=== PATIENT | female | born 1940 | race Caucasian/White ===

== ENCOUNTER 2016-10-19 11:14 | Inpatient (IN) | payer MEDICARE ==
[2016-10-19] MEDS ORDERED: NS 0.9% 1000 ML* 500 ML IV ONE (11:42)
[2016-10-19] MEDS ORDERED: Levofloxacin 750 MG IVPREMIX(* 750 MG/150 ML BAG IVPB ONE (11:44)
[2016-10-19] MEDS ORDERED: Acetaminophen TAB* 325 MG PO ONE (11:44)
[2016-10-19 12:09] LABS: Hematocrit 40 % (35-47); Hemoglobin 13.1 g/dl (12.0-16.0); Mean Corpuscular HGB Conc 33 g/dl (31-36); Mean Corpuscular Hemoglobin 31 pg (27-31); Mean Corpuscular Volume 95 fL (80-97); Mean Platelet Volume 9 um3 (7.4-10.4); Red Blood Count 4.18 10^6/ul (4.0-5.4); Red Cell Distribution Width 16 % (10.5-15); White Blood Count 8.9 10^3/ul (3.5-10.8)
[2016-10-19 12:12] LABS: Comments Flag Yes
[2016-10-19 12:13] LABS: Add Diff/Slide Review? Slide Review Added
[2016-10-19 12:25] LABS: Albumin 3.1 g/dL (3.2-5.2); BUN/Creatinine Ratio 13.3 (8-20); C Reactive Protein 109.9 mg/L (< 5.00); Calcium 8.7 mg/dL (8.6-10.3); EGFR African American 49.2 (>60); EGFR Non-African American 38.2 (>60); Globulin 3.7 g/dL (2-4); Total Bilirubin 2.7 mg/dL (0.2-1.0); Total Protein 6.8 g/dL (6.4-8.9)
[2016-10-19 12:35] LABS: Troponin I 0.04 ng/mL (<0.04)
[2016-10-19] MEDS ORDERED: Ondansetron INJ* 2 MG/ML VIAL IV ONE (14:11)
--- NOTE | 2016-10-19 14:20 | RAD ---
Indication: Tibial fracture. 2 views of the chest demonstrates no mediastinal shift. Heart is of normal size and configuration. Lungs are clear. When compared to previous exam of September 01, 2016 no significant change is noted. IMPRESSION: No active cardiopulmonary disease is noted.
[2016-10-19] MEDS ORDERED: Ondansetron INJ* 2 MG/ML VIAL IV PRN (16:08)
[2016-10-19] MEDS ORDERED: ACETAMINOPHEN 1000 MG PO PRN (16:12)
[2016-10-19] MEDS ORDERED: Nystatin OINT* 15 GM TOPICAL PRN (16:12)
[2016-10-19] MEDS ORDERED: Nystatin TOP POWDER* 15 GM BTL TOPICAL PRN (16:12)
[2016-10-19] MEDS ORDERED: Dextrose 50% Syringe 50 ML* 25 GM/50 ML SYRINGE IV PUSH PRN (16:13)
[2016-10-19] MEDS ORDERED: NS 0.9% 1000 ML* 1,000 ML IV SCH (16:15)
[2016-10-19 16:43] LABS: Urine Bacteria 3+ (Absent); Urine Bilirubin Negative (Negative); Urine Glucose Negative (Negative); Urine Nitrite Negative (Negative)
[2016-10-19] MEDS: Benzonatate CAP* 100 MG PO PRN (18:10)
[2016-10-19] MEDS: Insulin LISPRO* 1 UNITS UNIT SUBCUT SCH (18:10)
[2016-10-19] MEDS: Senna TAB PO PRN (18:13)
--- NOTE | 2016-10-19 18:13 | ED ---
Laz Duong Billy, scribed for Jose Roberto Jacinto MD on 10/19/16 at 1139 . Respiratory - HPI Summary HPI Summary: Patient is a 76 year-old female coming to [facility] for evaluation of intermittent fever, coughing, headache, nausea, and vomiting for the last 2 days. TMax 101F. She also reports chest tightness. Denies abdominal pain, diarrhea, or constipation. - History of Current Complaint Chief Complaint: EDShortnessOfBreath Stated Complaint: SOB Time Seen by Provider: 10/19/16 11:36 Hx Obtained From: Patient Onset/Duration: Gradual Onset, Lasting Days Timing: Constant Initial Severity: Moderate Current Severity: Moderate Pain Intensity: 8 Character: Cough (Nonproductive) Sputum Amount: None Aggravating Factor(s): Nothing Alleviating Factor(s): Nothing Associated Signs and Symptoms: Fever, Chest Pain - tightness - Allergy/Home Medications Allergies/Adverse Reactions: Allergies Allergy/AdvReac Type Severity Reaction Status Date / Time Adhesive Tape Allergy Mild Hives Verified 09/14/16 13:41 Cephalexin [From Keflex] Allergy Mild Hives Verified 09/14/16 13:41 Codeine Allergy Mild Hives Verified 09/14/16 13:41 Hydrochlorothiazide Allergy Mild Hives Verified 09/14/16 13:41 Hydrocodone Allergy Mild Hives Verified 09/14/16 13:41 Latex Allergy Mild Hives Verified 09/14/16 13:41 Oxycodone Allergy Mild Hives Verified 09/14/16 13:41 Penicillins Allergy Mild Hives Verified 09/14/16 13:41 Statins Allergy Mild Hives Verified 09/14/16 13:41 Carvedilol Allergy Facial Verified 09/14/16 13:41 Redness/Flushing Hydromorphone [From Dilaudid] Allergy Unknown Verified 09/14/16 13:41 Reaction Details Morphine Allergy Rash Verified 09/14/16 13:41 Ondansetron [From Zofran] Allergy Rash Verified 09/14/16 13:41 Tramadol Allergy Unknown Verified 09/14/16 13:41 Reaction Details Urtica Dioica Allergy Rash Verified 09/14/16 13:41 Doxycycline AdvReac Diarrhea Verified 09/14/16 23:18 Nitrofurantoin AdvReac Nausea And Verified 09/14/16 23:18 [From Macrobid] Vomiting Home Medications: Home Medications Acetaminophen [Acetaminophen Extra Stren] 1,000 mg PO BEDTIME PRN 10/19/16 [ History Confirmed 10/19/16] Acetaminophen [Acetaminophen Extra Stren] 1,000 mg PO BID PRN 10/19/16 [History Confirmed 10/19/16] Cholecalciferol TAB* [Vitamin D TAB*] 2,000 units PO DAILY 10/19/16 [History Confirmed 10/19/16] Cyanocobalamin TAB* [Vitamin B12 TAB*] 1,000 mcg PO DAILY 10/19/16 [History Confirmed 10/19/16] Furosemide TAB* [Lasix TAB*] 40 mg PO DAILY 10/19/16 [History Confirmed 10/19/16 ] Insulin Aspart Protamine & Asp [Novolog Mix 70/30 (70-30) 100 Unit/ml] 10 units SUBCUT 1200 10/19/16 [History Confirmed 10/19/16] Insulin Glargine [Lantus] 55 unit SUBCUT QAM 10/19/16 [History Confirmed ] Nystatin OINT* 1 applic TOPICAL Q12HR PRN 10/19/16 [History Confirmed 10/19/16] Nystatin TOP POWDER* 1 applic TOPICAL Q12HR PRN 10/19/16 [History Confirmed ] Omeprazole CAP* [Prilosec CAP* 20 MG] 20 mg PO DAILY 10/19/16 [History Confirmed 10/19/16] Sennosides-Docusate Sodium [Senokot S] 2 tab PO BEDTIME PRN 10/19/16 [History Confirmed 10/19/16] Throat Lozenges [Kline Cough Drops] 1 mauro PO Q2HR PRN 10/19/16 [History Confirmed 10/19/16] guaiFENesin LIQ* [Robitussin*] 15 ml PO Q4H PRN 10/19/16 [History Confirmed ] PMH/Surg Hx/FS Hx/Imm Hx Endocrine/Hematology History: Reports: Hx Diabetes Denies: Hx Systemic Lupus Erythematosus, Hx Thyroid Disease Cardiovascular History: Reports: Hx Angina, Hx Hypercholesterolemia, Hx Hypertension, Other Cardiovascular Problems/Disorders - IRREGULAR HEART BEAT Denies: Hx Congestive Heart Failure, Hx Pacemaker/ICD Respiratory History: Denies: Hx Asthma, Hx Chronic Obstructive Pulmonary Disease (COPD) GI History: Reports: Hx Diverticulosis, Hx Gastroesophageal Reflux Disease, Other GI Disorders - gerd and diverticulosis/itis Denies: Hx Ulcer History: Reports: Hx Kidney Stones, Other Problems/Disorders - stones Denies: Hx Dialysis, Hx Renal Disease Musculoskeletal History: Reports: Other Musculoskeletal History - arthritis and disc problems Denies: Hx Rheumatoid Arthritis, Hx Osteoporosis Sensory History: Reports: Hx Contacts or Glasses Denies: Hx Hearing Aid Opthamlomology History: Reports: Hx Contacts or Glasses Psychiatric History: Denies: Hx Panic Disorder - Cancer History Hx Chemotherapy: No - Surgical History Surgery Procedure, Year, and Place: rotator cuff x3; varicose vein; cholecystectomy; Prolapsed uterus and bladder repair with mesh. Hx Anesthesia Reactions: No - Immunization History Date of Tetanus Vaccine: None Date of Influenza Vaccine: Fall 2014 Infectious Disease History: Yes Infectious Disease History: Reports: Hx Hepatitis - as a child Denies: Hx Clostridium Difficile, Hx Human Immunodeficiency Virus (HIV), Hx of Known/Suspected MRSA, Hx Shingles, Hx Tuberculosis, Hx Known/Suspected VRE, Hx Known/Suspected VRSA, History Other Infectious Disease, Traveled Outside the [place] in Last 30 Days - Family History Known Family History: Positive: Hypertension - Social History Alcohol Use: None Substance Use Type: Reports: None Hx Tobacco Use: No Smoking Status (MU): Never Smoked Tobacco Have You Smoked in the Last Year: No Review of Systems Positive: Fever Respiratory: Other - chest tightness Positive: Cough Positive: Vomiting, Nausea. Negative: Abdominal Pain, Diarrhea All Other Systems Reviewed And Are Negative: Yes Physical Exam - Summary Physical Exam Summary: VITAL SIGNS: Reviewed. GENERAL: Patient is a well developed and nourished female with some distress secondary to the shortness of breath. However, she is able to speak in full sentences. HEAD AND FACE: Normocephalic and atraumatic. EYES: PERRLA, EOMI x 2, No injected conjunctiva. EARS: Hearing grossly intact. Ear canals and tympanic membranes WNL MOUTH: Dry oral mucosa. NECK: Supple, trachea is midline, no adenopathy, no JVD, no carotid bruit. CHEST: Symmetric, No intercostal or abdominal retraction, LUNGS: Diffuse bilateral wheezing and decreased breath sounds.No crackles. CVS: RRR,, S1 and S2 present, no murmurs or gallops appreciated. ABDOMEN: Soft, non-tender. No signs of distention. Positive BS. No rebound, no guarding, and no masses palpated. EXTREMITIES: FROM in all major joints, no edema, no cyanosis or clubbing. NEURO: Alert and oriented x 3. No acute neurological deficits. Speech is normal and follows commands. SKIN: Dry and warm Triage Information Reviewed: Yes Vital Signs On Initial Exam: Initial Vitals Temp Pulse Resp BP 101.5 F 99 22 115/53 10/19/16 11:17 10/19/16 11:17 10/19/16 11:17 10/19/16 11:17 Vital Signs Reviewed: Yes - Jones Coma Scale Coma Scale Total: 15 Diagnostics - Vital Signs Vital Signs Temp Pulse Resp BP Pulse Ox 10/19/16 11:27 101.5 F 101 22 116/50 96 10/19/16 11:17 101.5 F 99 22 115/53 - Laboratory Result Diagrams: 10/19/16 11:45 10/19/16 11:45 Lab Statement: Any lab studies that have been ordered have been reviewed, and results considered in the medical decision making process. - Radiology CXR Xray Interpretation: No Acute Changes Radiology Interpretation Completed By: Radiologist - EKG 1241 EKG Interpretation: NSR 85 bpm, no STEMI Disposition - Course Assessment/Plan: Patient is a 76 year-old female coming to [facility] for evaluation of intermittent fever, coughing, headache, nausea, and vomiting for the last 2 days. TMax 101F. She also reports chest tightness. Denies abdominal pain, diarrhea, or constipation. Bloodwork WNL except for left shift neutrophil of 85.3, creatinine of 1.35, glucose of 150. Lactic acid is 3.0. Total creatine kinase 654, trop 0.04, CRP 109.90. UA is contaminated. CXR shows no acute pathology. On pysical exam, she had right lower lobe crackles so I believe she has clinical pneumoniua. The patient has fever, yellowish sputum, and increased CRP. At this time, I started her on Levaquin. She was also given ASA since her troponin was elevated. I discussed my physical exam findings with Dr. Fabian who accepted the patient for admission. - Differential Dx - Cardiopulmonary Differential Diagnoses - Cardiopulmonary: Bronchitis, Exacerbation Of COPD - Diagnoses Provider Diagnoses: clinical pneumonia, Increased troponin r/o ACS - Physician Notifications Discussed Care Of Patient With: Dr. Fabian (hospitalist) at 1435: accepts admission. Discharge - Discharge Plan Condition: Stable Disposition: ADMITTED TO [facility] The documentation as recorded by the Laz hsieh Billy accurately reflects the service I personally performed and the decisions made by me, Jose Roberto Jacinto MD.
[2016-10-19] MEDS: Insulin GLARGINE(*) 1 UNITS UNIT SUBCUT SCH (20:50)
[2016-10-19] MEDS ORDERED: guaiFENesin ER TAB 600 MG PO SCH (21:00)
[2016-10-19] MEDS: Heparin VIAL(*) 5000 UNITS/ML VIAL (FIVE THOUSAND) SUBCUT SCH (21:55)
[2016-10-19] MEDS: Acetaminophen TAB* 325 MG PO PRN (22:05)
[2016-10-19] MEDS: guaiFENesin LIQ* 100 MG/5 ML UDC PO PRN (22:08)
--- NOTE | 2016-10-19 23:48 | HP ---
HISTORY AND PHYSICAL: DATE OF ADMISSION: 10/19/16 The patient is a resident of [facility]. CHIEF COMPLAINT: Cough. HISTORY OF PRESENT ILLNESS: Ms. Atkinson is a pleasant 76-year-old female with a past medical history of hypertension, hyperlipidemia, anemia, nonalcoholic cirrhosis with varices, GERD, diabetes, who presents to the hospital with a cough and fever. The patient states that she has been at [facility] for about a month. She has been there for rehab due to a knee injury and recently found that she actually had a tibial plateau fracture on the right side. For the past few days, she has had worsening cough and developed fevers. She states Sunday night the symptoms began with a dry cough and then yesterday she felt like she had a sore throat and the cough persisted. She was unable to get much sleep last night and was found to have a fever of 102 this morning. She denies any runny nose or sinus congestion, reports some chest tightness with the cough, but no shortness of breath. She has had some nausea and no emesis. She also reports the headache and some dizziness. Apparently, the patient's has had some nasal congestion too. He is a resident at [facility] as well, but his symptoms resolved 4 to 5 days ago. PAST MEDICAL HISTORY: Diabetes, GERD, cirrhosis, varices, hypertension, hyperlipidemia, anemia. PAST SURGICAL HISTORY: Prolapsed uterus repair, humerus fracture, laparoscopic cholecystectomy, rotator cuff surgery. HOME MEDICATIONS: 1. Vitamin B12 1000 mcg by mouth daily. 2. Vitamin D 2000 units by mouth daily. 3. Tylenol 1000 mg by mouth 2 times daily as needed for pain. 4. Tylenol 1000 mg by mouth at bedtime as needed for pain. 5. Throat lozenges 1 lozenge every 2 hours as needed for sore throat. 6. Spironolactone 50 mg by mouth daily. 7. Senna/docusate 2 tablets by mouth at bedtime as needed for constipation. 8. Omeprazole 20 mg by mouth daily. 9. Nystatin topical powder 1 application topical every 12 hours as needed for rash. 10. NovoLog 70/30 10 units subcutaneous at noon. 11. Lantus 55 units subcu every morning, 45 units subcu at bedtime. 12. Robitussin 15 mL by mouth every 4 hours as needed for cough. 13. Lasix 40 mg by mouth daily. ALLERGIES: ADHESIVE TAPE, KEFLEX, CODEINE, HYDROCHLOROTHIAZIDE, HYDROCODONE, LATEX, OXYCODONE, PENICILLIN, STATINS, CARVEDILOL, HYDROMORPHONE, MORPHINE, ONDANSETRON, TRAMADOL, URTICA DIOICA, DOXYCYCLINE, NITROFURANTOIN. FAMILY HISTORY: The patient is adopted. SOCIAL HISTORY: The patient never smoked cigarettes. Denies any illicit drug use or alcohol use. REVIEW OF SYSTEMS: A 12-point review of systems is negative except for that is noted in the HPI. PHYSICAL EXAMINATION GENERAL: The patient is a pleasant elderly female, lying in bed, in no apparent distress with frequent barking cough. VITAL SIGNS: On admission, temperature 101.5, heart rate of 99, respiratory rate 22, O2 saturation 96% on 4 L, blood pressure 115/53. HEENT: Head normocephalic, atraumatic. Eyes: Pupils are equal, round, and reactive to light and accommodation. Anicteric sclerae. ENT: The patient reports some maxillary sinus tenderness on palpation. No discharge noted. Posterior oropharynx is clear. Nonerythematous. Does have a slight possible thrush on her tongue. LUNGS: The patient with some slight expiratory rhonchi throughout the left side , rales in the right lower lung field. Frequent cough, nonlabored breathing. CARDIOVASCULAR: Regular rate and rhythm. S1 and S2 present. No murmurs, gallops, or rubs. ABDOMEN: Obese, soft, nontender, and nondistended. Bowel sounds positive. EXTREMITIES: No cyanosis, clubbing, or edema. NEUROLOGIC: The patient is alert and oriented x3. No focal neurological deficits. SKIN: Warm and dry well perfused. LABS AND DIAGNOSTICS: White blood cell count of 8.9, hematocrit of 40, and platelets of 95. Sodium of 134, potassium 4.0, chloride of 104, carbon dioxide of 20, BUN of 18, creatinine 1.35, glucose of 150, lactic acid of 3.0, total bilirubin 2.7, AST of 74, AST of 31, alkaline phosphatase 124, CK of 654, CK-MB of 2.6, troponin 0.04. CRP of 109. B natriuretic peptide of 234. EKG, personally reviewed, shows normal sinus rhythm with occasional bigeminy. No significant changes from previous EKG. Chest x-ray, personally reviewed, read as no acute disease. However, it seems like there may be some right-sided fluffiness in the lower lung acuna. ASSESSMENT AND PLAN: Acute hypoxic respiratory failure secondary to community- acquired pneumonia in a 76-year-old female with past medical history of hypertension, hyperlipidemia, cirrhosis, diabetes, gastroesophageal reflux disease. 1. Acute hypoxic respiratory failure secondary to community-acquired pneumonia. The patient is currently on 4 L of oxygen and requires none at home. Despite a normal chest x-ray, I agree with Dr. Jacinto' assessment with abnormal lung sounds in the right lower lobe along with her fever and elevated lactic acid, we will treat this as a bacterial infection. She received a dose of Levaquin in the emergency department. I will check a procalcitonin as there is a chance this could be viral as well. We will try to wean the patient's oxygen as able. We will write for p.r.n. nebulizer as well, some supportive therapy for cough. We will place the patient on some maintenance IV fluids and hold her Lasix for now. 2. Elevated CK, unclear etiology. Perhaps, it has been from the patient's lack of activity and mobility lately due to her fracture. We will repeat in the morning. 3. Tibial plateau fracture just diagnosed in the past few weeks on MRI. The patient is nonweightbearing in the lower extremity. 4. Diabetes. Continue the patient's home Lantus. We will write for Humalog sliding scale. 5. Gastroesophageal reflux disease. Continue PPI. 6. Hypertension. Holding the patient's home Lasix for now. We will continue spironolactone. 7. DVT prophylaxis. Heparin subcu. 8. Code status. The patient is a DNR. TIME SPENT: Total time spent on this admission 45 minutes with over half the time spent [id number] with the patient counseling and coordinating care. [id number]/[facility] #: [id number] CONRAD
[2016-10-20] MEDS: guaiFENesin LIQ* 100 MG/5 ML UDC PO PRN ×4 (03:13→21:44)
[2016-10-20] MEDS: Heparin VIAL(*) 5000 UNITS/ML VIAL (FIVE THOUSAND) SUBCUT SCH ×3 (05:50→21:44)
[2016-10-20 07:29] LABS: Albumin 2.5 g/dL (3.2-5.2); BUN/Creatinine Ratio 18.4 (8-20); Calcium 8.1 mg/dL (8.6-10.3); EGFR African American 59.8 (>60); EGFR Non-African American 46.5 (>60); Globulin 3.1 g/dL (2-4); Potassium 4.2 mmol/L (3.5-5.0); Total Bilirubin 2.3 mg/dL (0.2-1.0); Total Protein 5.6 g/dL (6.4-8.9)
[2016-10-20] MEDS: Insulin LISPRO* 1 UNITS UNIT SUBCUT SCH ×3 (08:12→17:48)
[2016-10-20] MEDS: Insulin GLARGINE(*) 1 UNITS UNIT SUBCUT SCH ×2 (08:46→20:51)
[2016-10-20] MEDS: Cholecalciferol TAB* 1000 UNITS PO SCH (08:47)
[2016-10-20] MEDS: Omeprazole CAP* 20 MG PO SCH (08:47)
[2016-10-20] MEDS: Spironolactone TAB* 25 MG PO SCH (08:47)
[2016-10-20] MEDS: Cyanocobalamin TAB* 500 MCG PO SCH (08:47)
[2016-10-20] MEDS ORDERED: Hydrocortisone 1% CREAM* 30 GM TUBE TOPICAL ONE (09:55)
--- NOTE | 2016-10-20 10:01 | PN ---
Subjective Date of Service: 10/20/16 Interval History: Patient seen this morning. Fever resolved. Feels better today, cough is breaking up and improving. Good PO intake. Still not much energy, denies SOB but requiring O2. Family History: Unchanged from Admission Social History: Unchanged from Admission Past Medical History: Unchanged from Admission Objective Active Medications: Acetaminophen (Tylenol Tab*) 975 mg PO BID PRN Albuterol (Ventolin 2.5 Mg/3 Ml Neb.Carly*) 2.5 mg INH Q4H PRN Benzonatate (Tessalon Cap*) 100 mg PO BID PRN Cholecalciferol (Vitamin D Tab*) 2,000 units PO DAILY SAMANTHA Cyanocobalamin (Vitamin B12 Tab*) 1,000 mcg PO DAILY SAMANTHA Dextrose (D50w Syringe 50 Ml*) 12.5 gm IV PUSH .FOR FS < 60 - SS PRN Guaifenesin (Robitussin*) 5 ml PO Q4H PRN Heparin Sodium (Porcine) (Heparin Vial(*)) 5,000 units SUBCUT Q8HR SAMANTHA Hydrocortisone (Hytone Cream 1%*) 1 applic TOPICAL ONCE ONE Levofloxacin/Dextrose (Levaquin 250 Mg Ivpremx(*)) 250 mg in 50 mls @ 50 mls/ hr IVPB Q24H SAMANTHA Insulin Glargine (Lantus(*)) 55 units SUBCUT QAM SAMANTHA Insulin Glargine (Lantus(*)) 45 units SUBCUT BEDTIME SAMANTHA Insulin Human Lispro (Humalog*) 0 - 15 units SUBCUT AC SAMANTHA Nystatin (Nystatin Oint*) 1 applic TOPICAL Q12HR PRN Nystatin (Nystatin Top Powder*) 1 applic TOPICAL Q12HR PRN Omeprazole (Prilosec Cap*) 20 mg PO DAILY SAMANTHA Ondansetron HCl (Zofran Inj*) 4 mg IV Q4H PRN Senna (Senokot Tab*) 2 tab PO BEDTIME PRN Spironolactone (Aldactone Tab*) 50 mg PO DAILY [facility] Vital Signs 10/19/16 10/19/16 10/19/16 16:52 17:00 18:17 Temperature 101.1 F 101.1 F 98.6 F Pulse Rate 87 87 Respiratory 32 32 Rate Blood Pressure 122/42 122/42 (mmHg) O2 Sat by Pulse 96 96 Oximetry 10/20/16 10/20/16 10/20/16 03:12 03:14 07:35 Temperature 98.2 F Pulse Rate 44 89 45 Respiratory 18 Rate Blood Pressure 102/37 110/43 (mmHg) O2 Sat by Pulse 96 99 Oximetry Oxygen Devices in Use Now: Nasal Cannula - 4L Appearance: Elderly, F, laying in bed in NAD Eyes: No Scleral Icterus Ears/Nose/Mouth/Throat: Mucous Membranes Moist Neck: NL Appearance and Movements; NL JVP Respiratory: Symmetrical Chest Expansion and Respiratory Effort, - - Coarse BS throughout L lung exp>inp, coarse rales in RLL field Cardiovascular: NL Sounds; No Murmurs; No JVD, RRR Abdominal: NL Sounds; No Tenderness; No Distention Lymphatic: No Cervical Adenopathy Extremities: No Edema Skin: No Rash or Ulcers Neurological: Alert and Oriented x 3 Result Diagrams: 10/19/16 11:45 10/20/16 06:58 Microbiology and Other Data: Microbiology 10/19/16 18:15 Nasal Screen MRSA (PCR)([facility]ISON) - Final Nasal Mrsa Negative Assess/Plan/Problems-Billing Assessment: Acute hypoxic respiratory failure 2/2 CAP in a 76 yo F with hx of HTN, HLD, cirrhosis, DM, GERD - Patient Problems (1) Acute respiratory failure with hypoxia Current Visit: Yes Comment: 2/2 CAP. Procalcitonin elevated, still requiring O2, wean as able. Continue IV Levaquin (renal dosed), continue supportive care with guaifenesin and prn nebs. Stop IVF. (2) Rhabdomyolysis Current Visit: Yes Comment: Resolving, will stop IVF, encourage PO intake (3) Tibial plateau fracture, right Current Visit: Yes Comment: RLGermán NWB (4) Diabetes Current Visit: No Code(s): E11.9 - TYPE 2 DIABETES MELLITUS WITHOUT COMPLICATIONS Comment: Continue Lantus and Lispro SS. (5) GERD (gastroesophageal reflux disease) Current Visit: No Comment: PPI (6) Hypertension Current Visit: No Comment: Continue Spironolactone, holding Lasix (7) DVT prophylaxis Current Visit: No Comment: SQ heparin. Status and Disposition: Inpatient for CAP, hypoxic respiratory failure
[2016-10-20] MEDS ORDERED: Levofloxacin 500 MG IVPREMIX(* 500 MG/100 ML BAG IVPB SCH (13:00)
[2016-10-20] MEDS: Levofloxacin 250 MG IVPREMX(*) 250 MG/50 ML BAG IVPB SCH (13:17)
[2016-10-20] MEDS: Hydrocortisone 1% CREAM* 30 GM TUBE TOPICAL SCH (20:50)
[2016-10-20] MEDS: Acetaminophen TAB* 325 MG PO PRN (21:48)
[2016-10-21] MEDS: Heparin VIAL(*) 5000 UNITS/ML VIAL (FIVE THOUSAND) SUBCUT SCH ×3 (05:54→21:51)
[2016-10-21] MEDS: Insulin LISPRO* 1 UNITS UNIT SUBCUT SCH ×3 (09:08→17:32)
[2016-10-21] MEDS: predniSONE TAB* 20 MG PO SCH (09:17)
[2016-10-21] MEDS: Cyanocobalamin TAB* 500 MCG PO SCH (09:17)
[2016-10-21] MEDS: Spironolactone TAB* 25 MG PO SCH (09:18)
[2016-10-21] MEDS: Omeprazole CAP* 20 MG PO SCH (09:18)
[2016-10-21] MEDS: Cholecalciferol TAB* 1000 UNITS PO SCH (09:18)
[2016-10-21] MEDS: Insulin GLARGINE(*) 1 UNITS UNIT SUBCUT SCH ×2 (09:18→20:39)
[2016-10-21] MEDS: Hydrocortisone 1% CREAM* 30 GM TUBE TOPICAL SCH ×2 (09:19→20:28)
--- NOTE | 2016-10-21 10:30 | PN ---
Subjective Date of Service: 10/21/16 Interval History: Patient seen this morning. Says she thinks she is moving in the right direction. Cough continues but is breaking up. Still with chest pain when coughing. Appetite is "OK". No fever or chills. Family History: Unchanged from Admission Social History: Unchanged from Admission Past Medical History: Unchanged from Admission Objective Active Medications: Acetaminophen (Tylenol Tab*) 975 mg PO BID PRN Albuterol (Ventolin 2.5 Mg/3 Ml Neb.Carly*) 2.5 mg INH Q4H PRN Benzonatate (Tessalon Cap*) 100 mg PO BID PRN Cholecalciferol (Vitamin D Tab*) 2,000 units PO DAILY SAMANTHA Cyanocobalamin (Vitamin B12 Tab*) 1,000 mcg PO DAILY SAMANTHA Dextrose (D50w Syringe 50 Ml*) 12.5 gm IV PUSH .FOR FS < 60 - SS PRN Guaifenesin (Robitussin*) 5 ml PO Q4H PRN Heparin Sodium (Porcine) (Heparin Vial(*)) 5,000 units SUBCUT Q8HR SAMANTHA Hydrocortisone (Hytone Cream 1%*) 1 applic TOPICAL BID SAMANTHA Levofloxacin/Dextrose (Levaquin 250 Mg Ivpremx(*)) 250 mg in 50 mls @ 50 mls/ hr IVPB Q24H SAMANTHA Insulin Glargine (Lantus(*)) 55 units SUBCUT QAM SAMANTHA Insulin Glargine (Lantus(*)) 45 units SUBCUT BEDTIME SAMANTHA Insulin Human Lispro (Humalog*) 0 - 15 units SUBCUT AC SAMANTHA Nystatin (Nystatin Oint*) 1 applic TOPICAL Q12HR PRN Nystatin (Nystatin Top Powder*) 1 applic TOPICAL Q12HR PRN Omeprazole (Prilosec Cap*) 20 mg PO DAILY SAMANTHA Ondansetron HCl (Zofran Inj*) 4 mg IV Q4H PRN Prednisone (Deltasone Tab*) 40 mg PO DAILY SAMANTHA Senna (Senokot Tab*) 2 tab PO BEDTIME PRN Spironolactone (Aldactone Tab*) 50 mg PO DAILY [facility] Vital Signs 10/20/16 10/20/16 10/20/16 15:42 19:57 20:00 Temperature 98.9 F 99.6 F Pulse Rate 89 87 Respiratory 18 19 Rate Blood Pressure 111/56 120/49 (mmHg) O2 Sat by Pulse 99 99 Oximetry 10/20/16 10/21/16 10/21/16 23:43 03:54 06:41 Temperature 99.8 F 98.4 F 98.4 F Pulse Rate 78 68 71 Respiratory 17 17 16 Rate Blood Pressure 109/50 101/47 98/48 (mmHg) O2 Sat by Pulse 99 100 98 Oximetry 10/21/16 10/21/16 07:44 08:00 Temperature 98.4 F Pulse Rate 71 Respiratory 16 Rate Blood Pressure 112/52 (mmHg) O2 Sat by Pulse 100 Oximetry Oxygen Devices in Use Now: Nasal Cannula - 2.5L Appearance: Elderly, F, laying in bed in NAD Eyes: No Scleral Icterus Ears/Nose/Mouth/Throat: Mucous Membranes Moist Neck: NL Appearance and Movements; NL JVP Respiratory: Symmetrical Chest Expansion and Respiratory Effort, - - Diffuse ronchi and coarse BS throughout Cardiovascular: NL Sounds; No Murmurs; No JVD, RRR Abdominal: NL Sounds; No Tenderness; No Distention Lymphatic: No Cervical Adenopathy Extremities: No Edema Skin: No Rash or Ulcers Neurological: Alert and Oriented x 3 Result Diagrams: 10/19/16 11:45 10/20/16 06:58 Microbiology and Other Data: Assess/Plan/Problems-Billing Assessment: Acute hypoxic respiratory failure 2/2 CAP in a 76 yo F with hx of HTN, HLD, cirrhosis, DM, GERD - Patient Problems (1) Acute respiratory failure with hypoxia Current Visit: Yes Comment: 2/2 CAP. Procalcitonin elevated, still requiring O2 but weaning. Continue IV Levaquin (renal dosed), will start oral Prednisone, continue supportive care with guaifenesin and prn nebs. Stop IVF. (2) Rhabdomyolysis Current Visit: Yes Comment: Resolving, will stop IVF, encourage PO intake (3) Tibial plateau fracture, right Current Visit: Yes Comment: WENDY CONTE (4) Diabetes Current Visit: No Code(s): E11.9 - TYPE 2 DIABETES MELLITUS WITHOUT COMPLICATIONS Comment: Continue Lantus and Lispro SS. (5) GERD (gastroesophageal reflux disease) Current Visit: No Comment: PPI (6) Hypertension Current Visit: No Comment: Continue Spironolactone, holding Lasix (7) Elevated troponin Current Visit: Yes Comment: Mild elevation on admission, likely demand from hypoxia, no need to follow (8) DVT prophylaxis Current Visit: No Comment: SQ heparin. Status and Disposition: Inpatient for CAP, hypoxic respiratory failure
[2016-10-21] MEDS: guaiFENesin LIQ* 100 MG/5 ML UDC PO PRN ×2 (10:38→16:49)
[2016-10-21] MEDS: Albuterol 2.5 MG/3 ML NEB.SOL* (0.083%) INH PRN ×2 (10:38→18:19)
[2016-10-21] MEDS: Levofloxacin 250 MG IVPREMX(*) 250 MG/50 ML BAG IVPB SCH (12:17)
[2016-10-21] MEDS: Benzonatate CAP* 100 MG PO PRN (16:45)
[2016-10-21] MEDS: Senna TAB PO PRN (21:52)
[2016-10-21] MEDS ORDERED: Dextrose 50% Syringe 50 ML* 25 GM/50 ML SYRINGE IV PUSH PRN (22:03)
[2016-10-21] MEDS ORDERED: Insulin LISPRO* 1 UNITS UNIT SUBCUT ONE (22:03)
[2016-10-22] MEDS: Heparin VIAL(*) 5000 UNITS/ML VIAL (FIVE THOUSAND) SUBCUT SCH ×3 (05:22→21:27)
[2016-10-22] MEDS: guaiFENesin LIQ* 100 MG/5 ML UDC PO PRN ×4 (05:22→17:35)
--- NOTE | 2016-10-22 07:43 | PN ---
Subjective Date of Service: 10/22/16 Interval History: Patient seen this morning. Had a "coughing fit" overnight with significant SOB, seemed to improve with time and neb. Continues to bring up brownish phlegm. Still feels that she has "rales". No fever. Appetite is moderate. Family History: Unchanged from Admission Social History: Unchanged from Admission Past Medical History: Unchanged from Admission Objective Active Medications: Acetaminophen (Tylenol Tab*) 975 mg PO BID PRN Albuterol (Ventolin 2.5 Mg/3 Ml Neb.Carly*) 2.5 mg INH Q4H PRN Benzonatate (Tessalon Cap*) 100 mg PO BID PRN Cholecalciferol (Vitamin D Tab*) 2,000 units PO DAILY SAMANTHA Cyanocobalamin (Vitamin B12 Tab*) 1,000 mcg PO DAILY SAMANTHA Dextrose (D50w Syringe 50 Ml*) 12.5 gm IV PUSH .FOR FS < 60 - SS PRN Guaifenesin (Robitussin*) 5 ml PO Q4H PRN Heparin Sodium (Porcine) (Heparin Vial(*)) 5,000 units SUBCUT Q8HR SAMANTHA Hydrocortisone (Hytone Cream 1%*) 1 applic TOPICAL BID SAMANTHA Levofloxacin/Dextrose (Levaquin 250 Mg Ivpremx(*)) 250 mg in 50 mls @ 50 mls/ hr IVPB Q24H SAMANTHA Insulin Glargine (Lantus(*)) 55 units SUBCUT QAM SAMANTHA Insulin Glargine (Lantus(*)) 45 units SUBCUT BEDTIME SAMANTHA Insulin Human Lispro (Humalog*) 0 - 15 units SUBCUT AC SAMANTHA Nystatin (Nystatin Oint*) 1 applic TOPICAL Q12HR PRN Nystatin (Nystatin Top Powder*) 1 applic TOPICAL Q12HR PRN Omeprazole (Prilosec Cap*) 20 mg PO DAILY SAMANTHA Ondansetron HCl (Zofran Inj*) 4 mg IV Q4H PRN Prednisone (Deltasone Tab*) 40 mg PO DAILY SAMANTHA Senna (Senokot Tab*) 2 tab PO BEDTIME PRN Spironolactone (Aldactone Tab*) 50 mg PO DAILY SAMANTHA Throat Lozenges (Chloraseptic Alee*) 1 alee PO Q6H PRN Vital Signs 10/21/16 10/21/16 10/21/16 07:44 08:00 15:25 Temperature 98.4 F 98.0 F Pulse Rate 71 75 Respiratory 16 18 Rate Blood Pressure 112/52 112/50 (mmHg) O2 Sat by Pulse 100 96 Oximetry 10/21/16 10/21/16 10/21/16 18:27 19:10 23:48 Temperature 97.6 F Pulse Rate 76 82 Respiratory 18 20 18 Rate Blood Pressure 103/48 (mmHg) O2 Sat by Pulse 97 95 Oximetry 10/22/16 07:29 Temperature 97.6 F Pulse Rate 66 Respiratory Rate Blood Pressure 108/47 (mmHg) O2 Sat by Pulse 96 Oximetry Oxygen Devices in Use Now: None Appearance: Elderly, F, laying in bed in NAD Eyes: No Scleral Icterus Ears/Nose/Mouth/Throat: Mucous Membranes Moist Neck: NL Appearance and Movements; NL JVP Respiratory: Symmetrical Chest Expansion and Respiratory Effort - frequent coughing, - - Rales in LLL field, coarse rales in R middle and lower lung acuna , not much wheezing, seems somewhat improved from yesterday Cardiovascular: NL Sounds; No Murmurs; No JVD, RRR Abdominal: NL Sounds; No Tenderness; No Distention Lymphatic: No Cervical Adenopathy Extremities: No Edema Skin: No Rash or Ulcers Neurological: Alert and Oriented x 3 Result Diagrams: 10/19/16 11:45 10/20/16 06:58 Microbiology and Other Data: Assess/Plan/Problems-Billing Assessment: Acute hypoxic respiratory failure 2/2 CAP in a 76 yo F with hx of HTN, HLD, cirrhosis, DM, GERD - Patient Problems (1) Acute respiratory failure with hypoxia Current Visit: Yes Comment: 2/2 CAP. Weaned off of O2. Still with significant cough and occasional SOB. Continue Levaquin (renally dosed), prednisone, continue supportive care with guaifenesin and prn nebs. (2) Tibial plateau fracture, right Current Visit: Yes Comment: WENDY CONTE (3) Diabetes Current Visit: No Code(s): E11.9 - TYPE 2 DIABETES MELLITUS WITHOUT COMPLICATIONS Comment: BGs elevated with steroids, increase HISS, continue Lantus (4) GERD (gastroesophageal reflux disease) Current Visit: No Comment: PPI (5) Hypertension Current Visit: No Comment: Continue Spironolactone, holding Lasix (6) Elevated troponin Current Visit: Yes Comment: Mild elevation on admission, likely demand from hypoxia, no need to follow (7) DVT prophylaxis Current Visit: No Comment: SQ heparin. Status and Disposition: Inpatient for CAP, hypoxic respiratory failure, potential discharge tomorrow.
[2016-10-22] MEDS: Cholecalciferol TAB* 1000 UNITS PO SCH (08:35)
[2016-10-22] MEDS: Cyanocobalamin TAB* 500 MCG PO SCH (08:35)
[2016-10-22] MEDS: Benzocaine/Menthol LOZ* 1 LOZENGE PO PRN ×2 (08:35→14:14)
[2016-10-22] MEDS: Omeprazole CAP* 20 MG PO SCH (08:35)
[2016-10-22] MEDS: Insulin GLARGINE(*) 1 UNITS UNIT SUBCUT SCH ×2 (08:36→21:27)
[2016-10-22] MEDS: Spironolactone TAB* 25 MG PO SCH (08:36)
[2016-10-22] MEDS: predniSONE TAB* 20 MG PO SCH (08:36)
[2016-10-22] MEDS: Hydrocortisone 1% CREAM* 30 GM TUBE TOPICAL SCH ×2 (08:37→21:26)
[2016-10-22] MEDS: Insulin LISPRO* 1 UNITS UNIT SUBCUT SCH ×3 (09:20→17:35)
[2016-10-22] MEDS: Albuterol 2.5 MG/3 ML NEB.SOL* (0.083%) INH PRN ×2 (10:50→16:30)
[2016-10-22] MEDS: Levofloxacin 250 MG IVPREMX(*) 250 MG/50 ML BAG IVPB SCH (12:49)
--- NOTE | 2016-10-22 19:32 | PN ---
Progress Note - Progress Note Note: Pt should be non-weight bearing on the left as she has a left tibial plateau fracture.
[2016-10-23] MEDS: guaiFENesin LIQ* 100 MG/5 ML UDC PO PRN ×2 (02:30→20:26)
[2016-10-23] MEDS: Heparin VIAL(*) 5000 UNITS/ML VIAL (FIVE THOUSAND) SUBCUT SCH ×3 (05:19→22:04)
[2016-10-23] MEDS: Insulin LISPRO* 1 UNITS UNIT SUBCUT SCH ×4 (07:33→22:41)
[2016-10-23] MEDS: Spironolactone TAB* 25 MG PO SCH (08:23)
[2016-10-23] MEDS: predniSONE TAB* 20 MG PO SCH (08:23)
[2016-10-23] MEDS: Cyanocobalamin TAB* 500 MCG PO SCH (08:24)
[2016-10-23] MEDS: Cholecalciferol TAB* 1000 UNITS PO SCH (08:24)
[2016-10-23] MEDS: Insulin GLARGINE(*) 1 UNITS UNIT SUBCUT SCH ×2 (08:24→20:18)
[2016-10-23] MEDS: Omeprazole CAP* 20 MG PO SCH (08:24)
[2016-10-23] MEDS: Hydrocortisone 1% CREAM* 30 GM TUBE TOPICAL SCH ×2 (08:25→20:17)
--- NOTE | 2016-10-23 09:00 | PN ---
Subjective Date of Service: 10/23/16 Interval History: Patient seen this morning. Still with significant coughing, episodes of SOB. Neb is helpful. No fever or chills. Family History: Unchanged from Admission Social History: Unchanged from Admission Past Medical History: Unchanged from Admission Objective Active Medications: Acetaminophen (Tylenol Tab*) 975 mg PO BID PRN Albuterol (Ventolin 2.5 Mg/3 Ml Neb.Carly*) 2.5 mg INH Q4H PRN Benzonatate (Tessalon Cap*) 100 mg PO BID PRN Cholecalciferol (Vitamin D Tab*) 2,000 units PO DAILY SAMANTHA Cyanocobalamin (Vitamin B12 Tab*) 1,000 mcg PO DAILY SAMANTHA Dextrose (D50w Syringe 50 Ml*) 12.5 gm IV PUSH .FOR FS < 60 - SS PRN Guaifenesin (Robitussin*) 5 ml PO Q4H PRN Heparin Sodium (Porcine) (Heparin Vial(*)) 5,000 units SUBCUT Q8HR SAMANTHA Hydrocortisone (Hytone Cream 1%*) 1 applic TOPICAL BID SAMANTHA Levofloxacin/Dextrose (Levaquin 250 Mg Ivpremx(*)) 250 mg in 50 mls @ 50 mls/ hr IVPB Q24H SAMANTHA Insulin Glargine (Lantus(*)) 55 units SUBCUT QAM SAMANTHA Insulin Glargine (Lantus(*)) 45 units SUBCUT BEDTIME SAMANTHA Insulin Human Lispro (Humalog*) 0 - 15 units SUBCUT AC SAMANTHA Nystatin (Nystatin Oint*) 1 applic TOPICAL Q12HR PRN Nystatin (Nystatin Top Powder*) 1 applic TOPICAL Q12HR PRN Omeprazole (Prilosec Cap*) 20 mg PO DAILY SAMANTHA Ondansetron HCl (Zofran Inj*) 4 mg IV Q4H PRN Prednisone (Deltasone Tab*) 40 mg PO DAILY SAMANTHA Senna (Senokot Tab*) 2 tab PO BEDTIME PRN Spironolactone (Aldactone Tab*) 50 mg PO DAILY SAMANTHA Throat Lozenges (Chloraseptic Alee*) 1 alee PO Q6H PRN Vital Signs 10/22/16 10/22/16 10/22/16 15:46 16:32 20:00 Temperature 98.5 F Pulse Rate 69 80 Respiratory 20 Rate Blood Pressure 118/50 (mmHg) O2 Sat by Pulse 96 97 Oximetry 10/22/16 10/23/16 23:53 07:29 Temperature 97.7 F 97.6 F Pulse Rate 62 60 Respiratory 17 18 Rate Blood Pressure 131/64 105/50 (mmHg) O2 Sat by Pulse 96 95 Oximetry Oxygen Devices in Use Now: None Appearance: Elderly, F, laying in bed with frequent coughing Eyes: No Scleral Icterus Ears/Nose/Mouth/Throat: Mucous Membranes Moist Neck: NL Appearance and Movements; NL JVP Respiratory: Symmetrical Chest Expansion and Respiratory Effort, - - Some coarse rales in lower lung acuna B/L, no wheezing Cardiovascular: NL Sounds; No Murmurs; No JVD, RRR Abdominal: NL Sounds; No Tenderness; No Distention Lymphatic: No Cervical Adenopathy Extremities: No Edema Skin: No Rash or Ulcers Neurological: Alert and Oriented x 3 Result Diagrams: 10/19/16 11:45 10/20/16 06:58 Microbiology and Other Data: Assess/Plan/Problems-Billing Assessment: Acute hypoxic respiratory failure 2/2 CAP in a 76 yo F with hx of HTN, HLD, cirrhosis, DM, GERD - Patient Problems (1) Acute respiratory failure with hypoxia Current Visit: Yes Comment: 2/2 CAP. Weaned off of O2. Still with significant cough and occasional SOB. Continue Levaquin (renally dosed), prednisone, continue supportive care with guaifenesin and prn nebs. (2) Diabetes Current Visit: No Code(s): E11.9 - TYPE 2 DIABETES MELLITUS WITHOUT COMPLICATIONS Comment: BGs elevated with steroids, increase HISS again today, continue Lantus. HbA1c 8% (3) GERD (gastroesophageal reflux disease) Current Visit: No Comment: PPI (4) Hypertension Current Visit: No Comment: Continue Spironolactone, holding Lasix (5) Elevated troponin Current Visit: Yes Comment: Mild elevation on admission, likely demand from hypoxia, no need to follow (6) Tibial plateau fracture, left Current Visit: Yes Comment: VIKA CONTE (7) DVT prophylaxis Current Visit: No Comment: SQ heparin. Status and Disposition: Inpatient for CAP, hypoxic respiratory failure, tentative discharge plan on .
[2016-10-23] MEDS ORDERED: Levofloxacin TAB* 250 MG PO SCH (13:00)
[2016-10-23] MEDS: Albuterol 2.5 MG/3 ML NEB.SOL* (0.083%) INH PRN (20:07)
[2016-10-23] MEDS: Benzocaine/Menthol LOZ* 1 LOZENGE PO PRN ×2 (20:16→20:19)
[2016-10-24] MEDS: Heparin VIAL(*) 5000 UNITS/ML VIAL (FIVE THOUSAND) SUBCUT SCH (05:34)
[2016-10-24] MEDS: Insulin LISPRO* 1 UNITS UNIT SUBCUT SCH (07:22)
[2016-10-24] MEDS: Spironolactone TAB* 25 MG PO SCH (07:45)
[2016-10-24] MEDS: Cholecalciferol TAB* 1000 UNITS PO SCH (07:45)
[2016-10-24] MEDS: predniSONE TAB* 20 MG PO SCH (07:46)
[2016-10-24] MEDS: Cyanocobalamin TAB* 500 MCG PO SCH (07:46)
[2016-10-24] MEDS: Omeprazole CAP* 20 MG PO SCH (07:46)
[2016-10-24] MEDS: Hydrocortisone 1% CREAM* 30 GM TUBE TOPICAL SCH (07:47)
[2016-10-24 07:50] VITALS: BP 108/45
[2016-10-24] MEDS: Insulin GLARGINE(*) 1 UNITS UNIT SUBCUT SCH (08:10)
--- NOTE | 2016-10-24 09:27 | DS ---
DISCHARGE SUMMARY: DATE OF ADMISSION: 10/19/16 DATE OF DISCHARGE: 10/24/16 PRIMARY CARE PROVIDER: Dr. Claudine Mnuoz. PRIMARY DIAGNOSIS: Pneumonia. SECONDARY DIAGNOSES: Include: 1. Insulin-dependent type 2 diabetes. 2. History of gastroesophageal reflux disease. 3. History of nonalcoholic steatohepatitis with cirrhosis. 4. History of hypertension. 5. History of hyperlipidemia and anemia. 6. History of left tibial plateau fracture. MEDICATIONS ON DISCHARGE: 1. Vitamin B12 1000 mcg daily. 2. Vitamin D 2000 units daily. 3. Acetaminophen 1000 mg twice daily as needed. 4. Acetaminophen 1000 mg at bedtime as needed. 5. Kline cough drops, one lozenge every 2 hours as needed. 6. Senna/docusate 2 tablets at bedtime as needed for constipation. 7. Omeprazole 20 mg daily. 8. Nystatin powder. 9. Nystatin ointment twice daily as needed. 10. NovoLog 70/30, 10 units at noon. 11. Insulin glargine 55 units in the morning and 45 units at bedtime. 12. Guaifenesin 15 mL every 4 hours as needed for cough. 13. Prednisone 40 mg daily for 3 days, then decrease to 20 mg for 5 days, then stop. 14. Spironolactone 25 mg, please note decreased from 50 mg daily. 15. Levaquin 250 mg daily renally dosed, to complete 10 day course of antibiotics. The patient has 6 additional days upon discharge. 16. Lasix 20 mg daily. Please note, decreased from 40 mg daily. 17. Tessalon Perles 100 mg 3 times a day for 7 days. 18. Benzocaine menthol lozenges one every hour as needed for cough. 19. Albuterol nebulizer every 4 hours as needed for shortness of breath. FOLLOWUP INSTRUCTIONS: At follow up please; 1. Evaluate breathing. Extend antibiotics as deemed necessary. She completes 10 days of antibiotics. 2. Please note, spironolactone is decreased from 50 to 25, and Lasix is decreased from 40 to 20. During the hospital stay, the patient largely remained on the spironolactone 50 and not on Lasix. The changes noted above were done in order to enable the patient to resume Lasix upon discharge without developing hypotension. 3. No other specific labs or vitals that need followup, except for routine care including management of diabetes. PERTINENT LABORATORY DATA: During hospital stay, white blood cell count on presentation 8.9, lactic acid 3.0, creatinine 1.35 decreased to 1.14, procalcitonin 1.2. Hemoglobin A1c is 8.0. PERTINENT IMAGING: Chest x-ray showed there is no active cardiopulmonary disease in contrast to significant rales heard on exam. HISTORY OF PRESENT ILLNESS AND HOSPITAL COURSE: This is a 76-year-old woman with a past medical history as outlined in the history of present illness on the day of admission, presented to the hospital with cough and fever found clinically to have pneumonia. She presented from [facility]. She was started on Levaquin and her fevers, present on admission up to 101.5, abated, with last fever on 10/19/16. She remained afebrile since the 10/19/16 until the day of discharge. Her cough continued, changed from dry to more productive. She had been on room air for over 48 hours prior to discharge. Her shortness of breath had improved, although does have some shortness of breath with ambulation. She was felt ready and stable for discharge back to [facility]. Upon discharge to [facility], the patient will continue antibiotics and steroid course. Antibiotics will be continued for 6 additional days. Steroids are going to be continued for an additional 8 days, with a rapid taper from 40 to 20 mg, then off. Changes indicated above were made to her Aldactone in order to resume her Lasix upon discontinuation to assist with any potential volume overload that develop during the course of the hospital stay, contributing to her continued cough. On the day of discharge, the patient had rhonchi on the right base of three quarters. She had good air movement. She is in no distress, able to ambulate, and she is on room air. She has trace to 1+ lower extremity edema, greatest in bilateral ankles. Please follow as indicated at the top of this document. Reasons to return to the hospital including, but not limited to, recurrent or worsening symptoms cough, shortness of breath, chest pain, lightheadedness, resumption of fevers, nausea, vomiting, loss of consciousness, near loss of consciousness, bleeding from any source, diarrhea, inability to obtain or tolerate medications were discussed with the patient. She acknowledged understanding. This is complicated hospital stay, please refer to the complete medical record for further details surrounding the patient's hospital course. TIME SPENT: Greater than 60 minutes were spent on the discharge of this patient , with greater than half the time spent [id number] with the patient. CC: Dr. Claudine Munoz* [id number]/[facility] #: [id number] MTDD
== END 2016-10-24 10:05 | DRG 193 ==
LOC: ED 11:14 → MED 14:38
PROVIDERS: ADMIT Hospitalist; ATTEND Internal Medicine
DX: J18.9 Pneumonia, unspecified organism (principal); J96.01 Acute respiratory failure with hypoxia; M62.82 Rhabdomyolysis; E11.9 Type 2 diabetes mellitus without complications; Z79.4 Long term (current) use of insulin; K21.9 Gastro-esophageal reflux disease without esophagitis; K75.81 Nonalcoholic steatohepatitis (NASH); K74.60 Unspecified cirrhosis of liver; I10 Essential (primary) hypertension; E78.5 Hyperlipidemia, unspecified; S82.144D Nondisplaced bicondylar fracture of right tibia, subsequent encounter for closed fracture with routine healing; X58.XXXD Exposure to other specified factors, subsequent encounter; Z79.1 Long term (current) use of non-steroidal anti-inflammatories (NSAID); Z79.899 Other long term (current) drug therapy; Z88.0 Allergy status to penicillin; Z88.8 Allergy status to other drugs, medicaments and biological substances; Z88.5 Allergy status to narcotic agent; Z91.040 Latex allergy status; R74.8 Abnormal levels of other serum enzymes
CPT/HCPCS: 36415; 71020; 80053; 81003; 81015; 82550; 82553; 82947; 83036; 83605; 83880; 84145; 84484; 85025; 86140; 87040; 87070; 87086; 87205; 87641; 93005; 94640; 94760; A9270-GY; J1644; J1956; J2405; J7512

== ENCOUNTER 2016-10-25 04:22 | Inpatient (IN) | payer MEDICARE ==
[2016-10-25] MEDS ORDERED: Ondansetron INJ* 2 MG/ML VIAL IV PRN (04:47)
[2016-10-25] MEDS ORDERED: Acetaminophen TAB* 325 MG PO PRN (04:47)
[2016-10-25] MEDS ORDERED: traMADol TAB* 50 MG PO PRN (04:47)
[2016-10-25] MEDS ORDERED: Melatonin (NF) 3 MG TAB PO PRN (04:47)
--- NOTE | 2016-10-25 04:50 | HP ---
H&P (Free Text) History and Physical: PCP: Germán Munoz MD Date/Time of Evaluation: 10/25/2016 0430 CC: BRBPR HPI: Mrs Atkinson is a 76YO female admitted to [facility] 10/19-/10/24/2016 for pneumonia. She was discharged to [facility] on renally dosed PO levofloxacin. She states after arriving to [facility] she began having severe cramping abdominal pain after supper followed by passing bright red blood and clots prompting her re-presentation. Aside from cramping, she denies any pain. She continues to have mild subjective F/C, but this is unchanged from her pneumonia. Upon my evaluation in the ED, she had had no further episodes of bleeding and the pad she was brought in with only had a few drops of bright red blood. Vitals are stable. Labs are unremarkable. BUN 25, previous 21. PMedHx, PSurgHx, SocHx, & FamHx: reviewed and unchanged from H&P dated 2016, please refer to for details Ambulatory Orders Insulin Glargine [Lantus Solostar] 45 units SUBCUT BEDTIME 06/03/14 Acetaminophen [Acetaminophen Extra Stren] 1,000 mg PO BEDTIME PRN 10/19/16 Acetaminophen [Acetaminophen Extra Stren] 1,000 mg PO BID PRN 10/19/16 Cholecalciferol TAB* [Vitamin D TAB*] 2,000 units PO DAILY 10/19/16 Cyanocobalamin TAB* [Vitamin B12 TAB*] 1,000 mcg PO DAILY 10/19/16 Insulin Aspart Protamine & Asp [Novolog Mix 70/30 (70-30) 100 Unit/ml] 10 units SUBCUT 1200 10/19/16 Insulin Glargine [Lantus] 55 unit SUBCUT QAM 10/19/16 Nystatin OINT* 1 applic TOPICAL Q12HR PRN 10/19/16 Nystatin TOP POWDER* 1 applic TOPICAL Q12HR PRN 10/19/16 Omeprazole CAP* [Prilosec CAP* 20 MG] 20 mg PO DAILY 10/19/16 Sennosides-Docusate Sodium [Senokot S 8.6-50 mg] 2 tab PO BEDTIME PRN 10/19/16 Throat Lozenges [Kline Cough Drops 6.1 mg] 1 celina PO Q2HR PRN 10/19/16 guaiFENesin LIQ* [Robitussin*] 15 ml PO Q4H PRN 10/19/16 Albuterol 2.5MG/3ML (0.083%)* [Ventolin 2.5 MG/3 ML NEB.ANA LILIA*] 2.5 mg INH Q4H PRN #0 ml 10/24/16 Benzocaine/Menthol CELINA* [Chloraseptic CELINA*] 1 celina PO Q1H PRN #0 ea 10/24/16 Benzonatate CAP* [Tessalon 100 MG CAP*] 100 mg PO TID #21 cap 10/24/16 Furosemide [Lasix] 20 mg PO DAILY #30 tab 10/24/16 Levofloxacin TAB* [Levaquin TAB*] 250 mg PO DAILY #6 tab 10/24/16 Spironolactone [Aldactone 25 MG-] 25 mg PO DAILY #30 tab 10/24/16 predniSONE TAB* [Deltasone TAB*] 40 mg PO DAILY #11 tab 10/24/16 Allergies Adhesive Tape Allergy (Mild, Verified 09/14/16 13:41) Hives Cephalexin [From Keflex] Allergy (Mild, Verified 09/14/16 13:41) Hives Codeine Allergy (Mild, Verified 09/14/16 13:41) Hives Hydrochlorothiazide Allergy (Mild, Verified 09/14/16 13:41) Hives Hydrocodone Allergy (Mild, Verified 09/14/16 13:41) Hives Latex Allergy (Mild, Verified 09/14/16 13:41) Hives Oxycodone Allergy (Mild, Verified 09/14/16 13:41) Hives Penicillins Allergy (Mild, Verified 09/14/16 13:41) Hives Statins Allergy (Mild, Verified 09/14/16 13:41) Hives Carvedilol Allergy (Verified 09/14/16 13:41) Facial Redness/Flushing Hydromorphone [From Dilaudid] Allergy (Verified 09/14/16 13:41) Unknown Reaction Details Morphine Allergy (Verified 09/14/16 13:41) Rash Ondansetron [From Zofran] Allergy (Verified 09/14/16 13:41) Rash Tramadol Allergy (Verified 09/14/16 13:41) Unknown Reaction Details Urtica Dioica Allergy (Verified 09/14/16 13:41) Rash Doxycycline Adverse Reaction (Verified 09/14/16 23:18) Diarrhea Nitrofurantoin [From Macrobid] Adverse Reaction (Verified 09/14/16 23:18) Nausea And Vomiting ROS: as above, otherwise reviewed and all were negative Constitutional: NAD, normally developed, well-nourished vitals: Vital Signs Temp 36.6 C 10/25/16 04:32 Pulse 84 10/25/16 04:32 Resp 18 10/25/16 04:32 BP 92/73 10/25/16 04:32 Pulse Ox 95 10/25/16 04:32 Intake & Output 10/24/16 10/24/16 10/25/16 11:59 23:59 11:59 Weight 65.771 kg HEENM: atraumatic; sclera/conjunctiva: non-icteric/clear; hearing: clinically intact; oropharynx: clear, mucosa moist Neck: soft tissue: non-tender; thyroid: normal Pulmonary: clear to auscultation bilaterally, good aeration, no accessory muscle use CV: RR/RR, normal S1S2, no carotid bruit, no jugular venous distention, 2+ B DP/ PT, no edema Abdominal: soft, non-distended, diffusely mildly tender, no rebound/guarding/ rigidity, mildly hyperactive bowel sounds, no hepatosplenomegaly or masses, no costovertebral angle tenderness Musculoskeletal: general: grossly intact, no overt deformity Integumental: normal appearance and texture of exposed skin Psychiatric orientation: AA&O to PPS affect: calm mood: cooperative eye contact: fair content: reliable responses: timely insight: good Testing: Lab Results 10/25/16 10/25/16 10/25/16 Range/Units 04:54 04:54 04:54 WBC 7.5 (3.5-10.8) 10^3/ul RBC 4.20 (4.0-5.4) 10^6/ul Hgb 13.0 (12.0-16.0) g/dl Hct 40 (35-47) % MCV 94 (80-97) fL MCH 31 (27-31) pg MCHC 33 (31-36) g/dl RDW 16 H (10.5-15) % Plt Count 138 L (150-450) 10^3/ul MPV 9 (7.4-10.4) um3 Neut % (Auto) 62.8 (38-83) % Lymph % (Auto) 23.1 L (25-47) % [place] % (Auto) 12.8 H (1-9) % Eos % (Auto) 0.8 (0-6) % Baso % (Auto) 0.5 (0-2) % Absolute Neuts (auto) 4.7 (1.5-7.7) 10^3/ul Absolute Lymphs (auto) 1.7 (1.0-4.8) 10^3/ul Absolute Monos (auto) 1.0 H (0-0.8) 10^3/ul Absolute Eos (auto) 0.1 (0-0.6) 10^3/ul Absolute Basos (auto) 0 (0-0.2) 10^3/ul Absolute Nucleated RBC 0.01 10^3/ul Nucleated RBC % 0.1 INR (Anticoag Therapy) 1.17 H (0.89-1.11) Sodium 137 (133-145) mmol/L Potassium 4.1 (3.5-5.0) mmol/L Chloride 107 (101-111) mmol/L Carbon Dioxide 25 (22-32) mmol/L Anion Gap 5 (2-11) mmol/L BUN 25 H (6-24) mg/dL Creatinine 0.87 (0.51-0.95) mg/dL Est GFR ( Amer) 81.6 (>60) Est GFR (Non-Af Amer) 63.5 (>60) BUN/Creatinine Ratio 28.7 H (8-20) Glucose 69 L (70-100) mg/dL Lactic Acid (0.5-2.0) mmol/L Calcium 9.5 (8.6-10.3) mg/dL Magnesium 1.8 L (1.9-2.7) mg/dL Total Bilirubin 1.30 H (0.2-1.0) mg/dL AST 37 (13-39) U/L ALT 35 (7-52) U/L Alkaline Phosphatase 124 H (34-104) U/L C-Reactive Protein 25.14 H (< 5.00) mg/L Total Protein 6.5 (6.4-8.9) g/dL Albumin 2.9 L (3.2-5.2) g/dL Globulin 3.6 (2-4) g/dL Albumin/Globulin Ratio 0.8 L (1-3) Lipase 42 (11.0-82.0) U/L Blood Type Antibody Screen 10/25/16 10/25/16 Range/Units 04:54 04:54 WBC (3.5-10.8) 10^3/ul RBC (4.0-5.4) 10^6/ul Hgb (12.0-16.0) g/dl Hct (35-47) % MCV (80-97) fL MCH (27-31) pg MCHC (31-36) g/dl RDW (10.5-15) % Plt Count (150-450) 10^3/ul MPV (7.4-10.4) um3 Neut % (Auto) (38-83) % Lymph % (Auto) (25-47) % [place] % (Auto) (1-9) % Eos % (Auto) (0-6) % Baso % (Auto) (0-2) % Absolute Neuts (auto) (1.5-7.7) 10^3/ul Absolute Lymphs (auto) (1.0-4.8) 10^3/ul Absolute Monos (auto) (0-0.8) 10^3/ul Absolute Eos (auto) (0-0.6) 10^3/ul Absolute Basos (auto) (0-0.2) 10^3/ul Absolute Nucleated RBC 10^3/ul Nucleated RBC % INR (Anticoag Therapy) (0.89-1.11) Sodium (133-145) mmol/L Potassium (3.5-5.0) mmol/L Chloride (101-111) mmol/L Carbon Dioxide (22-32) mmol/L Anion Gap (2-11) mmol/L BUN (6-24) mg/dL Creatinine (0.51-0.95) mg/dL Est GFR ( Amer) (>60) Est GFR (Non-Af Amer) (>60) BUN/Creatinine Ratio (8-20) Glucose (70-100) mg/dL Lactic Acid 1.7 (0.5-2.0) mmol/L Calcium (8.6-10.3) mg/dL Magnesium (1.9-2.7) mg/dL Total Bilirubin (0.2-1.0) mg/dL AST (13-39) U/L ALT (7-52) U/L Alkaline Phosphatase (34-104) U/L C-Reactive Protein (< 5.00) mg/L Total Protein (6.4-8.9) g/dL Albumin (3.2-5.2) g/dL Globulin (2-4) g/dL Albumin/Globulin Ratio (1-3) Lipase (11.0-82.0) U/L Blood Type O Negative Antibody Screen Negative Impression: 76F discharged 10/24 after TX for pneumonia returns <24hours with bright red blood per rectum DIAGNOSIS & PLAN Primary lower GI bleed : IVFs : telemetry : type & screen : trend H&H : clear liquid diet : consider GI consult in AM, if indicated : supplemental oxygen : supportive care Secondary DM2 : basal/correctional insulin : A1c 8.0 10/2016 cirrhosis w/ varices : no acute issues HTN : review meds once reconciled HLD : review meds once reconciled Admission Rational: observation for lower GI bleeding DVTp: SCDs, no anticoagulation in acute GI bleeding Code Status: DNR HCP: Kyler saucedo
[2016-10-25 05:00] LABS: Hematocrit 40 % (35-47); Mean Corpuscular HGB Conc 33 g/dl (31-36); Mean Corpuscular Hemoglobin 31 pg (27-31); Mean Corpuscular Volume 94 fL (80-97); Mean Platelet Volume 9 um3 (7.4-10.4); Red Cell Distribution Width 16 % (10.5-15); White Blood Count 7.5 10^3/ul (3.5-10.8)
[2016-10-25] MEDS ORDERED: NS 0.9% 1000 ML* 1,000 ML IV SCH (05:00)
[2016-10-25] MEDS ORDERED: Insulin LISPRO* 1 UNITS UNIT SUBCUT SCH (05:00)
[2016-10-25 05:14] LABS: Albumin 2.9 g/dL (3.2-5.2); BUN/Creatinine Ratio 28.7 (8-20); C Reactive Protein 25.14 mg/L (< 5.00); Calcium 9.5 mg/dL (8.6-10.3); EGFR African American 81.6 (>60); EGFR Non-African American 63.5 (>60); Globulin 3.6 g/dL (2-4); Magnesium 1.8 mg/dL (1.9-2.7); Potassium 4.1 mmol/L (3.5-5.0); Total Bilirubin 1.3 mg/dL (0.2-1.0); Total Protein 6.5 g/dL (6.4-8.9)
--- NOTE | 2016-10-25 05:53 | ED ---
Ronald Duong Benjamin, scribed for Cristóbal East MD on 10/25/16 at 0438 . GI/ HPI - HPI Summary HPI Summary: 76yo female c/o blood in stool today along with diffuse abdominal pain. Pt was dc'ed this morning after being seen for respiratory failure. Hx of varices. DNR status. - History of Current Complaint Chief Complaint: EDGIBleed Time Seen by Provider: 10/25/16 04:30 Stated Complaint: GI BLEED Hx Obtained From: Patient Onset/Duration: Started Hours Ago, Still Present Timing: Constant Severity: Mild Current Severity: Mild Vaginal Bleeding Description: Bright Red Location of Pain: Diffuse Associated Signs and Symptoms: Positive: Bright Red Blood w/Stool - Additional Pertinent History Primary Care Physician: MUKUL - Allergy/Home Medications Allergies/Adverse Reactions: Allergies Allergy/AdvReac Type Severity Reaction Status Date / Time Adhesive Tape Allergy Mild Hives Verified 09/14/16 13:41 Cephalexin [From Keflex] Allergy Mild Hives Verified 09/14/16 13:41 Codeine Allergy Mild Hives Verified 09/14/16 13:41 Hydrochlorothiazide Allergy Mild Hives Verified 09/14/16 13:41 Hydrocodone Allergy Mild Hives Verified 09/14/16 13:41 Latex Allergy Mild Hives Verified 09/14/16 13:41 Oxycodone Allergy Mild Hives Verified 09/14/16 13:41 Penicillins Allergy Mild Hives Verified 09/14/16 13:41 Statins Allergy Mild Hives Verified 09/14/16 13:41 Carvedilol Allergy Facial Verified 09/14/16 13:41 Redness/Flushing Hydromorphone [From Dilaudid] Allergy Unknown Verified 09/14/16 13:41 Reaction Details Morphine Allergy Rash Verified 09/14/16 13:41 Ondansetron [From Zofran] Allergy Rash Verified 09/14/16 13:41 Tramadol Allergy Unknown Verified 09/14/16 13:41 Reaction Details Urtica Dioica Allergy Rash Verified 09/14/16 13:41 Doxycycline AdvReac Diarrhea Verified 09/14/16 23:18 Nitrofurantoin AdvReac Nausea And Verified 09/14/16 23:18 [From Macrobid] Vomiting PMH/Surg Hx/FS Hx/Imm Hx Endocrine/Hematology History: Reports: Hx Diabetes Denies: Hx Systemic Lupus Erythematosus, Hx Thyroid Disease Cardiovascular History: Reports: Hx Angina, Hx Hypercholesterolemia, Hx Hypertension, Other Cardiovascular Problems/Disorders - IRREGULAR HEART BEAT Denies: Hx Congestive Heart Failure, Hx Pacemaker/ICD Respiratory History: Denies: Hx Asthma, Hx Chronic Obstructive Pulmonary Disease (COPD) GI History: Reports: Hx Diverticulosis, Hx Gastroesophageal Reflux Disease, Other GI Disorders - gerd and diverticulosis/itis Denies: Hx Ulcer History: Reports: Hx Kidney Stones, Other Problems/Disorders - stones Denies: Hx Dialysis, Hx Renal Disease Musculoskeletal History: Reports: Other Musculoskeletal History - arthritis and disc problems Denies: Hx Rheumatoid Arthritis, Hx Osteoporosis Sensory History: Reports: Hx Contacts or Glasses Denies: Hx Hearing Aid Opthamlomology History: Reports: Hx Contacts or Glasses Psychiatric History: Denies: Hx Panic Disorder - Cancer History Hx Chemotherapy: No - Surgical History Surgery Procedure, Year, and Place: rotator cuff x3; varicose vein; cholecystectomy; Prolapsed uterus and bladder repair with mesh. Hx Anesthesia Reactions: No - Immunization History Date of Tetanus Vaccine: None Date of Influenza Vaccine: Fall 2014 Infectious Disease History: Reports: Hx Hepatitis - as a child Denies: Hx Clostridium Difficile, Hx Human Immunodeficiency Virus (HIV), Hx of Known/Suspected MRSA, Hx Shingles, Hx Tuberculosis, Hx Known/Suspected VRE, Hx Known/Suspected VRSA, History Other Infectious Disease, Traveled Outside the [place] in Last 30 Days - Family History Known Family History: Positive: Hypertension - Social History Occupation: Retired Lives: With Family Alcohol Use: None Substance Use Type: Reports: None Hx Tobacco Use: No Smoking Status (MU): Never Smoked Tobacco Have You Smoked in the Last Year: No Review of Systems Constitutional: Negative Eyes: Negative ENT: Negative Cardiovascular: Negative Respiratory: Negative Positive: Abdominal Pain, Other - blood in stool Genitourinary: Negative Musculoskeletal: Negative Skin: Negative Neurological: Negative Psychological: Normal All Other Systems Reviewed And Are Negative: Yes Physical Exam Triage Information Reviewed: Yes Vital Signs On Initial Exam: Initial Vitals Temp Pulse Resp BP Pulse Ox 97.9 F 84 18 92/73 95 10/25/16 04:32 10/25/16 04:32 10/25/16 04:32 10/25/16 04:32 10/25/16 04:32 Vital Signs Reviewed: Yes Appearance: Positive: Well-Appearing, No Pain Distress Skin: Positive: Warm Head/Face: Positive: Normal Head/Face Inspection Eyes: Positive: HECTOR ENT: Positive: Hearing grossly normal Neck: Positive: Supple Respiratory/Lung Sounds: Positive: Breath Sounds Present Cardiovascular: Positive: RRR Abdomen Description: Positive: Nontender, Soft Bowel Sounds: Positive: Present Musculoskeletal: Positive: Strength/ROM Intact Neurological: Positive: Sensory/Motor Intact Psychiatric: Positive: Affect/Mood Appropriate Diagnostics - Vital Signs Vital Signs Temp Pulse Resp BP Pulse Ox 10/25/16 04:32 97.9 F 84 18 92/73 95 - Laboratory Lab Results: Lab Results 10/25/16 10/25/16 10/25/16 Range/Units 04:54 04:54 04:54 WBC 7.5 (3.5-10.8) 10^3/ul RBC 4.20 (4.0-5.4) 10^6/ul Hgb 13.0 (12.0-16.0) g/dl Hct 40 (35-47) % MCV 94 (80-97) fL MCH 31 (27-31) pg MCHC 33 (31-36) g/dl RDW 16 H (10.5-15) % Plt Count 138 L (150-450) 10^3/ul MPV 9 (7.4-10.4) um3 Neut % (Auto) 62.8 (38-83) % Lymph % (Auto) 23.1 L (25-47) % [place] % (Auto) 12.8 H (1-9) % Eos % (Auto) 0.8 (0-6) % Baso % (Auto) 0.5 (0-2) % Absolute Neuts (auto) 4.7 (1.5-7.7) 10^3/ul Absolute Lymphs (auto) 1.7 (1.0-4.8) 10^3/ul Absolute Monos (auto) 1.0 H (0-0.8) 10^3/ul Absolute Eos (auto) 0.1 (0-0.6) 10^3/ul Absolute Basos (auto) 0 (0-0.2) 10^3/ul Absolute Nucleated RBC 0.01 10^3/ul Nucleated RBC % 0.1 INR (Anticoag Therapy) 1.17 H (0.89-1.11) Sodium 137 (133-145) mmol/L Potassium 4.1 (3.5-5.0) mmol/L Chloride 107 (101-111) mmol/L Carbon Dioxide 25 (22-32) mmol/L Anion Gap 5 (2-11) mmol/L BUN 25 H (6-24) mg/dL Creatinine 0.87 (0.51-0.95) mg/dL Est GFR ( Amer) 81.6 (>60) Est GFR (Non-Af Amer) 63.5 (>60) BUN/Creatinine Ratio 28.7 H (8-20) Glucose 69 L (70-100) mg/dL Lactic Acid (0.5-2.0) mmol/L Calcium 9.5 (8.6-10.3) mg/dL Magnesium 1.8 L (1.9-2.7) mg/dL Total Bilirubin 1.30 H (0.2-1.0) mg/dL AST 37 (13-39) U/L ALT 35 (7-52) U/L Alkaline Phosphatase 124 H (34-104) U/L C-Reactive Protein 25.14 H (< 5.00) mg/L Total Protein 6.5 (6.4-8.9) g/dL Albumin 2.9 L (3.2-5.2) g/dL Globulin 3.6 (2-4) g/dL Albumin/Globulin Ratio 0.8 L (1-3) Lipase 42 (11.0-82.0) U/L Blood Type Antibody Screen 10/25/16 10/25/16 Range/Units 04:54 04:54 WBC (3.5-10.8) 10^3/ul RBC (4.0-5.4) 10^6/ul Hgb (12.0-16.0) g/dl Hct (35-47) % MCV (80-97) fL MCH (27-31) pg MCHC (31-36) g/dl RDW (10.5-15) % Plt Count (150-450) 10^3/ul MPV (7.4-10.4) um3 Neut % (Auto) (38-83) % Lymph % (Auto) (25-47) % [place] % (Auto) (1-9) % Eos % (Auto) (0-6) % Baso % (Auto) (0-2) % Absolute Neuts (auto) (1.5-7.7) 10^3/ul Absolute Lymphs (auto) (1.0-4.8) 10^3/ul Absolute Monos (auto) (0-0.8) 10^3/ul Absolute Eos (auto) (0-0.6) 10^3/ul Absolute Basos (auto) (0-0.2) 10^3/ul Absolute Nucleated RBC 10^3/ul Nucleated RBC % INR (Anticoag Therapy) (0.89-1.11) Sodium (133-145) mmol/L Potassium (3.5-5.0) mmol/L Chloride (101-111) mmol/L Carbon Dioxide (22-32) mmol/L Anion Gap (2-11) mmol/L BUN (6-24) mg/dL Creatinine (0.51-0.95) mg/dL Est GFR ( Amer) (>60) Est GFR (Non-Af Amer) (>60) BUN/Creatinine Ratio (8-20) Glucose (70-100) mg/dL Lactic Acid 1.7 (0.5-2.0) mmol/L Calcium (8.6-10.3) mg/dL Magnesium (1.9-2.7) mg/dL Total Bilirubin (0.2-1.0) mg/dL AST (13-39) U/L ALT (7-52) U/L Alkaline Phosphatase (34-104) U/L C-Reactive Protein (< 5.00) mg/L Total Protein (6.4-8.9) g/dL Albumin (3.2-5.2) g/dL Globulin (2-4) g/dL Albumin/Globulin Ratio (1-3) Lipase (11.0-82.0) U/L Blood Type O Negative Antibody Screen Negative Result Diagrams: 10/25/16 18:03 10/25/16 04:54 Lab Statement: Any lab studies that have been ordered have been reviewed, and results considered in the medical decision making process. GIGU Course/Dx - Diagnoses Provider Diagnoses: Lower GI hemorrhage - Physician Notifications Discussed Care Of Patient With: Gerardo Correa (hospitalist) @[id number]. Instructed by Provider To: Admit As Inpatient Discharge - Discharge Plan Condition: Fair Disposition: ADMITTED TO [facility] The documentation as recorded by the oRnald hsieh Benjamin accurately reflects the service I personally performed and the decisions made by me, Cristóbal East MD.
[2016-10-25] MEDS ORDERED: Levofloxacin TAB* 250 MG PO SCH (06:30)
--- NOTE | 2016-10-25 07:35 | PN ---
Progress Note - Progress Note SOAP: Subjective: s/p L tibial plateau fracture from September. Pt was to see me in office this week but admitted for pneumonia, discharged yesterday and readmitted for bright red blood per rectum. Son at bedside. Doing well. Pain in knee controlled although occasional "jolts". Denies numbness/tingling. Pain in knee improving. No SOB or chest pain today. Comfortable in bed. Objective: Temp Pulse Resp BP Pulse Ox 97.9 F 71 21 135/57 95 10/25/16 04:32 10/25/16 06:00 10/25/16 06:00 10/25/16 06:00 10/25/16 06:00 NAD. AAOx3. Pleasant mood and affect. Left leg examined: Skin intact. Mild effusion. Mildly tender to palpation. active ROM 5-45 degrees. Calf soft, nontender. Sensate to light touch grossly distally with 2+ PT pulse. Able to flex/ext toes and ankle comfortably. Assessment: 76 yo F with min displaced left tibial plateau fracture that had delayed treatment. Plan: NWB or very slight TDWB for transfers if no pain. Please consider PT to work on ROM of left knee. Analgesia Ordered xrays today for evaluation. Will follow in office in 2 weeks.
[2016-10-25] MEDS: Docusate CAP* 100 MG PO SCH ×2 (07:57→22:38)
[2016-10-25] MEDS: Omeprazole CAP* 20 MG PO SCH (07:57)
--- NOTE | 2016-10-25 08:00 | PN ---
Subjective Date of Service: 10/25/16 Interval History: Seen with son at bedside Had episode of BRBPR at 2AM and 4AM both mixed with stool, neither associated with pain This AM feels well. Feels like her right eye has something stuck in it Objective Active Medications: Acetaminophen (Tylenol Tab*) 650 mg PO Q6H PRN PRN Reason: FEVER/PAIN Benzonatate (Tessalon Cap*) 100 mg PO TID [facility] Docusate Sodium (Colace Cap*) 200 mg PO BID [facility] Insulin Glargine (Lantus(*)) 13 units SUBCUT 2100 [facility] Stop: 10/26/16 20:00 Insulin Human Lispro (Humalog*) 0 units SUBCUT ACHS [facility] PRN Reason: Protocol Levofloxacin (Levaquin Tab*) 250 mg PO Q24H [facility] Stop: 10/30/16 06:31 Omeprazole (Prilosec Cap*) 20 mg PO DAILY@0600 [facility] Ondansetron HCl (Zofran Inj*) 4 mg IV Q6H PRN PRN Reason: NAUSEA Prednisone (Deltasone Tab*) 40 mg PO DAILY [facility] Stop: 10/27/16 09:01 Tramadol HCl (Ultram*) 50 mg PO Q6H PRN PRN Reason: PAIN Vital Signs 10/25/16 10/25/16 10/25/16 05:30 06:00 06:44 Temperature 98.3 F Pulse Rate 71 66 Respiratory 26 21 20 Rate Blood Pressure 124/54 135/57 119/53 (mmHg) O2 Sat by Pulse 95 95 Oximetry Oxygen Devices in Use Now: None Appearance: NAD Eyes: No Scleral Icterus, PERRLA Ears/Nose/Mouth/Throat: - - dry MM, OP clear Neck: NL Appearance and Movements; NL JVP, Trachea Midline Respiratory: Symmetrical Chest Expansion and Respiratory Effort, - - rhonchi b/ l 1/2 up Cardiovascular: RRR Abdominal: No Hepatosplenomegaly, - - soft, mild TTP suprapubic, ND,+bs, no rebound/guarding Lymphatic: No Cervical Adenopathy Skin: No Rash or Ulcers Neurological: Alert and Oriented x 3 Result Diagrams: 10/25/16 04:54 10/25/16 04:54 Additional Lab and Data: Lab Results 05/24/17 05/24/17 05/24/17 Range/Units 04:54 04:54 04:54 WBC 7.5 (3.5-10.8) 10^3/ul RBC 4.20 (4.0-5.4) 10^6/ul Hgb 13.0 (12.0-16.0) g/dl Hct 40 (35-47) % MCV 94 (80-97) fL MCH 31 (27-31) pg MCHC 33 (31-36) g/dl RDW 16 H (10.5-15) % Plt Count 138 L (150-450) 10^3/ul MPV 9 (7.4-10.4) um3 Neut % (Auto) 62.8 (38-83) % Lymph % (Auto) 23.1 L (25-47) % [place] % (Auto) 12.8 H (1-9) % Eos % (Auto) 0.8 (0-6) % Baso % (Auto) 0.5 (0-2) % Absolute Neuts (auto) 4.7 (1.5-7.7) 10^3/ul Absolute Lymphs (auto) 1.7 (1.0-4.8) 10^3/ul Absolute Monos (auto) 1.0 H (0-0.8) 10^3/ul Absolute Eos (auto) 0.1 (0-0.6) 10^3/ul Absolute Basos (auto) 0 (0-0.2) 10^3/ul Absolute Nucleated RBC 0.01 10^3/ul Nucleated RBC % 0.1 INR (Anticoag Therapy) 1.17 H (0.89-1.11) Sodium 137 (133-145) mmol/L Potassium 4.1 (3.5-5.0) mmol/L Chloride 107 (101-111) mmol/L Carbon Dioxide 25 (22-32) mmol/L Anion Gap 5 (2-11) mmol/L BUN 25 H (6-24) mg/dL Creatinine 0.87 (0.51-0.95) mg/dL Est GFR ( Amer) 81.6 (>60) Est GFR (Non-Af Amer) 63.5 (>60) BUN/Creatinine Ratio 28.7 H (8-20) Glucose 69 L (70-100) mg/dL Lactic Acid (0.5-2.0) mmol/L Calcium 9.5 (8.6-10.3) mg/dL Magnesium 1.8 L (1.9-2.7) mg/dL Total Bilirubin 1.30 H (0.2-1.0) mg/dL AST 37 (13-39) U/L ALT 35 (7-52) U/L Alkaline Phosphatase 124 H (34-104) U/L C-Reactive Protein 25.14 H (< 5.00) mg/L Total Protein 6.5 (6.4-8.9) g/dL Albumin 2.9 L (3.2-5.2) g/dL Globulin 3.6 (2-4) g/dL Albumin/Globulin Ratio 0.8 L (1-3) Lipase 42 (11.0-82.0) U/L Blood Type Antibody Screen 10/25/16 10/25/16 Range/Units 04:54 04:54 WBC (3.5-10.8) 10^3/ul RBC (4.0-5.4) 10^6/ul Hgb (12.0-16.0) g/dl Hct (35-47) % MCV (80-97) fL MCH (27-31) pg MCHC (31-36) g/dl RDW (10.5-15) % Plt Count (150-450) 10^3/ul MPV (7.4-10.4) um3 Neut % (Auto) (38-83) % Lymph % (Auto) (25-47) % [place] % (Auto) (1-9) % Eos % (Auto) (0-6) % Baso % (Auto) (0-2) % Absolute Neuts (auto) (1.5-7.7) 10^3/ul Absolute Lymphs (auto) (1.0-4.8) 10^3/ul Absolute Monos (auto) (0-0.8) 10^3/ul Absolute Eos (auto) (0-0.6) 10^3/ul Absolute Basos (auto) (0-0.2) 10^3/ul Absolute Nucleated RBC 10^3/ul Nucleated RBC % INR (Anticoag Therapy) (0.89-1.11) Sodium (133-145) mmol/L Potassium (3.5-5.0) mmol/L Chloride (101-111) mmol/L Carbon Dioxide (22-32) mmol/L Anion Gap (2-11) mmol/L BUN (6-24) mg/dL Creatinine (0.51-0.95) mg/dL Est GFR ( Amer) (>60) Est GFR (Non-Af Amer) (>60) BUN/Creatinine Ratio (8-20) Glucose (70-100) mg/dL Lactic Acid 1.7 (0.5-2.0) mmol/L Calcium (8.6-10.3) mg/dL Magnesium (1.9-2.7) mg/dL Total Bilirubin (0.2-1.0) mg/dL AST (13-39) U/L ALT (7-52) U/L Alkaline Phosphatase (34-104) U/L C-Reactive Protein (< 5.00) mg/L Total Protein (6.4-8.9) g/dL Albumin (3.2-5.2) g/dL Globulin (2-4) g/dL Albumin/Globulin Ratio (1-3) Lipase (11.0-82.0) U/L Blood Type O Negative Antibody Screen Negative Assess/Plan/Problems-Billing Assessment: 76 yo F discharged 10/24 after admission for PNA who developed BRBPR at [facility] and returned to hospital - Patient Problems (1) Lower GI hemorrhage Comment: Diverticular although possible ischemic in setting of mild abdominal pain Will monitor with q6hr H/Hs If stable and no additional bleeding can plan on d/c back to [facility] (2) Pneumonia Comment: increase levaquin to 750mg now that renal fxn normalized c/w prednisone (3) Diabetes Comment: Lantus decreased to 20BID while on clear liquid diet, was receiving 100 units daily although FSG were low in the AM and this dose was probably too high (4) Hypertension Comment: holding Spironolactone, holding Lasix (5) Tibial plateau fracture, left Comment: LLE NWB appreciate ortho follow up. Xrays pending (6) DVT prophylaxis Comment: SCDs in setting of bleed
[2016-10-25] MEDS ORDERED: Levofloxacin TAB* 500 MG PO ONE (08:01)
--- NOTE | 2016-10-25 08:33 | RAD ---
HISTORY: Tibial plateau fracture, left knee pain, remote trauma COMPARISONS: MRI dated October 03, 2016 VIEWS: 2, Frontal and lateral views of the left knee FINDINGS: BONE DENSITY: Normal. BONES: There is mild linear lucency along the lateral tibial plateau that appears to correspond to the MRI finding of the lack of trabecular fracture of the tibial plateau. The medial tibial plateau fracture is not clearly visible. JOINTS: There is mild tricompartmental osteoarthritis ALIGNMENT: There is no dislocation. SOFT TISSUES: Unremarkable. OTHER FINDINGS: None. IMPRESSION: FINDINGS CONSISTENT WITH A NONDISPLACED TIBIAL PLATEAU FRACTURE NOTED ON MRI
[2016-10-25] MEDS ORDERED: predniSONE TAB* 20 MG PO SCH (09:00)
[2016-10-25] MEDS: Benzonatate CAP* 100 MG PO SCH ×3 (09:11→22:38)
[2016-10-25] MEDS: Insulin GLARGINE(*) 1 UNITS UNIT SUBCUT SCH ×2 (09:11→22:38)
[2016-10-25 12:32] LABS: Hematocrit 36 % (35-47)
[2016-10-25] MEDS: Insulin LISPRO* 1 UNITS UNIT SUBCUT SCH ×4 (12:54→22:36)
[2016-10-25] MEDS: Albuterol 2.5 MG/3 ML NEB.SOL* (0.083%) INH PRN (16:48)
[2016-10-25 18:08] LABS: Hematocrit 35 % (35-47); Hemoglobin 11.7 g/dl (12.0-16.0)
[2016-10-25 18:09] LABS: Comments Flag Yes
[2016-10-25] MEDS ORDERED: Insulin GLARGINE(*) 1 UNITS UNIT SUBCUT SCH (21:00)
--- NOTE | 2016-10-26 00:32 | CONS ---
CONSULTATION NOTE: DATE OF CONSULT: 10/25/16 REASON FOR CONSULTATION: Rectal bleeding, abdominal pain. NARRATIVE: Ms. Atkinson is a very pleasant 76-year-old woman who has cirrhosis secondary to nonalcoholic fatty liver disease, history of diabetes, hyperlipidemia, and hypertension. She was recently hospitalized for pneumonia. Prior to that, she experienced fracture after a knee injury and was on rehabilitation. She was treated for her pneumonia with antibiotics and was discharged to [facility]. She was experiencing some constipation despite being given senna and stool softeners. She recalls the night prior to admission that she felt impacted and did do some manual perirectal manipulation to stimulate a bowel movement. She did have a bowel movement. However, subsequent to that, she developed bright red blood per rectum associated with clots. She had one episode around 2 a.m. and then another episode at 4 a.m. and for that reason came to the emergency room where she was hemodynamically stable. Since admission earlier today, she has had a few more episodes of bright red blood with clots. She has had no dramatic change in her hemoglobin. She has no prior history of GI bleeding and denies any black stools, but has a history of cirrhosis as described above complicated by varices. She did undergo banding of those varices in 2014. The patient also underwent her last colonoscopy in 2012 which showed severe diverticulosis. PAST MEDICAL HISTORY: Again includes cirrhosis from nonalcoholic fatty liver disease complicated by varices, diabetes, hypertension, hyperlipidemia, and anemia. PAST SURGICAL HISTORY: Includes: 1. Uterine prolapse. 2. Cholecystectomy. MEDICATIONS: At home, medicines were: 1. Insulin. 2. Vitamin B12. 3. Omeprazole. 4. Senna. 5. Albuterol. 6. Lasix. 7. Levaquin. 8. Spironolactone. 9. Prednisone. REVIEW OF SYSTEMS: She denies any jaundice or black stools. However, she has had lower abdominal crampy pain for about 2 to 3 weeks. She has had no relief from the pain with the bowel movement. Her last imaging was a liver ultrasound about 7 months ago, which showed cirrhosis, but no liver lesion. Her weight has been stable. PHYSICAL EXAM: She is very pleasant alert woman in no acute distress. Blood pressure is 125/52, heart rate is 70 and regular, temperature is 98.7. She is anicteric. There are some telangiectasias over her chest. Cardiac exam reveals a regular rhythm without murmur. Abdomen is soft. There is some mild tenderness in the lower quadrants without rebound or guarding. There is no liver or spleen tip and I do not appreciate any shifting dullness. Extremities reveal no edema and dorsalis pedis pulses are palpable bilaterally. On rectal exam, there is rather large erythematous and bloody protruding internal hemorrhoids with tenderness. On further palpation of the rectum, there is no palpable lesion and there does seem to be brown stool proximal to the hemorrhoids. DIAGNOSTIC STUDIES/LAB DATA: Include an admission hemoglobin of 13 which today is 11.7. Platelet count 138,000. INR of 1.17. BUN of 25, creatinine of 0.87. Alk phos of 124, AST of 37, total bilirubin of 1.3. IMPRESSION: A 76-year-old woman with a background history of cirrhosis from nonalcoholic fatty liver disease, diabetes who was recently hospitalized for pneumonia who developed rectal bleeding last night. The bleeding occurred after self-manipulation to induce a bowel movement and on exam, she has very impressive prolapsing hemorrhoids which certainly could be accounting for her bleeding. Although she has a history of varices, the nature of this bleeding does suggest more lower GI sources. Other possibilities exist including diverticular processes given her history of diverticulosis and given her crampy abdominal pain, perhaps even ischemia, although the pain preceded the onset of the bleeding by a few weeks. At this point, I would treat her hemorrhoids with Anusol suppositories, which I have written for and I do recommend a CT scan with contrast, both to survey for hepatoma given her history of cirrhosis as it is time for imaging based upon a previous ultrasound which was about 6 months ago, as well as to better elucidate the potential cause for her lower abdominal pain. CC: Dr. Munoz* [id number]/[facility] #: [id number] [place]
[2016-10-26] MEDS: Hydrocortisone SUPP* 25 MG SUPP (2.5%) PR SCH ×2 (01:04→21:50)
[2016-10-26 01:14] LABS: Hematocrit 34 % (35-47); Hemoglobin 11.3 g/dl (12.0-16.0)
[2016-10-26] MEDS: Omeprazole CAP* 20 MG PO SCH (04:59)
[2016-10-26] MEDS: Insulin LISPRO* 1 UNITS UNIT SUBCUT SCH ×4 (05:06→21:51)
[2016-10-26] MEDS ORDERED: Dextrose 50% Syringe 50 ML* 25 GM/50 ML SYRINGE IV PUSH ONE (05:25)
[2016-10-26] MEDS ORDERED: Dextrose 50% Syringe 50 ML* 25 GM/50 ML SYRINGE IV PUSH PRN (05:40)
[2016-10-26] MEDS ORDERED: Iodixanol* (CONTRAST) 320 MG/ML 100 ML SDV IV ONE (05:49)
[2016-10-26 05:59] LABS: Hematocrit 38 % (35-47); Hemoglobin 12.5 g/dl (12.0-16.0)
[2016-10-26] MEDS: Benzonatate CAP* 100 MG PO SCH ×3 (07:40→21:49)
[2016-10-26] MEDS: Levofloxacin TAB* 750 MG PO SCH (07:40)
[2016-10-26] MEDS: Docusate CAP* 100 MG PO SCH ×2 (07:40→21:50)
[2016-10-26] MEDS: Insulin GLARGINE(*) 1 UNITS UNIT SUBCUT SCH ×2 (09:11→21:50)
--- NOTE | 2016-10-26 09:22 | RAD ---
INDICATION: Lower abdominal pain COMPARISON: CT April 15, 2015; CT June 03, 2014 TECHNIQUE: Axial source images were obtained from the hemidiaphragms to the symphysis pubis following administration of oral and intravenous contrast. 82 mL Visipaque 320 was utilized. Coronal and sagittal reconstructed images were acquired. Lung bases: There is mild basilar atelectasis or scarring. Liver: There is cirrhotic liver morphology, unchanged. There are no focal masses. There is no ductal dilatation. Gallbladder: Cholecystectomy. Spleen: There is mild splenomegaly. Pancreas: There is no focal pancreatic mass or ductal dilatation. Adrenal glands: There is no evidence of adrenal mass. Kidneys: The kidneys are normal in size and position. There are prompt nephrograms and there is prompt excretion bilaterally. There are no renal parenchymal masses. There is no evidence of nephrolithiasis. Adenopathy: There is an enlarged periportal lymph node measuring approximately 2 cm, unchanged. Fluid collections: There is mild mesenteric stranding. Vessels:There are atherosclerotic changes involving the aorta and iliac vessels. There is no focal aneurysm. The IVC appears normal. There are varices most prominent in the splenic hilar region. GI tract: There are no acute CT bowel findings. There is no obstruction. The stomach and small bowel appear normal. The lower GI tract is normal. The cecum, ileocecal valve, and terminal ileum appear normal. The appendix is visualized and appear normal. Pelvic organs: The uterus and adnexa appear normal Bladder: There are no bladder masses. Abdominal and pelvic soft tissues: The extraperitoneal abdominal and pelvic soft tissues appear normal.. Osseous structures: There are no acute osseous findings. Other: None IMPRESSION: 1. No acute CT findings. 2. Cirrhotic liver morphology. 3. Mild splenomegaly. 4. Scattered diverticula. Mild mesenteric edema. 5. Mild periportal lymphadenopathy, unchanged
--- NOTE | 2016-10-26 11:44 | PN ---
Subjective Date of Service: 10/26/16 Interval History: Seen with daughter at bedside No additional bleeding reported since yesterday +abdominal pain worse with cough no N/V FSG 50 this AM Objective Active Medications: Acetaminophen (Tylenol Tab*) 650 mg PO Q6H PRN PRN Reason: FEVER/PAIN Albuterol (Ventolin 2.5 Mg/3 Ml Neb.Carly*) 2.5 mg INH Q4H PRN PRN Reason: SOB/WHEEZING Last Admin: 10/25/16 16:48 Dose: 2.5 mg Benzonatate (Tessalon Cap*) [address] [facility] Last Admin: 10/26/16 07:40 Dose: 100 mg Dextrose (D50w Syringe 50 Ml*) 25 gm IV PUSH .PRN PRN PRN Reason: SYMPTOMATIC HYPOGLYCEMIA Docusate Sodium (Colace Cap*) [address] [facility] Last Admin: 10/26/16 07:40 Dose: Not Given Hydrocortisone (Anusol Hc Supp*) [address] [facility] Last Admin: 10/26/16 01:04 Dose: 25 mg Insulin Glargine (Lantus(*)) [address] [facility] Last Admin: 10/26/16 09:11 Dose: 10 units Insulin Human Lispro (Humalog*) [address] [facility] PRN Reason: Protocol Last Admin: 10/26/16 10:33 Dose: 2 unit Levofloxacin (Levaquin Tab*) [address] [facility] Last Admin: 10/26/16 07:40 Dose: 750 mg Omeprazole (Prilosec Cap*) 20 mg PO DAILY@0600 [facility] Last Admin: 10/26/16 04:59 Dose: 20 mg Ondansetron HCl (Zofran Inj*) 4 mg IV Q6H PRN PRN Reason: NAUSEA Tramadol HCl (Ultram*) 50 mg PO Q6H PRN PRN Reason: PAIN Vital Signs 10/25/16 10/25/16 10/26/16 15:15 16:49 00:14 Temperature 98.7 F 97.7 F Pulse Rate 70 73 69 Respiratory 20 18 16 Rate Blood Pressure 125/52 117/56 (mmHg) O2 Sat by Pulse 95 96 96 Oximetry 10/26/16 10/26/16 10/26/16 04:27 06:19 07:26 Temperature 97.4 F 98.3 F Pulse Rate 64 68 Respiratory 16 16 20 Rate Blood Pressure 107/46 115/50 (mmHg) O2 Sat by Pulse 93 95 Oximetry 10/26/16 11:30 Temperature 98.4 F Pulse Rate 78 Respiratory 28 Rate Blood Pressure 103/48 (mmHg) O2 Sat by Pulse 96 Oximetry Oxygen Devices in Use Now: None Appearance: NAD Eyes: No Scleral Icterus, PERRLA Ears/Nose/Mouth/Throat: Clear Oropharnyx, Mucous Membranes Moist Neck: NL Appearance and Movements; NL JVP, Trachea Midline Respiratory: Symmetrical Chest Expansion and Respiratory Effort, - - b/l rhonchi 1/2 up Cardiovascular: RRR Abdominal: - - soft, mild TTP throughout, ND, +bs Lymphatic: No Cervical Adenopathy Extremities: No Edema Skin: No Rash or Ulcers Neurological: Alert and Oriented x 3 Result Diagrams: 10/26/16 05:35 10/25/16 04:54 Additional Lab and Data: Lab Results 10/25/16 10/25/16 10/25/16 Range/Units 04:54 04:54 04:54 WBC 7.5 (3.5-10.8) 10^3/ul RBC 4.20 (4.0-5.4) 10^6/ul Hgb 13.0 (12.0-16.0) g/dl Hct 40 (35-47) % MCV 94 (80-97) fL MCH 31 (27-31) pg MCHC 33 (31-36) g/dl RDW 16 H (10.5-15) % Plt Count 138 L (150-450) 10^3/ul MPV 9 (7.4-10.4) um3 Neut % (Auto) 62.8 (38-83) % Lymph % (Auto) 23.1 L (25-47) % [place] % (Auto) 12.8 H (1-9) % Eos % (Auto) 0.8 (0-6) % Baso % (Auto) 0.5 (0-2) % Absolute Neuts (auto) 4.7 (1.5-7.7) 10^3/ul Absolute Lymphs (auto) 1.7 (1.0-4.8) 10^3/ul Absolute Monos (auto) 1.0 H (0-0.8) 10^3/ul Absolute Eos (auto) 0.1 (0-0.6) 10^3/ul Absolute Basos (auto) 0 (0-0.2) 10^3/ul Absolute Nucleated RBC 0.01 10^3/ul Nucleated RBC % 0.1 INR (Anticoag Therapy) 1.17 H (0.89-1.11) Sodium 137 (133-145) mmol/L Potassium 4.1 (3.5-5.0) mmol/L Chloride 107 (101-111) mmol/L Carbon Dioxide 25 (22-32) mmol/L Anion Gap 5 (2-11) mmol/L BUN 25 H (6-24) mg/dL Creatinine 0.87 (0.51-0.95) mg/dL Est GFR ( Amer) 81.6 (>60) Est GFR (Non-Af Amer) 63.5 (>60) BUN/Creatinine Ratio 28.7 H (8-20) Glucose 69 L (70-100) mg/dL Lactic Acid (0.5-2.0) mmol/L Calcium 9.5 (8.6-10.3) mg/dL Magnesium 1.8 L (1.9-2.7) mg/dL Total Bilirubin 1.30 H (0.2-1.0) mg/dL AST 37 (13-39) U/L ALT 35 (7-52) U/L Alkaline Phosphatase 124 H (34-104) U/L C-Reactive Protein 25.14 H (< 5.00) mg/L Total Protein 6.5 (6.4-8.9) g/dL Albumin 2.9 L (3.2-5.2) g/dL Globulin 3.6 (2-4) g/dL Albumin/Globulin Ratio 0.8 L (1-3) Lipase 42 (11.0-82.0) U/L Blood Type Antibody Screen 10/25/16 10/25/16 Range/Units 04:54 04:54 WBC (3.5-10.8) 10^3/ul RBC (4.0-5.4) 10^6/ul Hgb (12.0-16.0) g/dl Hct (35-47) % MCV (80-97) fL MCH (27-31) pg MCHC (31-36) g/dl RDW (10.5-15) % Plt Count (150-450) 10^3/ul MPV (7.4-10.4) um3 Neut % (Auto) (38-83) % Lymph % (Auto) (25-47) % [place] % (Auto) (1-9) % Eos % (Auto) (0-6) % Baso % (Auto) (0-2) % Absolute Neuts (auto) (1.5-7.7) 10^3/ul Absolute Lymphs (auto) (1.0-4.8) 10^3/ul Absolute Monos (auto) (0-0.8) 10^3/ul Absolute Eos (auto) (0-0.6) 10^3/ul Absolute Basos (auto) (0-0.2) 10^3/ul Absolute Nucleated RBC 10^3/ul Nucleated RBC % INR (Anticoag Therapy) (0.89-1.11) Sodium (133-145) mmol/L Potassium (3.5-5.0) mmol/L Chloride (101-111) mmol/L Carbon Dioxide (22-32) mmol/L Anion Gap (2-11) mmol/L BUN (6-24) mg/dL Creatinine (0.51-0.95) mg/dL Est GFR ( Amer) (>60) Est GFR (Non-Af Amer) (>60) BUN/Creatinine Ratio (8-20) Glucose (70-100) mg/dL Lactic Acid 1.7 (0.5-2.0) mmol/L Calcium (8.6-10.3) mg/dL Magnesium (1.9-2.7) mg/dL Total Bilirubin (0.2-1.0) mg/dL AST (13-39) U/L ALT (7-52) U/L Alkaline Phosphatase (34-104) U/L C-Reactive Protein (< 5.00) mg/L Total Protein (6.4-8.9) g/dL Albumin (3.2-5.2) g/dL Globulin (2-4) g/dL Albumin/Globulin Ratio (1-3) Lipase (11.0-82.0) U/L Blood Type O Negative Antibody Screen Negative Microbiology and Other Data: Microbiology 10/25/16 13:40 Stool Occult Blood ([facility]) - Final Stool 10/25/16 09:35 Nasal Screen MRSA (PCR)([facility]) - Final Nasal Mrsa Negative Assess/Plan/Problems-Billing Assessment: 76 yo F discharged 10/24 after admission for PNA who developed BRBPR at [facility] and returned to hospital - Patient Problems (1) Lower GI hemorrhage Comment: Appreciate GI assistance Possiblely in setting of hemmoroids now receiving anusol Diverticular possible as well as ischemic in setting of mild abdominal pain H/h stable (2) Pneumonia Comment: increase levaquin to 750mg now that renal fxn normalized d/c prednisone (3) Diabetes Comment: Lantus decreased to 10BID in setting of FSG 50 this AM (4) Hypertension Comment: holding Spironolactone, holding Lasix (5) Tibial plateau fracture, left Comment: VIKA NWB appreciate ortho follow up. (6) DVT prophylaxis Comment: SCDs in setting of bleed Status and Disposition: If remains without additional bleeding and tolerates food potential discharge later this afternoon otherwise will continue to monitor for bleeding resolution
[2016-10-26] MEDS: Albuterol 2.5 MG/3 ML NEB.SOL* (0.083%) INH PRN ×2 (11:47→18:13)
[2016-10-26 14:21] LABS: Hematocrit 37 % (35-47); Hemoglobin 12.1 g/dl (12.0-16.0)
[2016-10-27] MEDS: Insulin LISPRO* 1 UNITS UNIT SUBCUT SCH ×2 (04:32→12:30)
[2016-10-27] MEDS: Omeprazole CAP* 20 MG PO SCH (05:33)
[2016-10-27 08:25] LABS: Hematocrit 35 % (35-47); Hemoglobin 11.6 g/dl (12.0-16.0); Mean Corpuscular HGB Conc 33 g/dl (31-36); Mean Corpuscular Hemoglobin 31 pg (27-31); Mean Corpuscular Volume 95 fL (80-97); Mean Platelet Volume 9 um3 (7.4-10.4); Red Blood Count 3.69 10^6/ul (4.0-5.4); Red Cell Distribution Width 16 % (10.5-15); White Blood Count 6.1 10^3/ul (3.5-10.8)
[2016-10-27 08:35] LABS: Blood Urea Nitrogen 19 mg/dL (6-24); CO2 Carbon Dioxide 24 mmol/L (22-32); Calcium 8.2 mg/dL (8.6-10.3); Chloride 108 mmol/L (101-111); EGFR African American 73.8 (>60); EGFR Non-African American 57.3 (>60); Glucose 83 mg/dL (70-100); Sodium 136 mmol/L (133-145)
[2016-10-27] MEDS: Insulin GLARGINE(*) 1 UNITS UNIT SUBCUT SCH (08:51)
[2016-10-27] MEDS: Docusate CAP* 100 MG PO SCH (08:51)
[2016-10-27] MEDS: Benzonatate CAP* 100 MG PO SCH (08:51)
[2016-10-27] MEDS: Levofloxacin TAB* 750 MG PO SCH (08:54)
[2016-10-27 09:02] LABS: Add Diff/Slide Review? Slide Review Added; Comments Flag Yes
[2016-10-27 11:54] VITALS: BP 108/48
[2016-10-27] MEDS ORDERED: Albuterol 2.5 MG/3 ML NEB.SOL* (0.083%) INH ONE (14:59)
[2016-10-27] MEDS ORDERED: oxyCODONE/Acetamin 5/325 MG* TAB PO ONE (14:59)
--- NOTE | 2016-10-27 15:43 | DS ---
DATE OF ADMISSION: 10/25/2016. DATE OF DISCHARGE: 10/27/2016. PRIMARY CARE PHYSICIAN: Dr. Munoz. PRIMARY DIAGNOSIS: Lower GI bleed. SECONDARY DIAGNOSES: 1. Pneumonia. 2. Diabetes. 3. Hypertension. 4. History of cirrhosis. 5. Hyperlipidemia. MEDICATIONS ON DISCHARGE: 1. Vitamin B12 1000 mcg daily. 2. Vitamin D 2000 units daily. 3. Tessalon caps 100 mg three times a day for one week. 4. Benzocaine menthol drops one tab every hour as needed. 5. Albuterol nebulizer every 4 hours as needed for shortness of breath or wheezing. 6. Acetaminophen 1000 mg twice daily as needed and at bedtime as needed. 7. NovoLog 70/30 ten units at noon. 8. Lasix 20 mg daily. 9. Sennosides Docusate two tabs at bedtime as needed. 10. Omeprazole 20 mg daily. 11. Nystatin topical powder and ointment twice daily as needed. 12. Robitussin 15 ml every 4 hours as needed for cough. 13. Throat lozenges one lozenge every 2 hours as needed for cough. 14. Levaquin 750 mg daily for 6 additional days. 15. Insulin Glargine 10 units twice daily. Please note dramatic decrease in insulin Glargine dosing. 16. Hydrocortisone suppository (Anusol) 25 mg per rectum at bedtime. PERTINENT LABORATORY DATA: Hemoglobin on presentation 13, on discharge 11.6. PERTINENT IMAGING DATA: CT abdomen and pelvis: Impression: No acute CT findings. Cirrhotic liver morphology. Mild splenomegaly. HISTORY OF PRESENT ILLNESS AND HOSPITAL COURSE: This is a 76-year-old female with a recent hospital stay from 10/19 to 10/24/2016 with pneumonia, discharge to [facility], returned the following day with lower GI bleed. Returned with bright red blood per rectum, thought from a lower GI bleed. She was seen in conjunction with Gastroenterology who noted large hemorrhoids. The patient's hemoglobin remained stable. She continued to report bright red blood per rectum , however nursing did not corroborate this bleeding. Despite her reported bright red blood per rectum, her hemoglobin remained stable throughout the course of the hospital stay. She received no blood transfusions. She was started on Hydrocortisone rectal suppositories with decrease in self-reported bleeding and that witnessed by nursing staff. She was continued on Levaquin which was increased from 250 to 750 mg daily in the setting of her resolved kidney dysfunction from her previous hospital stay. Additionally, her Prednisone was discontinued and she ultimately had hypoglycemic episodes, the lowest recorded was 50 on BMP on October 26. Her Lantus was decreased from a total daily dose of 100 to a total daily dose of 20 given at 10 mg twice daily. On the day of discharge, the patient was tolerating consistent carbohydrate diet. She does report some pain on precordial on coughing which is tender to touch. Otherwise, had no complaints. AT FOLLOW-UP, PLEASE: 1. Follow blood pressures, multiple blood pressure medications have been altered during her last hospital stay and this hospital stay. 2. Please evaluate for continued need of antibiotics. She will complete a total of 14 days after completion of Levaquin, six additional days on this discharge. 3. Please evaluate for resolution of hemorrhoidal bleeding. Will make a referral to Surgery for evaluation as well. 4. No other specific labs or vitals that need follow-up. REASONS TO RETURN TO THE HOSPITAL: Including, but not limited to recurrent or worsening symptoms including chest pain, shortness of breath, nausea, vomiting, lightheadedness, loss of consciousness, continued lower GI bleeding, inability to tolerate her food or medications were discussed with the patient at length. She acknowledged understanding. Greater than 45 minutes were spent on this discharge of this patient, greater than half was spent [id number] with the patient. CC: Dr. Munoz* [id number]/CPS #: [id number] MTDD
[2016-10-28] MEDS ORDERED: predniSONE TAB* 20 MG PO SCH (09:00)
== END 2016-10-27 15:45 | DRG 393 ==
LOC: ED 04:22 → MEDTELE 05:08 → OBSVTOIN 10-26 09:00
PROVIDERS: ADMIT Hospitalist; ATTEND Internal Medicine
DX: K64.8 Other hemorrhoids (principal); J18.9 Pneumonia, unspecified organism; I85.10 Secondary esophageal varices without bleeding; E11.649 Type 2 diabetes mellitus with hypoglycemia without coma; K74.60 Unspecified cirrhosis of liver; S82.145A Nondisplaced bicondylar fracture of left tibia, initial encounter for closed fracture; Z66 Do not resuscitate; I10 Essential (primary) hypertension; K21.9 Gastro-esophageal reflux disease without esophagitis; M19.90 Unspecified osteoarthritis, unspecified site; E66.9 Obesity, unspecified; E78.5 Hyperlipidemia, unspecified; K76.0 Fatty (change of) liver, not elsewhere classified; X58.XXXA Exposure to other specified factors, initial encounter; Z88.1 Allergy status to other antibiotic agents; Z88.6 Allergy status to analgesic agent; Z91.048 Other nonmedicinal substance allergy status; Z88.8 Allergy status to other drugs, medicaments and biological substances; Z88.5 Allergy status to narcotic agent; Z91.040 Latex allergy status; Z87.442 Personal history of urinary calculi; Z68.27 Body mass index [BMI] 27.0-27.9, adult; Z82.49 Family history of ischemic heart disease and other diseases of the circulatory system; Y92.9 Unspecified place or not applicable; Z79.4 Long term (current) use of insulin
CPT/HCPCS: 36415; 74177; 80048; 80053; 82272; 83605; 83690; 83735; 85014; 85018; 85025; 85610; 86140; 86850; 86900; 86901; 87641; 94640; 94760; A9270-GY; G0378; J7512; Q9967

== ENCOUNTER 2017-09-21 12:55 | Observation (INO) | payer MEDICARE ==
[2017-09-21 14:03] LABS: Hematocrit 34 % (35-47); Hemoglobin 11.3 g/dl (12.0-16.0); Mean Corpuscular HGB Conc 33 g/dl (31-36); Mean Corpuscular Hemoglobin 28 pg (27-31); Mean Corpuscular Volume 85 fL (80-97); Red Cell Distribution Width 17 % (10.5-15); White Blood Count 3.7 10^3/ul (3.5-10.8)
--- NOTE | 2017-09-21 14:21 | RAD ---
INDICATION: Fever COMPARISON: October 19, 2016 TECHNIQUE: AP seated and lateral views were obtained. FINDINGS: Bones/Soft Tissues: There are no acute bony findings. Cardiomediastinal: The cardiomediastinal silhouette is normal. Lungs: There are no infiltrates. Pleura: There are no pleural effusions. Other: None IMPRESSION: NO ACTIVE DISEASE.
[2017-09-21 14:48] LABS: ABS Basophils 0 10^3/ul (0-0.2); ABS Eosinophils 0.1 10^3/ul (0-0.6); ABS Lymphocytes 0.8 10^3/ul (1.0-4.8); ABS Monocytes 0.3 10^3/ul (0-0.8); ABS Neutrophils 2.5 10^3/ul (1.5-7.7); ABS Nucleated RBC 0 10^3/ul; Eosinophil % 2.2 % (0-6); Lymphocyte % 21.1 % (25-47); Mean Platelet Volume 9.5 um3 (7.4-10.4); Nucleated Red Blood Cells % 0; Platelet Count 98 10^3/ul (150-450)
--- NOTE | 2017-09-21 15:01 | RAD ---
INDICATION: Right upper quadrant pain COMPARISON: October 26, 2016 TECHNIQUE: Axial source images were acquired from the level hemidiaphragms to the symphysis pubis following administration of oral contrast only. Lung bases: The lung bases are clear. Liver: Liver appears heterogeneous with a lobular contour. There is left hepatic and caudate lobe predominance. This suggests hepatic parenchymal disease. There is no focal mass on the noncontrast images. Gallbladder: Cholecystectomy. Spleen: Moderate splenomegaly without focal mass. Pancreas: Noncontrast imaging shows no pancreatic mass or ductal dilitation. Adrenal glands: No masses are identified. Kidneys/Bladder: There is no evidence of nephrolithiasis or CT evidence of hydronephrosis. Noncontrast imaging shows no evidence of a renal mass. The bladder is unremarkable.. Adenopathy: There is a 2 cm periportal lymph node, unchanged There is no other evidence of intraperitoneal or retroperitoneal adenopathy. Fluid collections: There is a small amount of mesenteric edema. Vessels: The aorta and iliac vessels are normal in caliber. There are no significant atherosclerotic changes. The IVC appears normal Pelvic organs: The uterus and adnexa appear normal GI tract: The upper GI tract is unremarkable. There are scattered diverticula of the sigmoid and descending colon. There is no CT evidence of acute diverticulitis. Soft tissues: No soft tissue abnormalities of the extraperitoneal abdomen or pelvis are identified. Osseous structures: There are no acute osseous findings. IMPRESSION: 1. Cirrhotic liver morphology, unchanged. 2. Moderate splenomegaly, unchanged 3. Mild mesenteric stranding/edema without significant change 4. Mild periportal lymphadenopathy, unchanged
[2017-09-21 15:52] LABS: Urine Appearance Cloudy; Urine Blood 1+ (Negative); Urine Color Yellow; Urine Ketones Negative (Negative); Urine Protein Negative (Negative); Urine Specific Gravity 1.012 (1.010-1.030); Urine Urobilinogen Negative (Negative)
[2017-09-21] MEDS ORDERED: Ciprofloxacin 400MG IVPREMIX(* 400 MG/200 ML BAG IVPB ONE (16:52)
[2017-09-21] MEDS ORDERED: diPHENhydraMINE IV* 50 MG/ML 1 ml VIAL (BENADRYL) IV ONE (18:23)
[2017-09-21] MEDS ORDERED: Dextrose 50% Syringe 50 ML* 25 GM/50 ML SYRINGE IV PUSH PRN (20:05)
[2017-09-21] MEDS ORDERED: Levofloxacin TAB* 750 MG PO SCH (21:00)
[2017-09-21] MEDS ORDERED: Insulin GLARGINE(*) 1 UNITS UNIT SUBCUT SCH (21:00)
--- NOTE | 2017-09-21 22:20 | ED ---
Demetrio Duong Jennifer, scribed for Joo Spears MD on 09/21/17 at 1328 . Complex/Multi-Sys Presentation - HPI Summary HPI Summary: The patient is a 77 year old female who was sent to the ED by her PMD for fever , back pain, and abdominal pain that began one week ago. The patient explains that her temperature will increase towards the evening. She is unable to take Tylenol for her fever because she has a history of cirrhosis. She reports that her back pain originated on the left side but is now on the right side. The back pain is worsened with movement and palpation. She denies cough, congestion , bowel issues, and urinating issues. - History Of Current Complaint Chief Complaint: EDAbdPain Time Seen by Provider: 09/21/17 13:10 Hx Obtained From: Patient Onset/Duration: Sudden Onset, Lasting Weeks - 1 week, Still Present Timing: Constant Severity Currently: Moderate Severity Initially: Moderate Location: Pain At: - Right-sided back Associated Signs And Symptoms: Positive: Other - fever, back pain, abdominal pain. NEGATIVE: cough, congestion, bowel issues, urination issues - Allergies/Home Medications Allergies/Adverse Reactions: Allergies Allergy/AdvReac Type Severity Reaction Status Date / Time Adhesive Tape Allergy Mild Hives Verified 09/21/17 12:59 cephalexin [From Keflex] Allergy Mild Hives Verified 09/21/17 13:44 codeine Allergy Mild Hives Verified 09/21/17 13:48 hydrochlorothiazide Allergy Mild Hives Verified 09/21/17 13:48 carvedilol Allergy Facial Verified 09/21/17 13:47 Redness/Flushing doxycycline Allergy Diarrhea Verified 09/21/17 13:46 hydrocodone Allergy Hives Verified 09/21/17 13:58 hydromorphone [From Dilaudid] Allergy Unknown Verified 09/21/17 13:47 Reaction Details Latex, Natural Rubber Allergy Hives Verified 09/21/17 13:58 morphine Allergy Rash Verified 09/21/17 13:46 nitrofurantoin Allergy Nausea And Verified 09/21/17 13:44 Vomiting ondansetron Allergy Rash Verified 09/21/17 13:46 oxycodone Allergy Hives Verified 09/21/17 13:58 Penicillins Allergy Hives Verified 09/21/17 13:59 Yzbycah-Drf-Urq Reductase Allergy Hives Verified 09/21/17 13:59 Inhibitor tramadol Allergy Unknown Verified 09/21/17 13:46 Reaction Details Home Medications: Home Medications Furosemide TAB* [Lasix TAB*] 60 mg PO DAILY 09/21/17 [History Confirmed 09/21/17 ] PMH/Surg Hx/FS Hx/Imm Hx Endocrine/Hematology History: Reports: Hx Diabetes Denies: Hx Systemic Lupus Erythematosus, Hx Thyroid Disease Cardiovascular History: Reports: Hx Angina, Hx Hypercholesterolemia, Hx Hypertension, Other Cardiovascular Problems/Disorders - IRREGULAR HEART BEAT Denies: Hx Congestive Heart Failure, Hx Pacemaker/ICD Respiratory History: Denies: Hx Asthma, Hx Chronic Obstructive Pulmonary Disease (COPD) GI History: Reports: Hx Cirrhosis, Hx Diverticulosis, Hx Gastroesophageal Reflux Disease, Other GI Disorders - gerd and diverticulosis/itis Denies: Hx Ulcer History: Reports: Hx Kidney Stones, Other Problems/Disorders - stones Denies: Hx Dialysis, Hx Renal Disease Musculoskeletal History: Reports: Other Musculoskeletal History - arthritis and disc problems Denies: Hx Rheumatoid Arthritis, Hx Osteoporosis Sensory History: Reports: Hx Contacts or Glasses Denies: Hx Hearing Aid Opthamlomology History: Reports: Hx Contacts or Glasses Psychiatric History: Denies: Hx Panic Disorder - Cancer History Hx Chemotherapy: No - Surgical History Surgery Procedure, Year, and Place: rotator cuff x3; varicose vein; cholecystectomy; Prolapsed uterus and bladder repair with mesh. Hx Anesthesia Reactions: No - Immunization History Date of Tetanus Vaccine: None Date of Influenza Vaccine: Fall 2014 Infectious Disease History: No Infectious Disease History: Reports: Hx Hepatitis - as a child Denies: Hx Clostridium Difficile, Hx Human Immunodeficiency Virus (HIV), Hx of Known/Suspected MRSA, Hx Shingles, Hx Tuberculosis, Hx Known/Suspected VRE, Hx Known/Suspected VRSA, History Other Infectious Disease, Traveled Outside the [place] in Last 30 Days - Family History Known Family History: Positive: Hypertension - Social History Alcohol Use: None Substance Use Type: Reports: None Hx Tobacco Use: No Smoking Status (MU): Never Smoked Tobacco Have You Smoked in the Last Year: No Review of Systems Positive: Fever Negative: Cough, Other - congestion Positive: Abdominal Pain. Negative: Other - bowel issues Genitourinary: Negative - urination issues Positive: Other - back pain All Other Systems Reviewed And Are Negative: Yes Physical Exam - Summary Physical Exam Summary: Appearance: The patient is well-nourished in no acute distress and in no acute pain. Skin: The skin is warm and dry and skin color reflects adequate perfusion. The knee is not warm to touch. HEENT: The head is normocephalic and atraumatic. The pupils are equal and reactive. The conjunctivae are clear and without drainage. Nares are patent and without drainage. Mouth reveals moist mucous membranes and the throat is without erythema and exudate. The external ears are intact. The ear canals are patent and without drainage. The tympanic membranes are intact. Neck: the neck is supple with full range of motion and non-tender. There are no carotid bruits. There is no neck vein distension. Respiratory: Chest is non-tender. Lungs are clear to auscultation and breath sounds are symmetrical and equal. Cardiovascular: Heart is regular rate and rhythm. There is no murmur or rub auscultated. There is no peripheral edema and pulses are symmetrical and equal. Abdomen: The abdomen is soft and slightly tender in the RUQ. There are normal bowel sounds heard in all four quadrants and there is no organomegaly palpated. Musculoskeletal: There is tenderness in the paralumbar area. Extremities are non -tender with full range of motion. The knee does not clot and is not warm to touch. There is no peripheral edema or calf tenderness elicited. Neurological: Patient is alert and oriented to person, place and time. The patient has symmetrical motor strength in all four extremities. Cranial nerves are grossly intact. Deep tendon reflexes are symmetrical and equal in all four extremities. Psychiatric: The patient has an appropriate affect and does not exhibit any anxiety or depression. Triage Information Reviewed: Yes Vital Signs On Initial Exam: Initial Vitals Temp Pulse Resp BP Pulse Ox 97.7 F 84 20 153/118 100 09/21/17 12:59 09/21/17 12:59 09/21/17 12:59 09/21/17 12:59 09/21/17 12:59 Vital Signs Reviewed: Yes Diagnostics - Vital Signs Vital Signs Temp Pulse Resp BP Pulse Ox 09/21/17 12:59 97.7 F 84 20 153/118 100 - Laboratory Lab Results: Lab Results 09/21/17 09/21/17 09/21/17 Range/Units 13:40 13:40 14:30 WBC 3.7 (3.5-10.8) 10^3/ul RBC 4.00 (4.0-5.4) 10^6/ul Hgb 11.3 L (12.0-16.0) g/dl Hct 34 L (35-47) % MCV 85 (80-97) fL MCH 28 (27-31) pg MCHC 33 (31-36) g/dl RDW 17 H (10.5-15) % Plt Count 98 L (150-450) 10^3/ul MPV 9.5 (7.4-10.4) um3 Neut % (Auto) 66.9 (38-83) % Lymph % (Auto) 21.1 L (25-47) % [place] % (Auto) 8.9 H (0-7) % Eos % (Auto) 2.2 (0-6) % Baso % (Auto) 0.9 (0-2) % Absolute Neuts (auto) 2.5 (1.5-7.7) 10^3/ul Absolute Lymphs (auto) 0.8 L (1.0-4.8) 10^3/ul Absolute Monos (auto) 0.3 (0-0.8) 10^3/ul Absolute Eos (auto) 0.1 (0-0.6) 10^3/ul Absolute Basos (auto) 0 (0-0.2) 10^3/ul Absolute Nucleated RBC 0 10^3/ul Nucleated RBC % 0 Sodium 134 L (139-145) mmol/L Potassium TNP 3.6 Chloride 99 L (101-111) mmol/L Carbon Dioxide 28 (22-32) mmol/L Anion Gap 7 (2-11) mmol/L BUN 16 (6-24) mg/dL Creatinine 1.05 H (0.51-0.95) mg/dL Est GFR ( Amer) 65.5 (>60) Est GFR (Non-Af Amer) 51.0 (>60) BUN/Creatinine Ratio 15.2 (8-20) Glucose 400 H (70-100) mg/dL Calcium 9.0 (8.6-10.3) mg/dL Total Bilirubin 1.50 H (0.2-1.0) mg/dL AST TNP 39 ALT 20 (7-52) U/L Alkaline Phosphatase 188 H (34-104) U/L C-Reactive Protein 11.80 H (< 5.00) mg/L Total Protein 7.4 (6.4-8.9) g/dL Albumin 3.5 (3.2-5.2) g/dL Globulin 3.9 (2-4) g/dL Albumin/Globulin Ratio 0.9 L (1-3) Lipase 48 (11.0-82.0) U/L Urine Color Urine Appearance Urine pH (5-9) Ur Specific [place] (1.010-1.030) Urine Protein (Negative) Urine Ketones (Negative) Urine Blood (Negative) Urine Nitrate (Negative) Urine Bilirubin (Negative) Urine Urobilinogen (Negative) Ur Leukocyte Esterase (Negative) Urine WBC (Auto) (Absent) Urine RBC (Auto) (Absent) Ur Squamous Epith Cells (Absent) Urine Bacteria (Absent) Urine Glucose (Negative) 09/21/17 Range/Units 15:38 WBC (3.5-10.8) 10^3/ul RBC (4.0-5.4) 10^6/ul Hgb (12.0-16.0) g/dl Hct (35-47) % MCV (80-97) fL MCH (27-31) pg MCHC (31-36) g/dl RDW (10.5-15) % Plt Count (150-450) 10^3/ul MPV (7.4-10.4) um3 Neut % (Auto) (38-83) % Lymph % (Auto) (25-47) % [place] % (Auto) (0-7) % Eos % (Auto) (0-6) % Baso % (Auto) (0-2) % Absolute Neuts (auto) (1.5-7.7) 10^3/ul Absolute Lymphs (auto) (1.0-4.8) 10^3/ul Absolute Monos (auto) (0-0.8) 10^3/ul Absolute Eos (auto) (0-0.6) 10^3/ul Absolute Basos (auto) (0-0.2) 10^3/ul Absolute Nucleated RBC 10^3/ul Nucleated RBC % Sodium (139-145) mmol/L Potassium Chloride (101-111) mmol/L Carbon Dioxide (22-32) mmol/L Anion Gap (2-11) mmol/L BUN (6-24) mg/dL Creatinine (0.51-0.95) mg/dL Est GFR ( Amer) (>60) Est GFR (Non-Af Amer) (>60) BUN/Creatinine Ratio (8-20) Glucose (70-100) mg/dL Calcium (8.6-10.3) mg/dL Total Bilirubin (0.2-1.0) mg/dL AST ALT (7-52) U/L Alkaline Phosphatase (34-104) U/L C-Reactive Protein (< 5.00) mg/L Total Protein (6.4-8.9) g/dL Albumin (3.2-5.2) g/dL Globulin (2-4) g/dL Albumin/Globulin Ratio (1-3) Lipase (11.0-82.0) U/L Urine Color Yellow Urine Appearance Cloudy Urine pH 5.0 (5-9) Ur Specific [place] 1.012 (1.010-1.030) Urine Protein Negative (Negative) Urine Ketones Negative (Negative) Urine Blood 1+ A (Negative) Urine Nitrate Negative (Negative) Urine Bilirubin Negative (Negative) Urine Urobilinogen Negative (Negative) Ur Leukocyte Esterase 3+ A (Negative) Urine WBC (Auto) 3+(>20/hpf) A (Absent) Urine RBC (Auto) 1+(3-5/hpf) A (Absent) Ur Squamous Epith Cells Present A (Absent) Urine Bacteria 1+ A (Absent) Urine Glucose 3+(>=500 mg/dl) A (Negative) Result Diagrams: 09/21/17 13:40 09/21/17 14:30 Lab Statement: Any lab studies that have been ordered have been reviewed, and results considered in the medical decision making process. - Radiology CXR Xray Interpretation: No Acute Changes - NO ACTIVE DISEASE. Dr. Spears has reviewed this report. Radiology Interpretation Completed By: Radiologist - CT CT Abd/Pel CT Interpretation: No Acute Changes - 1. Cirrhotic liver morphology, unchanged. 2. Moderate splenomegaly, unchanged 3. Mild mesenteric stranding/ edema without significant change 4. Mild periportal lymphadenopathy, unchanged. Dr. Spears has reviewed this report. CT Interpretation Completed By: Radiologist - EKG 18:02 Cardiac Rate: NL EKG Rhythm: Sinus Rhythm - 76 BPM EKG Interpretation: RBBB EKG Comparison: No Significant Change - from 10/19/16 20:25 EKG Interpretation: supraventricular rhythm and normal rate at 75 BPM Complex Multi-Symp Course/Dx Course Of Treatment: Ms. Wyman was quite stable here in the ED. She was found to have right flank pain and a U/A suggestive of infection. She is allergic to a lot of antibiotics but reported that she could take Cipro. She developed an urticarial reaction to IV Cipro which was stopped and she was given benadryl. Sulfa drugs were not listed on her allergy page but she thought that she was allergic to bactrim. I consulted the hospitalist service for admision and observation. - Diagnoses Provider Diagnoses: Back pain, UTI (urinary tract infection), Allergic reaction Discharge - Sign-Out/Discharge Documenting (check all that apply): Discharge - Discharge Plan Condition: Good Disposition: ADMITTED TO [facility] - Billing Disposition and Condition Condition: GOOD [place] [facility] [place] The documentation as recorded by the Demetrio hsieh Jennifer accurately reflects the service I personally performed and the decisions made by me, Joo Spears MD.
[2017-09-21] MEDS: Insulin LISPRO* 1 UNITS UNIT SUBCUT SCH (23:00)
--- NOTE | 2017-09-21 23:19 | HP ---
HISTORY AND PHYSICAL: DATE OF ADMISSION: 09/21/17 ADMITTING PROVIDER: Richard Farmer MD PRIMARY CARE PROVIDER: Claudine Munoz MD CHIEF COMPLAINT: [id number] right flank pain, fevers. 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 She is a poor historian accompanied by son. She has had complaints of right-sided flank and abdominal pain over the last week which is worse with movement and transitioning up and down out of bed. She has had similar pains chronically ever since being diagnosed with nonalcoholic cirrhosis several years ago, but this is worse and it has been as bad as . She has also had fevers in the evenings about 100 degrees Fahrenheit. She saw Reji Green of her primary care physician's office and was referred to the emergency room. She has numerous antibiotic allergies of note. Her workup in the ED was significant for urinalysis with 3+ leukocyte esterase, 3+ white blood cells, 1+ bacteria, 1+ rbc 's. She had no leukocytosis. She was afebrile here. She had a CT of abdomen and pelvis with oral, but not IV contrast that showed unchanged cirrhotic liver morphology, moderate splenomegaly unchanged, mild mesenteric stranding edema without significant change and mild periportal lymphadenopathy. There were no kidney stones or hydronephrosis. There was no evidence of diverticulitis, but evidence of scattered diverticula in sigmoid and descending colon. Given concern for a urinary tract infection, she was given ciprofloxacin IV in the emergency room 400 mg, but started to develop some redness/rash near the IV infusion site along with on her head and upper chest and the infusion was stopped. She was given Benadryl for suspected allergic reaction. She was referred to the hospitalist service for abdominal pain, UTI in the setting of numerous antibiotic allergies. She denies any chest pain, chest pressure, shortness of breath or headaches. No diarrhea or constipation. She is attended at the bedside by her son, Kyler. PAST MEDICAL HISTORY: Insulin-dependent diabetes mellitus, nonalcoholic cirrhosis that is complicated by portal hypertension, esophageal varices status post banding, anemia, hypertension, hyperlipidemia, nephrolithiasis, GERD. PAST SURGICAL HISTORY: Prolapsed uterine repair, humerus fracture, lap randolph. Rotator cuff twice on the right, once on the left. MEDICATIONS: Include: 1. Lantus 34 units q.h.s. 2. 75/25 lispro protamine/lispro mixed 12 units with lunch and dinner. 3. Prilosec 40 mg p.o. daily. 4. Lasix 60 mg p.o. daily. ALLERGIES: Listed to ADHESIVE TAPE, KEFLEX, CODEINE, HYDROCHLOROTHIAZIDE, CARVEDILOL, DOXYCYCLINE, HYDROCODONE, HYDROMORPHONE, LATEX, MORPHINE, NITROFURANTOIN, ZOFRAN, OXYCODONE, PENICILLINS, STATINS, TRAMADOL. Of note, she has tolerated Levaquin p.o. in the past. FAMILY HISTORY: She does not know as she was adopted. SOCIAL HISTORY: The patient is a never smoker, never a significant drinker. Had a career in nursing, now retired, lives alone. Medical surrogate is her daughter, Rosey Lau. She desires to be a full code. Her is now living at [facility]. REVIEW OF SYSTEMS: A complete 14-point review of systems negative except as per HPI. PHYSICAL EXAMINATION GENERAL APPEARANCE: No acute distress, sitting in the hospital bed. VITAL SIGNS: Temperature 97.7; pulse 77; satting 98% to 100% on room air; blood pressure initially 152/118, currently 118/54; respiratory rate 20. HEENT: Normocephalic, atraumatic. Pupils equal, round, reactive to light. Extraocular motions intact. No scleral icterus. No oropharynx lesions. Skin of face with slight erythema that is blanching, additionally on upper chest as well. NECK: Supple. No cervical lymphadenopathy. PULMONARY: Clear to auscultation bilaterally with no wheezing, rales or rhonchi. CARDIOVASCULAR: Regular rate and rhythm with no murmurs, rubs or gallops. ABDOMEN: Tender in the right upper and lower quadrants and some referred pain with deep palpation on the left side as well. Right CVA tenderness is positive. No rebound or guarding. EXTREMITIES: Warm, well perfused. No peripheral edema. Right leg with larger diameter calf than left secondary to fracture. SKIN: No lesions or rashes. NEUROLOGIC: Cranial nerves II through XII intact. Entry Level Software Developer strength intact. Hip flexion at least 4+/5 bilaterally. Sensation intact. DIAGNOSTIC STUDIES AND LAB DATA: White count is 3.7, hemoglobin of 11.3, hematocrit 34, MCV 85, platelets 98,000, neutrophils 67%. Sodium 134, potassium 3.6, chloride 99, carbon dioxide 28, BUN 16, creatinine 1.05, glucose 400, total bili 1.50, alk phos 188, AST 39, ALT 20, CRP of 11.8, albumin 3.5. Urinalysis: 1+ blood, 2+ leukocyte esterase, 3+ wbc, 1+ rbc, 1+ bacteria, 2+ glucose. Imaging: CT abdomen and pelvis with p.o., but no IV contrast showed: 1. cirrhotic liver morphology, unchanged. 2. Moderate splenomegaly, unchanged. 3. Mild mesenteric stranding/edema without significant change. 4. Mild periportal lymphadenopathy, unchanged. Chest x-ray PA and lateral 2 views, no active disease. EKG demonstrated right bundle-branch block, T-wave inversions in V1, V2, V3 all unchanged, poor R wave progression, normal axis, QTc 483. ASSESSMENT AND PLAN: Tami Atkinson is a 77-year-old female with past medical history of insulin-dependent diabetes mellitus, nonalcoholic cirrhosis, chronic right abdominal and flank pains worsened over the last week with some low-grade fevers, and evidence of urinary tract infection. She did not tolerate IV ciprofloxacin, and has also had many antibiotic allergies in the past. She thinks that Bactrim as well causes her problems. Given her successful treatment with oral Levaquin back on 10/24/16, I am going to trial her again with oral Levaquin at this time 750 mg daily. Otherwise, she is nontoxic appearing with relatively normal labs (other than profound hyperglycemia to 400 ) and imaging workup. LFTs are down from prior. I will add a lipase and a lactic acid for further workup of her abdominal pain which does seems to have a chronic component as well. Consideration for perihepatitis/Qwkj-Kdzp-Fvqxor inflammation of the liver capsule related to urinary tract infection or ?pelvic inflammatory disease. She does have a history of urinary incontinence, history of pelvic organ prolapse with failed mesh. We would recommend following up with Dr. Barreto, her urologist, as an outpatient as well. She does have a history of urinary tract infections back in 2014, which were E. coli greater than 100,000 units pansensitive.Blood sugar is poorly controlled. We will continue her Lantus 34 units, put her on a high dose sliding scale, give her a carbohydrate consistent diet. Check another A1c in the morning, it has been more than 3 months since her last. For her history of diastolic congestive heart failure, continue her Lasix 60 mg daily. For her gastroesophageal reflux disease, continue her Prilosec 40 mg p.o. daily. She is a full code. Medical surrogate is her daughter, Rosey Lau. She is being admitted to observation status and monitor her reaction to antibiotics and likely can be discharged in the morning with continued oral therapy. [id number]/CPS #: [id number] MTDD
[2017-09-22 07:07] LABS: ABS Basophils 0 10^3/ul (0-0.2); ABS Eosinophils 0.1 10^3/ul (0-0.6); ABS Lymphocytes 0.9 10^3/ul (1.0-4.8); ABS Monocytes 0.4 10^3/ul (0-0.8); ABS Neutrophils 2.4 10^3/ul (1.5-7.7); ABS Nucleated RBC 0 10^3/ul; Eosinophil % 3.2 % (0-6); Hematocrit 29 % (35-47); Hemoglobin 9.8 g/dl (12.0-16.0); Lymphocyte % 24.2 % (25-47); Mean Corpuscular HGB Conc 34 g/dl (31-36); Mean Corpuscular Hemoglobin 29 pg (27-31); Mean Corpuscular Volume 85 fL (80-97); Mean Platelet Volume 8.6 um3 (7.4-10.4); Nucleated Red Blood Cells % 0; Platelet Count 83 10^3/ul (150-450); Red Blood Count 3.44 10^6/ul (4.0-5.4); Red Cell Distribution Width 18 % (10.5-15); White Blood Count 3.9 10^3/ul (3.5-10.8)
[2017-09-22 07:18] LABS: EGFR Non-African American 51.5 (>60)
[2017-09-22] MEDS ORDERED: Omeprazole CAP* 20 MG PO SCH (07:30)
[2017-09-22] MEDS: Insulin LISPRO* 1 UNITS UNIT SUBCUT SCH (07:33)
[2017-09-22 07:54] VITALS: BP 113/53
[2017-09-22] MEDS ORDERED: Furosemide TAB* 20 MG PO SCH (09:00)
--- NOTE | 2017-09-22 10:03 | PN ---
Subjective Date of Service: 09/22/17 Interval History: Patient seen and examined at bedside. Denies fever, chills, shortness of breath , chest discomfort, N/V/D, or urinary symptoms. Pt states that she continues to have right flank pain, but it is improved. She states that she tolerated the Levaquin well with no adverse reactions. Family History: Unchanged from Admission Social History: Unchanged from Admission Past Medical History: Unchanged from Admission Objective Active Medications: Dextrose (D50w Syringe 50 Ml*) 12.5 gm IV PUSH .FOR FS < 60 - SS PRN Reason: FS < 60 Furosemide (Lasix Tab*) 60 mg PO DAILY SAMANTHA Insulin Glargine (Lantus(*)) 34 units SUBCUT BEDTIME SAMANTHA Insulin Human Lispro (Humalog*) 0 units SUBCUT ACHS SAMANTHA Levofloxacin (Levaquin Tab*) 750 mg PO Q24H SAMANTHA Omeprazole (Prilosec Cap*) 40 mg PO DAILY@0730 [facility] Vital Signs - 8 hr 09/22/17 09/22/17 03:16 07:40 Temperature 98.3 F 97.9 F Pulse Rate 75 68 Respiratory 16 16 Rate Blood Pressure 117/39 113/53 (mmHg) O2 Sat by Pulse 100 100 Oximetry Oxygen Devices in Use Now: None Appearance: NAD, sitting up in bed Ears/Nose/Mouth/Throat: Mucous Membranes Moist Respiratory: Symmetrical Chest Expansion and Respiratory Effort, Clear to Auscultation Cardiovascular: NL Sounds; No Murmurs; No JVD, RRR Abdominal: NL Sounds; No Tenderness; No Distention, - - No CVA tenderness Extremities: No Edema Skin: No Rash or Ulcers Neurological: Alert and Oriented x 3, NL Muscle Strength and Tone Lines/Tubes/Other Access: Clean, Dry and Intact Peripheral IV - , patent and benign Nutrition: Taking PO's Result Diagrams: 09/22/17 06:47 09/22/17 06:47 Additional Lab and Data: . Assess/Plan/Problems-Billing Assessment: Ms. Atkinson is a 77 yo female with PMH significant DM, nonalcoholic cirrhosis, HTN, HLD, GERD and D CHF, chronic right ABD and flank pain, who presented with fevers and concern for UTI. - Patient Problems (1) UTI (urinary tract infection) Comment: - Afebrile and no leukocytosis - Positive UA, urine culture pending - Continue Levaquin (2) Diastolic CHF Code(s): I50.30 - UNSPECIFIED DIASTOLIC (CONGESTIVE) HEART FAILURE SNOMED Code (s): 092792614 Comment: - Echo 08/2017 shows EF 55-60% - Continue Lasix (3) Diabetes Code(s): E11.9 - TYPE 2 DIABETES MELLITUS WITHOUT COMPLICATIONS SNOMED Code(s) : 38802592 Comment: - Glucose 90-220 - HgA1C pending - Continue Lantus and Lispro SS (4) Esophageal varices in cirrhosis Code(s): K74.60 - UNSPECIFIED CIRRHOSIS OF LIVER; I85.10 - SECONDARY ESOPHAGEAL VARICES WITHOUT BLEEDING SNOMED Code(s): 582363614 Comment: - S/P Banding in 2014 - Unable to tolerate Coreg in past with possible allergic reaction for portal HTN (5) Anemia Code(s): D64.9 - ANEMIA, UNSPECIFIED SNOMED Code(s): 159268421 Comment: - Iron deficiency anemia - Slightly lower than baseline, continue to monitor (6) CKD (chronic kidney disease) Code(s): N18.9 - CHRONIC KIDNEY DISEASE, UNSPECIFIED SNOMED Code(s): 029971067 Comment: - Stage 3 at baseline - Creatinine near baseline (7) GERD (gastroesophageal reflux disease) Code(s): K21.9 - GASTRO-ESOPHAGEAL REFLUX DISEASE WITHOUT ESOPHAGITIS SNOMED Code(s): 297295427 Comment: - Continue Prilosec (8) Hypertension Code(s): I10 - ESSENTIAL (PRIMARY) HYPERTENSION SNOMED Code(s): 43895862 Comment: - SBP 110-120's - Continue Lasix (9) DVT prophylaxis Code(s): VYD2133 - SNOMED Code(s): 444451245 Comment: SCDs in setting of bleed (10) Full code status Code(s): Z78.9 - OTHER SPECIFIED HEALTH STATUS SNOMED Code(s): 399912162 Status and Disposition: OBV. Stable for discharge to home today.
--- NOTE | 2017-09-22 22:08 | DS ---
CC: Dr. Cal Barreto; Dr. Claudine Munoz* DISCHARGE SUMMARY: DATE OF ADMISSION: 09/21/17 DATE OF DISCHARGE: 09/22/17 ATTENDING PHYSICIAN: Dr. Dana Tuttle* (dictated by Cyndee Villaseñor NP). PRIMARY CARE PROVIDER: Dr. Claudine Munoz. PRIMARY DIAGNOSIS: Urinary tract infection. SECONDARY DIAGNOSES: 1. Diastolic congestive heart failure. 2. Diabetes mellitus. 3. Esophageal varices with cirrhosis. 4. Iron deficiency anemia. 5. Chronic kidney disease, stage 3. 6. Gastroesophageal reflux disease. 7. Hypertension. STUDIES WHILE IN THE HOSPITAL: 1. Chest x-ray on 09/21/17. Radiologist's impression: No active disease. 2. Abdomen and pelvis CT scan on 09/21/17. Radiologist's impression: Cirrhotic liver morphology, unchanged. Moderate splenomegaly, unchanged. Mild mesenteric stranding/edema without significant change. Mild periportal lymphadenopathy, unchanged. DISCHARGE MEDICATIONS: New home medications: Levaquin 750 mg oral daily for 4 more days. Continued home medications: 1. Omeprazole 40 mg oral daily. 2. Humalog 75-25, 12 units subcutaneous twice daily with meals. 3. Lantus insulin 34 units subcutaneous daily at bedtime. 4. Furosemide 60 mg oral daily. HISTORY OF PRESENT ILLNESS/HOSPITAL COURSE: Ms. Atkinson is a 77-year-old female with past medical history significant for diabetes mellitus, non-alcoholic cirrhosis, portal hypertension, esophageal varices, anemia, hypertension, hyperlipidemia, nephrolithiasis, GERD, and diastolic congestive heart failure who presented to the emergency room with complaints of right flank pain and fevers. The patient chronically has right-sided pain since she was diagnosed with non- alcoholic cirrhosis several years ago but the pain was increased from her baseline. She was having fevers up to 100 degrees Fahrenheit at home. She was seen by her primary care provider, Reji Green NP who referred her to the emergency room. While in the emergency room, the patient had a urinalysis significant for 3+ leukocyte esterase, 3+ wbc's, 1+ bacteria, 1+ rbc's. She had no leukocytosis and was afebrile. She had a CT scan of her abdomen and pelvis showing unchanged cirrhotic liver, moderate splenomegaly, mild mesenteric stranding/ edema without significant change and periportal lymphadenopathy. There were no kidney stones or hydronephrosis noted. There was no evidence of diverticulitis , but she did have some scattered diverticula in her sigmoid and descending colon. Given the concern for possible urinary tract infection, the patient received IV Cipro in the emergency room and started to develop redness near her IV infusion site on her head and upper chest and the infusion was stopped. She was given Benadryl for a suspected allergic reaction and the hospitalists were asked to evaluate the patient for admission. Due to the patient's multiple medication allergies, she was monitored overnight with oral Levaquin as she has tolerated that in the past. The patient tolerated her oral Levaquin well overnight. She had no leukocytosis, remained afebrile, was feeling better, the right flank pain was improving. She feels ready for discharge home today. Ms. Atkinson is stable for discharge home today. Vital signs are as follows, temperature 97.9, heart rate 68, respiratory rate 16, O2 sat 100% on room air, blood pressure 113/53. DISCHARGE PLAN: Ms. Atkinson will be discharged to home. Activity as tolerated. She will be on a consistent carbohydrate diet. In regards to her urinary tract infection, urine culture is not back yet, she will be continued on Levaquin 750 mg oral daily for 4 more days to complete a 5-day course. She will be resumed on her other usual home medications. She has been asked to call Dr. Munoz's office on Sunday morning to set up a followup appointment for the next 4 to 7 days. She has also been asked to call Dr. Barreto's office to set up a followup appointment with him. She has been asked to return to the emergency room for any chest pain or shortness of breath. This is a summarized report of a complex medical history and hospital stay. For further details, please see the entire medical record. TIME SPENT: Time for this discharge was approximately 50 minutes, greater than half of that was spent with the patient discussing discharge plans and instructions. CONDITION ON DISCHARGE: Stable. CYNDEE VILLASEÑOR NP [id number]/[facility] #: [id number] CONRAD
== END 2017-09-22 11:15 | disposition home or self-care (01) ==
LOC: ED 12:55 → MED 19:55
PROVIDERS: ADMIT Internal Medicine; ATTEND Internal Medicine
DX: N39.0 Urinary tract infection, site not specified (principal); I13.0 Hypertensive heart and chronic kidney disease with heart failure and stage 1 through stage 4 chronic kidney disease, or unspecified chronic kidney disease; E11.22 Type 2 diabetes mellitus with diabetic chronic kidney disease; N18.3 Chronic kidney disease, stage 3 (moderate); I50.30 Unspecified diastolic (congestive) heart failure; K74.60 Unspecified cirrhosis of liver; I85.10 Secondary esophageal varices without bleeding; D50.9 Iron deficiency anemia, unspecified; K21.9 Gastro-esophageal reflux disease without esophagitis; Z79.899 Other long term (current) drug therapy; Z88.0 Allergy status to penicillin; Z88.2 Allergy status to sulfonamides; Z88.8 Allergy status to other drugs, medicaments and biological substances; R16.1 Splenomegaly, not elsewhere classified; I45.10 Unspecified right bundle-branch block
CPT/HCPCS: 36415; 71046; 74176; 80048; 80053; 81003; 81015; 83036; 83605; 83690; 85025; 86140; 87077; 87086; 93005; 96365; 96375; 99284; A9270-GY; G0378; J0744; J1200

== ENCOUNTER 2018-01-28 02:40 | Observation (INO) | payer MEDICARE ==
--- NOTE | 2018-01-28 02:50 | ED ---
Adult Trauma - HPI Summary HPI Summary: This patient is a 77 year old F presenting to [facility] with a chief complaint of mechanical fall since 0200. Pt endorses 2x falls. 1st fall she had help to rise from her son and there were no problems or sx, but the second time she was in the bathroom and alone, and experienced severe dizziness and severe tremors, and fell onto her left side. Pt notes she was unable to rise. Pt endorses a left fractured tibia from a previous injury. Pt denies LOC. - History of Current Complaint Stated Complaint: FALL Time Seen by Provider: 01/28/18 02:45 Hx Obtained From: Patient ?: No Mechanism of Injury: Fall Ambulatory at the Scene: No Onset/Duration: Started Minutes Ago, Traumatic, Still Present Onset of Pain: Immediate, Minutes, Post Accident, Prior to Arrival Onset Severity: Moderate Current Severity: Moderate Pain Intensity: 8 Pain Scale Used: 0-10 Numeric Location: Extremities Aggravating Factor(s): Movement, Weight Bearing, Ambulation Alleviating Factor(s): Nothing Associated Signs & Symptoms: Negative: Loss of Consciousness Related History: Similar Episode - notes it was her 2nd fall of the night. - Additional Pertinent History Primary Care Physician: [id number] - Allergy/Home Medications Allergies/Adverse Reactions: Allergies Allergy/AdvReac Type Severity Reaction Status Date / Time Adhesive Tape Allergy Mild Hives Verified 09/21/17 12:59 cephalexin [From Keflex] Allergy Mild Hives Verified 09/21/17 13:44 codeine Allergy Mild Hives Verified 09/21/17 13:48 hydrochlorothiazide Allergy Mild Hives Verified 09/21/17 13:48 carvedilol Allergy Facial Verified 09/21/17 13:47 Redness/Flushing doxycycline Allergy Diarrhea Verified 09/21/17 13:46 hydrocodone Allergy Hives Verified 09/21/17 13:58 hydromorphone [From Dilaudid] Allergy Unknown Verified 09/21/17 13:47 Reaction Details Latex, Natural Rubber Allergy Hives Verified 09/21/17 13:58 morphine Allergy Rash Verified 09/21/17 13:46 nitrofurantoin Allergy Nausea And Verified 09/21/17 13:44 Vomiting ondansetron Allergy Rash Verified 09/21/17 13:46 oxycodone Allergy Hives Verified 09/21/17 13:58 Penicillins Allergy Hives Verified 09/21/17 13:59 Zudixlg-[id number]-Pgy Reductase Allergy Hives Verified 09/21/17 13:59 Inhibitor tramadol Allergy Unknown Verified 09/21/17 13:46 Reaction Details Home Medications: Home Medications Nystatin CREAM* [Nystatin Cream*] 1 applic TOPICAL BID 01/28/18 [History Confirmed 01/28/18] Spironolactone (NF) [Spironolactone 50 MG (NF)] 50 mg PO DAILY 01/28/18 [ History Confirmed 01/28/18] PMH/Surg Hx/FS Hx/Imm Hx Endocrine/Hematology History: Reports: Hx Diabetes Denies: Hx Systemic Lupus Erythematosus, Hx Thyroid Disease Cardiovascular History: Reports: Hx Angina, Hx Hypercholesterolemia, Hx Hypertension, Other Cardiovascular Problems/Disorders - IRREGULAR HEART BEAT Denies: Hx Congestive Heart Failure, Hx Pacemaker/ICD Respiratory History: Denies: Hx Asthma, Hx Chronic Obstructive Pulmonary Disease (COPD) GI History: Reports: Hx Cirrhosis, Hx Diverticulosis, Hx Gastroesophageal Reflux Disease, Other GI Disorders - gerd and diverticulosis/itis Denies: Hx Ulcer History: Reports: Hx Kidney Stones, Other Problems/Disorders - stones Denies: Hx Dialysis, Hx Renal Disease Musculoskeletal History: Reports: Hx of Fracture(s) - left tibia, Other Musculoskeletal History - arthritis and disc problems Denies: Hx Rheumatoid Arthritis, Hx Osteoporosis Sensory History: Reports: Hx Contacts or Glasses Denies: Hx Legally Blind, Hx Deafness, Hx Hearing Aid Opthamlomology History: Reports: Hx Contacts or Glasses Denies: Hx Legally Blind EENT History: Denies: Hx Deafness Psychiatric History: Denies: Hx Panic Disorder, Hx Schizophrenia - Cancer History Hx Chemotherapy: No - Surgical History Surgery Procedure, Year, and Place: rotator cuff x3; varicose vein; cholecystectomy; Prolapsed uterus and bladder repair with mesh. Hx Anesthesia Reactions: No - Immunization History Date of Tetanus Vaccine: None Date of Influenza Vaccine: Fall 2014 Infectious Disease History: Reports: Hx Hepatitis - as a child Denies: Hx Clostridium Difficile, Hx Human Immunodeficiency Virus (HIV), Hx of Known/Suspected MRSA, Hx Shingles, Hx Tuberculosis, Hx Known/Suspected VRE, Hx Known/Suspected VRSA, History Other Infectious Disease - Family History Known Family History: Positive: Hypertension - Social History Occupation: Retired Lives: [facility] Alcohol Use: None Hx Substance Use: No Substance Use Type: Reports: None Hx Tobacco Use: No Smoking Status (MU): Never Smoked Tobacco Have You Smoked in the Last Year: No Review of Systems Positive: no symptoms reported Positive: Arthralgia - left knee, hip, Decreased ROM Negative: Syncope All Other Systems Reviewed And Are Negative: Yes Physical Exam - Summary Physical Exam Summary: Appearance: Well-appearing, Well-nourished, lying in bed comfortably Skin: Warm, dry, no obvious rash Eyes: sclera anicteric, no conjunctival pallor ENT: mucous membranes moist, pharynx appears normal Neck: Supple, nontender Respiratory: Clear to auscultation, no signs of respiratory distress Cardiovascular: Normal S1, S2. No murmurs. Normal distal pulses in tibial and radial bilaterally. Abdomen: Soft, nontender, normal active bowel sounds present Musculoskeletal: Normal, Strength/ROM Intact. Internal or external rotation of left hip does not illicit pain, nor does flexion of the hip Neurological: A&Ox3, awake and alert, mentation is normal, speech is fluent and appropriate Psychiatric: affect is normal, does not appear anxious or depressed Triage Information Reviewed: Yes Vital Signs Reviewed: Yes Diagnostics - Laboratory Result Diagrams: 01/28/18 02:58 01/28/18 02:50 Lab Statement: Any lab studies that have been ordered have been reviewed, and results considered in the medical decision making process. - Radiology Hip/Pelvis XR Xray Interpretation: No Acute Changes Radiology Interpretation Completed By: ED Physician - Negative for Fx. Left knee Xray Interpretation: No Acute Changes Radiology Interpretation Completed By: ED Physician - Negative for fx. Adult Trauma Course/Dx - Physician Notifications Discussed Care Of Patient With: Roshni York Time Discussed With Above Provider: 06:02 Instructed by Provider To: Other - Will see pt in ED and admit. Discharge - Sign-Out/Discharge Documenting (check all that apply): Patient Departure - admit - Discharge Plan Referrals: Claudine Munoz MD [Primary Care Provider] - - Attestation Statements Document Initiated by Scribe: Yes Documenting Scribe: Bjorn Mcknight Provider For Whom Srinath is Documenting (Include Credential): Dr. Joo Lan MD Scribe Attestation: Bjorn Duong scribed for Dr. Joo Lan MD on 01/28/18 at 0603.
[2018-01-28 03:08] LABS: ABS Basophils 0 10^3/ul (0-0.2); ABS Eosinophils 0.1 10^3/ul (0-0.6); ABS Lymphocytes 0.9 10^3/ul (1.0-4.8); ABS Monocytes 0.5 10^3/ul (0-0.8); ABS Neutrophils 4.2 10^3/ul (1.5-7.7); ABS Nucleated RBC 0 10^3/ul; Eosinophil % 1.8 % (0-6); Hematocrit 34 % (35-47); Hemoglobin 11.2 g/dl (12.0-16.0); Lymphocyte % 15.8 % (25-47); Mean Corpuscular HGB Conc 33 g/dl (31-36); Mean Corpuscular Hemoglobin 28 pg (27-31); Mean Corpuscular Volume 85 fL (80-97); Mean Platelet Volume 9.6 um3 (7.4-10.4); Nucleated Red Blood Cells % 0; Platelet Count 112 10^3/ul (150-450); Red Blood Count 4.03 10^6/ul (4.00-5.40); Red Cell Distribution Width 19 % (10.5-15); White Blood Count 5.8 10^3/ul (3.5-10.8)
[2018-01-28 03:27] LABS: EGFR Non-African American 43.3 (>60)
[2018-01-28 05:52] LABS: Urine Appearance Cloudy; Urine Blood 3+ (Negative); Urine Color Yellow; Urine Ketones Negative (Negative); Urine Protein Negative (Negative); Urine Red Blood Cell 3+(>10/hpf) (Absent); Urine Specific Gravity 1.014 (1.010-1.030); Urine Urobilinogen Negative (Negative); Urine White Blood Cell 3+(>20/hpf) (Absent)
[2018-01-28] MEDS ORDERED: Levofloxacin TAB* 500 MG PO ONE (05:58)
[2018-01-28] MEDS ORDERED: Levofloxacin TAB* 500 MG ONE (06:00)
[2018-01-28] MEDS ORDERED: Al Hydrox/Mg Hydrox/Simet LIQ* 30 ML UDC PO PRN (06:29)
[2018-01-28] MEDS ORDERED: Acetaminophen TAB* 325 MG PO PRN (06:29)
[2018-01-28] MEDS ORDERED: Dextrose 50% Syringe 50 ML* 25 GM/50 ML SYRINGE IV PUSH PRN ×2 (06:32→11:05)
--- NOTE | 2018-01-28 07:36 | PN ---
Subjective Date of Service: 01/28/18 Interval History: Ms. Atkinson denies complaint other than reporting that she feels tired this afternoon. She denies chest pain, SOB, nausea, or abdominal pain. She described the symptoms immediately before she fell at home in her bathroom as being a feeling of wooziness and weakness rather than dizziness (with spinning) . She has not had an episode like this before. Although she did fall a few weeks ago, she states this was because her knees gave out on her. Objective Active Medications: Acetaminophen (Tylenol Tab*) 650 mg PO Q4H PRN Al Hydrox/Mg Hydrox/Simethicone (Maalox Plus*) 30 ml PO Q6H PRN Dextrose (D50w Syringe 50 Ml*) 12.5 gm IV PUSH .FOR FS < 60 - SS PRN Furosemide (Lasix Tab*) 60 mg PO DAILY SAMANTHA Heparin Sodium (Porcine) (Heparin Vial(*)) 5,000 units SUBCUT Q8HR SMAANTHA Insulin Glargine (Lantus(*)) 45 units SUBCUT BEDTIME SAMANTHA Insulin Human Lispro (Humalog*) 0 units SUBCUT AC SAMANTHA; Protocol Nystatin (Nystatin Cream*) 1 applic TOPICAL BID SAMANTHA Omeprazole (Prilosec Cap*) 40 mg PO DAILY SAMANTHA Vital Signs: Temp Pulse Resp BP Pulse Ox 0 F 0 0 0/0 0 01/28/18 06:59 01/28/18 06:59 01/28/18 06:59 01/28/18 06:59 01/28/18 06:59 Oxygen Devices in Use Now: None Appearance: Female lying in bed in NAD Eyes: No Scleral Icterus Ears/Nose/Mouth/Throat: Mucous Membranes Moist Neck: Trachea Midline Respiratory: Symmetrical Chest Expansion and Respiratory Effort, Clear to Auscultation Cardiovascular: NL Sounds; No Murmurs; No JVD, No Edema Abdominal: NL Sounds; No Tenderness; No Distention Skin: No Rash or Ulcers Neurological: Alert and Oriented x 3, NL Muscle Strength and Tone Nutrition: Taking PO's Result Diagrams: 01/28/18 02:58 01/28/18 02:50 Assess/Plan/Problems-Billing Assessment: Ms. Atkinson is a 77 yo F with a PMH of chronic diastolic CHF, IDDM, esophageal varices with cirrhosis, iron deficiency anemia, and hypertension who was admitted on 01/28/18 with dizziness and fall. - Patient Problems (1) Dizziness Comment: - Patient describes wooziness and weakness rather than dizziness - No arrhytmmia noted on telemetry, patient not orthostatic - Question if related to recently started spironolactone, hold until follow up with PCP (2) UTI (urinary tract infection) Comment: - Asymptomatic. - UA with leuk esterase but no bacteria. - Await urine cultures, follow up outpatient (3) Anemia Comment: - Iron deficiency anemia, up from baseline consistent with mild dehydration (4) CKD (chronic kidney disease) Comment: - Stage 3 at baseline (5) Diabetes Comment: - BGs 300s today, likely due to skipping home lispro with meals. - Continue Lantus and home Lispro with meals (6) Diastolic CHF Comment: - Echo 08/2017 shows EF 55-60% - Resume lasix, hold spironolactone (7) Esophageal varices in cirrhosis Comment: - S/P Banding in 2014 - Unable to tolerate Coreg in past with possible allergic reaction for portal HTN (8) GERD (gastroesophageal reflux disease) Comment: - Continue omeprazole (9) Hypertension Comment: - SBP 130s - Resume lasix, hold recently started spironolactone until follow up with PCP. (10) Thrombocytopenia Comment: - Chronic, at baseline. (11) DVT prophylaxis Comment: - Heparin SQ. (12) Full code status Comment: Status and Disposition: OBV. Discharge to home.
--- NOTE | 2018-01-28 08:00 | RAD ---
INDICATION: Left hip pain after a fall COMPARISON: Similar radiograph dated September 14, [address] of the abdomen and pelvis September 21, 2017 TECHNIQUE: 3 views of the left hip were obtained. FINDINGS: The visualized bones of the left hip are well-corticated and properly aligned. Degenerative changes include sclerotic change of the bilateral acetabular roofs.There is no radiographic evidence of acute fracture or dislocation. Incidentally noted is atherosclerotic calcification of the proximal bilateral superficial femoral arteries. IMPRESSION: 1. No radiographically apparent fracture or dislocation of the left hip. 2. Incidentally noted is calcified atherosclerosis of the visualized superficial femoral arteries corresponding to the coarse atherosclerotic calcifications seen on the September 21, 2017 CT of the abdomen and pelvis. If the patient's symptoms persist follow-up imaging is recommended. R0
--- NOTE | 2018-01-28 08:01 | RAD ---
INDICATION: Left knee injury COMPARISON: February 20, 2017 TECHNIQUE: AP and crosstable lateral views are submitted were obtained. FINDINGS: There is osteopenia. There is advanced osteoarthritis about the medial joint space compartment with joint space narrowing with sclerosis, subchondral cyst rotation, and marginal osteophyte formation. There is moderate patellofemoral spurring. The lateral joint space is preserved. There are no acute bony findings. There is no significant joint effusion IMPRESSION: ADVANCED OSTEOARTHRITIS. NO ACUTE CHANGE. R1
[2018-01-28] MEDS ORDERED: Nystatin CREAM* 30 GM TOPICAL SCH (09:00)
[2018-01-28] MEDS ORDERED: Omeprazole CAP* 20 MG PO SCH (09:00)
[2018-01-28] MEDS: Insulin LISPRO* 1 UNITS UNIT SUBCUT SCH ×5 (09:46→18:08)
--- NOTE | 2018-01-28 10:32 | HP ---
HISTORY AND PHYSICAL: DATE OF ADMISSION: 01/28/18 TIME OF EVALUATION: 0600 PRIMARY CARE PHYSICIAN: Dr. Claudine johnson. CHIEF COMPLAINT: Dizziness and fall. HISTORY OF PRESENT ILLNESS: This is a 77-year-old female with past medical history of diabetes, alcoholic cirrhosis who presented to the emergency room after having a fall. Patient states she was in her usual state of health. She got up, used her walker to ambulate to the bathroom. She was getting up from the bathroom and became very dizzy. She states she had full body tremors. She thought she could get back to her bed with her walker, but she fell and she landed on her left leg and she has had issues with her knee chronically and fractured her tibia a year and a half ago and developed significant pain. She used her Medic button to alert 911, her son was called and she was brought here for further evaluation. No loss of consciousness, no head injury, no chest pain or shortness of breath, no recent URI illness, no abdominal pain. She is chronically nauseated. She denies any urinary symptoms. She does state she has an overflow incontinence after having a mesh placed. Her last fall was about 3 months ago. She was started on spironolactone about 3 weeks ago for her chronic right ankle swelling that she is on Lasix for as well. Otherwise, review of systems is negative. She has had a good p.o. and no changes in her weight. They tried to ambulate her down in the emergency room and she was very unsteady on her feet and there was concern for safety and the decision was to defer it to the hospitalist service for further evaluation. In the emergency room, patient was given Levaquin 500 mg. PAST MEDICAL HISTORY: 1. Diastolic congestive heart failure. 2. Diabetes, on insulin. 3. History of esophageal varices with cirrhosis. 4. Iron-deficiency anemia. 5. CKD, stage 3. 6. GERD. 7. History of a prolapsed uterus and bladder, status post mesh placement. 8. History of portal hypertension. 9. History of nephrolithiasis. 10. History of humerus fracture. 11. Lap randolph. 12. Rotator cuff repair twice on the right and once on the left. MEDICATIONS: 1. Spironolactone 50 mg daily. 2. Omeprazole 40 mg daily. 3. Nystatin topical b.i.d. 4. Humalog 15 units b.i.d. with meals. 5. Lantus 45 units at bedtime. 6. Lasix 60 mg daily. ALLERGIES: ADHESIVE TAPE, KEFLEX, CODEINE, HYDROCHLOROTHIAZIDE, CARVEDILOL, DOXYCYCLINE, HYDROCODONE, HYDROMORPHONE, LATEX, MORPHINE, NITROFURANTOIN, ONDANSETRON, OXYCODONE, PENICILLIN, STATINS and TRAMADOL. SOCIAL HISTORY: Patient lives at home alone. Her children are very close and very involved in her care. She ambulates with a walker. Her is in [facility] for dementia. No history of smoking, alcohol or illicit drug use. She is a retired nurse. Her healthcare proxy is her daughter , Rosey Lau. Code status is full code. REVIEW OF SYSTEMS: A 14-point review of systems as mentioned in the HPI, otherwise negative. FAMILY HISTORY: The patient is adopted. PHYSICAL EXAMINATION GENERAL: In no acute distress, resting comfortably with her son and daughter-in - law at the bedside. VITAL SIGNS: Temp 98.1, pulse rate 89, respiratory rate 26, oxygen saturation 96% on room air, blood pressure 103/45. HEENT: Head: Normocephalic. Pupils are equal and reactive. Anicteric. Oropharynx: Mucous membranes are moist. NECK: Supple. No lymphadenopathy. RESPIRATORY: Diminished breath sounds. No wheezes, rhonchi or rales. CARDIAC: Regular rate and rhythm. Systolic murmur, most prominent at the left sternal base. ABDOMEN: Soft, nontender, nondistended. EXTREMITIES: No clubbing, trace edema, +1 DPs. NEUROLOGICAL: Alert and oriented x3. No gross focal neurologic deficits. She has pain with range of motion of her left lower extremity. LABORATORY DATA: White count 5.8, hemoglobin 11.2, hematocrit 34, platelets 112. Sodium 134, potassium 3.6, chloride 99, bicarb 22, BUN 24, creatinine 1.21 , glucose 282. Urine shows +3 blood, squamous cells, transitional cells, absent bacteria. RADIOGRAPHIC DATA: Per wet read hip and knee x-rays unremarkable. ASSESSMENT: This is a 77-year-old female with a past medical history of diabetes, cirrhosis of liver who presented to the emergency room after having a fall and a dizzy episode. Fall with vertigo. Assessment: The patient's history and physical are unremarkable other than she remains to be unsteady on her feet. No obvious deformity or laboratory derangement to contribute to her fall. I do wonder if the additional spironolactone caused her to develop orthostatic hypotension leading to her vertigo, tremors and fall. Blood pressures are soft currently at this time. Plan: We will get an EKG, check orthostatics. Will hold the spironolactone and likely needs to be discontinued altogether. We will resume her Lasix starting tomorrow morning if she remains in the hospital and if there is any concerning on her telemetry, consider getting an echocardiogram as well, although her echo back in August was relatively unremarkable. No indication for continuing antibiotics as she has no urinary symptoms or white count. CHRONIC MEDICAL PROBLEMS: 1. Cirrhosis of the liver. Continue her omeprazole and Lasix. 2. Diabetes. Continue her Lantus and lispro. 3. FEN. Diabetic diet. 4. DVT prophylaxis. Patient scores high risk. We will place her on heparin subcu t.i.d. 5. Code status. Full code. TIME SPENT: Greater than 60 minutes were spent doing the history and physical, greater than half time was spent in direct patient contact. [id number]/[facility] #: [id number] CONRAD
[2018-01-28] MEDS ORDERED: Heparin VIAL(*) 5000 UNITS/ML VIAL (FIVE THOUSAND) SUBCUT SCH (14:00)
[2018-01-28 16:21] VITALS: BP 114/53
[2018-01-28] MEDS ORDERED: Insulin GLARGINE(*) 1 UNITS UNIT SUBCUT SCH (21:00)
--- NOTE | 2018-01-28 23:18 | DS ---
HOSPITAL MEDICINE DISCHARGE SUMMARY: DATE OF ADMISSION: 01/28/18 DATE OF DISCHARGE: 01/28/18 ATTENDING PHYSICIAN: Dr. Marni Whitman * (dictated by Jeanine Murray NP) . PRIMARY DIAGNOSIS: Lightheadedness with fall, suspected to possible dehydration in the setting of new spironolactone usage. SECONDARY DIAGNOSES: 1. Type 2 diabetes, insulin-dependent. 2. Chronic diastolic congestive heart failure. 3. History of esophageal varices with cirrhosis. 4. Iron deficiency anemia. 5. Chronic kidney disease, stage 3. 6. Gastroesophageal reflux disease. 7. History of prolapsed uterus and bladder, status post mesh placement. 8. History of portal hypertension. 9. History of nephrolithiasis. 10. History of humerus fracture. 11. Laparoscopic cholecystectomy. 12. Rotator cuff repair twice on the right and once on the left. MEDICATIONS: 1. Omeprazole 40 mg p.o. daily. 2. Nystatin topical b.i.d. 3. Humalog 15 units b.i.d. with meals. 4. Latus 45 units at bedtime. 5. Lasix 60 mg p.o. daily. 6. Hold spironolactone. HOSPITAL COURSE: Ms. Atkinson is a 77-year-old female with a past medical history as outlined above, who presented to the emergency room on 01/28/18 with concerned for fall. Please see the dictated H and P from Roshni York MD for complete details. The patient states that she was in her bathroom and walking to the sink when she suddenly felt very weak all over and lightheaded. I specifically asked her if she felt dizzy and she said no that she did not feel that the room was spinning, but that she just felt woozy. She crumbled to the floor. She activated a medical alert button and was brought to the emergency room. She denies other acute symptoms. She has specifically denied any symptoms of dysuria, frequency, or lower abdominal pain. She states that she had last fallen a few months ago, but states that this fall was a purely mechanical fall related to weakness in her knees. The only new thing for her is that she has been started on spironolactone about 3 weeks prior to this admission for chronic right ankle swelling. In the emergency room, Ms. Atkinson had labs, which showed a urinalysis with 3+ leuk esterase, 3+ WBC, but no bacteria. She also had squamous epithelial cells present, which suggested the sample was not a clean catch specimen. The remainder of her labs were unremarkable given her history. Ms. Atkinson was admitted to the hospital. She was monitored on the telemetry unit and had no arrhythmias. She has had orthostatic vital signs and she was not orthostatic. Her blood pressure is well controlled, running in the 130s systolically. She is afebrile. She is tolerating oral intake well. She has been evaluated by the physical therapist and deemed to be independent and at her baseline with ambulation. Its our suspicion that perhaps additional spironolactone caused some transient orthostasis and mild dehydration that led to the patient's symptoms and fall. Thus far, this workup has been negative. She has no evidence of infection. Her urinalysis is mildly positive, but likely contaminated. I recommend that the urine culture be followed outpatient by her primary care physician. My further recommendation is that she discontinue spironolactone until she can be followed up by her primary care physician for reevaluation. Ms. Atkinson is medically stable for discharge to home. DISPOSITION: To home. DIET: Low-carb, low-salt. ACTIVITY: As tolerated. FOLLOWUP PLANS: Please follow up with Dr. Munoz next week regarding this hospitalization. TIME SPENT: Approximately 60 minutes were spent on the discharge of this patient, more than half time spent with the patient at the bedside reviewing the events leading up to this hospitalization and during this hospitalization and performing the physical examination and reviewing the plan of care. JEANINE MURRAY NP [id number]/[facility] #: [id number] [place]
[2018-01-29] MEDS ORDERED: Furosemide TAB* 20 MG PO SCH (09:00)
== END 2018-01-28 18:00 | disposition home or self-care (01) ==
LOC: ED 02:40 → MED 06:29
PROVIDERS: ADMIT Pediatrics; ATTEND Student in an Organized Health Care Education/Training Program
DX: R42 Dizziness and giddiness (principal); M25.552 Pain in left hip; E11.9 Type 2 diabetes mellitus without complications; Z79.4 Long term (current) use of insulin; I11.0 Hypertensive heart disease with heart failure; I50.30 Unspecified diastolic (congestive) heart failure; D50.9 Iron deficiency anemia, unspecified; I13.0 Hypertensive heart and chronic kidney disease with heart failure and stage 1 through stage 4 chronic kidney disease, or unspecified chronic kidney disease; N18.3 Chronic kidney disease, stage 3 (moderate); I45.10 Unspecified right bundle-branch block; K76.6 Portal hypertension; I85.10 Secondary esophageal varices without bleeding; K74.60 Unspecified cirrhosis of liver; Z79.899 Other long term (current) drug therapy; Z88.1 Allergy status to other antibiotic agents; Z88.0 Allergy status to penicillin; Z88.8 Allergy status to other drugs, medicaments and biological substances
CPT/HCPCS: 36415; 80053; 81003; 81015; 85025; 87077; 87086; 87186; 93005; 96372; 99285; A9270-GY; G0378; G8978-GP-CI; G8979-GP-CI; G8980-GP-CI; J1644

== ENCOUNTER 2018-01-29 09:46 | Inpatient (IN) | payer MEDICARE ==
[2018-01-29 10:37] LABS: INR 1.17 (0.77-1.02)
[2018-01-29 10:48] LABS: EGFR Non-African American 43.3 (>60)
[2018-01-29] MEDS ORDERED: NS 0.9% 1000 ML* 1,000 ML IV ONE ×2 (10:52)
--- NOTE | 2018-01-29 11:01 | RAD ---
INDICATION: Weakness COMPARISON: None TECHNIQUE: Noncontrast axial source images were acquired from the skull base to the vertex. FINDINGS: Ventricles/sulci: There is mild age-related cortical atrophy with compensatory dilatation of the CSF spaces. Brain parenchyma: There is no acute focal parenchymal finding, evidence of intracranial mass, or intracranial mass effect. There are mild chronic marked thoracic ischemic changes Intracranial hemorrhage:None. Extra-axial spaces: There are no abnormal extra axial fluid collections or evidence of extra-axial mass. Calvarium: There is no calvarial fracture or other calvarial abnormality. Scalp: There is no evidence of scalp or extracalvarial soft tissue abnormality. Paranasal sinuses/mastoid: The paranasal sinuses and mastoid air cells are clear. Other: None. IMPRESSION: Mild CORTICAL ATROPHY WITH mild CHRONIC MICROVASCULAR ISCHEMIC CHANGES. NO ACUTE FINDINGS.
[2018-01-29 11:25] LABS: Hematocrit 32 % (35-47); Hemoglobin 10.5 g/dl (12.0-16.0); Mean Corpuscular HGB Conc 33 g/dl (31-36); Mean Corpuscular Hemoglobin 28 pg (27-31); Mean Corpuscular Volume 85 fL (80-97); Mean Platelet Volume 9.8 um3 (7.4-10.4); Platelet Count 99 10^3/ul (150-450); Red Blood Count 3.82 10^6/ul (4.00-5.40); Red Cell Distribution Width 19 % (10.5-15); White Blood Count 4.3 10^3/ul (3.5-10.8)
--- NOTE | 2018-01-29 11:32 | ED ---
Lower Extremity - HPI Summary HPI Summary: Patient is a 77 y/o F w/ c/o LE weakness onsetting this morning. In the room, patient reports LLE weakness for past 1-1.5 year due to problems with healing of a left broken tibia. Per patient's son, patient was here two days ago for an incident where she went to the bathroom, lost her footing, and fell to the floor. Patient was brought here, admitted, and sent home yesterday. Today in the morning, patient's son found patient incapable of getting up and incontinent of stool. During this discussion, patient states that she feels weak "all over" and not just LLE. On triage, pain is rated 8/10 and nothing is noted to aggravate/alleviate Sx. Patient has HTN, HLD, diabetes as well as liver cirrhosis. PSHx of gallbladder surgery. Home medications and allergies reviewed. - History of Current Complaint Chief Complaint: EDWeakness Stated Complaint: UNABLE TO AMBULATE Time Seen by Provider: 01/29/18 09:57 Hx Obtained From: Patient, Family/[employer] - son contributes to HPI Onset of Pain: Prior to Arrival Onset/Duration: Hours - Sx onset this morning Severity Currently: Severe - 8/10 Pain Intensity: 8 Pain Scale Used: 0-10 Numeric - 8/10 Timing: Constant Location: Is Discrete @ - LLE, but in the room she reports weakness everywhere Associated Signs And Symptoms: Positive: Other - incontinent of stool Aggravating Factor(s): Nothing Alleviating Factor(s): Nothing - Allergies/Home Medications Allergies/Adverse Reactions: Allergies Allergy/AdvReac Type Severity Reaction Status Date / Time Adhesive Tape Allergy Mild Hives Verified 01/29/18 09:52 cephalexin [From Keflex] Allergy Mild Hives Verified 01/29/18 09:52 codeine Allergy Mild Hives Verified 01/29/18 09:52 hydrochlorothiazide Allergy Mild Hives Verified 01/29/18 09:52 carvedilol Allergy Facial Verified 01/29/18 09:52 Redness/Flushing doxycycline Allergy Diarrhea Verified 01/29/18 09:52 hydrocodone Allergy Hives Verified 01/29/18 09:52 hydromorphone [From Dilaudid] Allergy Unknown Verified 01/29/18 09:52 Reaction Details Latex, Natural Rubber Allergy Hives Verified 01/29/18 09:52 morphine Allergy Rash Verified 01/29/18 09:52 nitrofurantoin Allergy Nausea And Verified 01/29/18 09:52 Vomiting ondansetron Allergy Rash Verified 01/29/18 09:52 oxycodone Allergy Hives Verified 01/29/18 09:52 Penicillins Allergy Hives Verified 01/29/18 09:52 Csdjffc-Plx-Vrh Reductase Allergy Hives Verified 01/29/18 09:52 Inhibitor tramadol Allergy Unknown Verified 01/29/18 09:52 Reaction Details PMH/Surg Hx/FS Hx/Imm Hx Endocrine/Hematology History: Reports: Hx Diabetes Denies: Hx Systemic Lupus Erythematosus, Hx Thyroid Disease Cardiovascular History: Reports: Hx Angina, Hx Hypercholesterolemia, Hx Hypertension, Other Cardiovascular Problems/Disorders - IRREGULAR HEART BEAT Denies: Hx Congestive Heart Failure, Hx Pacemaker/ICD Respiratory History: Denies: Hx Asthma, Hx Chronic Obstructive Pulmonary Disease (COPD) GI History: Reports: Hx Cirrhosis, Hx Diverticulosis, Hx Gastroesophageal Reflux Disease, Other GI Disorders - gerd and diverticulosis/itis Denies: Hx Ulcer History: Reports: Hx Kidney Stones, Other Problems/Disorders - stones Denies: Hx Dialysis, Hx Renal Disease Musculoskeletal History: Reports: Other Musculoskeletal History - arthritis and disc problems Denies: Hx Rheumatoid Arthritis, Hx Osteoporosis Sensory History: Denies: Hx Contacts or Glasses, Hx Legally Blind, Hx Deafness, Hx Hearing Aid Opthamlomology History: Denies: Hx Contacts or Glasses, Hx Legally Blind Psychiatric History: Denies: Hx Panic Disorder, Hx Schizophrenia - Cancer History Hx Chemotherapy: No - Surgical History Surgery Procedure, Year, and Place: rotator cuff x3; varicose vein; cholecystectomy; Prolapsed uterus and bladder repair with mesh. Hx Anesthesia Reactions: No - Immunization History Date of Tetanus Vaccine: None Date of Influenza Vaccine: Fall 2014 Infectious Disease History: No Infectious Disease History: Reports: Hx Hepatitis - as a child Denies: Hx Clostridium Difficile, Hx Human Immunodeficiency Virus (HIV), Hx of Known/Suspected MRSA, Hx Shingles, Hx Tuberculosis, Hx Known/Suspected VRE, Hx Known/Suspected VRSA, History Other Infectious Disease, Traveled Outside the [place] in Last 30 Days - Family History Known Family History: Positive: Hypertension - Social History Alcohol Use: None Hx Substance Use: No Substance Use Type: Reports: None Hx Tobacco Use: No Smoking Status (MU): Never Smoked Tobacco Have You Smoked in the Last Year: No Review of Systems Positive: Other - incontinence of stool Positive: Other - LLE weakness, generalized weakness All Other Systems Reviewed And Are Negative: Yes Physical Exam - Summary Physical Exam Summary: Appearance: Well appearing, no pain distress Skin: warm, dry, reflects adequate perfusion Head/face: normal Eyes: EOMI, HECTOR ENT: normal, mucous membranes moist Neck: supple, non-tender Respiratory: CTA, breath sounds present Cardiovascular: grade 3 systolic murmur of heart but regular rate, pulses symmetrical Abdomen: non-tender, soft Bowel Sounds: present Musculoskeletal: normal, strength/ROM intact; no effusion of left knee, pain with movement of LLE; generalized weakness in legs Neuro: normal, sensory motor intact, A&Ox3, no focal deficits, no numbness Triage Information Reviewed: Yes Vital Signs On Initial Exam: Initial Vitals Temp Pulse Resp BP Pulse Ox 98.3 F 92 18 140/58 98 01/29/18 09:48 01/29/18 09:48 01/29/18 09:48 01/29/18 09:48 01/29/18 09:48 Vital Signs Reviewed: Yes Diagnostics - Vital Signs Vital Signs Temp Pulse Resp BP Pulse Ox 01/29/18 11:00 84 28 96 01/29/18 10:40 132/72 01/29/18 10:10 89 27 142/68 97 01/29/18 09:51 140/58 01/29/18 09:48 98.3 F 92 18 140/58 98 - Laboratory Lab Results: Lab Results 01/29/18 01/29/18 01/29/18 Range/Units 10:23 10:23 10:23 INR (Anticoag Therapy) 1.17 H (0.77-1.02) Sodium 132 L (135-145) mmol/L Potassium 4.7 (3.5-5.0) mmol/L Chloride 101 (101-111) mmol/L Carbon Dioxide 23 (22-32) mmol/L Anion Gap 8 (2-11) mmol/L BUN 25 H (6-24) mg/dL Creatinine 1.21 H (0.51-0.95) mg/dL Est GFR ( Amer) 52.3 (>60) Est GFR (Non-Af Amer) 43.3 (>60) BUN/Creatinine Ratio 20.7 H (8-20) Glucose 478 H (70-100) mg/dL Lactic Acid 3.8 H* (0.5-2.0) mmol/L Calcium 9.1 (8.6-10.3) mg/dL Magnesium 1.9 (1.9-2.7) mg/dL Total Bilirubin 2.40 H (0.2-1.0) mg/dL AST 46 H (13-39) U/L ALT 22 (7-52) U/L Alkaline Phosphatase 144 H (34-104) U/L Total Creatine Kinase 335 H (10-223) U/L Troponin I 0.04 H* (<0.04) ng/mL B-Natriuretic Peptide ( - 100) pg/mL Total Protein 6.9 (6.4-8.9) g/dL Albumin 3.1 L (3.2-5.2) g/dL Globulin 3.8 (2-4) g/dL Albumin/Globulin Ratio 0.8 L (1-3) TSH Pending 01/29/18 Range/Units 10:23 INR (Anticoag Therapy) (0.77-1.02) Sodium (135-145) mmol/L Potassium (3.5-5.0) mmol/L Chloride (101-111) mmol/L Carbon Dioxide (22-32) mmol/L Anion Gap (2-11) mmol/L BUN (6-24) mg/dL Creatinine (0.51-0.95) mg/dL Est GFR ( Amer) (>60) Est GFR (Non-Af Amer) (>60) BUN/Creatinine Ratio (8-20) Glucose (70-100) mg/dL Lactic Acid (0.5-2.0) mmol/L Calcium (8.6-10.3) mg/dL Magnesium (1.9-2.7) mg/dL Total Bilirubin (0.2-1.0) mg/dL AST (13-39) U/L ALT (7-52) U/L Alkaline Phosphatase (34-104) U/L Total Creatine Kinase (10-223) U/L Troponin I (<0.04) ng/mL B-Natriuretic Peptide 51 ( - 100) pg/mL Total Protein (6.4-8.9) g/dL Albumin (3.2-5.2) g/dL Globulin (2-4) g/dL Albumin/Globulin Ratio (1-3) TSH Result Diagrams: 01/29/18 10:23 01/29/18 10:23 Lab Statement: Any lab studies that have been ordered have been reviewed, and results considered in the medical decision making process. - Radiology CXR Xray Interpretation: No Acute Changes Radiology Interpretation Completed By: Radiologist - no active disease, this report was reviewed by ED physician. - CT CT Head CT Interpretation: No Acute Changes CT Interpretation Completed By: Radiologist - Mild cortical atrophy with mild chronic microvascular ischemic changes. no acute findings. this report was reviewed by ED physician. - EKG 1015 Cardiac Rate: NL - rate of 87 bpm EKG Rhythm: Sinus Rhythm ST Segment: Non-Specific EKG Interpretation: normal axis, RBBB Re-Evaluation - Re-Evaluation First Eval Re-Evaluation Time: 10:50 Comment: Discussed plan to admit patient for further workup. Patient is agreeable with this plan. Lower Extremity Course/Dx - Course Course Of Treatment: Patient with generalized weakness over the last several days. She is now not able to get out of bed and is covered in her own excrement. Her blood sugars are elevated without any new source of infection. 2 L IV fluids given for blood sugar. Her weakness is generalized and nonfocal. She will be readmitted to the hospitalist service. They will evaluate at bedside. - Diagnoses Provider Diagnoses: Generalized weakness, Hyperglycemia due to type 2 diabetes mellitus - Physician Notifications Discussed Care Of Patient With: Noelle Acosta Time Discussed With Above Provider: 10:55 Instructed by Provider To: Other - Discussed case with Dr. Acosta at 10:55. She accepts patient for admission to [facility] [place]. - Critical Care Time Critical Care Time: 30-74 min - Critical care time is exclusive of separately billable procedures Discharge - Sign-Out/Discharge Documenting (check all that apply): Patient Departure - admit - Discharge Plan Condition: Good Disposition: ADMITTED TO [facility] - Billing Disposition and Condition Condition: GOOD Disposition: Admitted to [facility] - Attestation Statements Document Initiated by Scribe: Yes Documenting Scribe: Mark Barr Provider For Whom Scribe is Documenting (Include Credential): MD Arron Rootibmark Attestation: Mark Duong scribed for Cristhian Scott MD on 01/29/18 at 1350. Scribe Documentation Reviewed: Yes Provider Attestation: The documentation as recorded by the scribeMark accurately reflects the service I personally performed and the decisions made by me, Cristhian Scott MD
[2018-01-29 11:48] LABS: ABS Basophils 0 10^3/ul (0-0.2); ABS Eosinophils 0.1 10^3/ul (0-0.6); ABS Lymphocytes 0.8 10^3/ul (1.0-4.8); ABS Monocytes 0.5 10^3/ul (0-0.8); ABS Neutrophils 2.9 10^3/ul (1.5-7.7); ABS Nucleated RBC 0 10^3/ul; Eosinophil % 1.4 % (0-6); Lymphocyte % 18.9 % (25-47); Nucleated Red Blood Cells % 0
--- NOTE | 2018-01-29 12:15 | RAD ---
INDICATION: Weakness COMPARISON: January 09, 2018 TECHNIQUE: AP seated and lateral views were obtained. FINDINGS: Bones/Soft Tissues: There are no acute bony findings. Cardiomediastinal: The cardiomediastinal silhouette is normal. Lungs: There are no infiltrates. Pleura: There are no pleural effusions. Other: None IMPRESSION: NO ACTIVE DISEASE.
[2018-01-29] MEDS ORDERED: Dextrose 50% Syringe 50 ML* 25 GM/50 ML SYRINGE IV PUSH PRN (12:45)
[2018-01-29 12:53] LABS: Urine Appearance Cloudy; Urine Blood 3+ (Negative); Urine Color Yellow; Urine Ketones Negative (Negative); Urine Protein Negative (Negative); Urine Red Blood Cell 3+(>10/hpf) (Absent); Urine Specific Gravity 1.017 (1.010-1.030); Urine Urobilinogen Negative (Negative); Urine White Blood Cell 3+(>20/hpf) (Absent)
--- NOTE | 2018-01-29 14:37 | HP ---
CC: Dr. Claudine Munoz * HISTORY AND PHYSICAL: DATE OF ADMISSION: 01/29/18 PRIMARY CARE PROVIDER: Dr. Claudine Munoz. ATTENDING PHYSICIAN: Dr. Noelle Gee * (dictated by Meka Grace NP). CHIEF COMPLAINT: Weakness, unable to get out of chair. HISTORY OF PRESENT ILLNESS: Ms. Atkinson is a 77-year-old female with past medical history significant for chronic diastolic congestive heart failure; diabetes mellitus; esophageal varices secondary to cirrhosis; iron-deficiency anemia; chronic kidney disease, stage 3; GERD; portal hypertension; and history of prolapsed uterus and bladder, status post mesh repair, who was initially hospitalized yesterday, 01/28/18, for a fall and dizziness where she developed dizziness while in her bathroom falling and striking her head on the sink. She was monitored in the hospital over the course of the day. She had no events noted on telemetry. She was not noted to be orthostatic. She was seen by Physical Therapy, who felt that she was able to ambulate independently with supervision. It was recommended that she could be discharged home by Physical Therapy. The patient was complaining of a painful left knee and was expecting to receive an injection from Orthopedics this week. The patient was discharged home. She states that she was doing well from dinnertime until about midnight when she was unable to get out of her chair to go to the bathroom. She waited until this morning and awoke her son to help her get out of the chair, at which time she came back to the emergency room. She had been incontinent of urine and stool in her chair. She is complaining of pain in her left leg from her previous leg fracture, but has multiple allergies and unable to take pain medication. She denies any fevers or chills, states that she is always cold. She denies chest pain, shortness of breath. She reports some nausea. Denies diarrhea. She reports lots of "gas, indigestion and burping." She states that she has intermittently continued to have some lightheadedness and dizziness. She reports urinary incontinence at baseline. She reports occasional tremors. She reports being anemic and following with GI. She reports being due for an EGD again soon. On her previous admission, she also had a urinalysis and urine culture with preliminary results showing Staphylococcus epidermidis with 100, 000 colonies. She presented to the emergency room for further evaluation. While in the emergency room today, she had labs showing no leukocytosis. She was afebrile. Noted to have thrombocytopenia, which appears to be near her baseline. She had an elevated lactic acid, elevated troponin. Her BUN and creatinine appeared to be slightly elevated above her baseline. She had a urinalysis significant for 3+ blood, 3+ leukocyte esterase, 3+ wbc's, 3+ rbc's, squamous epithelial cells present, bacteria 1+, glucose 3+. Due to the patient' s weakness, the hospitalists were asked to evaluate for admission. PAST MEDICAL HISTORY: 1. Chronic diastolic heart failure. 2. Diabetes mellitus. 3. Cirrhosis with esophageal varices. 4. Iron-deficiency anemia. 5. Chronic kidney disease, stage 3. 6. GERD. 7. Portal hypertension. 8. History of prolapsed uterus and bladder. 9. Nephrolithiasis. 10. Humerus fracture. PAST SURGICAL HISTORY: 1. Status post mesh repair of her uterus and bladder prolapses. 2. Status post laparoscopic cholecystectomy. 3. Status post bilateral rotator cuff repairs. HOME MEDICATIONS: Include: 1. Omeprazole 40 mg oral daily. 2. Nystatin topical twice daily to rash. 3. Humalog mix 75/25, 15 units subcu twice daily with meals. 4. Lantus insulin 45 units subcutaneous with meals at bedtime. 5. Lasix 60 mg oral daily. ALLERGIES: ADHESIVE TAPE, KEFLEX, CODEINE, HYDROCHLOROTHIAZIDE, CARVEDILOL, DOXYCYCLINE, HYDROCODONE, DILAUDID, LATEX, MORPHINE, NITROFURANTOIN, ZOFRAN, OXYCODONE, PENICILLIN, STATINS, and TRAMADOL. FAMILY HISTORY: The patient is unaware of her family history as she is adopted. SOCIAL HISTORY: She denies tobacco, alcohol, or recreational drug use. 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 Her lives at [facility] with dementia. Her daughter, Rosey Chawla and her son, Kyler Atkinson , will be her surrogate decision makers in the event she is unable to make decisions for herself. REVIEW OF SYSTEMS: I performed an 11-point review of systems. All the pertinent positives and negatives are mentioned in the history of present illness. The remaining review of systems is negative. PHYSICAL EXAMINATION GENERAL APPEARANCE: The patient is alert, pleasant, and appears to be in no acute distress. VITAL SIGNS: Temperature 98.3, heart rate 84, respiratory rate 18, O2 sat 96% on room air, blood pressure 132/72. HEENT: Normocephalic, atraumatic. Pupils are equal and reactive to light. Extraocular movements are intact. RESPIRATORY: There is no accessory muscle use. Lungs are clear to auscultation bilaterally. CARDIOVASCULAR: Regular rate and rhythm. S1 and S2 present. There are no murmurs, rubs, or gallops heard. ABDOMEN: Soft, nontender, and nondistended. Bowel sounds present x4. EXTREMITIES: There is 2+ bilateral lower extremity edema. DP and PT pulses are 2+ and symmetric. MUSCULOSKELETAL: There is no clubbing or cyanosis noted. The patient exhibits good strength in all extremities. NEUROLOGICAL: The patient is alert and oriented x4. Cranial nerves II through XII are grossly intact. PSYCHOLOGICAL: The patient is calm and cooperative. SKIN: There are no rashes or abnormalities seen. DIAGNOSTIC STUDIES/LAB DATA: Sodium 132, potassium 4.7, chloride 101, CO2 23, BUN 25, creatinine 1.25, glucose 478. White blood cell count 4.3, hemoglobin 10.5, hematocrit 32, platelet count 99. TSH 2.29, lactic acid 3.8, troponin 0.04. Urinalysis from today: Blood 3+, leukocyte esterase 3+, wbc's 3+, rbc' 3+ , squamous epithelial cells present, bacteria 1+, glucose 3+. EKG shows a sinus rhythm, rate of 85, and a right bundle branch block. There are T- wave inversions in aVF, V2 and V3. This is similar to previous EKG from 01/28/18 and 09/21/17. Chest x-ray from today. Radiologist's impression: No active cardiopulmonary disease. Brain CT from today. Radiologist's impression: Mild cortical atrophy with mild chronic microvascular ischemic changes. No acute findings. IMPRESSION: Ms. Atkinson is a 77-year-old female with a past medical history significant for chronic diastolic heart failure, diabetes mellitus, esophageal varices secondary to cirrhosis, iron-deficiency anemia, chronic kidney disease stage 3, gastroesophageal reflux disease, portal hypertension, who presents to the hospital with complaints of weakness and inability to ambulate. She will be admitted as an observation for weakness and possible urinary tract infection. ASSESSMENT/PLAN: 1. Weakness. I suspect this could still be secondary to dehydration from the spironolactone she was on, but could also be secondary to a possible urinary tract infection. We will ask Physical Therapy to evaluate the patient. She may need short-term rehab at discharge. We will also check orthostatic VS again. 2. Possible urinary tract infection. The patient's urinalysis today is significant for 3+ blood, 3+ leukocyte esterase, 3+ wbc's, 3+ rbc's, squamous epithelial cells present, and 1+ bacteria. She had a urine culture from her admission yesterday showing Staphylococcus epidermidis with colonies of greater than 100,000. I suspect that yesterday's culture is likely a contaminant. I am going to hold on antibiotics and see what today's urine grows in culture. The patient had blood cultures drawn. She is afebrile. No leukocytosis. 3. Elevated lactic. The patient's lactic acid is 3.8. I suspect this could be secondary to her cirrhosis and her liver's inability to clear lactic acid. She is afebrile and has no leukocytosis. She received 2 L of fluids in the emergency room. I will continue with gentle IV hydration in the setting of her history of diastolic heart failure. We will trend her lactic acid and follow until it is normalized. 4. Elevated troponin. The patient's initial troponin was 0.04. She denies any chest pain. We will monitor her on telemetry, trend her troponins. Her last echocardiogram was in August of this year. We will hold off on repeating another one for now. 5. Diastolic congestive heart failure. I do not believe the patient is in an acute exacerbation at this time. She has no crackles. She does have bilateral lower extremity edema that she states she has had for quite some time. We will continue her on her Lasix and get daily weights, strict I's and O's. 6. Diabetes mellitus. The patient will have glucose checks a.c. and h.s. She will be continued on her home Lantus dosing. We will place her on lispro sliding scale. 7. Iron-deficiency anemia. The patient' H and H appears to be near her baseline. 8. Chronic kidney disease. The patient's creatinine is slightly above her recent baseline. I suspect this is secondary to the initiation of spironolactone. She is going to get a little gentle IV hydration overnight. We will resume her Lasix in the morning. 9. Gastroesophageal reflux disease. The patient will be continued on her home omeprazole. 10. Thrombocytopenia. This is a chronic issue and her platelets appear to be at her baseline. 11. Fluids, electrolytes, and nutrition: The patient will be on a heart- healthy, low-sodium diabetic diet. 12. Code status: Full code. 13. DVT prophylaxis: She is at highest risk and will have subcu heparin. I am going to hold on TEDs or SCDs in the setting of history of heart failure. 14. Disposition: OBV. TIME SPENT: Time for this admission was approximately 60 minutes, greater than half of that was spent with the patient discussing medications, past medical history, the events leading up to her arrival today, and performing a physical examination. The case has been reviewed with the attending, Dr. Gee, who agrees with the plan of care. Reviewed by DONOVAN FISHER 02/03/18 1928 [id number]/[facility] #: [id number] [place]
[2018-01-29] MEDS: Heparin VIAL(*) 5000 UNITS/ML VIAL (FIVE THOUSAND) SUBCUT SCH ×2 (15:02→22:20)
[2018-01-29] MEDS: NS 0.9% 1000 ML* 1,000 ML IV SCH (15:02)
[2018-01-29] MEDS ORDERED: Acetaminophen TAB* 325 MG PO PRN (17:58)
[2018-01-29] MEDS: Insulin LISPRO* 1 UNITS UNIT SUBCUT SCH (18:12)
[2018-01-29] MEDS ORDERED: Insulin GLARGINE(*) 1 UNITS UNIT SUBCUT SCH (21:00)
[2018-01-30] MEDS: Heparin VIAL(*) 5000 UNITS/ML VIAL (FIVE THOUSAND) SUBCUT SCH ×3 (05:05→21:20)
[2018-01-30] MEDS: NS 0.9% 1000 ML* 1,000 ML IV SCH ×2 (05:05→21:15)
[2018-01-30] MEDS: Insulin LISPRO* 1 UNITS UNIT SUBCUT SCH ×5 (08:07→21:19)
[2018-01-30] MEDS: Omeprazole CAP* 20 MG PO SCH (08:59)
[2018-01-30] MEDS: Furosemide TAB* 20 MG PO SCH (08:59)
[2018-01-30] MEDS ORDERED: Acetaminophen TAB* 325 MG PO PRN (11:00)
[2018-01-30 11:08] LABS: Urine Appearance Cloudy; Urine Blood 1+ (Negative); Urine Color Yellow; Urine Ketones Negative (Negative); Urine Protein Negative (Negative); Urine Red Blood Cell Trace(0-2/hpf) (Absent); Urine Specific Gravity 1.008 (1.010-1.030); Urine Urobilinogen Negative (Negative); Urine White Blood Cell 3+(>20/hpf) (Absent)
[2018-01-30 11:40] LABS: ABS Basophils 0.1 10^3/ul (0-0.2); ABS Eosinophils 0.1 10^3/ul (0-0.6); ABS Monocytes 0.4 10^3/ul (0-0.8); ABS Neutrophils 2.1 10^3/ul (1.5-7.7); ABS Nucleated RBC 0 10^3/ul; Eosinophil % 3.6 % (0-6); Hematocrit 32 % (35-47); Hemoglobin 10.5 g/dl (12.0-16.0); Lymphocyte % 26.2 % (25-47); Mean Corpuscular HGB Conc 33 g/dl (31-36); Mean Corpuscular Hemoglobin 28 pg (27-31); Mean Corpuscular Volume 85 fL (80-97); Mean Platelet Volume 9.2 um3 (7.4-10.4); Nucleated Red Blood Cells % 0.1; Platelet Count 87 10^3/ul (150-450); Red Blood Count 3.75 10^6/ul (4.00-5.40); Red Cell Distribution Width 19 % (10.5-15); White Blood Count 3.7 10^3/ul (3.5-10.8)
[2018-01-30 11:41] LABS: EGFR Non-African American 60.1 (>60)
--- NOTE | 2018-01-30 12:47 | RAD ---
INDICATION: Right upper foramina greater than left in size with mild tenderness. COMPARISON: There are no relevant prior studies available for comparison. TECHNIQUE: Multiple real-time, color flow and Doppler tracings of the right upper extremity were obtained. FINDINGS: The axillary, brachial, basilic and cephalic veins all demonstrate normal compressibility, augmentation with compression and phasic response with respiration. The radial and ulnar veins demonstrate normal compressibility. The subclavian and internal jugular veins also demonstrate normal color flow imaging and phasic response with respiration. IMPRESSION: NO EVIDENCE FOR DEEP VENOUS THROMBOSIS.
[2018-01-30] MEDS: Lidocaine PATCH 5%* 1 PATCH TRANSDERM SCH (12:50)
[2018-01-30] MEDS: Gabapentin CAP(*) 100 MG PO SCH ×2 (15:13→21:16)
--- NOTE | 2018-01-30 16:47 | RAD ---
INDICATION: Right lower extremity swelling. COMPARISON: Comparison is made with a prior venous duplex study from April 05, 2015. TECHNIQUE: Multiple real-time, color flow and Doppler tracings of the right lower extremity were obtained. FINDINGS: The common femoral, femoral, profunda femoral and popliteal veins all demonstrate normal compressibility, augmentation with compression and phasic response with respiration. The posterior tibial and peroneal veins demonstrate normal compressibility and augmentation with compression. IMPRESSION: NO EVIDENCE FOR DEEP VENOUS THROMBOSIS.
--- NOTE | 2018-01-30 17:02 | PN ---
Subjective Date of Service: 01/30/18 Interval History: Pt seen and examined. Meds and labs reviewed. CC: Left knee pain 01/11 ROS: Denied SMITH/dizziness, F/C, N/V, CP, SOB, increased cough, sputum production , abd pain, diarrhea, constipation, dysuria, throat pain, and new skin lesions. The rest of the 14 point ROS are unremarkable. PHYSICAL EXAM: GEN APPEARANCE: Awake, not in acute distress HEENT: NC/AT, PERRLA, moist oral mucosa, (-) throat erythema NECK: Soft, supple, (-) cervical LAD, (-)JVD HEART: S1S2 WNL, RRR, No MRG CHEST: CTA, BL, GAE, No W/R/R ABD: Soft, ND/NT, NABS 4x Q EXT: No C/C/RLE >LLE in size, slightly tender SKIN: Warm to touch PSYCH: No active psychosis, hallucinations, depression, SI/HI Objective Active Medications: Acetaminophen (Tylenol Tab*) 650 mg PO Q4H PRN PRN Reason: FEVER/PAIN Acetaminophen (Tylenol Adult Liq*) 500 mg PO BID [facility] Dextrose (D50w Syringe 50 Ml*) 12.5 gm IV PUSH .FOR FS < 60 - SS PRN PRN Reason: FS < 60 Furosemide (Lasix Tab*) 60 mg PO DAILY [facility] Last Admin: 01/30/18 08:59 Dose: 60 mg Gabapentin (Neurontin Cap(*)) 100 mg PO TID [facility] Last Admin: 01/30/18 15:13 Dose: 100 mg Heparin Sodium (Porcine) (Heparin Vial(*)) 5,000 units SUBCUT Q12H [facility] Sodium Chloride (Ns 0.9% 1000 Ml*) 1,000 mls @ 75 mls/hr IV PER RATE [facility] Last Admin: 01/30/18 05:05 Dose: 75 mls/hr Levofloxacin/Dextrose (Levaquin 500 Mg Ivpremix(*)) 500 mg in 100 mls @ 100 mls /hr IVPB Q24H [facility] Insulin Glargine (Lantus(*)) 45 units SUBCUT BEDTIME [facility] Last Admin: 01/29/18 22:20 Dose: 45 units Insulin Human Lispro (Humalog*) 0 - 5 units SUBCUT AC [facility]; Protocol Last Admin: 01/30/18 12:51 Dose: 2 units Lidocaine (Lidoderm 5% Patch*) 1 patch TRANSDERM DAILY [facility] Last Admin: 01/30/18 12:50 Dose: 1 patch Omeprazole (Prilosec Cap*) 40 mg PO DAILY@0730 [facility] Last Admin: 01/30/18 08:59 Dose: 40 mg Pharmacy Profile Note (Lidocaine Patch Remove*) 1 note N/A 2100 [facility] Vital Signs - 8 hr 01/30/18 01/30/18 15:13 15:35 Temperature 98.2 F Pulse Rate 80 Respiratory 20 16 Rate Blood Pressure 125/54 (mmHg) O2 Sat by Pulse 100 Oximetry Oxygen Devices in Use Now: None Result Diagrams: 01/30/18 11:13 01/30/18 11:13 Additional Lab and Data: Lab Results 01/29/18 01/29/18 01/29/18 Range/Units 10:23 10:23 10:23 INR (Anticoag Therapy) 1.17 H (0.77-1.02) Sodium 132 L (135-145) mmol/L Potassium 4.7 (3.5-5.0) mmol/L Chloride 101 (101-111) mmol/L Carbon Dioxide 23 (22-32) mmol/L Anion Gap 8 (2-11) mmol/L BUN 25 H (6-24) mg/dL Creatinine 1.21 H (0.51-0.95) mg/dL Est GFR ( Amer) 52.3 (>60) Est GFR (Non-Af Amer) 43.3 (>60) BUN/Creatinine Ratio 20.7 H (8-20) Glucose 478 H (70-100) mg/dL Lactic Acid 3.8 H* (0.5-2.0) mmol/L Calcium 9.1 (8.6-10.3) mg/dL Magnesium 1.9 (1.9-2.7) mg/dL Total Bilirubin 2.40 H (0.2-1.0) mg/dL AST 46 H (13-39) U/L ALT 22 (7-52) U/L Alkaline Phosphatase 144 H (34-104) U/L Total Creatine Kinase 335 H (10-223) U/L Troponin I 0.04 H* (<0.04) ng/mL B-Natriuretic Peptide ( - 100) pg/mL Total Protein 6.9 (6.4-8.9) g/dL Albumin 3.1 L (3.2-5.2) g/dL Globulin 3.8 (2-4) g/dL Albumin/Globulin Ratio 0.8 L (1-3) TSH Pending 01/29/18 Range/Units 10:23 INR (Anticoag Therapy) (0.77-1.02) Sodium (135-145) mmol/L Potassium (3.5-5.0) mmol/L Chloride (101-111) mmol/L Carbon Dioxide (22-32) mmol/L Anion Gap (2-11) mmol/L BUN (6-24) mg/dL Creatinine (0.51-0.95) mg/dL Est GFR ( Amer) (>60) Est GFR (Non-Af Amer) (>60) BUN/Creatinine Ratio (8-20) Glucose (70-100) mg/dL Lactic Acid (0.5-2.0) mmol/L Calcium (8.6-10.3) mg/dL Magnesium (1.9-2.7) mg/dL Total Bilirubin (0.2-1.0) mg/dL AST (13-39) U/L ALT (7-52) U/L Alkaline Phosphatase (34-104) U/L Total Creatine Kinase (10-223) U/L Troponin I (<0.04) ng/mL B-Natriuretic Peptide 51 ( - 100) pg/mL Total Protein (6.4-8.9) g/dL Albumin (3.2-5.2) g/dL Globulin (2-4) g/dL Albumin/Globulin Ratio (1-3) TSH Microbiology and Other Data: Microbiology 01/29/18 12:30 Urine Culture - Preliminary Urine Staphylococcus Epidermidis Escherichia Coli 01/29/18 12:38 Aerobic Blood Culture - Final Blood Venous Not Reportable Anaerobic Blood Culture - Final Not Reportable Blood Culture - Preliminary No Growth Day 1 Assess/Plan/Problems-Billing Assessment: - Patient Problems (1) Weakness Current Visit: Yes Status: Acute Code(s): R53.1 - WEAKNESS SNOMED Code(s) : 98269494 Comment: -Likely due to UTI and mild DHN on presentation -Unfortunately, pt does not want a straight cath to obtain a clean catch and will treat empirically based on cultureswill await sensitivities -Also exacerbated by left knee pain (2) UTI (urinary tract infection) Current Visit: No Status: Acute Comment: -S. epi likely a contaminant given U/A not clean catch and pt does not want to be catheterized -Will place on Levaquin and will await sensitivities (3) Left knee pain Current Visit: Yes Status: Acute Code(s): M25.562 - PAIN IN LEFT KNEE SNOMED Code(s): 78058978 Comment: -Will place pt on Tylenol with appropriate max orders given her cirrhosis -Will place pt on Lidocaine patch -Will place pt on low dose Gabapentin (4) Right leg swelling Current Visit: Yes Status: Acute Code(s): M79.89 - OTHER SPECIFIED SOFT TISSUE DISORDERS SNOMED Code(s): 329954336 Comment: -Doppler U/S shows no DVT; likely due to muscle hypertrophy given pt prevers to use this extremity rather than left given her left knee pain. (5) Cirrhosis Current Visit: Yes Status: Acute Comment: -Unclear cause; will defer with PCP on outpt F/U -Will calculate MELD score in AM but appears to be relatively stable clinically (6) Troponin level elevated Current Visit: Yes Status: Acute Code(s): R74.8 - ABNORMAL LEVELS OF OTHER SERUM ENZYMES SNOMED Code(s): 866976280 Comment: -Has normalized and likely related to mildly elevated CPK, possibly reflective of mild traumatic rhabdomyolysis from her fall during her last admission (7) Diabetes Current Visit: No Status: Chronic Priority: High Code(s): E11.9 - TYPE 2 DIABETES MELLITUS WITHOUT COMPLICATIONS SNOMED Code(s): 63203026 Comment: -Continue Insulin regimen -Continue watchful waiting (8) DVT prophylaxis Current Visit: No Status: Acute Code(s): NMA4354 - SNOMED Code(s): 282008614 Comment: -Will decrease frequency of SQ heparin to q12H Status and Disposition: -Discussed disposition possibilities to his son at bedsidePT recommends STR -Possible D/C in 1-2 days
[2018-01-30] MEDS ORDERED: Dextrose 50% Syringe 50 ML* 25 GM/50 ML SYRINGE IV PUSH PRN (17:03)
[2018-01-30] MEDS ORDERED: Insulin LISPRO* 1 UNITS UNIT SUBCUT STA (17:28)
[2018-01-30] MEDS: Levofloxacin 500 MG IVPREMIX(* 500 MG/100 ML BAG IVPB SCH (17:49)
[2018-01-30] MEDS ORDERED: Insulin GLARGINE(*) 1 UNITS UNIT SUBCUT SCH (21:00)
[2018-01-30] MEDS ORDERED: Insulin LISPRO* 1 UNITS UNIT SUBCUT SCH (21:00)
[2018-01-30] MEDS: Acetaminophen ADULT LIQ* 650 MG/20.3 ML UDC PO SCH (21:16)
[2018-01-30] MEDS: Lidocaine Patch REMOVE* 1 NOTE MISC SCH (21:22)
[2018-01-31 05:43] LABS: ABS Basophils 0 10^3/ul (0-0.2); ABS Eosinophils 0.1 10^3/ul (0-0.6); ABS Lymphocytes 1.2 10^3/ul (1.0-4.8); ABS Monocytes 0.4 10^3/ul (0-0.8); ABS Neutrophils 1.8 10^3/ul (1.5-7.7); ABS Nucleated RBC 0 10^3/ul; Eosinophil % 3.5 % (0-6); Hematocrit 27 % (35-47); Hemoglobin 9.1 g/dl (12.0-16.0); Lymphocyte % 33.2 % (25-47); Mean Corpuscular HGB Conc 33 g/dl (31-36); Mean Corpuscular Hemoglobin 28 pg (27-31); Mean Corpuscular Volume 85 fL (80-97); Mean Platelet Volume 9.3 um3 (7.4-10.4); Nucleated Red Blood Cells % 0; Platelet Count 71 10^3/ul (150-450); Red Cell Distribution Width 19 % (10.5-15); White Blood Count 3.5 10^3/ul (3.5-10.8)
[2018-01-31 05:49] LABS: INR 1.25 (0.77-1.02)
[2018-01-31 05:57] LABS: EGFR Non-African American 55.8 (>60)
[2018-01-31] MEDS: Insulin LISPRO* 1 UNITS UNIT SUBCUT SCH ×5 (08:53→20:59)
[2018-01-31] MEDS: Lidocaine PATCH 5%* 1 PATCH TRANSDERM SCH (08:55)
[2018-01-31] MEDS: Furosemide TAB* 20 MG PO SCH (08:56)
[2018-01-31] MEDS: Gabapentin CAP(*) 100 MG PO SCH ×3 (08:57→21:02)
[2018-01-31] MEDS: Omeprazole CAP* 20 MG PO SCH (08:57)
[2018-01-31] MEDS: Acetaminophen ADULT LIQ* 650 MG/20.3 ML UDC PO SCH ×2 (08:58→21:01)
[2018-01-31] MEDS: Heparin VIAL(*) 5000 UNITS/ML VIAL (FIVE THOUSAND) SUBCUT SCH (08:58)
[2018-01-31] MEDS: NS 0.9% 1000 ML* 1,000 ML IV SCH (10:18)
[2018-01-31] MEDS ORDERED: Magnesium Sulfate IV* 2 GM in NS 0.9% 100 ML* 100 ML IVPB ONE (11:05)
[2018-01-31] MEDS ORDERED: Magnesium Sulfate 2 GM IV (Premix) IVPB ONE (11:30)
[2018-01-31] MEDS ORDERED: Dextrose 50% Syringe 50 ML* 25 GM/50 ML SYRINGE IV PUSH PRN (14:23)
--- NOTE | 2018-01-31 14:37 | PN ---
Subjective Date of Service: 01/31/18 Interval History: Pt seen and examined. Meds and labs reviewed. Whole case reviewed with case management given pts risks for readmission and other issues described below. Pt will be changed to full admit. CC: Left knee pain 6-01/11 ROS: Denied SMITH/dizziness, F/C, N/V, CP, SOB, increased cough, sputum production , abd pain, diarrhea, constipation, dysuria, throat pain, and new skin lesions. The rest of the 14 point ROS are unremarkable. PHYSICAL EXAM: GEN APPEARANCE: Awake, not in acute distress HEENT: NC/AT, PERRLA, moist oral mucosa, (-) throat erythema NECK: Soft, supple, (-) cervical LAD, (-)JVD HEART: S1S2 WNL, RRR, No MRG CHEST: CTA, BL, GAE, No W/R/R ABD: Soft, ND/NT, NABS 4x Q EXT: No C/C/RLE >LLE in size, slightly tender SKIN: Warm to touch PSYCH: No active psychosis, hallucinations, depression, SI/HI Objective Active Medications: Acetaminophen (Tylenol Tab*) 650 mg PO Q4H PRN PRN Reason: FEVER/PAIN Acetaminophen (Tylenol Adult Liq*) 500 mg PO BID [facility] Last Admin: 01/31/18 08:58 Dose: 500 mg Dextrose (D50w Syringe 50 Ml*) 12.5 gm IV PUSH .FOR FS < 60 - SS PRN PRN Reason: FS < 60 Furosemide (Lasix Tab*) 60 mg PO DAILY [facility] Last Admin: 01/31/18 08:56 Dose: 60 mg Gabapentin (Neurontin Cap(*)) 200 mg PO TID [facility] Levofloxacin/Dextrose (Levaquin 500 Mg Ivpremix(*)) 500 mg in 100 mls @ 100 mls /hr IVPB Q24H [facility] Last Admin: 01/30/18 17:49 Dose: 100 mls/hr Insulin Glargine (Lantus(*)) 55 units SUBCUT BEDTIME [facility] Insulin Human Lispro (Humalog*) 0 units SUBCUT ACHS [facility]; Protocol Last Admin: 01/31/18 14:07 Dose: 6 units Insulin Human Lispro (Humalog*) 4 units SUBCUT AC [facility] Lidocaine (Lidoderm 5% Patch*) 1 patch TRANSDERM DAILY [facility] Last Admin: 01/31/18 08:55 Dose: 1 patch Omeprazole (Prilosec Cap*) 40 mg PO DAILY@0730 [facility] Last Admin: 01/31/18 08:57 Dose: 40 mg Pharmacy Profile Note (Lidocaine Patch Remove*) 1 note N/A 2100 [facility] Last Admin: 01/30/18 21:22 Dose: 1 note Vital Signs - 8 hr 01/31/18 01/31/18 01/31/18 07:38 08:00 08:57 Temperature 98.2 F Pulse Rate 71 Respiratory 16 18 18 Rate Blood Pressure 107/51 (mmHg) O2 Sat by Pulse 99 Oximetry 01/31/18 01/31/18 11:00 14:11 Temperature Pulse Rate Respiratory 18 18 Rate Blood Pressure (mmHg) O2 Sat by Pulse Oximetry Oxygen Devices in Use Now: None Result Diagrams: 01/31/18 05:09 01/31/18 05:09 Additional Lab and Data: Lab Results 01/29/18 01/29/18 01/29/18 Range/Units 10:23 10:23 10:23 INR (Anticoag Therapy) 1.17 H (0.77-1.02) Sodium 132 L (135-145) mmol/L Potassium 4.7 (3.5-5.0) mmol/L Chloride 101 (101-111) mmol/L Carbon Dioxide 23 (22-32) mmol/L Anion Gap 8 (2-11) mmol/L BUN 25 H (6-24) mg/dL Creatinine 1.21 H (0.51-0.95) mg/dL Est GFR ( Amer) 52.3 (>60) Est GFR (Non-Af Amer) 43.3 (>60) BUN/Creatinine Ratio 20.7 H (8-20) Glucose 478 H (70-100) mg/dL Lactic Acid 3.8 H* (0.5-2.0) mmol/L Calcium 9.1 (8.6-10.3) mg/dL Magnesium 1.9 (1.9-2.7) mg/dL Total Bilirubin 2.40 H (0.2-1.0) mg/dL AST 46 H (13-39) U/L ALT 22 (7-52) U/L Alkaline Phosphatase 144 H (34-104) U/L Total Creatine Kinase 335 H (10-223) U/L Troponin I 0.04 H* (<0.04) ng/mL B-Natriuretic Peptide ( - 100) pg/mL Total Protein 6.9 (6.4-8.9) g/dL Albumin 3.1 L (3.2-5.2) g/dL Globulin 3.8 (2-4) g/dL Albumin/Globulin Ratio 0.8 L (1-3) TSH Pending 01/29/18 Range/Units 10:23 INR (Anticoag Therapy) (0.77-1.02) Sodium (135-145) mmol/L Potassium (3.5-5.0) mmol/L Chloride (101-111) mmol/L Carbon Dioxide (22-32) mmol/L Anion Gap (2-11) mmol/L BUN (6-24) mg/dL Creatinine (0.51-0.95) mg/dL Est GFR ( Amer) (>60) Est GFR (Non-Af Amer) (>60) BUN/Creatinine Ratio (8-20) Glucose (70-100) mg/dL Lactic Acid (0.5-2.0) mmol/L Calcium (8.6-10.3) mg/dL Magnesium (1.9-2.7) mg/dL Total Bilirubin (0.2-1.0) mg/dL AST (13-39) U/L ALT (7-52) U/L Alkaline Phosphatase (34-104) U/L Total Creatine Kinase (10-223) U/L Troponin I (<0.04) ng/mL B-Natriuretic Peptide 51 ( - 100) pg/mL Total Protein (6.4-8.9) g/dL Albumin (3.2-5.2) g/dL Globulin (2-4) g/dL Albumin/Globulin Ratio (1-3) TSH Microbiology and Other Data: Microbiology 01/29/18 12:30 Urine Culture - Preliminary Urine Staphylococcus Epidermidis Escherichia Coli 01/29/18 12:38 Aerobic Blood Culture - Final Blood Venous Not Reportable Anaerobic Blood Culture - Final Not Reportable Blood Culture - Preliminary No Growth Day 1 Assess/Plan/Problems-Billing Assessment: - Patient Problems (1) Weakness Current Visit: Yes Status: Acute Code(s): R53.1 - WEAKNESS SNOMED Code(s) : 36124109 Comment: -Likely due to UTI and mild DHN on presentation that likely led to her fall -Unfortunately, pt does not want a straight cath to obtain a clean catch and will treat empirically based on cultureswill await sensitivities -Also exacerbated by left knee pain (2) UTI (urinary tract infection) Current Visit: No Status: Acute Comment: -S. epi likely a contaminant given U/A not clean catch and pt does not want to be catheterized -Continue Levaquin, day #2/7 -E. coli sensitive to quinolones (3) Left knee pain Current Visit: Yes Status: Acute Code(s): M25.562 - PAIN IN LEFT KNEE SNOMED Code(s): 01509700 Comment: -Will place pt on Tylenol with appropriate max orders given her cirrhosis -Will place pt on Lidocaine patch -Will adjust Gabapentin as ordered -Will check MRI of the left knee given history of previous tibial fracture on contralateral LE (4) Thrombocytopenia Current Visit: Yes Status: Acute Code(s): D69.6 - THROMBOCYTOPENIA, UNSPECIFIED SNOMED Code(s): 389040039 Comment: -Likely due to known cirrhosis, however, has decreased likely due to hemodilution as is evidenced by decrease of the rest of the differentials in the setting of cirrhosis -Will D/C Heparin at this time -Will check Heparin-P4 Antibodies, but unlikely due to HIT (5) Cirrhosis Current Visit: Yes Status: Acute Comment: -Unclear cause; will defer with PCP on outpt F/U -MELD = 10, well-compensated -Will continue watchful waiting (6) Troponin level elevated Current Visit: Yes Status: Acute Code(s): R74.8 - ABNORMAL LEVELS OF OTHER SERUM ENZYMES SNOMED Code(s): 342453697 Comment: -Has normalized and likely related to mildly elevated CPK, possibly reflective of mild traumatic rhabdomyolysis from her fall during her last admission (7) Diabetes Current Visit: No Status: Chronic Priority: High Code(s): E11.9 - TYPE 2 DIABETES MELLITUS WITHOUT COMPLICATIONS SNOMED Code(s): 45430888 Comment: -Continue Insulin regimen -Continue watchful waiting (8) DVT prophylaxis Current Visit: No Status: Acute Code(s): [id number] - SNOMED Code(s): 719272704 Comment: -Will decrease frequency of SQ heparin to q12H Status and Disposition: -D/W Care coordinators given above, will change to full admit -For STR placement
--- NOTE | 2018-01-31 16:48 | RAD ---
Indication: LEFT knee pain with worsening after a fall. Comparison: January 28, 2018 radiographs. May 23, 2011 DEXA scan documenting osteopenia. Technique: Synchroneurona 1.5 Charlette [id number] with GEM suite. Noncontrast MRI LEFT knee. Routine precontrast examination exam reviewed while the patient was on the MRI table and no indication for IV contrast identified and therefore none was given. Report: Moderately large joint effusion with evidence for synovitis and probable small chondral loose bodies. Small popliteal cyst with suggestion of loose bodies. Osteochondral lesion at the weightbearing portion of the medial femoral condyle measuring up to 1.2 cm AP by 0.7 cm transverse by 0.7 cm cephalocaudal with associated loose body at the medial joint compartment measuring up to 1.2 cm AP by 0.9 cm transverse by 0.3 cm cephalocaudal which appears to represent a fragment of subchondral bone and hyaline articular cartilage. Tricompartmental osteophytosis. Advanced full-thickness degeneration of the medial joint compartment hyaline articular cartilage with associated flattening the articular surfaces and subchondral marrow edema. There is also advanced degeneration of the hyaline articular cartilage at the patellofemoral joint with full-thickness cartilage loss at the undersurface of the patella at the mid to superior aspect. Degenerated medial meniscus with partial peripheral extrusion subjacent to the grossly intact medial collateral ligament. Diminutive posterior horn of the medial meniscus consistent with previous tear with probable displaced fragment to the posterior joint recess extending caudal. Grossly intact lateral meniscus. Complete probable chronic anterior cruciate ligament tear. Fusiform enlargement and intermediate T2 signal at the posterior cruciate ligament consistent with advanced degeneration or high-grade partial tear. Intact medial collateral ligament and lateral collateral ligament complex. Intact extensor mechanism. Diffuse skeletal muscle atrophy. Negative for popliteal artery aneurysm. Diffuse mild subcutaneous edema. No loculated soft tissue plane hematoma evident. IMPRESSION: #. Osteoarthritis with advanced degeneration of the hyaline articular cartilage at the medial joint compartment and patellofemoral joint. #. Medial joint compartment osteochondral lesion and large probable osteochondral loose body. #. Degenerated and torn medial meniscus with probable displaced fragment to the posterior joint recess. #. Moderately large joint effusion with evidence for synovitis and probable small chondral loose bodies. Small popliteal cyst also with suggestion of loose bodies.
[2018-01-31] MEDS: Levofloxacin 500 MG IVPREMIX(* 500 MG/100 ML BAG IVPB SCH (17:54)
[2018-01-31] MEDS ORDERED: Insulin GLARGINE(*) 1 UNITS UNIT SUBCUT SCH (21:00)
[2018-01-31] MEDS: Lidocaine Patch REMOVE* 1 NOTE MISC SCH (21:08)
[2018-01-31] MEDS: Docusate CAP* 100 MG PO SCH (21:59)
[2018-02-01] MEDS: Acetaminophen ADULT LIQ* 650 MG/20.3 ML UDC PO SCH ×2 (08:06→20:33)
[2018-02-01] MEDS: Furosemide TAB* 20 MG PO SCH (08:07)
[2018-02-01] MEDS: Omeprazole CAP* 20 MG PO SCH (08:07)
[2018-02-01] MEDS: Lidocaine PATCH 5%* 1 PATCH TRANSDERM SCH (08:07)
[2018-02-01] MEDS: Gabapentin CAP(*) 100 MG PO SCH (08:07)
[2018-02-01] MEDS: Docusate CAP* 100 MG PO SCH ×2 (08:07→20:33)
[2018-02-01] MEDS: Insulin LISPRO* 1 UNITS UNIT SUBCUT SCH ×7 (08:08→20:34)
[2018-02-01 09:33] LABS: ABS Basophils 0 10^3/ul (0-0.2); ABS Eosinophils 0.1 10^3/ul (0-0.6); ABS Lymphocytes 0.8 10^3/ul (1.0-4.8); ABS Monocytes 0.3 10^3/ul (0-0.8); ABS Neutrophils 1.9 10^3/ul (1.5-7.7); ABS Nucleated RBC 0 10^3/ul; Eosinophil % 2.9 % (0-6); Hematocrit 30 % (35-47); Hemoglobin 9.5 g/dl (12.0-16.0); Lymphocyte % 24.3 % (25-47); Mean Corpuscular HGB Conc 32 g/dl (31-36); Mean Corpuscular Hemoglobin 28 pg (27-31); Mean Corpuscular Volume 86 fL (80-97); Mean Platelet Volume 9.6 um3 (7.4-10.4); Nucleated Red Blood Cells % 0; Platelet Count 80 10^3/ul (150-450); Red Blood Count 3.42 10^6/ul (4.00-5.40); Red Cell Distribution Width 19 % (10.5-15); White Blood Count 3.1 10^3/ul (3.5-10.8)
--- NOTE | 2018-02-01 12:18 | CONS ---
CONSULTATION REPORT: DATE OF CONSULTATION: 02/01/18 REASON FOR CONSULTATION: Left knee pain. HISTORY OF PRESENT ILLNESS: The patient is a 77-year-old woman, with multiple medical problems inclu ding chronic diastolic congestive heart failure, diabetes mellitus, esophageal varices secondary to c irrhosis, iron deficiency anemia, chronic kidney disease, stage 3, gastroesophageal reflux, portal hy pertension, who has a long history of left knee pain, followed in the clinic by my partner, Dr. Fredrick rivas. The patient had a fall in 2017 with a non or minimally displaced tibial plateau fracture as well as osteoarthritis, that had been managed by Dr. Villa. The patient is currently admitted to the [facility] with weakness and possible urinary tract infection. She had a fall earlier in the week a nd this is her second trip to [facility] this week. She complains an increase of her left knee pain. The patient fell on 01/28/18, 4 days ago. She was initially taken to [facility] for her [place] and for her di zziness. She was monitored in the hospital for 1 day. No evidence on telemetry. No orthostatic sym ptoms. She is seen by physical therapy, who felt that she was safe to ambulate independently and the patient was discharged home with visiting nurse services and physical therapy. Then went home, in the evening of 01/28/18, the patient had difficulty getting up out of a chair. Vazquez flores was unable to even get out of the chair to go to the bathroom. She waited overnight and then called her son to help her get out of the chair, at which point they returned to the emergency room at [facility]. She had been incontinent of urine and stool on the chair. She had not left it overnight. By report, family was upset that the patient had been sent home on 01/28/18. She was admitted to the hospitalist service on 01/29/18. Hospitalist is working up weakness and possible urinary tract infe ction as well as elevated lactic acid and troponin. They are managing her congestive heart failure, diabetes, chronic kidney disease, and reflux disease. The patient had an MRI of the left knee as well as x-rays. X-rays were obtained at the 01/28/18, [facility] visit whereas MRI was obtained during this hospital admission. Dr. Villa had recently in clinic performed aspiration and cortisone injections. However, secondary to the patient's diabetes, Dr. Partha west and the patient's primary care doctor, Dr. Munoz had decided that no more cortisone injection wou ld be appropriate. The patient was deemed not a candidate for total knee arthroplasty. The patient s eems to indicate that she is being considered or planned for viscosupplementation injection by Dr. Ary arzola. PAST MEDICAL HISTORY: Chronic diastolic heart failure, diabetes mellitus, cirrhosis of the esophagea l varices, iron deficiency anemia, chronic kidney disease, stage 3, gastroesophageal reflux disease, portal hypertension, history of prolapsed uterus and bladder, nephrolithiasis, humerus fracture. PAST SURGICAL HISTORY: Status post mesh repair of her uterus and bladder prolapse, status post lapar oscopic cholecystectomy, status post bilateral rotator cuff repairs. MEDICATIONS: 1. Omeprazole. 2. Nystatin. 3. Humalog. 4. Lantus. 5. Lasix. ALLERGIES: ADHESIVE TAPE, KEFLEX, CODEINE, HYDROCHLOROTHIAZIDE, CARVEDILOL, DOXYCYCLINE, HYDROCODONE , DILAUDID, LATEX, MORPHINE, NITROFURANTOIN, ZOFRAN, OXYCODONE, PENICILLIN, STATINS, TRAMADOL. FAMILY HISTORY: The patient is adopted and is unaware of the medical history of her family. 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 Her lives at [facility] and has dementia. The patient's son and daughters are surrogate decisions makers. I met h er son in the past. REVIEW OF SYSTEMS: The patient denies any chest pain, shortness of breath. She denies other current joint pain. PHYSICAL EXAM: Vitals at 07:42 a.m. were temperature 98.1 degrees Fahrenheit, heart rate 73, blood p ressure 102/38, oxygen saturation 100% on room air, respiratory rate 20. No acute distress, alert and oriented, appropriate mood and affect. Appropriate dressing and hygiene for a hospitalized patient. She is seated in the hospital bed. Left knee exam shows no soft tissue swelling or bruising. The skin is intact. The patient does have a [id number] knee joint effusion. The patient has some rather nonspecific tenderness to palpa tion about the suprapatellar pouch and about the subcutaneous tissues in the vicinity of the knee. P assive range of motion the knee is 5 to 85 degrees of flexion. The patient had discomfort limiting a dditional range of motion. No pain or increased laxity with ligamentous stress testing. The patient had joint line tenderness to palpation, but she also had just generalized tenderness to palpation ab out the knee. Neurovascularly intact distally. IMAGING: Three x-ray views of the left knee obtained on 01/28/18 demonstrates near [id number] medi al compartment joint space narrowing. There is at least moderate- to-lateral compartment joint space narrowing. No clear fracture. No sunrise view, but lateral view shows clear osteophytes of the pat ace under surface. No significant effusion by x-ray imaging appreciable. MRI of the left knee 01/31/18 was also reviewed by me. Degenerative changes, all 3 compartments are visible. Moderate effusion present. There is no CT lesion of the medial femoral condyle with what l treyoks to be a loose body fragment, measured, dimensions by radiologist to be 11.6 x 6.9 mm. ASSESSMENT: 1. Left knee severe osteoarthritis. 2. Left knee medial femoral condyle, osteochondral defect with possible loose body. PLAN: 1. The patient is not describing mechanical symptoms of locking or catching. The effusion and pain in the left knee can certainly be described just by the patient's severe osteoarthritis, but addition ally could be induced by the possibility of a more recent osteochondral fracture and possibly by the loose body, although it does not seem that it has left its origin of the OCD origin site. 2. Recommend physical therapy, weightbearing as tolerated, out of bed. No restrictions on this mariela ent as comfort allows. 3. This knee pathology can be managed as an outpatient. I am not as familiar with the patient as my partner Dr. Villa, but there is a possibility that if the patient's loose body became discretely sy mptomatic in the future, she might respond to arthroscopy and removal of that loose body, although th at is less likely. 4. I recommend that the patient followup as an outpatient with my partner, Dr. Villa for the above mentioned diagnoses. 5. Medical management of the patient's weakness and possible urinary tract infe ction recommended. 6. Icing to the left knee as desired by patient, ad libitum. 7. Antiinflammatory recommended as can be tolerated by the patient's multiple medical problems. [id number]/[facility] #: [id number]
[2018-02-01] MEDS: Gabapentin CAP(*) 300 MG PO SCH ×2 (14:05→20:33)
--- NOTE | 2018-02-01 16:56 | PN ---
Subjective Date of Service: 02/01/18 Interval History: Pt seen and examined. Meds and labs reviewed. CC: Left knee pain, unchanged ROS: Denied SMITH/dizziness, F/C, N/V, CP, SOB, increased cough, sputum production , abd pain, diarrhea, constipation, dysuria, , throat pain, and new skin lesions. The rest of the 14 point ROS are unremarkable. PHYSICAL EXAM: GEN APPEARANCE: Awake, not in acute distress HEENT: NC/AT, PERRLA, moist oral mucosa, (-) throat erythema NECK: Soft, supple, (-) cervical LAD, (-)JVD HEART: S1S2 WNL, RRR, No MRG CHEST: CTA, BL, GAE, No W/R/R ABD: Soft, ND/NT, NABS 4x Q EXT: No C/C/E, tender left knee on palpation SKIN: Warm to touch PSYCH: No active psychosis, hallucinations, depression, SI/HI Objective Active Medications: Acetaminophen (Tylenol Tab*) 650 mg PO Q4H PRN PRN Reason: FEVER/PAIN Acetaminophen (Tylenol Adult Liq*) 500 mg PO BID [facility] Last Admin: 02/01/18 08:06 Dose: 500 mg Amitriptyline HCl (Elavil Tab*) 10 mg PO BEDTIME [facility] Dextrose (D50w Syringe 50 Ml*) 12.5 gm IV PUSH .FOR FS < 60 - SS PRN PRN Reason: FS < 60 Docusate Sodium (Colace Cap*) 100 mg PO BID [facility] Last Admin: 02/01/18 08:07 Dose: 100 mg Furosemide (Lasix Tab*) 60 mg PO DAILY [facility] Last Admin: 02/01/18 08:07 Dose: 60 mg Gabapentin (Neurontin Cap(*)) 300 mg PO TID [facility] Last Admin: 02/01/18 14:05 Dose: 300 mg Levofloxacin/Dextrose (Levaquin 500 Mg Ivpremix(*)) 500 mg in 100 mls @ 100 mls /hr IVPB Q24H [facility] Last Admin: 01/31/18 17:54 Dose: 100 mls/hr Ibuprofen (Motrin Tab*) 400 mg PO DAILY [facility] Stop: 02/03/18 16:59 Insulin Glargine (Lantus(*)) 60 units SUBCUT BEDTIME [facility] Insulin Human Lispro (Humalog*) 0 units SUBCUT ACHS [facility]; Protocol Last Admin: 02/01/18 11:35 Dose: 4 units Insulin Human Lispro (Humalog*) 6 units SUBCUT AC [facility] Lidocaine (Lidoderm 5% Patch*) 1 patch TRANSDERM DAILY [facility] Last Admin: 02/01/18 08:07 Dose: 1 patch Omeprazole (Prilosec Cap*) 40 mg PO DAILY@0730 [facility] Last Admin: 02/01/18 08:07 Dose: 40 mg Pharmacy Profile Note (Lidocaine Patch Remove*) 1 note N/A 2100 [facility] Last Admin: 01/31/18 21:08 Dose: 1 note Vital Signs - 8 hr 02/01/18 02/01/18 02/01/18 10:06 11:21 14:05 Temperature 98.1 F Pulse Rate 77 Respiratory 18 20 18 Rate Blood Pressure 101/48 (mmHg) O2 Sat by Pulse 99 Oximetry Oxygen Devices in Use Now: None Result Diagrams: 02/01/18 09:13 02/01/18 09:13 Additional Lab and Data: Lab Results 01/29/18 01/29/18 01/29/18 Range/Units 10:23 10:23 10:23 INR (Anticoag Therapy) 1.17 H (0.77-1.02) Sodium 132 L (135-145) mmol/L Potassium 4.7 (3.5-5.0) mmol/L Chloride 101 (101-111) mmol/L Carbon Dioxide 23 (22-32) mmol/L Anion Gap 8 (2-11) mmol/L BUN 25 H (6-24) mg/dL Creatinine 1.21 H (0.51-0.95) mg/dL Est GFR ( Amer) 52.3 (>60) Est GFR (Non-Af Amer) 43.3 (>60) BUN/Creatinine Ratio 20.7 H (8-20) Glucose 478 H (70-100) mg/dL Lactic Acid 3.8 H* (0.5-2.0) mmol/L Calcium 9.1 (8.6-10.3) mg/dL Magnesium 1.9 (1.9-2.7) mg/dL Total Bilirubin 2.40 H (0.2-1.0) mg/dL AST 46 H (13-39) U/L ALT 22 (7-52) U/L Alkaline Phosphatase 144 H (34-104) U/L Total Creatine Kinase 335 H (10-223) U/L Troponin I 0.04 H* (<0.04) ng/mL B-Natriuretic Peptide ( - 100) pg/mL Total Protein 6.9 (6.4-8.9) g/dL Albumin 3.1 L (3.2-5.2) g/dL Globulin 3.8 (2-4) g/dL Albumin/Globulin Ratio 0.8 L (1-3) TSH Pending 01/29/18 Range/Units 10:23 INR (Anticoag Therapy) (0.77-1.02) Sodium (135-145) mmol/L Potassium (3.5-5.0) mmol/L Chloride (101-111) mmol/L Carbon Dioxide (22-32) mmol/L Anion Gap (2-11) mmol/L BUN (6-24) mg/dL Creatinine (0.51-0.95) mg/dL Est GFR ( Amer) (>60) Est GFR (Non-Af Amer) (>60) BUN/Creatinine Ratio (8-20) Glucose (70-100) mg/dL Lactic Acid (0.5-2.0) mmol/L Calcium (8.6-10.3) mg/dL Magnesium (1.9-2.7) mg/dL Total Bilirubin (0.2-1.0) mg/dL AST (13-39) U/L ALT (7-52) U/L Alkaline Phosphatase (34-104) U/L Total Creatine Kinase (10-223) U/L Troponin I (<0.04) ng/mL B-Natriuretic Peptide 51 ( - 100) pg/mL Total Protein (6.4-8.9) g/dL Albumin (3.2-5.2) g/dL Globulin (2-4) g/dL Albumin/Globulin Ratio (1-3) TSH Microbiology and Other Data: Microbiology 01/29/18 12:30 Urine Culture - Preliminary Urine Staphylococcus Epidermidis Escherichia Coli 01/29/18 12:38 Aerobic Blood Culture - Final Blood Venous Not Reportable Anaerobic Blood Culture - Final Not Reportable Blood Culture - Preliminary No Growth Day 1 Assess/Plan/Problems-Billing Assessment: - Patient Problems (1) Left knee pain Current Visit: Yes Status: Acute Code(s): M25.562 - PAIN IN LEFT KNEE SNOMED Code(s): 52077557 Comment: -Continue Tylenol with appropriate max orders given her cirrhosis -Continue Lidocaine patch -Will increase Gabapentin as ordered -MRI reveals severe osteoarthritis and degenerated and torn medial meniscus with probable displaced fragment to the posterior joint recess -D/W Dr. Watts and per his eval, the above finding could be due to osteochondral fracture and possibly by the loose body; F/U with Dr. Villa as outpt -Will place pt on only 2 days of Ibuprofen, however, given cirrhosis, will only give 2 days worth of low dose anti-inflammatory at 400 mg daily -D/W Dr. Galvan and will await any further recommendations (2) Diabetes Current Visit: No Status: Chronic Priority: High Code(s): E11.9 - TYPE 2 DIABETES MELLITUS WITHOUT COMPLICATIONS SNOMED Code(s): 13279271 Comment: -Adjusted Lantus and premeals; continue ISS for additional premeal needs -Continue watchful waiting (3) UTI (urinary tract infection) Current Visit: No Status: Acute Comment: -S. epi likely a contaminant given U/A not clean catch and pt does not want to be catheterized -Continue Levaquin, day #3/7 -E. coli sensitive to quinolones (4) Weakness Current Visit: Yes Status: Acute Code(s): R53.1 - WEAKNESS SNOMED Code(s) : 15577183 Comment: -Likely due to UTI and mild DHN on presentation that likely led to her fall -Unfortunately, pt does not want a straight cath to obtain a clean catch and will treat empirically based on cultureswill await sensitivities -Also exacerbated by left knee pain (5) Thrombocytopenia Current Visit: Yes Status: Acute Code(s): D69.6 - THROMBOCYTOPENIA, UNSPECIFIED SNOMED Code(s): 503439117 Comment: -Likely due to known cirrhosis, however, has decreased likely due to hemodilution as is evidenced by decrease of the rest of the differentials in the setting of cirrhosis -Slight improvement back to baseline after D/C of IVFs yesterday seems to suggest hemodilution in the setting of chronic thrombocytopenia due to cirrhosis -Continue to hold Heparin -Awaiting Heparin-P4 Antibodies, but unlikely due to HIT (6) Cirrhosis Current Visit: Yes Status: Acute Comment: -Unclear cause; will defer with PCP on outpt F/U -MELD = 10, well-compensated -Will continue watchful waiting (7) Troponin level elevated Current Visit: Yes Status: Acute Code(s): R74.8 - ABNORMAL LEVELS OF OTHER SERUM ENZYMES SNOMED Code(s): 048360023 Comment: -Has normalized and likely related to mildly elevated CPK, possibly reflective of mild traumatic rhabdomyolysis from her fall during her last admission (8) DVT prophylaxis Current Visit: No Status: Acute Code(s): UAR8561 - SNOMED Code(s): 393925545 Comment: -Will decrease frequency of SQ heparin to q12H Status and Disposition: -D/W Care coordinators given above, will change to full admit -For STR placement
[2018-02-01] MEDS: Ibuprofen TAB* 400 MG PO SCH (18:14)
[2018-02-01] MEDS: Levofloxacin 500 MG IVPREMIX(* 500 MG/100 ML BAG IVPB SCH (18:18)
[2018-02-01] MEDS: Polyethylene Glycol 3350* 17 GM PACKET PO SCH (20:32)
[2018-02-01] MEDS: Lidocaine Patch REMOVE* 1 NOTE MISC SCH (20:39)
[2018-02-01] MEDS ORDERED: Amitriptyline TAB* 10 MG PO SCH (21:00)
[2018-02-01] MEDS ORDERED: Insulin GLARGINE(*) 1 UNITS UNIT SUBCUT SCH (21:00)
--- NOTE | 2018-02-01 22:18 | CONS ---
INPATIENT PAIN CONSULTATION NOTE: DATE OF CONSULT: 02/01/18 REFERRING PHYSICIAN: Dr. Whitman. REASON FOR CONSULT: Left knee pain. HISTORY OF PRESENT ILLNESS: Tami Atkinson is a 77-year-old female. She has medical history significant for portal hypertension as well as cirrhosis of her liver. She has esophageal varices secondary to cirrhosis. She also has a history of diabetes and congestive heart failure and chronic kidney disease. The patient tells me that she originally injured her knee about a year ago when she fell. She was eventually diagnosed with a tibial plateau fracture. It was treated nonoperatively. The patient was doing okay. She fell on 01/28/18. She went to [facility] for her fall. She was monitored in the hospital for a day. Physical Therapy felt she was safe to go home. She was discharged to home with physical therapy. On the evening of discharge, she had difficulty getting out of a chair. She could not even get up to go to the bathroom. She came back to the emergency room. She had been incontinent of urine as she could not get out of the chair or go to the bathroom. She was admitted to the hospitalist service. She had possible urinary tract infection. She had an MRI of her knee. The patient's MRI showed meniscal tear. There was a moderate effusion present. There also appeared to be a possible loose body. The patient is not considered a candidate for total knee replacement. She has significant allergies, which prevented from taking most pain medications. Because of her medical complications, she cannot take NSAIDs. I am asked to see her in consultation. PAST MEDICAL HISTORY AND PAST SURGICAL HISTORY: Notable for the aforementioned cirrhosis and portal hypertension. She has a history of diabetes mellitus, diastolic heart failure, chronic kidney disease, prolapsed uterus and bladder. She has had a mesh repair for uterus and bladder prolapses. CURRENT MEDICATIONS: Include: 1. Tylenol. 2. Lasix. 3. Neurontin. 4. Lantus insulin. 5. Humalog insulin. 6. Levaquin. 7. She is on lidocaine patch. 8. Prilosec. ALLERGIES: Include KEFLEX, CODEINE, HYDROCHLOROTHIAZIDE, COREG, DOXYCYCLINE, HYDROCODONE, DILAUDID, LATEX, MORPHINE, MACROBID, ZOFRAN, OXYCODONE, PENICILLIN , STATINS, and TRAMADOL. SOCIAL HISTORY: She is a nonsmoker, nondrinker. She lives by herself in a house in [place] and her is in [facility]. The patient is set to be discharged to [facility] tomorrow to work on rehab. PHYSICAL EXAM: The patient's temperature is 98.1, blood pressure is 101/50, pulse is 77, respirations 20. Her lung sounds are clear to auscultation bilaterally. Heart sounds were regular. Abdomen was soft and nontender. Her extremities, her left knee was examined. Slight swelling was noted. She was exceedingly tender to palpation of the knee. She had tenderness both medially and laterally with even light palpation. She was not able to bend the knee past about 30 degrees for me. Her neurologic, sensation appeared to be diminished in her feet. Muscle strength was close to 5/5. Left knee strength was difficult to test because of pain. Her functional exam, she transfers with moderate amount of assistance. ASSESSMENT: Internal derangement, left knee. PLAN: The patient's pain will be difficult to control as she cannot take NSAIDs and is allergic to most OPIOIDS. Her most recent BUN and creatinine shows BUN of 19 and creatinine of 1.05. She might be a candidate for topical NSAIDs. I recommend using Voltaren gel 4 g to her left knee 4 times a day. The systemic effects of this should be minimal and may provide her with some relief. She can continue to use a walker to help offload the knee. We could consider an striker out brace in the future. I am going to add low-dose amitriptyline at bedtime to see if that might help alleviate some of her sensitivity and pain. Thanks for the consult. I will be happy to follow her. [id number]/[facility] #: [id number] CONRAD
[2018-02-02] MEDS ORDERED: Insulin LISPRO* 1 UNITS UNIT SUBCUT SCH ×2 (07:30→11:30)
[2018-02-02] MEDS: Insulin LISPRO* 1 UNITS UNIT SUBCUT SCH (08:32)
[2018-02-02] MEDS ORDERED: Dextrose 50% Syringe 50 ML* 25 GM/50 ML SYRINGE IV PUSH PRN (09:20)
[2018-02-02] MEDS: Omeprazole CAP* 20 MG PO SCH (09:32)
[2018-02-02] MEDS: Lidocaine PATCH 5%* 1 PATCH TRANSDERM SCH (09:32)
[2018-02-02] MEDS: Gabapentin CAP(*) 300 MG PO SCH ×2 (09:33→14:04)
[2018-02-02] MEDS: Acetaminophen ADULT LIQ* 650 MG/20.3 ML UDC PO SCH ×2 (09:33→09:36)
[2018-02-02] MEDS: Docusate CAP* 100 MG PO SCH (09:34)
[2018-02-02] MEDS: Ibuprofen TAB* 400 MG PO SCH (09:34)
[2018-02-02] MEDS: Furosemide TAB* 20 MG PO SCH (09:34)
[2018-02-02] MEDS: Polyethylene Glycol 3350* 17 GM PACKET PO SCH (09:35)
--- NOTE | 2018-02-02 09:38 | PN ---
Subjective Date of Service: 02/02/18 Interval History: No new c/o. Pt needed assist to move from bed to chair next to her bed. Objective Active Medications: Acetaminophen (Tylenol Tab*) 650 mg PO Q4H PRN PRN Reason: FEVER/PAIN Acetaminophen (Tylenol Adult Liq*) 500 mg PO BID [facility] Last Admin: 02/01/18 20:33 Dose: 500 mg Amitriptyline HCl (Elavil Tab*) 10 mg PO BEDTIME [facility] Last Admin: 02/01/18 20:33 Dose: 10 mg Dextrose (D50w Syringe 50 Ml*) 12.5 gm IV PUSH .FOR FS < 60 - SS PRN PRN Reason: FS < 60 Docusate Sodium (Colace Cap*) 100 mg PO BID [facility] Last Admin: 02/01/18 20:33 Dose: 100 mg Furosemide (Lasix Tab*) 60 mg PO DAILY [facility] Last Admin: 02/01/18 08:07 Dose: 60 mg Gabapentin (Neurontin Cap(*)) 300 mg PO TID [facility] Last Admin: 02/01/18 20:33 Dose: 300 mg Levofloxacin/Dextrose (Levaquin 500 Mg Ivpremix(*)) 500 mg in 100 mls @ 100 mls /hr IVPB Q24H [facility] Last Admin: 02/01/18 18:18 Dose: 100 mls/hr Ibuprofen (Motrin Tab*) 400 mg PO DAILY [facility] Stop: 02/03/18 16:59 Last Admin: 02/01/18 18:14 Dose: 400 mg Insulin Glargine (Lantus(*)) 45 units SUBCUT BEDTIME [facility] Insulin Human Lispro (Humalog*) 0 units SUBCUT ACHS [facility]; Protocol Lidocaine (Lidoderm 5% Patch*) 1 patch TRANSDERM DAILY [facility] Last Admin: 02/01/18 08:07 Dose: 1 patch Omeprazole (Prilosec Cap*) 40 mg PO DAILY@0730 [facility] Last Admin: 02/01/18 08:07 Dose: 40 mg Pharmacy Profile Note (Lidocaine Patch Remove*) 1 note N/A 2100 [facility] Last Admin: 02/01/18 20:39 Dose: 1 note Polyethylene Glycol/Electrolytes (Miralax*) 17 gm PO DAILY [facility] Stop: 02/03/18 19:29 Last Admin: 02/01/18 20:32 Dose: 17 gm Vital Signs - 8 hr 02/02/18 03:35 Temperature 99.1 F Pulse Rate 70 Respiratory 17 Rate Blood Pressure 111/40 (mmHg) O2 Sat by Pulse 97 Oximetry Oxygen Devices in Use Now: None Appearance: Alert, sitting up in bed. In good spirits. Looks comfortable. Eyes: No Scleral Icterus Extremities: No Edema, No Clubbing, Cyanosis, - Skin: No Rash or Ulcers, No Nodules or Sclerosis, - Neurological: Alert and Oriented x 3, NL Sensation - No tremor. Legs weak. Result Diagrams: 02/01/18 09:13 02/01/18 09:13 Additional Lab and Data: Lab Results 01/29/18 01/29/18 01/29/18 Range/Units 10:23 10:23 10:23 INR (Anticoag Therapy) 1.17 H (0.77-1.02) Sodium 132 L (135-145) mmol/L Potassium 4.7 (3.5-5.0) mmol/L Chloride 101 (101-111) mmol/L Carbon Dioxide 23 (22-32) mmol/L Anion Gap 8 (2-11) mmol/L BUN 25 H (6-24) mg/dL Creatinine 1.21 H (0.51-0.95) mg/dL Est GFR ( Amer) 52.3 (>60) Est GFR (Non-Af Amer) 43.3 (>60) BUN/Creatinine Ratio 20.7 H (8-20) Glucose 478 H (70-100) mg/dL Lactic Acid 3.8 H* (0.5-2.0) mmol/L Calcium 9.1 (8.6-10.3) mg/dL Magnesium 1.9 (1.9-2.7) mg/dL Total Bilirubin 2.40 H (0.2-1.0) mg/dL AST 46 H (13-39) U/L ALT 22 (7-52) U/L Alkaline Phosphatase 144 H (34-104) U/L Total Creatine Kinase 335 H (10-223) U/L Troponin I 0.04 H* (<0.04) ng/mL B-Natriuretic Peptide ( - 100) pg/mL Total Protein 6.9 (6.4-8.9) g/dL Albumin 3.1 L (3.2-5.2) g/dL Globulin 3.8 (2-4) g/dL Albumin/Globulin Ratio 0.8 L (1-3) TSH Pending 01/29/18 Range/Units 10:23 INR (Anticoag Therapy) (0.77-1.02) Sodium (135-145) mmol/L Potassium (3.5-5.0) mmol/L Chloride (101-111) mmol/L Carbon Dioxide (22-32) mmol/L Anion Gap (2-11) mmol/L BUN (6-24) mg/dL Creatinine (0.51-0.95) mg/dL Est GFR ( Amer) (>60) Est GFR (Non-Af Amer) (>60) BUN/Creatinine Ratio (8-20) Glucose (70-100) mg/dL Lactic Acid (0.5-2.0) mmol/L Calcium (8.6-10.3) mg/dL Magnesium (1.9-2.7) mg/dL Total Bilirubin (0.2-1.0) mg/dL AST (13-39) U/L ALT (7-52) U/L Alkaline Phosphatase (34-104) U/L Total Creatine Kinase (10-223) U/L Troponin I (<0.04) ng/mL B-Natriuretic Peptide 51 ( - 100) pg/mL Total Protein (6.4-8.9) g/dL Albumin (3.2-5.2) g/dL Globulin (2-4) g/dL Albumin/Globulin Ratio (1-3) TSH Microbiology and Other Data: Microbiology 01/29/18 12:30 Urine Culture - Preliminary Urine Staphylococcus Epidermidis Escherichia Coli 01/29/18 12:38 Aerobic Blood Culture - Final Blood Venous Not Reportable Anaerobic Blood Culture - Final Not Reportable Blood Culture - Preliminary No Growth Day 1 Assess/Plan/Problems-Billing Assessment: - Patient Problems (1) Weakness Current Visit: Yes Status: Acute Code(s): R53.1 - WEAKNESS SNOMED Code(s) : 67910545 Comment: Mobility may be limited by her arthritic pains. Scheduled tramadol ordered. (2) Left knee pain Current Visit: Yes Status: Acute Code(s): M25.562 - PAIN IN LEFT KNEE SNOMED Code(s): 75855258 Comment: -Will increase Gabapentin, lidocaine patch. -MRI reveals severe osteoarthritis and degenerated and torn medial meniscus with probable displaced fragment to the posterior joint recess Dr. Watts's consultation appreciated. F/U with Dr. Villa as outpt -D/W Dr. Galvan and will await any further recommendations (3) Cirrhosis Current Visit: Yes Status: Acute Comment: -Unclear cause; fup with PCP as outpt. -MELD = 10, well-compensated With pancytopenia. (4) Diabetes Current Visit: No Status: Chronic Priority: High Code(s): E11.9 - TYPE 2 DIABETES MELLITUS WITHOUT COMPLICATIONS SNOMED Code(s): 54294981 Comment: -Adjusted Lantus and premeals; continue ISS for additional premeal needs -Continue watchful waiting (5) UTI (urinary tract infection) Current Visit: No Status: Acute Comment: -S. epi likely a contaminant given U/A not clean catch and pt does not want to be catheterized -Continue Levaquin, day #4/7 -E. coli sensitive to quinolones Status and Disposition: D/C to [facility].
[2018-02-02] MEDS ORDERED: traMADol TAB* 50 MG PO SCH (10:00)
--- NOTE | 2018-02-02 10:16 | PN ---
Progress Note - Progress Note Date of Service: 02/02/18 Note: Time spent on discharge 45 minutes, including exam of patient, discussion with patient and 2 nurses, review of EMR and preparation of discharge documents.
[2018-02-02 11:51] VITALS: BP 110/46
[2018-02-02] MEDS ORDERED: Acetaminophen TAB* 325 MG PO SCH (13:00)
--- NOTE | 2018-02-02 13:35 | TRS ---
CC: Dr. Munoz TRANSFER SUMMARY: DATE OF TRANSFER: 02/02/18 HOSPITAL COURSE: This is a 77-year-old woman who presented with weakness and inability to get out of a chair. She had a fall and struck her head on the sink. Her mobility was really limited by pain in her left knee. This has been going on for sometime. She states she is allergic to all medications. She does have a long list of allergies, mainly hives and certain things. Because of her cirrhosis, other medications need to be limited or contraindicated. She had MRI of the knee, which showed advanced osteoarthritis, destruction of cartilage and the loose body. Dr. Silva saw her in consultation and did not think the loose body was causing her symptoms . She should follow up as an outpatient with Dr. Villa. I am going to try the patient on scheduled tramadol. She has listed a tramadol unknown reaction, I a m not sure if she actually ever took tramadol and had a reaction. Her other allergies are listed as hives to a number of antibiotics and other medications. Her urine culture from 01/29/18, included E. coli sensitive to all antibiotics tested. She was given levofloxacin here. She will take 2 more doses at [facility] to complete the 5-day course of thera py. FINAL DIAGNOSES: 1. Weakness. 2. Left knee pain. 3. Cirrhosis. 4. Diabetes. 5. Urinary tract infection. TRANSFER MEDICATIONS: 1. Levofloxacin 500 mg daily for 2 days. 2. Amitriptyline 10 mg h.s. 3. Gabapentin 300 mg t.i.d. 4. Lispro insulin sliding scale by carb count. 5. Lidocaine patch 5% daily. 6. Polyethylene glycol 17 g daily. 7. Tramadol 50 mg b.i.d. 8. Omeprazole 40 mg daily. 9. Glargine insulin 45 units at bedtime. 10. Furosemide 60 mg daily. 11. Nystatin cream apply to the affected areas b.i.d. DISCHARGE DISPOSITION: Transfer to [facility]. DISCHARGE CONDITION: Stable. [id number]/[facility] #: [id number]
[2018-02-02] MEDS ORDERED: Insulin GLARGINE(*) 1 UNITS UNIT SUBCUT SCH (21:00)
[2018-02-03] MEDS ORDERED: Levofloxacin TAB* 500 MG PO SCH (09:00)
== END 2018-02-02 14:10 | DRG 690 ==
LOC: ED 09:46 → MEDTELE 12:42 → INTOOBSV 12:42 → OBSVTOIN 01-30 16:30
PROVIDERS: ADMIT Internal Medicine; ATTEND Internal Medicine
DX: N39.0 Urinary tract infection, site not specified (principal); I50.32 Chronic diastolic (congestive) heart failure; I85.10 Secondary esophageal varices without bleeding; I13.0 Hypertensive heart and chronic kidney disease with heart failure and stage 1 through stage 4 chronic kidney disease, or unspecified chronic kidney disease; K76.6 Portal hypertension; M17.12 Unilateral primary osteoarthritis, left knee; Z79.4 Long term (current) use of insulin; S83.207A Unspecified tear of unspecified meniscus, current injury, left knee, initial encounter; E78.00 Pure hypercholesterolemia, unspecified; K21.9 Gastro-esophageal reflux disease without esophagitis; K74.60 Unspecified cirrhosis of liver; E11.65 Type 2 diabetes mellitus with hyperglycemia; E83.42 Hypomagnesemia; M25.462 Effusion, left knee; W17.89XA Other fall from one level to another, initial encounter; K57.90 Diverticulosis of intestine, part unspecified, without perforation or abscess without bleeding; B96.20 Unspecified Escherichia coli [E. coli] as the cause of diseases classified elsewhere; D69.6 Thrombocytopenia, unspecified; I45.10 Unspecified right bundle-branch block; N18.3 Chronic kidney disease, stage 3 (moderate); E11.22 Type 2 diabetes mellitus with diabetic chronic kidney disease; N20.0 Calculus of kidney; Z82.49 Family history of ischemic heart disease and other diseases of the circulatory system; Z86.19 Personal history of other infectious and parasitic diseases; Z88.5 Allergy status to narcotic agent; Z88.0 Allergy status to penicillin; Z88.8 Allergy status to other drugs, medicaments and biological substances; Z88.6 Allergy status to analgesic agent; Z88.1 Allergy status to other antibiotic agents; Z91.040 Latex allergy status; Z90.49 Acquired absence of other specified parts of digestive tract; Q89.9 Congenital malformation, unspecified; Y92.009 Unspecified place in unspecified non-institutional (private) residence as the place of occurrence of the external cause
CPT/HCPCS: 36415; 70450; 71046; 80053; 81003; 81015; 82306; 82550; 82947; 83605; 83735; 83880; 84100; 84443; 84484; 85025; 85060; 85610; 86022; 87040; 87077; 87086; 87186; 93005; 99284; A9270-GY; G0378; G8978-GP-CK; G8979-GP-CH; J1644; J1956; J3475

== ENCOUNTER 2018-02-19 11:11 | Inpatient (IN) | payer MEDICARE ==
[2018-02-19] MEDS ORDERED: NS 0.9% 1000 ML*IV.FLUID IV ONE (11:20)
[2018-02-19] MEDS ORDERED: Piperacillin/Tazobac ADVAN(*) 3.375 GM in NS 0.9% 100 ML* 100 ML IVPB ONE (11:20)
[2018-02-19 12:10] LABS: Urine Appearance Cloudy; Urine Blood 1+ (Negative); Urine Color Yellow; Urine Ketones Negative (Negative); Urine Protein Negative (Negative); Urine Red Blood Cell Trace(0-2/hpf) (Absent); Urine Specific Gravity 1.006 (1.010-1.030); Urine Urobilinogen Negative (Negative); Urine White Blood Cell 3+(>20/hpf) (Absent)
[2018-02-19 12:10] LABS: ABS Basophils 0.1 10^3/ul (0-0.2); ABS Eosinophils 0.2 10^3/ul (0-0.6); ABS Monocytes 0.4 10^3/ul (0-0.8); ABS Neutrophils 2.9 10^3/ul (1.5-7.7); ABS Nucleated RBC 0 10^3/ul; Eosinophil % 4.3 % (0-6); Hematocrit 33 % (35-47); Hemoglobin 10.7 g/dl (12.0-16.0); Lymphocyte % 22.1 % (25-47); Mean Corpuscular HGB Conc 32 g/dl (31-36); Mean Corpuscular Hemoglobin 28 pg (27-31); Mean Corpuscular Volume 86 fL (80-97); Mean Platelet Volume 8.6 um3 (7.4-10.4); Nucleated Red Blood Cells % 0.1; Platelet Count 132 10^3/ul (150-450); Red Blood Count 3.88 10^6/ul (4.00-5.40); Red Cell Distribution Width 19 % (10.5-15); White Blood Count 4.5 10^3/ul (3.5-10.8)
--- NOTE | 2018-02-19 12:14 | ED ---
GI/ HPI - HPI Summary HPI Summary: Patient is a 77 y/o F BIBA from [facility]. EMS reports patient was experiencing confusion, lethargy, decreased PO intake onsetting today. They note that family states that patient has had similar Sx in the past when she had a UTI. Patient is also noted to be incontinent at baseline and reports " some pain" when voiding. In the room, patient states she is tired but denies the presence of any pain. She is unsure if she has a fever. She is A&Ox2. On triage, pain is denied and nothing is noted to aggravate/alleviate Sx. Home medications and allergies are reviewed. - History of Current Complaint Chief Complaint: EDAltMentalStatus Time Seen by Provider: 02/19/18 11:16 Stated Complaint: GENERAL ILLNESS Hx Obtained From: Patient Onset/Duration: Started Hours Ago, Still Present Timing: Constant Current Severity: None - pain denied Pain Intensity: 0 Associated Signs and Symptoms: Positive: Other: - "some pain" when voiding, confusion, lethargy, possible UTI, decreased PO intake - Additional Pertinent History Primary Care Physician: MUKUL - Allergy/Home Medications Allergies/Adverse Reactions: Allergies Allergy/AdvReac Type Severity Reaction Status Date / Time Adhesive Tape Allergy Mild Hives Verified 01/29/18 09:52 cephalexin [From Keflex] Allergy Mild Hives Verified 01/29/18 09:52 codeine Allergy Mild Hives Verified 01/29/18 09:52 hydrochlorothiazide Allergy Mild Hives Verified 01/29/18 09:52 carvedilol Allergy Facial Verified 01/29/18 09:52 Redness/Flushing doxycycline Allergy Diarrhea Verified 01/29/18 09:52 hydrocodone Allergy Hives Verified 01/29/18 09:52 hydromorphone [From Dilaudid] Allergy Unknown Verified 01/29/18 09:52 Reaction Details Latex, Natural Rubber Allergy Hives Verified 01/29/18 09:52 morphine Allergy Rash Verified 01/29/18 09:52 nitrofurantoin Allergy Nausea And Verified 01/29/18 09:52 Vomiting ondansetron Allergy Rash Verified 01/29/18 09:52 oxycodone Allergy Hives Verified 01/29/18 09:52 Penicillins Allergy Hives Verified 01/29/18 09:52 Hvporbx-Xmv-Ctf Reductase Allergy Hives Verified 01/29/18 09:52 Inhibitor tramadol Allergy Unknown Verified 01/29/18 09:52 Reaction Details Home Medications: Home Medications Acetaminophen TAB* [Tylenol TAB*] 650 mg PO Q4H PRN 02/19/18 [History Confirmed 02/19/18] Bisacodyl SUPP* [Dulcolax Supp*] 10 mg FL DAILY PRN 02/19/18 [History Confirmed 02/19/18] Insulin LISPRO* [HumaLOG*] 20 units SUBCUT ACHS 02/19/18 [History Confirmed ] Lidocaine PATCH 5%* [Lidoderm 5% Patch*] 1 patch TRANSDERM QAM 02/19/18 [ History Confirmed 02/19/18] PMH/Surg Hx/FS Hx/Imm Hx Endocrine/Hematology History: Reports: Hx Diabetes Denies: Hx Systemic Lupus Erythematosus, Hx Thyroid Disease Cardiovascular History: Reports: Hx Angina, Hx Hypercholesterolemia, Hx Hypertension, Other Cardiovascular Problems/Disorders - IRREGULAR HEART BEAT Denies: Hx Congestive Heart Failure, Hx Pacemaker/ICD Respiratory History: Denies: Hx Asthma, Hx Chronic Obstructive Pulmonary Disease (COPD) GI History: Reports: Hx Cirrhosis, Hx Diverticulosis, Hx Gastroesophageal Reflux Disease, Other GI Disorders - gerd and diverticulosis/itis Denies: Hx Ulcer History: Reports: Hx Kidney Stones, Other Problems/Disorders - stones Denies: Hx Dialysis, Hx Renal Disease Musculoskeletal History: Reports: Other Musculoskeletal History - arthritis and disc problems Denies: Hx Rheumatoid Arthritis, Hx Osteoporosis Sensory History: Reports: Hx Contacts or Glasses Denies: Hx Cataracts, Hx Legally Blind, Hx Deafness, Hx Hearing Aid Opthamlomology History: Reports: Hx Contacts or Glasses Denies: Hx Cataracts, Hx Legally Blind Psychiatric History: Denies: Hx Panic Disorder, Hx Schizophrenia - Cancer History Hx Chemotherapy: No - Surgical History Surgery Procedure, Year, and Place: TONSILECTOMY;. VARICOSE VEINS X 3;. RTC REPAIR RIGHT SHOULDER X 2, LEFT SHOULDER X 1;. CHOLECYSECTOMY;. BLADDER MESH; . SKIN CARCINOMA REMOVED LEFT TEMPORAL REGION Hx Anesthesia Reactions: No - Immunization History Date of Tetanus Vaccine: None Date of Influenza Vaccine: Fall 2014 Immunizations Up to Date: Yes Infectious Disease History: No Infectious Disease History: Reports: Hx Hepatitis - as a child Denies: Hx Clostridium Difficile, Hx Human Immunodeficiency Virus (HIV), Hx of Known/Suspected MRSA, Hx Shingles, Hx Tuberculosis, Hx Known/Suspected VRE, Hx Known/Suspected VRSA, History Other Infectious Disease, Traveled Outside the [place] in Last 30 Days - Family History Known Family History: Positive: Hypertension - Social History Alcohol Use: None Hx Substance Use: No Substance Use Type: Reports: None Hx Tobacco Use: No Smoking Status (MU): Never Smoked Tobacco Have You Smoked in the Last Year: No Review of Systems Positive: Fatigue - tiredness, lethargy . Negative: Fever - on vitals, temp is 99.8 F Positive: Other - decreased PO intake, "some pain" when voiding Positive: other - possible UTI Neurological: Other - confusion All Other Systems Reviewed And Are Negative: Yes Physical Exam - Summary Physical Exam Summary: VITAL SIGNS: Reviewed. GENERAL: Patient is a well-developed, elderly, fragile female who is lying comfortable in the stretcher. Patient is not in any acute respiratory distress. HEAD AND FACE: No signs of trauma. No ecchymosis, hematomas or skull depressions. No sinus tenderness. EYES: PERRLA, EOMI x 2, No injected conjunctiva, no nystagmus. EARS: Hearing grossly intact. Ear canals and tympanic membranes are within normal limits. MOUTH: Oropharynx within normal limits. Dry oral mucosa NECK: Supple, trachea is midline, no adenopathy, no JVD, no carotid bruit, no c- spine tenderness, neck with full ROM. CHEST: Symmetric, no tenderness at palpation LUNGS: Clear to auscultation bilaterally. No wheezing or crackles. CVS: Regular rate and rhythm, S1 and S2 present, no gallops appreciated. 2/6 systolic ejection murmur ABDOMEN: Soft, non-tender. No signs of distention. No rebound no guarding, and no masses palpated. Bowel sounds are normal. EXTREMITIES: FROM in all major joints, no edema, no cyanosis or clubbing. NEURO: Alert and oriented x 2. No acute neurological deficits. Speech is normal and follows commands. SKIN: Dry and warm; poor turgor of skin likely secondary to dehydration Triage Information Reviewed: Yes Vital Signs On Initial Exam: Initial Vitals Temp Pulse Resp BP Pulse Ox 99.8 F 114 22 162/71 97 02/19/18 11:12 02/19/18 11:12 02/19/18 11:12 02/19/18 11:12 02/19/18 11:12 Vital Signs Reviewed: Yes Diagnostics - Vital Signs Vital Signs Temp Pulse Resp BP Pulse Ox 02/19/18 11:12 99.8 F 114 22 162/71 97 - Laboratory Lab Results: Lab Results 02/19/18 02/19/18 Range/Units 11:50 11:54 WBC 4.5 (3.5-10.8) 10^3/ul RBC 3.88 L (4.00-5.40) 10^6/ul Hgb 10.7 L (12.0-16.0) g/dl Hct 33 L (35-47) % MCV 86 (80-97) fL MCH 28 (27-31) pg MCHC 32 (31-36) g/dl RDW 19 H (10.5-15) % Plt Count 132 L (150-450) 10^3/ul MPV 8.6 (7.4-10.4) um3 Neut % (Auto) 64.3 (38-83) % Lymph % (Auto) 22.1 L (25-47) % [place] % (Auto) 8.1 H (0-7) % Eos % (Auto) 4.3 (0-6) % Baso % (Auto) 1.2 (0-2) % Absolute Neuts (auto) 2.9 (1.5-7.7) 10^3/ul Absolute Lymphs (auto) 1.0 (1.0-4.8) 10^3/ul Absolute Monos (auto) 0.4 (0-0.8) 10^3/ul Absolute Eos (auto) 0.2 (0-0.6) 10^3/ul Absolute Basos (auto) 0.1 (0-0.2) 10^3/ul Absolute Nucleated RBC 0 10^3/ul Nucleated RBC % 0.1 ESR Pending Urine Color Yellow Urine Appearance Cloudy Urine pH 7.0 (5-9) Ur Specific [place] 1.006 L (1.010-1.030) Urine Protein Negative (Negative) Urine Ketones Negative (Negative) Urine Blood 1+ A (Negative) Urine Nitrate Positive A (Negative) Urine Bilirubin Negative (Negative) Urine Urobilinogen Negative (Negative) Ur Leukocyte Esterase 3+ A (Negative) Urine WBC (Auto) 3+(>20/hpf) A (Absent) Urine RBC (Auto) Trace(0-2/hpf) (Absent) Ur Squamous Epith Cells Present A (Absent) Urine Bacteria Absent (Absent) Urine Glucose Negative (Negative) Result Diagrams: 02/19/18 11:54 02/19/18 11:54 Lab Statement: Any lab studies that have been ordered have been reviewed, and results considered in the medical decision making process. - Radiology CXR Xray Interpretation: No Acute Changes Radiology Interpretation Completed By: Radiologist - no evidence for acute finding; this report was reviewed by ED physician. - CT CT brain CT Interpretation: No Acute Changes CT Interpretation Completed By: Radiologist - no acute intracranial pathology. chronic small vessel ischemic change; this report was reviewed by ed physician. - EKG 1127 Cardiac Rate: Tachycardia - 107 BPM EKG Rhythm: Sinus Tachycardia EKG Interpretation: RBBB EKG Comparison: No Significant Change - similar to EKG from 01/29/18 Re-Evaluation - Re-Evaluation First Eval Re-Evaluation Time: 12:46 Comment: Patient and patient's son, who arrived in ED, was informed of decision to admit to [facility] for further workup. They understand and are agreeable with plan. GIGU Course/Dx - Course Assessment/Plan: This patient is a 77-year-old female with past medical history significant for esophageal varices secondary to cirrhosis, anemia, hypertension , diabetes, trauma center., Chronic kidney disease, rhabdomyolysis, UTI, CHF, and GERD. Presents to the emergency department after she was transferred from a long term with a chief complaint of confusion. The patient meets criteria for sepsis therefore the patient was given IV fluids, blood cultures ordered and she was given ciprofloxacin since the source of the infection may be the urine. Patient is allergic to cephalosporins and penicillin. It seems that the patient had an bladder scan with more than [address] a Graves catheter and she expresses approximately 2000 cc of urine. Possibly the patient was having some urinary retention. Blood work without any significant abnormality except for hemoglobin 10.7 hematocrit 33. Urinalysis with positive UTI. Chest x-ray impression: No evidence for acute findings. Head CT impression: No acute intra-abdominal pathology. Chronic small vessel ischemia. Lactic acid is elevated therefore the patient may be developing sepsis. Therefore at this time I discussed my physical exam, findings and test results with Dr. Lamar who accepted the patient for admission. - Diagnoses Provider Diagnoses: UTI (urinary tract infection), Confusion - Physician Notifications Discussed Care Of Patient With: Cyndi Lamar Time Discussed With Above Provider: 12:41 Instructed by Provider To: Other - Patient's case was discussed with Dr. Lamar at 1241. Dr. Lamar accepts patient for admission to [facility]. Discharge - Sign-Out/Discharge Documenting (check all that apply): Patient Departure - admit - Discharge Plan Condition: Fair Disposition: ADMITTED TO [facility] - Billing Disposition and Condition Condition: FAIR Disposition: Admitted to [facility] - Attestation Statements Document Initiated by Scribe: Yes Documenting Scribe: Mark Barr Provider For Whom Srinath is Documenting (Include Credential): Jose Roberto Jacinto MD Scribe Attestation: Mark Duong, scribed for Jose Roberto Jacinto MD on 02/19/18 at 1843. Scribe Documentation Reviewed: Yes Provider Attestation: The documentation as recorded by the Mark hsieh accurately reflects the service I personally performed and the decisions made by me, Jose Roberto Jacinto MD
[2018-02-19 12:19] LABS: INR 1.13 (0.77-1.02)
--- NOTE | 2018-02-19 12:32 | RAD ---
HISTORY: Confusion COMPARISONS: January 29, 2018 TECHNIQUE: Multiple contiguous axial CT scans were obtained of the head without intravenous contrast. FINDINGS: HEMORRHAGE/INFARCT: There is no hemorrhage or acute infarct. MASSES/SHIFT: There is no mass or shift. EXTRA-AXIAL SPACES: There are no extra-axial fluid collections. SULCI AND VENTRICLES: The sulci and ventricles are normal in size and position for the patient's stated age. CEREBRUM: There is hypoattenuation of the periventricular and subcortical white matter. BRAINSTEM: There are no focal parenchymal abnormalities. CEREBELLUM: There are no focal parenchymal abnormalities. VESSELS: There is calcification of the cavernous segments of the internal carotid arteries bilaterally and of the distal vertebral arteries bilaterally. PARANASAL SINUSES: The paranasal sinuses are clear. ORBITS: The orbits are unremarkable. BONES AND SOFT TISSUE: No bone or soft tissue abnormalities are noted. OTHER: None IMPRESSION: NO ACUTE INTRACRANIAL PATHOLOGY. CHRONIC SMALL VESSEL ISCHEMIC CHANGE.
[2018-02-19 12:33] LABS: EGFR Non-African American 56.5 (>60)
--- NOTE | 2018-02-19 12:42 | RAD ---
INDICATION: Confusion. COMPARISON: Comparison is made with a prior study from January 29, 2018. TECHNIQUE: A single AP view of the chest was obtained FINDINGS: The heart is within normal limits in size. Mediastinal and hilar contours appear within normal limits. The lungs are underinflated and grossly clear. No pleural effusion is seen. IMPRESSION: NO EVIDENCE FOR ACUTE FINDING.
[2018-02-19] MEDS ORDERED: Dextrose 50% Syringe 50 ML* 25 GM/50 ML SYRINGE IV PUSH PRN (13:40)
[2018-02-19] MEDS ORDERED: NS 0.9% 1000 ML* 1,000 ML IV SCH (13:45)
[2018-02-19] MEDS ORDERED: Levofloxacin 500 MG IVPREMIX(* 500 MG/100 ML BAG IVPB SCH (14:00)
[2018-02-19] MEDS ORDERED: Levofloxacin 750 MG IVPREMIX(* 0 MG/0 ML BAG ONE (14:01)
[2018-02-19] MEDS ORDERED: Levofloxacin 500 MG IVPREMIX(* 500 MG/100 ML BAG IVPB ONE (14:05)
[2018-02-19] MEDS: Gabapentin CAP(*) 300 MG PO SCH ×2 (18:10→21:26)
[2018-02-19] MEDS: Insulin LISPRO* 1 UNITS UNIT SUBCUT SCH ×2 (18:11→21:27)
[2018-02-19] MEDS: Heparin VIAL(*) 5000 UNITS/ML VIAL (FIVE THOUSAND) SUBCUT SCH ×2 (18:12→21:28)
[2018-02-19] MEDS ORDERED: Insulin GLARGINE(*) 1 UNITS UNIT SUBCUT SCH (21:00)
--- NOTE | 2018-02-19 21:24 | HP ---
CC: Dr. Claudine Munoz; Dr. Dana Tuttle; Dr. Jane Lopez from [facility] * HISTORY AND PHYSICAL: DATE OF ADMISSION: 02/19/18 PRIMARY CARE PROVIDER: Dr. Claudine Munoz. CHIEF COMPLAINT: "They could not wake me up in the morning." HISTORY OF PRESENT ILLNESS: Tami Atkinson is a 77-year-old female with history of nonalcoholic liver cirrhosis, who is currently undergoing rehabilitation at [facility] after she was noted to have generalized deconditioning after a fall at home. The patient has severe osteoarthritis in bilateral knees and has problems ambulating. She was discharged to [facility] from [facility] on 02/02/18. She stated that she had been doing somewhat "okay," but had problems with episodes of shaking almost on a daily basis. She stated that it originally occurred when she was still hospitalized at [facility]. She stated that the tremors were so severe that she could not hold her eyeglasses in her hand. She stated that in the past she was told that this is likely due to anxiety. She did not have any problems with tremors today, but she was difficult to arouse today in the morning by [facility] staff and she was brought to the ED for evaluation. Here, she was pleasant, cooperative, complains of feeling dehydrated. The patient's family stated that her sugars have been in the 300 and 400s range at the [facility] residence. The patient is going to be admitted with a diagnosis of altered mental status likely due to UTI. The patient also appears to be septic at admission likely due to UTI. PAST MEDICAL HISTORY: 1. History of nonalcoholic liver cirrhosis. 2. History of chronic diastolic CHF with echo documented in August 2017 of mild aortic stenosis and trace mitral regurgitation, EF of 55% to 60%. 3. History of chronic kidney disease, stage 3. 4. History of iron-deficiency anemia with history of esophageal varices in the past. 5. Diabetes type 2. 6. Gastroesophageal reflux disease. 7. History of portal hypertension. 8. History of uterine prolapse. 9. Nephrolithiasis. 10. Humerus fracture. 11. The patient is status post mesh repair of her uterus and bladder prolapse. 12. History of laparoscopic cholecystectomy. 13. History of bilateral rotator cuff repair. 14. History of left-sided tibial fracture that was treated conservatively. MEDICATIONS: Include: 1. Insulin Lantus 55 units at bedtime. 2. Insulin lispro 20 units with each meal. 3. MiraLAX 17 g daily. 4. Omeprazole 40 mg daily. 5. Lidoderm patch 5% apply to left knee daily. 6. Gabapentin 300 mg 3 times a day. 7. Furosemide 60 mg daily. 8. Dulcolax 10 mg daily p.r.n. 9. Acetaminophen on a p.r.n. basis. 10. Amitriptyline 10 mg at bedtime. ALLERGIES: Multiple and include ADHESIVE TAPE causes hives; CEPHALEXIN, CODEINE , HYDROCHLOROTHIAZIDE, HYDROCODONE, LATEX, OXYCODONE, STATINS caused hives. COREG caused facial redness, DOXYCYCLINE caused diarrhea. The patient also reported rash to MORPHINE as well as nausea and vomiting to NITROFURANTOIN. The patient was noted to have unknown reaction to TRAMADOL and DILAUDID. FAMILY HISTORY: The patient is adopted. Her biological parents in [place]. She moved to [facility] from [place] in 1950. SOCIAL HISTORY: The patient denies any tobacco, alcohol, or drug use. She is a retired nurse and prior to her being in [facility] placement , she lived alone. Her lives at [facility] with dementia. The patient's daughter, Rosey Chawla and her son, Kyler Atkinson , are her surrogates. REVIEW OF SYSTEMS: Please see history of present illness. All the remaining 12 systems were reviewed with the patient and the patient's family present in the room and were otherwise negative. PHYSICAL EXAMINATION GENERAL: The patient is a pleasant 77-year-old female who is in no acute distress. The patient is alert and oriented x3. VITAL SIGNS: Blood pressure of 162/71, heart rate of 114 and regular, respiratory rate 22, oxygen saturation 97% on room air, temperature of 99.8. HEENT: Head: Atraumatic, normocephalic. Eyes: Pupils are equal, reactive to light and accommodation. Oropharynx is clear. Mucosa dry. NECK: Supple. No JVD. No bruits bilaterally. RESPIRATORY: Clear to auscultation bilaterally. CARDIOVASCULAR: Regular rate and rhythm with 1/6 systolic ejection murmur noted on auscultation of the right upper sternal border radiating into the bilateral carotids. ABDOMEN: Soft, mildly tender in the epigastrium. No rebound, no guarding. Bowel sounds are present in all 4 quadrants. No ascites noted. No hepatomegaly noted. EXTREMITIES: There is no edema. Pulses are +2 bilaterally. There is no clubbing or cyanosis. NEUROLOGIC: Speech is clear. Cranial nerves II through XII are grossly intact. Motor strength is 5/5 bilaterally. There is no asterixis on evaluation and no tremor noted. DIAGNOSTIC STUDIES/LAB DATA: Laboratory data and studies performed during the ED stay included: EKG showed sinus tachycardia with right bundle branch block, which is the patient's baseline. The patient's heart rate was 107 at that point. White blood cell count of 4.5, hemoglobin of 10.7, hematocrit of 33, and platelets of 132, which is consistent with the patient's chronic thrombocytopenia. The patient's ESR was 59. Sodium was 140, potassium 3.9, chloride 110, carbon dioxide 21, BUN 18, creatinine 0.96. Liver function tests are at the patient's baseline with bilirubin of 1.7, AST of 42, ALT of 18, and alkaline phosphatase of 199. C- reactive protein was 41. Brain natriuretic peptide was 106. Procalcitonin was 0.2. Lactic acid of 2.8. Urinalysis was obtained after Graves catheter was placed in the emergency department when the patient complained of inability to void. At that point, the urine specific gravity was 1.006 with +1 blood, positive for nitrites, +3 wbc's, +3 rbc's, +3 esterase, absent bacteria. Brain CT, impression: "No acute intracranial pathology. Chronic small vessel ischemic change." Portable chest x-ray, impression: "No evidence of acute findings." Laboratory values pending at the time of dictation include ammonia level. ASSESSMENT AND PLAN: 1. An episode of transient unresponsiveness versus lethargy in a patient with history of liver cirrhosis. At this point, the first differential appears to me to be likely hepatic encephalopathy, although the patient now is back to her baseline. At this point, ammonia level is going to be obtained and we will treat adequately. At this point, the patient appears to be back to her baseline. It is possible that the patient had syncopal episode. Neuro checks are going to be obtained. The patient is going to be observed on telemetry monitored bed. The patient also could have had syncopal episode due to dehydration. Gentle IV fluids are going to be provided. 2. The patient appears to be septic due to urinary tract infection. The patient's urinalysis is abnormal. She has multiple drug allergies and she is going to be placed on levofloxacin. The patient already was bolused for sepsis protocol in the emergency department. She is going to be continued with gentle IV hydration with her history of congestive heart failure. I also placed for daily weights to be checked. 3. In regards to the patient's diabetes, insulin sliding scale is going to be continued as well as the patient's insulin Lantus that she used at [facility]. 4. The patient's liver function test elevation is chronic and consistent with her chronic diagnosis of liver cirrhosis due to nonalcoholic liver disease. 5. The patient's anemia with hemoglobin at 10 is chronic, normocytic. There is no evidence of acute bleeding. 6. For DVT prophylaxis, the patient is going to be placed on heparin subcutaneously. 7. The patient's code status is do not resuscitate that was confirmed with the patient in the presence of the patient's son. TIME SPENT: Approximately 75 minutes was spent on admission of this patient, more than half of that time was spent [id number] with the patient during the interview and physical exam. [id number]/[facility] #: [id number] CONRAD
[2018-02-19] MEDS: Docusate CAP* 100 MG PO SCH (21:27)
[2018-02-19] MEDS: Amitriptyline TAB* 10 MG PO SCH (21:27)
[2018-02-20] MEDS: Heparin VIAL(*) 5000 UNITS/ML VIAL (FIVE THOUSAND) SUBCUT SCH ×3 (05:41→20:45)
[2018-02-20 07:16] LABS: ABS Basophils 0.1 10^3/ul (0-0.2); ABS Eosinophils 0.2 10^3/ul (0-0.6); ABS Lymphocytes 1.1 10^3/ul (1.0-4.8); ABS Monocytes 0.4 10^3/ul (0-0.8); ABS Neutrophils 2.4 10^3/ul (1.5-7.7); ABS Nucleated RBC 0 10^3/ul; Hematocrit 28 % (35-47); Lymphocyte % 25.9 % (25-47); Mean Corpuscular HGB Conc 33 g/dl (31-36); Mean Corpuscular Hemoglobin 28 pg (27-31); Mean Corpuscular Volume 85 fL (80-97); Mean Platelet Volume 8.4 um3 (7.4-10.4); Nucleated Red Blood Cells % 0; Platelet Count 113 10^3/ul (150-450); Red Blood Count 3.22 10^6/ul (4.00-5.40); Red Cell Distribution Width 19 % (10.5-15); White Blood Count 4.1 10^3/ul (3.5-10.8)
[2018-02-20 07:35] LABS: EGFR Non-African American 65.9 (>60)
[2018-02-20] MEDS: Insulin LISPRO* 1 UNITS UNIT SUBCUT SCH ×4 (08:50→20:45)
[2018-02-20] MEDS: Omeprazole CAP* 20 MG PO SCH (08:55)
[2018-02-20] MEDS: Gabapentin CAP(*) 300 MG PO SCH ×3 (08:56→20:44)
[2018-02-20] MEDS: Docusate CAP* 100 MG PO SCH ×2 (08:56→20:45)
[2018-02-20] MEDS: Lidocaine PATCH 5%* 1 PATCH TRANSDERM SCH (08:58)
[2018-02-20] MEDS: Acetaminophen TAB* 325 MG PO PRN (10:48)
--- NOTE | 2018-02-20 11:44 | PN ---
Subjective Date of Service: 02/20/18 Interval History: pt c/o that everything hurts, did not remember that I saw her with her son in the room and re-introduced me to him. Son c/o that pt had a tremor, but it resolved Objective Active Medications: Acetaminophen (Tylenol Tab*) 650 mg PO Q4H PRN PRN Reason: FEVER/PAIN Last Admin: 02/20/18 10:48 Dose: 650 mg Amitriptyline HCl (Elavil Tab*) 10 mg PO BEDTIME [facility] Last Admin: 02/19/18 21:27 Dose: 10 mg Dextrose (D50w Syringe 50 Ml*) 12.5 gm IV PUSH .FOR FS < 60 - SS PRN PRN Reason: FS < 60 Docusate Sodium (Colace Cap*) 100 mg PO BID [facility] Last Admin: 02/20/18 08:56 Dose: 100 mg Gabapentin (Neurontin Cap(*)) 300 mg PO TID [facility] Last Admin: 02/20/18 08:56 Dose: 300 mg Heparin Sodium (Porcine) (Heparin Vial(*)) 5,000 units SUBCUT Q8HR [facility] Last Admin: 02/20/18 05:41 Dose: 5,000 units Levofloxacin/Dextrose (Levaquin 500 Mg Ivpremix(*)) 500 mg in 100 mls @ 100 mls /hr IVPB 1300 [facility] Insulin Glargine (Lantus(*)) 40 units SUBCUT BEDTIME [facility] Insulin Human Lispro (Humalog*) 0 units SUBCUT ACHS [facility]; Protocol Last Admin: 02/20/18 08:50 Dose: Not Given Lactulose (Lactulose*) 30 ml PO TID [facility] Lidocaine (Lidoderm 5% Patch*) 1 patch TRANSDERM QAM [facility] Last Admin: 02/20/18 08:58 Dose: 1 patch Omeprazole (Prilosec Cap*) 40 mg PO DAILY [facility] Last Admin: 02/20/18 08:55 Dose: 40 mg Pharmacy Profile Note (Lidocaine Patch Remove*) 1 note PATCH OFF 2100 [facility] Vital Signs - 8 hr 02/20/18 02/20/18 02/20/18 07:25 08:00 08:10 Temperature 97.1 F Pulse Rate 77 Respiratory 17 Rate Blood Pressure 108/43 (mmHg) O2 Sat by Pulse 95 99 Oximetry 02/20/18 02/20/18 08:56 11:31 Temperature Pulse Rate Respiratory 16 Rate Blood Pressure 110/48 (mmHg) O2 Sat by Pulse Oximetry Oxygen Devices in Use Now: None Appearance: 77 yo f in nAD, AAox2 Eyes: No Scleral Icterus, PERRLA Ears/Nose/Mouth/Throat: NL Teeth, Lips, Gums, Mucous Membranes Moist Neck: NL Appearance and Movements; NL JVP, Trachea Midline Respiratory: Symmetrical Chest Expansion and Respiratory Effort Cardiovascular: - - 2/6 KRISSY Abdominal: - - mildly distended, tender in b/l LQ's L>R. no rebound, no guarding , BS+ Lymphatic: No Cervical Adenopathy Extremities: No Clubbing, Cyanosis, - - trace ankle edema b/l Skin: No Rash or Ulcers, No Nodules or Sclerosis Neurological: - - weak handgrip due to muscle and joint pain, generalized weakness, no focal weakness, no tremor noted, no asterixis Result Diagrams: 02/20/18 07:03 02/20/18 07:03 Additional Lab and Data: Lab Results 02/19/18 02/19/18 Range/Units 11:50 11:54 WBC 4.5 (3.5-10.8) 10^3/ul RBC 3.88 L (4.00-5.40) 10^6/ul Hgb 10.7 L (12.0-16.0) g/dl Hct 33 L (35-47) % MCV 86 (80-97) fL MCH 28 (27-31) pg MCHC 32 (31-36) g/dl RDW 19 H (10.5-15) % Plt Count 132 L (150-450) 10^3/ul MPV 8.6 (7.4-10.4) um3 Neut % (Auto) 64.3 (38-83) % Lymph % (Auto) 22.1 L (25-47) % [place] % (Auto) 8.1 H (0-7) % Eos % (Auto) 4.3 (0-6) % Baso % (Auto) 1.2 (0-2) % Absolute Neuts (auto) 2.9 (1.5-7.7) 10^3/ul Absolute Lymphs (auto) 1.0 (1.0-4.8) 10^3/ul Absolute Monos (auto) 0.4 (0-0.8) 10^3/ul Absolute Eos (auto) 0.2 (0-0.6) 10^3/ul Absolute Basos (auto) 0.1 (0-0.2) 10^3/ul Absolute Nucleated RBC 0 10^3/ul Nucleated RBC % 0.1 ESR Pending Urine Color Yellow Urine Appearance Cloudy Urine pH 7.0 (5-9) Ur Specific [place] 1.006 L (1.010-1.030) Urine Protein Negative (Negative) Urine Ketones Negative (Negative) Urine Blood 1+ A (Negative) Urine Nitrate Positive A (Negative) Urine Bilirubin Negative (Negative) Urine Urobilinogen Negative (Negative) Ur Leukocyte Esterase 3+ A (Negative) Urine WBC (Auto) 3+(>20/hpf) A (Absent) Urine RBC (Auto) Trace(0-2/hpf) (Absent) Ur Squamous Epith Cells Present A (Absent) Urine Bacteria Absent (Absent) Urine Glucose Negative (Negative) Microbiology and Other Data: Microbiology 02/19/18 19:17 Nasal Screen MRSA (PCR) - Final Nasal Mrsa Not Detected Assess/Plan/Problems-Billing Assessment: 77 yo f with h/o DIXON/liver cirrhosis, chronic diastolic CHF, IDDM, esophageal varices , iron deficiency anemia, and hypertension who was admitted after possible syncope, lethargy. Was unable to urinate in ED and Graves was placed at admission - Patient Problems (1) Hepatic encephalopathy Comment: lethargy likely related to ammonia of 91 will start lactulose (2) UTI (urinary tract infection) Comment: -urine cx pening, cont Graves for now -Continue Levaquin (3) Diabetes Comment: hypoglycemic this aM, Lantus decreased, cont iSS (4) Diastolic CHF Comment: - Echo 08/2017 shows EF 55-60% - hold lasix due to dehydration at admission (5) Abdominal pain Comment: h/o chronic abd pain and evaluation by GI in the past will get CT abd to eval further (6) Cirrhosis Comment: due to DIXON, chronic With pancytopenia. (7) DVT prophylaxis Comment: SQ heparin
[2018-02-20] MEDS: Levofloxacin 500 MG IVPREMIX(* 500 MG/100 ML BAG IVPB SCH (13:22)
[2018-02-20] MEDS: Iodixanol* (CONTRAST) 320 MG/ML 100 ML SDV IV ONE ×2 (18:37→23:24)
--- NOTE | 2018-02-20 19:12 | RAD ---
EXAM: CT Abdomen and Pelvis With Intravenous Contrast CLINICAL HISTORY: 77 years old, female; Pain; Abdominal pain; Generalized; Prior surgery; Surgery date: 6+ months; Surgery type: Bladder mesh S/P prolapsed uterus. Cholecystectomy; Patient HX: Na liver cirrhosis. Stage iii renal disease. Dm ii. Uterine prolapse w/ repair; Additional info: Diffuse abd pain TECHNIQUE: Axial computed tomography images of the abdomen and pelvis with intravenous contrast. All CT scans at this facility use at least one of these dose optimization techniques: automated exposure control; mA and/or kV adjustment per patient size (includes targeted exams where dose is matched to clinical indication); or iterative reconstruction. Coronal and sagittal reformatted images were created and reviewed. CONTRAST: 85 mL of VISIPAQUE 320 administered intravenously. COMPARISON: A/P WO CT ABD/PEL W/O 09/21/2017 2:16 PM FINDINGS: Lung bases: Mild bibasilar dependent atelectasis of the lung bases. Heart: Partially visualized heavy coronary artery calcifications and aortic valve calcifications. ABDOMEN: Liver: Nodular contour to the liver, compatible with cirrhosis. Gallbladder and bile ducts: The gallbladder is surgically absent. No ductal dilation. Pancreas: Unremarkable. No mass. No ductal dilation. Spleen: Mild splenomegaly. Adrenals: Unremarkable. No mass. Kidneys and ureters: Small subcentimeter low density lesions in the right kidney, too small to characterize though statistically representing cysts. No hydronephrosis. Stomach and bowel: Moderate gaseous distention of the stomach and colon. No evidence of small bowel obstruction. No mucosal thickening. PELVIS: Appendix: No findings to suggest acute appendicitis. Bladder: The bladder is decompressed by presence of Graves catheter. Reproductive: Unremarkable as visualized. ABDOMEN and PELVIS: Intraperitoneal space: Small degree of intra-abdominal ascites. No free air. Bones/joints: Advanced multilevel degenerative changes of the visualized spine. No acute fracture. No dislocation. Soft tissues: Unremarkable. Vasculature: Small perisplenic and perirectal varices are present. Atherosclerotic calcifications of the aorta and major branches. No abdominal aortic aneurysm. Lymph nodes: Unremarkable. No enlarged lymph nodes. IMPRESSION: 1. Moderate gaseous distention of the stomach and colon. No evidence of small bowel obstruction. 2. Small degree of intra-abdominal ascites. 3. Cirrhosis. 4. Splenomegaly as well as perisplenic and perirectal varices, likely indicative of underlying portal venous hypertension. 5. Partially visualized heavy coronary artery calcifications and aortic valve calcifications. 6. Other chronic findings, as above.
[2018-02-20] MEDS: Amitriptyline TAB* 10 MG PO SCH (20:44)
[2018-02-20] MEDS: Insulin GLARGINE(*) 1 UNITS UNIT SUBCUT SCH (20:45)
[2018-02-20] MEDS: Lidocaine Patch REMOVE* 1 NOTE MISC PATCH OFF SCH (20:52)
[2018-02-20] MEDS ORDERED: Insulin GLARGINE(*) 1 UNITS UNIT SUBCUT SCH (21:00)
[2018-02-21] MEDS: Heparin VIAL(*) 5000 UNITS/ML VIAL (FIVE THOUSAND) SUBCUT SCH ×3 (06:23→21:16)
[2018-02-21] MEDS: Docusate CAP* 100 MG PO SCH ×2 (07:54→21:18)
[2018-02-21] MEDS: Omeprazole CAP* 20 MG PO SCH (07:54)
[2018-02-21] MEDS: Gabapentin CAP(*) 300 MG PO SCH ×3 (07:55→21:18)
[2018-02-21] MEDS: Lidocaine PATCH 5%* 1 PATCH TRANSDERM SCH (07:57)
[2018-02-21] MEDS: Insulin LISPRO* 1 UNITS UNIT SUBCUT SCH ×4 (07:58→21:16)
[2018-02-21 08:02] LABS: ABS Basophils 0 10^3/ul (0-0.2); ABS Eosinophils 0.2 10^3/ul (0-0.6); ABS Monocytes 0.6 10^3/ul (0-0.8); ABS Neutrophils 3.2 10^3/ul (1.5-7.7); ABS Nucleated RBC 0 10^3/ul; Eosinophil % 3.6 % (0-6); Hematocrit 29 % (35-47); Hemoglobin 9.5 g/dl (12.0-16.0); Lymphocyte % 20.3 % (25-47); Mean Corpuscular HGB Conc 33 g/dl (31-36); Mean Corpuscular Hemoglobin 28 pg (27-31); Mean Corpuscular Volume 86 fL (80-97); Mean Platelet Volume 8.7 um3 (7.4-10.4); Nucleated Red Blood Cells % 0; Platelet Count 119 10^3/ul (150-450); Red Blood Count 3.38 10^6/ul (4.00-5.40); Red Cell Distribution Width 19 % (10.5-15); White Blood Count 4.9 10^3/ul (3.5-10.8)
[2018-02-21] MEDS: Simethicone TAB* 80 MG TAB.CHEW PO PRN (10:45)
[2018-02-21] MEDS: RiFAXimin* 550 MG TAB PO SCH ×2 (10:45→21:18)
[2018-02-21] MEDS: Levofloxacin 500 MG IVPREMIX(* 500 MG/100 ML BAG IVPB SCH (13:50)
[2018-02-21] MEDS ORDERED: Linezolid 600 MG IVPREMIX(*) 600 MG/300 ML BAG IVPB SCH (19:00)
[2018-02-21] MEDS: Linezolid 600 MG IVPREMIX(*) 600 MG/300 ML BAG IVPB SCH (21:08)
[2018-02-21] MEDS: Insulin GLARGINE(*) 1 UNITS UNIT SUBCUT SCH (21:16)
[2018-02-21] MEDS: Amitriptyline TAB* 10 MG PO SCH (21:18)
[2018-02-21] MEDS: Lidocaine Patch REMOVE* 1 NOTE MISC PATCH OFF SCH (21:19)
[2018-02-22] MEDS: Heparin VIAL(*) 5000 UNITS/ML VIAL (FIVE THOUSAND) SUBCUT SCH ×3 (05:28→21:27)
[2018-02-22 06:44] LABS: EGFR Non-African American 60.9 (>60)
[2018-02-22] MEDS: Gabapentin CAP(*) 300 MG PO SCH ×3 (09:34→21:20)
[2018-02-22] MEDS: RiFAXimin* 550 MG TAB PO SCH ×2 (09:35→21:19)
[2018-02-22] MEDS: Omeprazole CAP* 20 MG PO SCH (09:35)
[2018-02-22] MEDS: Lidocaine PATCH 5%* 1 PATCH TRANSDERM SCH (09:36)
[2018-02-22] MEDS: Insulin LISPRO* 1 UNITS UNIT SUBCUT SCH ×4 (09:36→23:06)
[2018-02-22] MEDS: Linezolid 600 MG IVPREMIX(*) 600 MG/300 ML BAG IVPB SCH ×2 (09:36→21:10)
[2018-02-22] MEDS: Docusate CAP* 100 MG PO SCH ×2 (09:37→21:17)
[2018-02-22] MEDS: Simethicone TAB* 80 MG TAB.CHEW PO PRN (09:46)
[2018-02-22] MEDS: Acetaminophen TAB* 325 MG PO PRN (09:46)
--- NOTE | 2018-02-22 11:33 | PN ---
Subjective Date of Service: 02/22/18 Interval History: Pt c/o abd pain , but had no problems with eating and smiles when approached, does not appear to be suffering or in pain. Loose stool as expected from Lactulose Objective Active Medications: Acetaminophen (Tylenol Tab*) 650 mg PO Q4H PRN PRN Reason: FEVER/PAIN Last Admin: 02/22/18 09:46 Dose: 650 mg Amitriptyline HCl (Elavil Tab*) 10 mg PO BEDTIME [facility] Last Admin: 02/21/18 21:18 Dose: 10 mg Dextrose (D50w Syringe 50 Ml*) 12.5 gm IV PUSH .FOR FS < 60 - SS PRN PRN Reason: FS < 60 Docusate Sodium (Colace Cap*) 100 mg PO BID [facility] Last Admin: 02/22/18 09:37 Dose: 100 mg Gabapentin (Neurontin Cap(*)) 300 mg PO TID [facility] Last Admin: 02/22/18 09:34 Dose: 300 mg Heparin Sodium (Porcine) (Heparin Vial(*)) 5,000 units SUBCUT Q8HR [facility] Last Admin: 02/22/18 05:28 Dose: 5,000 units Linezolid (Zyvox 600 Mg Ivpremix(*)) 600 mg in 300 mls @ 300 mls/hr IVPB Q12HR [facility] Last Admin: 02/22/18 09:36 Dose: 300 mls/hr Insulin Glargine (Lantus(*)) 25 units SUBCUT BEDTIME [facility] Last Admin: 02/21/18 21:16 Dose: 25 units Insulin Human Lispro (Humalog*) 0 units SUBCUT ACHS [facility]; Protocol Last Admin: 02/22/18 09:36 Dose: 3 units Lactobacillus Rhamnosus (Lactobacillus Acidophilus*) 1 tab PO BID [facility] Lactulose (Lactulose*) 30 ml PO TID [facility] Last Admin: 02/22/18 09:33 Dose: 30 ml Lidocaine (Lidoderm 5% Patch*) 1 patch TRANSDERM QAM [facility] Last Admin: 02/22/18 09:36 Dose: 1 patch Omeprazole (Prilosec Cap*) 40 mg PO DAILY [facility] Last Admin: 02/22/18 09:35 Dose: 40 mg Pharmacy Profile Note (Lidocaine Patch Remove*) 1 note PATCH OFF 2100 [facility] Last Admin: 09/20/18 21:19 Dose: 1 note Rifaximin (Xifaxan*) 550 mg PO BID [facility] Last Admin: 02/22/18 09:35 Dose: 550 mg Simethicone (Mylicon Tab*) 80 mg PO Q6H PRN PRN Reason: gas pains Last Admin: 02/22/18 09:46 Dose: 80 mg Vital Signs - 8 hr 02/22/18 02/22/18 02/22/18 04:00 08:00 09:34 Temperature 98.5 F 98.6 F Pulse Rate 86 82 Respiratory 16 18 18 Rate Blood Pressure 115/44 110/49 (mmHg) O2 Sat by Pulse 97 98 Oximetry Oxygen Devices in Use Now: None Appearance: 77 yo F in nAD, AAOx2 Eyes: No Scleral Icterus, PERRLA Ears/Nose/Mouth/Throat: NL Teeth, Lips, Gums, Mucous Membranes Moist Neck: NL Appearance and Movements; NL JVP, Trachea Midline Respiratory: Symmetrical Chest Expansion and Respiratory Effort, Clear to Auscultation Cardiovascular: NL Sounds; No Murmurs; No JVD, RRR Abdominal: - - distended, soft, diffuse tenderness unchanged since yesterday, no rebound, no guarding Extremities: No Clubbing, Cyanosis, - - tracepedal edema b/l Skin: No Nodules or Sclerosis, - - stage 1-2 decub on sacrum Neurological: NL Muscle Strength and Tone, - - no tremor noted, speech clear, generalized weakness noted Result Diagrams: 02/21/18 07:38 02/22/18 06:14 Additional Lab and Data: Lab Results 02/19/18 02/19/18 Range/Units 11:50 11:54 WBC 4.5 (3.5-10.8) 10^3/ul RBC 3.88 L (4.00-5.40) 10^6/ul Hgb 10.7 L (12.0-16.0) g/dl Hct 33 L (35-47) % MCV 86 (80-97) fL MCH 28 (27-31) pg MCHC 32 (31-36) g/dl RDW 19 H (10.5-15) % Plt Count 132 L (150-450) 10^3/ul MPV 8.6 (7.4-10.4) um3 Neut % (Auto) 64.3 (38-83) % Lymph % (Auto) 22.1 L (25-47) % [place] % (Auto) 8.1 H (0-7) % Eos % (Auto) 4.3 (0-6) % Baso % (Auto) 1.2 (0-2) % Absolute Neuts (auto) 2.9 (1.5-7.7) 10^3/ul Absolute Lymphs (auto) 1.0 (1.0-4.8) 10^3/ul Absolute Monos (auto) 0.4 (0-0.8) 10^3/ul Absolute Eos (auto) 0.2 (0-0.6) 10^3/ul Absolute Basos (auto) 0.1 (0-0.2) 10^3/ul Absolute Nucleated RBC 0 10^3/ul Nucleated RBC % 0.1 ESR Pending Urine Color Yellow Urine Appearance Cloudy Urine pH 7.0 (5-9) Ur Specific [place] 1.006 L (1.010-1.030) Urine Protein Negative (Negative) Urine Ketones Negative (Negative) Urine Blood 1+ A (Negative) Urine Nitrate Positive A (Negative) Urine Bilirubin Negative (Negative) Urine Urobilinogen Negative (Negative) Ur Leukocyte Esterase 3+ A (Negative) Urine WBC (Auto) 3+(>20/hpf) A (Absent) Urine RBC (Auto) Trace(0-2/hpf) (Absent) Ur Squamous Epith Cells Present A (Absent) Urine Bacteria Absent (Absent) Urine Glucose Negative (Negative) Microbiology and Other Data: Microbiology 02/19/18 19:17 Nasal Screen MRSA (PCR) - Final Nasal Mrsa Not Detected Assess/Plan/Problems-Billing Assessment: 77 yo f with h/o DIXON/liver cirrhosis, chronic diastolic CHF, IDDM, esophageal varices , iron deficiency anemia, and hypertension who was admitted after possible syncope, lethargy. Was unable to urinate in ED and Graves was placed at admission - Patient Problems (1) Hepatic encephalopathy Comment: lethargy likely related to high ammonia Cont lactulose, added Rifaximin on 02/21/18 mentation improving (2) UTI (urinary tract infection) Comment: -urine cx shows Staph epi. Due to multiple allergies placed pt on linezolid on 02/21/18 Levaquin d/c'd on 02/21/18 Graves started in ED due to retention, will d/c today (3) Diabetes Comment: Lantus decreased, glycemic control improved, cont iSS (4) Diastolic CHF Comment: - Echo 08/2017 shows EF 55-60% - hold lasix due to dehydration at admission (5) Abdominal pain Comment: h/o chronic abd pain and evaluation by GI in the past CT abd mon 02/10/18 showes gas and small ascites, splenomegaly and portal HTN ( likely chronic) Cont simethicone start probiotic (6) Cirrhosis Comment: due to DIXON, chronic With pancytopenia. (7) DVT prophylaxis Comment: SQ heparin Status and Disposition: inpatient. Can go back to [facility] once medically treated
[2018-02-22] MEDS ORDERED: fentaNYL* 50 MCG/ML 2 ML VIAL (100 MCG VIAL) IV SLOW PU PRN (11:36)
[2018-02-22] MEDS: Lactobacillus Acidophilus* 1 TAB PO SCH ×2 (13:07→21:18)
[2018-02-22] MEDS: Lidocaine Patch REMOVE* 1 NOTE MISC PATCH OFF SCH (21:00)
[2018-02-22] MEDS: Amitriptyline TAB* 10 MG PO SCH (21:19)
[2018-02-22] MEDS: Insulin GLARGINE(*) 1 UNITS UNIT SUBCUT SCH (23:05)
[2018-02-23] MEDS: Heparin VIAL(*) 5000 UNITS/ML VIAL (FIVE THOUSAND) SUBCUT SCH ×3 (05:53→22:45)
[2018-02-23 07:15] LABS: EGFR Non-African American 71.8 (>60)
[2018-02-23] MEDS: Acetaminophen TAB* 325 MG PO PRN ×2 (08:45→08:57)
[2018-02-23] MEDS: Insulin LISPRO* 1 UNITS UNIT SUBCUT SCH ×4 (08:52→22:50)
[2018-02-23] MEDS: Linezolid 600 MG IVPREMIX(*) 600 MG/300 ML BAG IVPB SCH ×2 (08:52→22:50)
[2018-02-23] MEDS: RiFAXimin* 550 MG TAB PO SCH ×2 (08:52→22:45)
[2018-02-23] MEDS: Gabapentin CAP(*) 300 MG PO SCH ×3 (08:53→22:45)
[2018-02-23] MEDS: Omeprazole CAP* 20 MG PO SCH (08:54)
[2018-02-23] MEDS: Docusate CAP* 100 MG PO SCH ×2 (08:54→22:43)
[2018-02-23] MEDS: Lactobacillus Acidophilus* 1 TAB PO SCH ×2 (08:54→22:45)
[2018-02-23] MEDS: Lidocaine PATCH 5%* 1 PATCH TRANSDERM SCH (08:55)
--- NOTE | 2018-02-23 14:18 | PN ---
Subjective Date of Service: 02/23/18 Interval History: Pt had a "lot of diarrhea" yesterday. abd less distended and hurts less. Today she note that her tremor "came back". she was noted to have intentional tremor mostly in R arm when putting her dentures in that resolved during conversation. Objective Active Medications: Acetaminophen (Tylenol Tab*) 650 mg PO Q4H PRN PRN Reason: FEVER/PAIN Last Admin: 02/23/18 08:57 Dose: 650 mg Amitriptyline HCl (Elavil Tab*) 10 mg PO BEDTIME [facility] Last Admin: 02/22/18 21:19 Dose: 10 mg Dextrose (D50w Syringe 50 Ml*) 12.5 gm IV PUSH .FOR FS < 60 - SS PRN PRN Reason: FS < 60 Docusate Sodium (Colace Cap*) 100 mg PO BID [facility] Last Admin: 02/23/18 08:54 Dose: 100 mg Fentanyl Citrate (Fentanyl*) 25 mcg IV SLOW PU Q6H PRN PRN Reason: PAIN Last Admin: 02/22/18 13:07 Dose: 25 mcg Gabapentin (Neurontin Cap(*)) 300 mg PO TID [facility] Last Admin: 02/23/18 08:53 Dose: 300 mg Heparin Sodium (Porcine) (Heparin Vial(*)) 5,000 units SUBCUT Q8HR [facility] Last Admin: 02/23/18 05:53 Dose: 5,000 units Linezolid (Zyvox 600 Mg Ivpremix(*)) 600 mg in 300 mls @ 300 mls/hr IVPB Q12HR [facility] Last Admin: 02/23/18 08:52 Dose: 300 mls/hr Insulin Glargine (Lantus(*)) 25 units SUBCUT BEDTIME [facility] Last Admin: 02/22/18 23:05 Dose: 25 units Insulin Human Lispro (Humalog*) 0 units SUBCUT ACHS [facility]; Protocol Last Admin: 02/23/18 11:41 Dose: 4 units Lactobacillus Rhamnosus (Lactobacillus Acidophilus*) 1 tab PO BID [facility] Last Admin: 02/23/18 08:54 Dose: 1 tab Lactulose (Lactulose*) 15 ml PO BID [facility] Lidocaine (Lidoderm 5% Patch*) 1 patch TRANSDERM QAM [facility] Last Admin: 02/23/18 08:55 Dose: 1 patch Omeprazole (Prilosec Cap*) 40 mg PO DAILY [facility] Last Admin: 02/23/18 08:54 Dose: 40 mg Pharmacy Profile Note (Lidocaine Patch Remove*) 1 note PATCH OFF 2100 [facility] Last Admin: 02/22/18 21:00 Dose: 1 note Rifaximin (Xifaxan*) 550 mg PO BID [facility] Last Admin: 02/23/18 08:52 Dose: 550 mg Simethicone (Mylicon Tab*) 80 mg PO Q6H PRN PRN Reason: gas pains Last Admin: 02/22/18 09:46 Dose: 80 mg Vital Signs - 8 hr 02/23/18 02/23/18 02/23/18 07:51 08:53 11:35 Temperature 98.4 F 97.5 F Pulse Rate 76 73 Respiratory 18 20 18 Rate Blood Pressure 114/53 116/50 (mmHg) O2 Sat by Pulse 100 96 Oximetry 02/23/18 11:40 Temperature Pulse Rate Respiratory 16 Rate Blood Pressure (mmHg) O2 Sat by Pulse Oximetry Oxygen Devices in Use Now: None Appearance: 77 yo F in nAD, aAOx3 Eyes: No Scleral Icterus, PERRLA Ears/Nose/Mouth/Throat: NL Teeth, Lips, Gums, Mucous Membranes Moist Neck: NL Appearance and Movements; NL JVP, Trachea Midline Respiratory: Symmetrical Chest Expansion and Respiratory Effort Cardiovascular: NL Sounds; No Murmurs; No JVD Abdominal: - - distention improved, mild tenderness mid abd still present, no rebound, no guarding, BS+ Lymphatic: No Inguinal Adenopathy Extremities: No Edema Skin: No Nodules or Sclerosis, - - stage 1-2 sacral decub Neurological: Alert and Oriented x 3, NL Muscle Strength and Tone Result Diagrams: 02/21/18 07:38 02/23/18 07:42 Additional Lab and Data: Lab Results 02/19/18 02/19/18 Range/Units 11:50 11:54 WBC 4.5 (3.5-10.8) 10^3/ul RBC 3.88 L (4.00-5.40) 10^6/ul Hgb 10.7 L (12.0-16.0) g/dl Hct 33 L (35-47) % MCV 86 (80-97) fL MCH 28 (27-31) pg MCHC 32 (31-36) g/dl RDW 19 H (10.5-15) % Plt Count 132 L (150-450) 10^3/ul MPV 8.6 (7.4-10.4) um3 Neut % (Auto) 64.3 (38-83) % Lymph % (Auto) 22.1 L (25-47) % [place] % (Auto) 8.1 H (0-7) % Eos % (Auto) 4.3 (0-6) % Baso % (Auto) 1.2 (0-2) % Absolute Neuts (auto) 2.9 (1.5-7.7) 10^3/ul Absolute Lymphs (auto) 1.0 (1.0-4.8) 10^3/ul Absolute Monos (auto) 0.4 (0-0.8) 10^3/ul Absolute Eos (auto) 0.2 (0-0.6) 10^3/ul Absolute Basos (auto) 0.1 (0-0.2) 10^3/ul Absolute Nucleated RBC 0 10^3/ul Nucleated RBC % 0.1 ESR Pending Urine Color Yellow Urine Appearance Cloudy Urine pH 7.0 (5-9) Ur Specific [place] 1.006 L (1.010-1.030) Urine Protein Negative (Negative) Urine Ketones Negative (Negative) Urine Blood 1+ A (Negative) Urine Nitrate Positive A (Negative) Urine Bilirubin Negative (Negative) Urine Urobilinogen Negative (Negative) Ur Leukocyte Esterase 3+ A (Negative) Urine WBC (Auto) 3+(>20/hpf) A (Absent) Urine RBC (Auto) Trace(0-2/hpf) (Absent) Ur Squamous Epith Cells Present A (Absent) Urine Bacteria Absent (Absent) Urine Glucose Negative (Negative) Microbiology and Other Data: Microbiology 02/19/18 19:17 Nasal Screen MRSA (PCR) - Final Nasal Mrsa Not Detected Assess/Plan/Problems-Billing Assessment: 77 yo f with h/o DIXON/liver cirrhosis, chronic diastolic CHF, IDDM, esophageal varices , iron deficiency anemia, and hypertension who was admitted after possible syncope, lethargy. Was unable to urinate in ED and Graves was placed at admission - Patient Problems (1) Tremor Comment: intentional, in b/l UE, more in R rm, occurs ever 2-3 days. Unknown etiology. will check Mg level (2) Hepatic encephalopathy Comment: lethargy likely related to high ammonia. Today ammonia down to 50 due to diarrhea will lower lactulose dose to 15 BID. Cont Rifaximin mentation improed (3) UTI (urinary tract infection) Comment: -urine cx shows Staph epi. Due to multiple allergies placed pt on linezolid on 02/21/18 , last dose on 02/26/18 Levaquin d/c'd on 02/21/18 Graves started in ED due to retention, disontinued on 02/22/18 (4) Diabetes Comment: Lantus decreased, glycemic control improved, cont iSS (5) Diastolic CHF Comment: - Echo 08/2017 shows EF 55-60% - hold lasix due to dehydration at admission (6) Abdominal pain Comment: h/o chronic abd pain and evaluation by GI in the past CT abd mon 02/10/18 showes gas and small ascites, splenomegaly and portal HTN ( likely chronic) Cont simethicone started probiotic (7) Cirrhosis Comment: due to DIXON, chronic With pancytopenia. (8) DVT prophylaxis Comment: SQ heparin Status and Disposition: inpatient. Plan to d/c go back to [facility] after her linezolid tx on Sunday
[2018-02-23] MEDS ORDERED: Magnesium Sulfate IV* 2 GM in NS 0.9% 100 ML* 100 ML IVPB ONE (18:00)
[2018-02-23] MEDS: Lidocaine Patch REMOVE* 1 NOTE MISC PATCH OFF SCH (22:00)
[2018-02-23] MEDS: Lactulose* 15 ML UDC PO SCH (22:42)
[2018-02-23] MEDS: Amitriptyline TAB* 10 MG PO SCH (22:45)
[2018-02-23] MEDS: Insulin GLARGINE(*) 1 UNITS UNIT SUBCUT SCH (22:49)
[2018-02-24] MEDS: Heparin VIAL(*) 5000 UNITS/ML VIAL (FIVE THOUSAND) SUBCUT SCH ×3 (06:14→23:00)
[2018-02-24] MEDS: Linezolid 600 MG IVPREMIX(*) 600 MG/300 ML BAG IVPB SCH ×2 (09:04→22:53)
[2018-02-24] MEDS: Omeprazole CAP* 20 MG PO SCH ×2 (09:07→17:30)
[2018-02-24] MEDS: Lactulose* 15 ML UDC PO SCH (09:07)
[2018-02-24] MEDS: Lactobacillus Acidophilus* 1 TAB PO SCH ×2 (09:08→23:12)
[2018-02-24] MEDS: Benzocaine/Menthol LOZ* 1 LOZENGE PO PRN ×2 (09:08→22:53)
[2018-02-24] MEDS: Gabapentin CAP(*) 300 MG PO SCH ×3 (09:08→23:12)
[2018-02-24] MEDS: Insulin LISPRO* 1 UNITS UNIT SUBCUT SCH ×4 (09:10→22:59)
[2018-02-24] MEDS: Lidocaine PATCH 5%* 1 PATCH TRANSDERM SCH (09:17)
[2018-02-24] MEDS: Docusate CAP* 100 MG PO SCH (09:17)
[2018-02-24] MEDS: RiFAXimin* 550 MG TAB PO SCH ×2 (09:17→23:13)
[2018-02-24] MEDS: Simethicone TAB* 80 MG TAB.CHEW PO PRN (10:22)
--- NOTE | 2018-02-24 10:57 | PN ---
Subjective Date of Service: 02/24/18 Interval History: Pt feels much better. Still c/o abd distention and "gas pains". No more tremor reported Objective Active Medications: Acetaminophen (Tylenol Tab*) 650 mg PO Q4H PRN PRN Reason: FEVER/PAIN Last Admin: 02/23/18 08:57 Dose: 650 mg Amitriptyline HCl (Elavil Tab*) 10 mg PO BEDTIME [facility] Last Admin: 02/23/18 22:45 Dose: 10 mg Dextrose (D50w Syringe 50 Ml*) 12.5 gm IV PUSH .FOR FS < 60 - SS PRN PRN Reason: FS < 60 Docusate Sodium (Colace Cap*) 100 mg PO BID [facility] Last Admin: 02/24/18 09:17 Dose: Not Given Fentanyl Citrate (Fentanyl*) 25 mcg IV SLOW PU Q6H PRN PRN Reason: PAIN Last Admin: 02/22/18 13:07 Dose: 25 mcg Gabapentin (Neurontin Cap(*)) 300 mg PO TID [facility] Last Admin: 02/24/18 09:08 Dose: 300 mg Heparin Sodium (Porcine) (Heparin Vial(*)) 5,000 units SUBCUT Q8HR [facility] Last Admin: 02/24/18 06:14 Dose: 5,000 units Linezolid (Zyvox 600 Mg Ivpremix(*)) 600 mg in 300 mls @ 300 mls/hr IVPB Q12HR [facility] Last Admin: 02/24/18 09:04 Dose: 300 mls/hr Insulin Glargine (Lantus(*)) 30 units SUBCUT BEDTIME [facility] Insulin Human Lispro (Humalog*) 0 units SUBCUT ACHS [facility]; Protocol Last Admin: 02/24/18 09:10 Dose: 2 units Lactobacillus Rhamnosus (Lactobacillus Acidophilus*) 1 tab PO BID [facility] Last Admin: 02/24/18 09:08 Dose: 1 tab Lactulose (Lactulose*) 15 ml PO BID [facility] Last Admin: 02/24/18 09:07 Dose: 15 ml Lidocaine (Lidoderm 5% Patch*) 1 patch TRANSDERM QAM [facility] Last Admin: 02/24/18 09:17 Dose: Not Given Omeprazole (Prilosec Cap*) 40 mg PO DAILY [facility] Last Admin: 02/24/18 09:07 Dose: 40 mg Pharmacy Profile Note (Lidocaine Patch Remove*) 1 note PATCH OFF 2100 [facility] Last Admin: 02/23/18 22:00 Dose: 1 note Rifaximin (Xifaxan*) 550 mg PO BID [facility] Last Admin: 02/24/18 09:17 Dose: 550 mg Simethicone (Mylicon Tab*) 80 mg PO Q6H PRN PRN Reason: gas pains Last Admin: 02/24/18 10:22 Dose: 80 mg Throat Lozenges (Chloraseptic Alee*) 1 alee PO Q6H PRN PRN Reason: SORE THROAT Last Admin: 02/24/18 09:08 Dose: 1 alee Vital Signs - 8 hr 02/24/18 02/24/18 02/24/18 03:33 07:31 08:00 Temperature 98.8 F 98.3 F Pulse Rate 84 89 Respiratory 20 18 18 Rate Blood Pressure 119/44 113/53 (mmHg) O2 Sat by Pulse 95 95 95 Oximetry 02/24/18 09:08 Temperature Pulse Rate Respiratory 18 Rate Blood Pressure (mmHg) O2 Sat by Pulse Oximetry Oxygen Devices in Use Now: None Appearance: 77 yo F in nAD, AAOx2 Eyes: No Scleral Icterus, PERRLA Ears/Nose/Mouth/Throat: NL Teeth, Lips, Gums, Mucous Membranes Moist Neck: NL Appearance and Movements; NL JVP, Trachea Midline Respiratory: Symmetrical Chest Expansion and Respiratory Effort Cardiovascular: NL Sounds; No Murmurs; No JVD, RRR Abdominal: No Hepatosplenomegaly, - - distended, tympanic, tender in epigastrium , no rebound, no guardng, BS+ Lymphatic: No Cervical Adenopathy Extremities: No Clubbing, Cyanosis, - - trace pitting edema b/l Skin: No Nodules or Sclerosis, - - stage 1-2 decub on sacrum, 5 mm skin tear R buttock Neurological: Alert and Oriented x 3, NL Muscle Strength and Tone Result Diagrams: 02/21/18 07:38 02/23/18 07:42 Additional Lab and Data: Lab Results 02/19/18 02/19/18 Range/Units 11:50 11:54 WBC 4.5 (3.5-10.8) 10^3/ul RBC 3.88 L (4.00-5.40) 10^6/ul Hgb 10.7 L (12.0-16.0) g/dl Hct 33 L (35-47) % MCV 86 (80-97) fL MCH 28 (27-31) pg MCHC 32 (31-36) g/dl RDW 19 H (10.5-15) % Plt Count 132 L (150-450) 10^3/ul MPV 8.6 (7.4-10.4) um3 Neut % (Auto) 64.3 (38-83) % Lymph % (Auto) 22.1 L (25-47) % [place] % (Auto) 8.1 H (0-7) % Eos % (Auto) 4.3 (0-6) % Baso % (Auto) 1.2 (0-2) % Absolute Neuts (auto) 2.9 (1.5-7.7) 10^3/ul Absolute Lymphs (auto) 1.0 (1.0-4.8) 10^3/ul Absolute Monos (auto) 0.4 (0-0.8) 10^3/ul Absolute Eos (auto) 0.2 (0-0.6) 10^3/ul Absolute Basos (auto) 0.1 (0-0.2) 10^3/ul Absolute Nucleated RBC 0 10^3/ul Nucleated RBC % 0.1 ESR Pending Urine Color Yellow Urine Appearance Cloudy Urine pH 7.0 (5-9) Ur Specific [place] 1.006 L (1.010-1.030) Urine Protein Negative (Negative) Urine Ketones Negative (Negative) Urine Blood 1+ A (Negative) Urine Nitrate Positive A (Negative) Urine Bilirubin Negative (Negative) Urine Urobilinogen Negative (Negative) Ur Leukocyte Esterase 3+ A (Negative) Urine WBC (Auto) 3+(>20/hpf) A (Absent) Urine RBC (Auto) Trace(0-2/hpf) (Absent) Ur Squamous Epith Cells Present A (Absent) Urine Bacteria Absent (Absent) Urine Glucose Negative (Negative) Microbiology and Other Data: Microbiology 02/19/18 19:17 Nasal Screen MRSA (PCR) - Final Nasal Mrsa Not Detected Assess/Plan/Problems-Billing Assessment: 77 yo f with h/o DIXON/liver cirrhosis, chronic diastolic CHF, IDDM, esophageal varices , iron deficiency anemia, and hypertension who was admitted after possible syncope, lethargy. Was unable to urinate in ED and Graves was placed at admission - Patient Problems (1) Tremor Comment: intentional, in b/l UE, more in R rm, occurs every 2-3 days. Unknown etiology. Mg was low. will replace (2) Hepatic encephalopathy Comment: lethargy likely related to high ammonia. Today ammonia ois at 70, pt feels well. due to diarrhea will lower lactulose dose to 15 daily. Cont Rifaximin mentation improved (3) UTI (urinary tract infection) Comment: -urine cx shows Staph epi. Due to multiple allergies placed pt on linezolid on 02/21/18 , last dose on 02/26/18 Levaquin d/c'd on 02/21/18 Graves started in ED due to retention, disontinued on 02/22/18 (4) Diabetes Comment: Lantus increased, glycemic control improved, cont iSS (5) Diastolic CHF Comment: - Echo 08/2017 shows EF 55-60% - today with more edema , will start low dose Lasix (6) Abdominal pain Comment: h/o chronic abd pain and evaluation by GI in the past CT abd mon 02/10/18 showed gas and small ascites, splenomegaly and portal HTN ( likely chronic) Cont simethicone SAMANTHA started probiotic (7) Cirrhosis Comment: due to DIXON, chronic With pancytopenia. (8) DVT prophylaxis Comment: SQ heparin Status and Disposition: inpatient. Plan to d/c go back to [facility] after her linezolid tx on Sunday
[2018-02-24] MEDS ORDERED: Magnesium Sulfate 1 GM IV* 1 GM/100 ML BAG IV ONE (10:59)
[2018-02-24] MEDS: Furosemide TAB* 20 MG PO SCH (11:54)
[2018-02-24] MEDS: Simethicone TAB* 80 MG TAB.CHEW PO SCH ×2 (11:54→17:30)
[2018-02-24] MEDS: Acetaminophen TAB* 325 MG PO PRN (14:08)
[2018-02-24] MEDS ORDERED: Insulin GLARGINE(*) 1 UNITS UNIT SUBCUT SCH (21:00)
[2018-02-24] MEDS: Amitriptyline TAB* 10 MG PO SCH (23:13)
[2018-02-24] MEDS: Lidocaine Patch REMOVE* 1 NOTE MISC PATCH OFF SCH (23:16)
[2018-02-25] MEDS: Benzocaine/Menthol LOZ* 1 LOZENGE PO PRN (03:52)
[2018-02-25] MEDS: Heparin VIAL(*) 5000 UNITS/ML VIAL (FIVE THOUSAND) SUBCUT SCH (05:45)
[2018-02-25 08:19] LABS: EGFR Non-African American 59.4 (>60)
[2018-02-25] MEDS: Linezolid 600 MG IVPREMIX(*) 600 MG/300 ML BAG IVPB SCH (08:45)
[2018-02-25] MEDS: Furosemide TAB* 20 MG PO SCH (08:45)
[2018-02-25] MEDS: Lactobacillus Acidophilus* 1 TAB PO SCH (08:46)
[2018-02-25] MEDS: RiFAXimin* 550 MG TAB PO SCH (08:46)
[2018-02-25] MEDS: Omeprazole CAP* 20 MG PO SCH (08:46)
[2018-02-25] MEDS: Gabapentin CAP(*) 300 MG PO SCH ×2 (08:46→15:01)
[2018-02-25] MEDS: Simethicone TAB* 80 MG TAB.CHEW PO SCH ×2 (08:46→12:24)
[2018-02-25] MEDS: Lidocaine PATCH 5%* 1 PATCH TRANSDERM SCH (08:47)
[2018-02-25] MEDS: Insulin LISPRO* 1 UNITS UNIT SUBCUT SCH ×2 (09:00→12:24)
[2018-02-25] MEDS ORDERED: Lactulose* 15 ML UDC PO SCH (09:00)
[2018-02-25 12:33] VITALS: BP 127/56
--- NOTE | 2018-02-25 15:12 | DS ---
CC: Dr. Munoz; Dr. Hernández; Dr. Tuttle; Dr. Lopez DISCHARGE SUMMARY: DATE OF ADMISSION: 02/19/18 DATE OF DISCHARGE: 02/25/18 PRIMARY CARE PROVIDER: Dr. Munoz. DISCHARGE DIAGNOSES: 1. Lethargy and also mental status, likely related to hepatic encephalopathy. 2. Dehydration due to overdiuresis. 3. Staphylococcus epidermidis urinary tract infection. 4. Sacral decubitus stage 1 to 2 and right buttock skin tear of 5 mm. 5. Chronic epigastric abdominal pain. 6. Occasional tremor of unknown etiology. SECONDARY DIAGNOSES: 1. History of nonalcoholic liver disease and cirrhosis. 2. History of chronic diastolic congestive heart failure with echocardiogram in August 2017 with ejection fraction of 55% to 60%. 3. History of chronic kidney disease stage 3. 4. Iron-deficiency anemia with history of esophageal varices in the past. 5. Diabetes type 2. 6. Gastroesophageal reflux disease. 7. History of portal hypertension. 8. History of uterine prolapse. 9. Nephrolithiasis. 10. Humerus fracture. 11. Status post mesh repair of uterus and bladder prolapse. 12. Laparoscopic cholecystectomy. 13. Bilateral rotator cuff repair. 14. Left-sided tibial fracture, treated conservatively. MEDICATIONS AT DISCHARGE: Include: 1. Insulin lispro a.c. and h.s. 2. Lidoderm patch, apply to affected joint area daily. 3. Omeprazole 40 mg daily. 4. Elavil 10 mg at bedtime. 5. Chloraseptic 1 lozenge every 6 hours for sore throat. 6. Lasix 20 mg every other day. 7. Neurontin 300 mg 3 times a day. 8. Insulin Lantus 30 units daily. 9. Probiotic 1 tablet b.i.d. 10. Lactulose 15 mL p.o. b.i.d. Hold for more than 5 loose stools in 24 hours. 11. Rifaximin 550 mg b.i.d. 12. Simethicone 80 mg with each meal 3 times a day. At discharge, the patient is recommended to follow up with the physician at [facility] within the next week. It is recommended for the patient to have referral for upper endoscopy due to exacerbation of chronic recurrent epigastric pain and abdominal gas. Ammonia serum level should be obtained on , 02/28/18, and weekly thereafter. The patient is to be turned and repositioned every 2 hours. Apply barrier cream to perianal and vulvar area daily. LABORATORY DATA AND STUDIES PERFORMED DURING THE HOSPITAL STAY: Include: On 02/21/18, white blood cell count 4.9, hemoglobin 9.5, hematocrit of 29, and platelets of 119. Sodium of 131, potassium 3.9, chloride 106, carbon dioxide 19, BUN 15, creatinine 0.92. Ammonia of 73 on the day of discharge, ammonia peak at 119. Urinalysis showed +3 esterase, +3 wbc's, and culture was positive for Staphylococcus epidermidis, sensitive to nitrofurantoin, minocycline, linezolid , doxycycline, gentamicin, vancomycin, tigecycline, tetracycline, and rifampin. CT of abdomen and pelvis obtained on 02/20/18, impression: "Moderate gaseous distention of the stomach and colon. No evidence of small bowel obstruction. A small degree of intraabdominal ascites. Cirrhosis. Splenomegaly as well as perisplenic and perirectal varices, likely indicative on underlying portal venous hypertension. Partially visualized heavy coronary artery calcifications and aortic valve calcifications." HOSPITALIZATION COURSE: Tami Atkinson is a 77-year-old female who presented from [facility] [place] where she is undergoing rehabilitation for periods of lethargy. The patient was noted to have an ammonia level of 119 that was obtained shortly after her presentation. She also complained of exacerbation of chronic abdominal pain. She appeared dehydrated. She was admitted to the hospital and treated for hepatic encephalopathy with lactulose and rifaximin. Mental status improved dramatically; although she still was not oriented to exact time, her forgetfulness markedly improved. She complained of exacerbation of chronic abdominal pain. A CT of abdomen and pelvis showed a lot of intraintestinal and gastric gas. Simethicone was started as well as probiotics with good results, although the patient continues to have abdominal pain and distention by the time of discharge, but had no problems with appetite dn was in no distress when evaluated with c/o pain. It is recommended for the patient to undergo an upper endoscopy in the near future to evaluate this further. The patient was noted to have urinary retention that resolved. A Graves was placed and discontinued after 2 days with no issues with urination afterwards. Nevertheless, her urine cultures were positive for over 100,000 colonies of Staphylococcus epidermidis. With the patient's multiple antibiotic allergies, the patient was placed on linezolid and completed 5 days of linezolid course by the time of discharge. During patient's hospitalization, she was noted to have stage 1 to 2 decubitus and developed a tiny right buttock skin tear due to thickened bowel movements with lactulose. Her ammonia level decreased well and once again her mental status was back to her baseline. The patient is still greatly deconditioned as she is going to be going back to [facility] for further rehabilitation. PHYSICAL EXAMINATION: At the time of discharge, blood pressure of 122/48, heart rate of 92 and regular, respiratory rate 18, oxygen saturation 96% on room air, temperature 98.7. General: The patient is a pleasant 77-year-old female who is in no acute distress, alert, awake, and oriented x2. HEENT: Head : Atraumatic, normocephalic. Eyes: Pupils are equal, reactive to light and accommodation. Oropharynx is clear. Mucosa moist. Neck: Supple. No JVD. No bruits bilaterally. Cardiovascular: Regular rate and rhythm. No murmur. Respiratory: Clear to auscultation bilaterally. Abdomen: Distended, soft, tender, minimally in the epigastric region with no guarding. Bowel sounds are present in all 4 quadrants. Extremities: There is trace bilateral ankle edema. Pulses are +2 bilaterally. There is no clubbing or cyanosis. Neuro Evaluation: There is no asterixis noted. Speech clear. Cranial nerves II through XII are grossly intact. Motor strength is 5/5 bilaterally. The patient has problems with moving her left leg due to left hip and left knee chronic issues. Skin: The patient has stage 1 to 2 sacral decubitus that are approximately 10 cm in diameter as well as small right buttocks skin tear of approximately 5 mm with no evidence of infection. Please note that this is a short summary of the patient's hospital stay. Please refer to further medical records for details. TIME SPENT: Approximately 45 minutes were spent in patient's discharge. [id number]/[facility] #: [id number] [facility]
== END 2018-02-25 15:30 | DRG 442 ==
LOC: ED 11:11 → MED 13:36
PROVIDERS: ADMIT Internal Medicine; ATTEND Internal Medicine
DX: K72.90 Hepatic failure, unspecified without coma (principal); N39.0 Urinary tract infection, site not specified; I13.0 Hypertensive heart and chronic kidney disease with heart failure and stage 1 through stage 4 chronic kidney disease, or unspecified chronic kidney disease; I50.32 Chronic diastolic (congestive) heart failure; R53.83 Other fatigue; E86.0 Dehydration; B95.7 Other staphylococcus as the cause of diseases classified elsewhere; L89.151 Pressure ulcer of sacral region, stage 1; L89.152 Pressure ulcer of sacral region, stage 2; E11.622 Type 2 diabetes mellitus with other skin ulcer; R10.13 Epigastric pain; R25.1 Tremor, unspecified; K74.60 Unspecified cirrhosis of liver; N18.3 Chronic kidney disease, stage 3 (moderate); E11.22 Type 2 diabetes mellitus with diabetic chronic kidney disease; D50.9 Iron deficiency anemia, unspecified; K21.9 Gastro-esophageal reflux disease without esophagitis; I45.10 Unspecified right bundle-branch block; R33.9 Retention of urine, unspecified; M17.0 Bilateral primary osteoarthritis of knee; Z79.1 Long term (current) use of non-steroidal anti-inflammatories (NSAID); Z79.4 Long term (current) use of insulin; Z79.899 Other long term (current) drug therapy; Z88.5 Allergy status to narcotic agent; Z88.8 Allergy status to other drugs, medicaments and biological substances; Z91.040 Latex allergy status
CPT/HCPCS: 36415; 70450; 71045; 74177; 80048; 80053; 81003; 81015; 82140; 82550; 83605; 83735; 83880; 84145; 84484; 85025; 85384; 85610; 85652; 85730; 86140; 87040; 87077; 87086; 87186; 87641; 93005; 99283; A9270-GY; G8978-GP-CK; G8979-GP-CI; G8987-GO-CL; G8988-GO-CI; J1644; J1956; J2020; J3010; J3475; Q9967

== ENCOUNTER 2018-02-28 00:29 | Emergency (ER) | payer MEDICARE ==
[2018-02-28] MEDS ORDERED: NS 0.9% 1000 ML* 1,000 ML IV ONE (01:13)
--- NOTE | 2018-02-28 01:19 | ED ---
Abdominal Pain/Female - HPI Summary HPI Summary: The pt is a 77 y.o female who is presenting to the [facility] with a chief complaint of upper abd pain and she was accompanied by her son. The pt is living at [facility]. The pt has taken a laxative at [facility], however has not gone to the bathroom since after the laxative was taken. Pt states she has a liver disease (PMHx). She reports no fluid was taken out of her stomach. Pt was denies vomiting, and loss of appetite. PSHx was includes cholecystectomy. The current pain began in the evening of 02/27/18. The patient rates the pain 8/10 in severity. Symptoms aggravated by palpation. Symptoms alleviated by nothing. - History of Current Complaint Stated Complaint: ABD PAIN Time Seen by Provider: 02/28/18 00:49 Hx Obtained From: Patient, Family/Loading Manager Onset/Duration: Lasting Hours, Still Present Timing: Constant Severity Initially: Severe Severity Currently: Severe Pain Intensity: 8 Pain Scale Used: 0-10 Numeric Location: Diffuse Aggravating Factor(s): Other: - Palpation Alleviating Factor(s): Nothing Associated Signs and Symptoms: Negative: Decreased Appetite, Vomiting Allergies/Adverse Reactions: Allergies Allergy/AdvReac Type Severity Reaction Status Date / Time Adhesive Tape Allergy Mild Hives Verified 01/29/18 09:52 cephalexin [From Keflex] Allergy Mild Hives Verified 01/29/18 09:52 codeine Allergy Mild Hives Verified 01/29/18 09:52 hydrochlorothiazide Allergy Mild Hives Verified 01/29/18 09:52 carvedilol Allergy Facial Verified 01/29/18 09:52 Redness/Flushing doxycycline Allergy Diarrhea Verified 01/29/18 09:52 hydrocodone Allergy Hives Verified 01/29/18 09:52 hydromorphone [From Dilaudid] Allergy Unknown Verified 01/29/18 09:52 Reaction Details Latex, Natural Rubber Allergy Hives Verified 01/29/18 09:52 morphine Allergy Rash Verified 01/29/18 09:52 nitrofurantoin Allergy Nausea And Verified 01/29/18 09:52 Vomiting ondansetron Allergy Rash Verified 01/29/18 09:52 oxycodone Allergy Hives Verified 01/29/18 09:52 Penicillins Allergy Hives Verified 01/29/18 09:52 [id number]-Zaj Reductase Allergy Hives Verified 01/29/18 09:52 Inhibitor tramadol Allergy Unknown Verified 01/29/18 09:52 Reaction Details PMH/Surg Hx/FS Hx/Imm Hx Endocrine/Hematology History: Reports: Hx Diabetes Denies: Hx Systemic Lupus Erythematosus, Hx Thyroid Disease Cardiovascular History: Reports: Hx Angina, Hx Hypercholesterolemia, Hx Hypertension, Other Cardiovascular Problems/Disorders - IRREGULAR HEART BEAT Denies: Hx Congestive Heart Failure, Hx Pacemaker/ICD Respiratory History: Denies: Hx Asthma, Hx Chronic Obstructive Pulmonary Disease (COPD) GI History: Reports: Hx Cirrhosis, Hx Diverticulosis, Hx Gastroesophageal Reflux Disease, Other GI Disorders - gerd and diverticulosis/itis Denies: Hx Ulcer History: Reports: Hx Kidney Stones, Other Problems/Disorders - stones Denies: Hx Dialysis, Hx Renal Disease Musculoskeletal History: Reports: Other Musculoskeletal History - arthritis and disc problems Denies: Hx Rheumatoid Arthritis, Hx Osteoporosis Sensory History: Reports: Hx Contacts or Glasses Denies: Hx Cataracts, Hx Legally Blind, Hx Deafness, Hx Hearing Aid Opthamlomology History: Reports: Hx Contacts or Glasses Denies: Hx Cataracts, Hx Legally Blind Psychiatric History: Denies: Hx Panic Disorder, Hx Schizophrenia - Cancer History Hx Chemotherapy: No - Surgical History Surgery Procedure, Year, and Place: TONSILECTOMY;. VARICOSE VEINS X 3;. RTC REPAIR RIGHT SHOULDER X 2, LEFT SHOULDER X 1;. CHOLECYSECTOMY;. BLADDER MESH; . SKIN CARCINOMA REMOVED LEFT TEMPORAL REGION Hx Anesthesia Reactions: No - Immunization History Date of Tetanus Vaccine: None Date of Influenza Vaccine: Fall 2014 Infectious Disease History: No Infectious Disease History: Reports: Hx Hepatitis - as a child Denies: Hx Clostridium Difficile, Hx Human Immunodeficiency Virus (HIV), Hx of Known/Suspected MRSA, Hx Shingles, Hx Tuberculosis, Hx Known/Suspected VRE, Hx Known/Suspected VRSA, History Other Infectious Disease, Traveled Outside the [place] in Last 30 Days - Family History Known Family History: Positive: Hypertension Family History: Reviewed and noncontributory - Social History Occupation: Retired Lives: At [facility] Alcohol Use: None Hx Substance Use: No Substance Use Type: Reports: None Hx Tobacco Use: No Smoking Status (MU): Never Smoked Tobacco Have You Smoked in the Last Year: No Review of Systems Constitutional: Negative Eyes: Negative ENT: Negative Cardiovascular: Negative Respiratory: Negative Gastrointestinal: Other - Negative LOC Positive: Abdominal Pain. Negative: Vomiting Genitourinary: Negative Musculoskeletal: Negative Skin: Negative Neurological: Negative Psychological: Normal All Other Systems Reviewed And Are Negative: Yes Physical Exam - Summary Physical Exam Summary: VITAL SIGNS: Reviewed. GENERAL: Patient is a well-developed and nourished (FEMALE) who is lying comfortable in the stretcher. Patient is not in any acute respiratory distress. HEAD AND FACE: No signs of trauma. No ecchymosis, hematomas or skull depressions. No sinus tenderness. EYES: PERRLA, EOMI x 2, No injected conjunctiva, no nystagmus. EARS: Hearing grossly intact. Ear canals and tympanic membranes are within normal limits. MOUTH: Oropharynx within normal limits. NECK: Supple, trachea is midline, no adenopathy, no JVD, no carotid bruit, no c- spine tenderness, neck with full ROM. CHEST: Symmetric, no tenderness at palpation LUNGS: Clear to auscultation bilaterally. No wheezing or crackles. CVS: Regular rate and rhythm, S1 and S2 present, no murmurs or gallops appreciated. ABDOMEN: Diffuse abd tenderness and hyperactive bowel sounds EXTREMITIES: FROM in all major joints, no edema, no cyanosis or clubbing. NEURO: Alert and oriented x 3. No acute neurological deficits. Speech is normal and follows commands. SKIN: Dry and warm Triage Information Reviewed: Yes Vital Signs On Initial Exam: Initial Vitals Pulse BP Pulse Ox 97 126/54 94 02/28/18 00:33 02/28/18 00:33 02/28/18 00:33 Vital Signs Reviewed: Yes Diagnostics - Vital Signs Vital Signs Temp Pulse Resp BP Pulse Ox 02/28/18 01:03 93 129/70 95 02/28/18 01:00 99.3 F 92 20 126/54 94 02/28/18 00:33 97 126/54 94 - Laboratory Result Diagrams: 02/28/18 01:50 02/28/18 01:50 Lab Statement: Any lab studies that have been ordered have been reviewed, and results considered in the medical decision making process. - CT CT A/P CT Interpretation Completed By: Radiologist - CT A/P as per radiologist reveals 1. Cirrhotic appearing liver with no focal hepatic lesion. Moderate amount of abdominal ascites. 2. Moderate amount of semisolid stool and air located in the colon which is not pathologically dilated. No evidence of small bowel obstruction. This may represent constipation. 3. Since the prior CT study of , no new findings other than a decrease in the distention of the colon filled with air. The ED Physician has reviewed this radiology report. Abdominal Pain Fem Course/Dx - Course Course Of Treatment: The pt is a 77 y.o female presenting to the [facility] with a chief complaint of abd pain. The pt received a CT A/P in the [facility]. Pt has no urinary symptoms. Pt CT A/P is consistent with constipation. The pt will be dx with abd pain and constipation. The pt will be discharged home. We also recommend to increase lactulose from 10 grams to 20 grams a day (3x daily). - Diagnoses Provider Diagnoses: Constipation, Abdominal pain Discharge - Sign-Out/Discharge Documenting (check all that apply): Patient Departure - Discharge home, Post- Discharge Follow Up - Follow up with PCP within 1 to 2 days. - Discharge Plan Condition: Stable Disposition: HOME Patient Education Materials: Constipation (ED), Acute Abdominal Pain (ED) Referrals: Claudine Muonz MD [Primary Care Provider] - Additional Instructions: RETURN TO THE EMERGENCY DEPARTMENT FOR CHANGING OR WORSENING SYMPTOMS. FOLLOW UP WITH PCP IN 1-2 DAYS. We recommend Increase lactulose from 10 gram to 20 grams and administer 3 times a day. - Attestation Statements Document Initiated by Scribe: Yes Documenting Scribe: Tremaine Lao Provider For Whom Scribe is Documenting (Include Credential): Dr. Rhett Love Scribe Attestation: Tremaine Duong, gerard for Dr. Rhett Love on 02/28/18 at 0642.
[2018-02-28 02:03] LABS: ABS Basophils 0 10^3/ul (0-0.2); ABS Eosinophils 0.2 10^3/ul (0-0.6); ABS Lymphocytes 0.9 10^3/ul (1.0-4.8); ABS Monocytes 0.4 10^3/ul (0-0.8); ABS Neutrophils 2.2 10^3/ul (1.5-7.7); ABS Nucleated RBC 0 10^3/ul; Eosinophil % 5.9 % (0-6); Hematocrit 25 % (35-47); Hemoglobin 8.1 g/dl (12.0-16.0); Mean Corpuscular HGB Conc 33 g/dl (31-36); Mean Corpuscular Hemoglobin 28 pg (27-31); Mean Corpuscular Volume 86 fL (80-97); Mean Platelet Volume 7.4 um3 (7.4-10.4); Nucleated Red Blood Cells % 0.1; Platelet Count 93 10^3/ul (150-450); Red Blood Count 2.85 10^6/ul (4.00-5.40); Red Cell Distribution Width 20 % (10.5-15); White Blood Count 3.8 10^3/ul (3.5-10.8)
[2018-02-28 02:09] LABS: INR 1.2 (0.77-1.02)
[2018-02-28 02:23] LABS: EGFR Non-African American 60.1 (>60)
[2018-02-28] MEDS ORDERED: Iohexol 300* (CONTRAST) 10 ML SDV IV ONE (02:25)
[2018-02-28 04:57] LABS: Urine Appearance Cloudy; Urine Blood 2+ (Negative); Urine Color Yellow; Urine Ketones Negative (Negative); Urine Protein Negative (Negative); Urine Specific Gravity 1.018 (1.010-1.030); Urine Urobilinogen Negative (Negative)
[2018-02-28 04:58] LABS: Urine Red Blood Cell 2+(6-10/hpf) (Absent); Urine White Blood Cell 2+(11-20/hpf) (Absent)
--- NOTE | 2018-02-28 06:20 | RAD ---
EXAM: CT Abdomen and Pelvis With Intravenous Contrast CLINICAL HISTORY: 77 years old, female; Pain; Abdominal pain; Generalized; Additional info: Abd pain TECHNIQUE: Axial computed tomography images of the abdomen and pelvis with intravenous contrast. All CT scans at this facility use at least one of these dose optimization techniques: automated exposure control; mA and/or kV adjustment per patient size (includes targeted exams where dose is matched to clinical indication); or iterative reconstruction. Coronal and sagittal reformatted images were created and reviewed. CONTRAST: 91 mL of OMNI administered intravenously. COMPARISON: A/P W CT ABD/PEL W 02/20/2018 6:45 PM FINDINGS: Lung bases: Linear opacities located in the lung bases consistent with areas of atelectasis and/or scarring. Heart: Moderate coronary calcification. ABDOMEN: Liver: The liver has a nodular surface pattern consistent with cirrhosis. No focal hepatic lesion. Gallbladder and bile ducts: Cholecystectomy. No pathologic distention the common bile duct. Pancreas: The pancreas is normal in appearance. No ductal dilation. Spleen: The spleen is of normal size and appearance. Adrenals: The adrenal glands are normal. Kidneys and ureters: The kidneys are of normal size. No hydronephrosis or nephrolithiasis. Bilateral extrarenal pelvii. Small right renal cortical cysts measuring approximate 8 mm in diameter. Stomach and bowel: Moderate amount of semisolid stool and air are located in the colon which is not pathologically dilated. No abnormal small bowel distention. No wall thickening. PELVIS: Appendix: No findings to suggest acute appendicitis. Bladder: Bladder is distended. No bladder wall thickening. No calcified bladder stone. Reproductive: Unremarkable as visualized. ABDOMEN and PELVIS: Intraperitoneal space: Moderate amount of fluid located in the abdomen. No free air. Bones/joints: Spondylotic changes of the lumbar spine. Slight anterior deformity of L1. This was present on the prior CT exam of 02/20/2018 and is unchanged. No acute fracture. No dislocation. Soft tissues: Subcutaneous edema. Vasculature: Calcification in the wall of the abdominal aorta and iliac arteries. No aneurysmal dilatation. Lymph nodes: Unremarkable. No enlarged lymph nodes. IMPRESSION: 1. Cirrhotic appearing liver with no focal hepatic lesion. Moderate amount of abdominal ascites. 2. Moderate amount of semisolid stool and air located in the colon which is not pathologically dilated. No evidence of small bowel obstruction. This may represent constipation. 3. Since the prior CT study of 02/20/2018, no new findings other than a decrease in the distention of the colon filled with air.
[2018-02-28] MEDS ORDERED: Magnesium CITRATE* 300 ML BTL PO ONE (06:27)
[2018-02-28] MEDS ORDERED: Bisacodyl SUPP* 10 MG SUPP PR ONE (06:27)
[2018-02-28 06:56] VITALS: BP 123/58
--- NOTE | 2018-03-03 14:31 | PN ---
Progress Note - Progress Note Date of Service: 02/28/18 Note: Called fpc at 2:30 PM on 03/03/18 Discussed with the nurse regarding urine culture final Escherichia coli 100,000 Nurse stated she would pass along information to provider, Dr. Tuttle for appropriate antibiotics
== END 2018-02-28 06:57 | disposition home or self-care (01) ==
LOC: ED 00:29
DX: R10.10 Upper abdominal pain, unspecified (principal); K59.00 Constipation, unspecified; R18.8 Other ascites; K76.9 Liver disease, unspecified; Z90.49 Acquired absence of other specified parts of digestive tract; Z88.3 Allergy status to other anti-infective agents; Z88.8 Allergy status to other drugs, medicaments and biological substances; Z88.5 Allergy status to narcotic agent; Z88.0 Allergy status to penicillin
CPT/HCPCS: 36415; 74177; 80053; 81003; 81015; 82150; 83605; 83690; 83735; 85025; 85610; 85730; 86140; 87077; 87086; 87186; 96360; 96361; 99284; A9270-GY; Q9967

== ENCOUNTER 2018-03-07 19:54 | Inpatient (IN) | payer MEDICARE ==
[2018-03-07 20:38] LABS: ABS Basophils 0 10^3/ul (0-0.2); ABS Eosinophils 0.2 10^3/ul (0-0.6); ABS Lymphocytes 0.6 10^3/ul (1.0-4.8); ABS Monocytes 0.6 10^3/ul (0-0.8); ABS Neutrophils 4.6 10^3/ul (1.5-7.7); ABS Nucleated RBC 0 10^3/ul; Eosinophil % 2.9 % (0-6); Hematocrit 26 % (35-47); Hemoglobin 8.5 g/dl (12.0-16.0); Lymphocyte % 10.4 % (25-47); Mean Corpuscular HGB Conc 33 g/dl (31-36); Mean Corpuscular Hemoglobin 28 pg (27-31); Mean Corpuscular Volume 85 fL (80-97); Mean Platelet Volume 8.2 um3 (7.4-10.4); Nucleated Red Blood Cells % 0; Platelet Count 167 10^3/ul (150-450); Red Blood Count 2.99 10^6/ul (4.00-5.40); Red Cell Distribution Width 21 % (10.5-15)
[2018-03-07] MEDS ORDERED: NS 0.9% IV ONE (20:42)
[2018-03-07 20:47] LABS: INR 1.29 (0.77-1.02)
[2018-03-07] MEDS ORDERED: Acetaminophen TAB* 325 MG PO ONE (20:48)
[2018-03-07 20:50] LABS: EGFR Non-African American 60.1 (>60)
[2018-03-07] MEDS ORDERED: Levofloxacin 750 MG IVPREMIX(* 750 MG/150 ML BAG IVPB ONE (21:06)
[2018-03-07] MEDS ORDERED: Vancomycin(*) 1,250 MG in NS 0.9% 250 ML* 250 ML IVPB ONE (21:06)
--- NOTE | 2018-03-07 21:58 | ED ---
HPI Febrile Illness - HPI Summary HPI Summary: A 77 y/o female presents to the ED c/o fever with cough over last couple days. She came from [facility]. The coughing has been constant, and her abdomen hurts when coughing. She also c/o shakes and tremors. She was at the ED a week ago when they increased her lactulose. She has cirrhosis of the liver, had a tear in her esophagus and has a PMHx of DM. Today her sugar was at 300. She also has a blister on her foot. The patient states that she has not eaten dinner yet today, burps a lot and has acid reflux. She notes that she does not drink or smoke. - History of Current Complaint Chief Complaint: EDFever Time Seen by Provider: 03/07/18 19:56 Hx Obtained From: Patient, Family/Mechanical Maintenance Instructor Onset/Duration: Started Days Ago Timing: Lasting Hours Initial Severity: Moderate Current Severity: Moderate Pain Intensity: 5 Pain Scale Used: 0-10 Numeric Associated Signs and Symptoms: Cough - Additional Pertinent History Primary Care Physician: MUKUL - Allergy/Home Medications Allergies/Adverse Reactions: Allergies Allergy/AdvReac Type Severity Reaction Status Date / Time Adhesive Tape Allergy Mild Hives Verified 01/29/18 09:52 cephalexin [From Keflex] Allergy Mild Hives Verified 01/29/18 09:52 codeine Allergy Mild Hives Verified 01/29/18 09:52 hydrochlorothiazide Allergy Mild Hives Verified 01/29/18 09:52 carvedilol Allergy Facial Verified 01/29/18 09:52 Redness/Flushing doxycycline Allergy Diarrhea Verified 01/29/18 09:52 hydrocodone Allergy Hives Verified 01/29/18 09:52 hydromorphone [From Dilaudid] Allergy Unknown Verified 01/29/18 09:52 Reaction Details Latex, Natural Rubber Allergy Hives Verified 01/29/18 09:52 morphine Allergy Rash Verified 01/29/18 09:52 nitrofurantoin Allergy Nausea And Verified 01/29/18 09:52 Vomiting ondansetron Allergy Rash Verified 01/29/18 09:52 oxycodone Allergy Hives Verified 01/29/18 09:52 Penicillins Allergy Hives Verified 01/29/18 09:52 Otfjwvb-Mbz-Mvi Reductase Allergy Hives Verified 01/29/18 09:52 Inhibitor tramadol Allergy Unknown Verified 01/29/18 09:52 Reaction Details PMH/Surg Hx/FS Hx/Imm Hx Endocrine/Hematology History: Reports: Hx Diabetes Denies: Hx Systemic Lupus Erythematosus, Hx Thyroid Disease Cardiovascular History: Reports: Hx Angina, Hx Hypercholesterolemia, Hx Hypertension, Other Cardiovascular Problems/Disorders - IRREGULAR HEART BEAT Denies: Hx Congestive Heart Failure, Hx Pacemaker/ICD Respiratory History: Denies: Hx Asthma, Hx Chronic Obstructive Pulmonary Disease (COPD) GI History: Reports: Hx Cirrhosis, Hx Diverticulosis, Hx Gastroesophageal Reflux Disease, Other GI Disorders - gerd and diverticulosis/itis Denies: Hx Ulcer History: Reports: Hx Kidney Stones, Other Problems/Disorders - stones Denies: Hx Dialysis, Hx Renal Disease Musculoskeletal History: Reports: Other Musculoskeletal History - arthritis and disc problems Denies: Hx Rheumatoid Arthritis, Hx Osteoporosis Sensory History: Reports: Hx Contacts or Glasses Denies: Hx Cataracts, Hx Legally Blind, Hx Deafness, Hx Hearing Aid Opthamlomology History: Reports: Hx Contacts or Glasses Denies: Hx Cataracts, Hx Legally Blind Psychiatric History: Denies: Hx Panic Disorder, Hx Schizophrenia - Cancer History Hx Chemotherapy: No - Surgical History Surgery Procedure, Year, and Place: TONSILECTOMY;. VARICOSE VEINS X 3;. RTC REPAIR RIGHT SHOULDER X 2, LEFT SHOULDER X 1;. CHOLECYSECTOMY;. BLADDER MESH; . SKIN CARCINOMA REMOVED LEFT TEMPORAL REGION Hx Anesthesia Reactions: No - Immunization History Date of Tetanus Vaccine: None Date of Influenza Vaccine: Fall 2014 Immunizations Up to Date: Yes Infectious Disease History: No Infectious Disease History: Reports: Hx Hepatitis - as a child Denies: Hx Clostridium Difficile, Hx Human Immunodeficiency Virus (HIV), Hx of Known/Suspected MRSA, Hx Shingles, Hx Tuberculosis, Hx Known/Suspected VRE, Hx Known/Suspected VRSA, History Other Infectious Disease, Traveled Outside the [place] in Last 30 Days - Family History Known Family History: Positive: Hypertension Family History: Reviewed and noncontributory - Social History Alcohol Use: None Hx Substance Use: No Substance Use Type: Reports: None Hx Tobacco Use: No Smoking Status (MU): Never Smoked Tobacco Have You Smoked in the Last Year: No Review of Systems Positive: Fever. Negative: Chills Negative: Erythema Negative: Sore Throat Negative: Chest Pain Positive: Cough. Negative: Shortness Of Breath Positive: Abdominal Pain. Negative: Vomiting, Nausea Negative: dysuria, hematuria Negative: Myalgia, Edema Negative: Rash Neurological: Negative - dizziness All Other Systems Reviewed And Are Negative: Yes Physical Exam - Summary Physical Exam Summary: Constitutional: Febrile, well-developed, Well-nourished, Alert. (-) Distressed Skin: Warm, Dry HENT: Normocephalic; Atraumatic Eyes: Conjunctiva normal Neck: Musculoskeletal ROM normal neck. (-) JVD, (-) Stridor, (-) Tracheal deviation Cardio: Rhythm regular, rate normal, Heart sounds normal; Intact distal pulses; The pedal pulses are 2+ and symmetric. Radial pulses are 2+ and symmetric. (-) Murmur Pulmonary/Chest wall: Basilar crackles on left side of lungs Effort normal. (-) Respiratory distress, (-) Wheezes, (-) Rales Abd: Diffuse abdominal tenderness light to touch, Ascites, Soft, (-) Guarding, (-) Rebound Musculoskeletal: (-) Edema Lymph: (-) Cervical adenopathy Neuro: Alert, Oriented x3 Psych: Mood and affect Normal Triage Information Reviewed: Yes Vital Signs On Initial Exam: Initial Vitals Pulse Ox 98 03/07/18 19:56 Vital Signs Reviewed: Yes Diagnostics - Vital Signs Vital Signs Temp Pulse Resp BP Pulse Ox 03/07/18 21:00 104 12 95 03/07/18 20:01 110 27 129/56 94 03/07/18 20:00 102.5 F 107 25 116/62 94 03/07/18 19:56 98 - Laboratory Lab Results: Lab Results 03/07/18 03/07/18 03/07/18 Range/Units 20:14 20:14 20:14 WBC 6.0 (3.5-10.8) 10^3/ul RBC 2.99 L (4.00-5.40) 10^6/ul Hgb 8.5 L (12.0-16.0) g/dl Hct 26 L (35-47) % MCV 85 (80-97) fL MCH 28 (27-31) pg MCHC 33 (31-36) g/dl RDW 21 H (10.5-15) % Plt Count 167 (150-450) 10^3/ul MPV 8.2 (7.4-10.4) um3 Neut % (Auto) 76.0 (38-83) % Lymph % (Auto) 10.4 L (25-47) % Dewitt % (Auto) 10.0 H (0-7) % Eos % (Auto) 2.9 (0-6) % Baso % (Auto) 0.7 (0-2) % Absolute Neuts (auto) 4.6 (1.5-7.7) 10^3/ul Absolute Lymphs (auto) 0.6 L (1.0-4.8) 10^3/ul Absolute Monos (auto) 0.6 (0-0.8) 10^3/ul Absolute Eos (auto) 0.2 (0-0.6) 10^3/ul Absolute Basos (auto) 0 (0-0.2) 10^3/ul Absolute Nucleated RBC 0 10^3/ul Nucleated RBC % 0 INR (Anticoag Therapy) 1.29 H (0.77-1.02) APTT 33.2 (26.0-36.3) seconds Sodium 137 (135-145) mmol/L Potassium 3.8 (3.5-5.0) mmol/L Chloride 109 (101-111) mmol/L Carbon Dioxide 23 (22-32) mmol/L Anion Gap 5 (2-11) mmol/L BUN 11 (6-24) mg/dL Creatinine 0.91 (0.51-0.95) mg/dL Est GFR ( Amer) 72.7 (>60) Est GFR (Non-Af Amer) 60.1 (>60) BUN/Creatinine Ratio 12.1 (8-20) Glucose 143 H (70-100) mg/dL Lactic Acid (0.5-2.0) mmol/L Calcium 7.7 L (8.6-10.3) mg/dL Total Bilirubin 1.90 H (0.2-1.0) mg/dL AST 37 (13-39) U/L ALT 17 (7-52) U/L Alkaline Phosphatase 165 H (34-104) U/L Ammonia (16-53) mcmol/L Troponin I 0.13 H* (<0.04) ng/mL Total Protein 5.2 L (6.4-8.9) g/dL Albumin 2.3 L (3.2-5.2) g/dL Globulin 2.9 (2-4) g/dL Albumin/Globulin Ratio 0.8 L (1-3) 03/07/18 03/07/18 Range/Units 20:14 20:18 WBC (3.5-10.8) 10^3/ul RBC (4.00-5.40) 10^6/ul Hgb (12.0-16.0) g/dl Hct (35-47) % MCV (80-97) fL MCH (27-31) pg MCHC (31-36) g/dl RDW (10.5-15) % Plt Count (150-450) 10^3/ul MPV (7.4-10.4) um3 Neut % (Auto) (38-83) % Lymph % (Auto) (25-47) % Dewitt % (Auto) (0-7) % Eos % (Auto) (0-6) % Baso % (Auto) (0-2) % Absolute Neuts (auto) (1.5-7.7) 10^3/ul Absolute Lymphs (auto) (1.0-4.8) 10^3/ul Absolute Monos (auto) (0-0.8) 10^3/ul Absolute Eos (auto) (0-0.6) 10^3/ul Absolute Basos (auto) (0-0.2) 10^3/ul Absolute Nucleated RBC 10^3/ul Nucleated RBC % INR (Anticoag Therapy) (0.77-1.02) APTT (26.0-36.3) seconds Sodium (135-145) mmol/L Potassium (3.5-5.0) mmol/L Chloride (101-111) mmol/L Carbon Dioxide (22-32) mmol/L Anion Gap (2-11) mmol/L BUN (6-24) mg/dL Creatinine (0.51-0.95) mg/dL Est GFR ( Amer) (>60) Est GFR (Non-Af Amer) (>60) BUN/Creatinine Ratio (8-20) Glucose (70-100) mg/dL Lactic Acid 2.0 (0.5-2.0) mmol/L Calcium (8.6-10.3) mg/dL Total Bilirubin (0.2-1.0) mg/dL AST (13-39) U/L ALT (7-52) U/L Alkaline Phosphatase (34-104) U/L Ammonia 86 H (16-53) mcmol/L Troponin I (<0.04) ng/mL Total Protein (6.4-8.9) g/dL Albumin (3.2-5.2) g/dL Globulin (2-4) g/dL Albumin/Globulin Ratio (1-3) Result Diagrams: 03/07/18 20:14 03/07/18 20:14 Lab Statement: Any lab studies that have been ordered have been reviewed, and results considered in the medical decision making process. - EKG 21:33 Cardiac Rate: Tachycardia - 110 bpm EKG Rhythm: Sinus Tachycardia EKG Interpretation: no STEMI Course/Dx - Course Course Of Treatment: A 77 y/o female presents to the ED c/o fever with cough over last couple days. The coughing has been constant, and her abdomen hurts when coughing. She also c/o shakes and tremors. She was at the ED a week ago when they increased her lactulose. She has cirrhosis of the liver, had a tear in her esophagus and has a PMHx of DM. Today her sugar was at 300. She also has a blister on her foot. The patient states that she has not eaten dinner yet today, burps a lot and has acid reflux. She notes that she does not drink or smoke. She has a fever and abdominal tenderness, r/o sponaneous bacterial peritonitos. Because of the cough there is a chance for PNA. CT pending, Darian understands. - Diagnoses Provider Diagnoses: Sepsis, Spontaneous bacterial peritonitis - Provider Notifications Discussed Care Of Patient With: Richard Farmer - spoke with Darian about admit Time Discussed With Above Provider: 21:50 Discharge - Sign-Out/Discharge Documenting (check all that apply): Patient Departure - admitted - Discharge Plan Condition: Fair Disposition: ADMITTED TO [facility] Referrals: Claudine Munoz MD [Primary Care Provider] - - Attestation Statements Document Initiated by Scribe: Yes
--- NOTE | 2018-03-07 23:28 | RAD ---
EXAM: US Abdomen Limited, Right Upper Quadrant CLINICAL HISTORY: 77 years old, female; Pain; Abdominal pain; Epigastric; Patient HX: Bloatin, gassy fever; Additional info: Sepsis, jaundice, ? ? ? sbp TECHNIQUE: Real-time ultrasound of the right upper quadrant with image documentation. COMPARISON: LIVER US LIVER 12/26/2017 10:16 AM FINDINGS: Liver: Nodular hepatic contour. Heterogeneous echogenicity no focal lesions. Normal hepato-pedal portal vein flow. No intrahepatic bile duct dilation. Gallbladder: Surgically absent gallbladder. Common bile duct: CBD measures 0.7 cm. Pancreas: Only the pancreatic head is visualized and grossly normal. Remainder is shadowed by overlying bowel gas. Right kidney: Right kidney measures 10.1 x 4.5 x 4.4 cm (104 cc). No solid cortical lesions, calculi, or pelvocaliectasis. Free fluid: Large volume ascites. IMPRESSION: Hepatic cirrhosis and portal hypertension. No additional findings to correlate with patient's symptomatology. To contact [facility] with a general question: [facility] - [phone] For direct physician to physician contact: Physician Hotline - [phone] [facility] ([facility] Facility ID #[id number])
[2018-03-07] MEDS ORDERED: Iodixanol* (CONTRAST) 320 MG/ML 100 ML SDV IV ONE (23:43)
--- NOTE | 2018-03-08 00:56 | RAD ---
EXAM: CT Abdomen and Pelvis With Intravenous Contrast EXAM DATE/TIME: Exam ordered 03/07/2018 11:25 PM CLINICAL HISTORY: 77 years old, female; Pain; Abdominal pain; Generalized; Additional info: Diffuse abd pain, sepsis TECHNIQUE: Axial computed tomography images of the abdomen and pelvis with intravenous contrast. All CT scans at this facility use at least one of these dose optimization techniques: automated exposure control; mA and/or kV adjustment per patient size (includes targeted exams where dose is matched to clinical indication); or iterative reconstruction. Coronal and sagittal reformatted images were created and reviewed. CONTRAST: 91 mL of VISIPAQUE 320 administered intravenously. COMPARISON: A/P W CT ABD/PEL W 02/28/2018 2:52 AM FINDINGS: Lung bases: Unremarkable. No mass. No consolidation. Heart: Coronary artery calcifications are present. ABDOMEN: Liver: Small nodular liver. Gallbladder and bile ducts: Status post cholecystectomy. No ductal dilation. Pancreas: Unremarkable. No mass. No ductal dilation. Spleen: The spleen measures 11.7 cm but is borderline enlarged relative to the liver. Adrenals: Unremarkable. No mass. Kidneys and ureters: Small bilateral renal cysts measuring up to 9 mm on the right. No hydronephrosis. Stomach and bowel: Distal colonic diverticulosis without diverticulitis. No obstruction. PELVIS: Appendix: A normal appendix is seen. Bladder: Unremarkable. No mass. Reproductive: Unremarkable as visualized. Subperitoneal space: Perirectal vasculature which may reflect some portal venous collateralization. ABDOMEN and PELVIS: Intraperitoneal space: Moderate peritoneal ascites with Hounsfield measurement of 1. No free air. Bones/joints: Degenerative change of the lumbar spine with degenerative disc change and facet arthropathy. There is mild anterolisthesis of L4 relative to L5. No acute fracture. No dislocation. Soft tissues: Diffuse subcutaneous edema. Vasculature: There is moderate atherosclerotic calcification of the abdominal aorta with extension into the iliac arteries. Lymph nodes: Unremarkable. No enlarged lymph nodes. IMPRESSION: 1. There has been little change from 02/28/2018. 2. Subcutaneous edema and moderate peritoneal ascites which may reflect generalized anasarca, however, there is hepatic cirrhosis with splenomegaly and the ascites may be related to cirrhosis. 3. Status post cholecystectomy. 4. Hepatic cirrhosis with borderline splenomegaly relative to the liver. 5. Distal colonic diverticulosis without diverticulitis. To contact [facility] with a general question: Operations Center - [phone] For direct physician to physician contact: Physician Hotline - [phone] [facility] (ad Facility ID #[id number])
[2018-03-08] MEDS ORDERED: Benzocaine/Menthol LOZ* 1 LOZENGE PO PRN (01:12)
[2018-03-08] MEDS ORDERED: Vancomycin(*) 1,250 MG in NS 0.9% 250 ML* 250 ML IVPB ONE (01:15)
[2018-03-08] MEDS ORDERED: Dextrose 50% Syringe 50 ML* 25 GM/50 ML SYRINGE IV PUSH PRN (01:17)
[2018-03-08 03:04] LABS: Urine Appearance Turbid; Urine Blood 1+ (Negative); Urine Color Yellow; Urine Ketones Negative (Negative); Urine Protein 1+(30 mg/dL) (Negative); Urine Red Blood Cell 3+(>10/hpf) (Absent); Urine Specific Gravity 1.015 (1.010-1.030); Urine Urobilinogen Negative (Negative); Urine White Blood Cell 3+(>20/hpf) (Absent)
[2018-03-08] MEDS: Heparin VIAL(*) 5000 UNITS/ML VIAL (FIVE THOUSAND) SUBCUT SCH ×3 (05:39→21:41)
[2018-03-08] MEDS: Simethicone TAB* 80 MG TAB.CHEW PO SCH ×3 (07:34→16:28)
--- NOTE | 2018-03-08 07:52 | RAD ---
Indication: Chest pain, cough, possible sepsis. Irregular heartbeat. Comparison: March 07, [address] February 19, 2018 chest radiograph. Technique: Upright AP 2030 hours Report: Unchanged mild prominence of the interstitial markings. No focal pulmonary lesion, compelling alveolar consolidation, pleural effusion, pneumothorax. Upper normal heart size. Mild prominence and ill-definition of the central pulmonary vasculature. IMPRESSION: #. Probable mild pulmonary vascular congestion. R1
[2018-03-08] MEDS: Lidocaine PATCH 5%* 1 PATCH TRANSDERM SCH (08:23)
[2018-03-08] MEDS: Lactulose* 15 ML UDC PO SCH ×3 (08:25→20:37)
[2018-03-08] MEDS: RiFAXimin* 550 MG TAB PO SCH ×2 (08:26→20:37)
[2018-03-08] MEDS: Gabapentin CAP(*) 300 MG PO SCH ×3 (08:26→20:37)
[2018-03-08] MEDS: Omeprazole CAP* 20 MG PO SCH (08:26)
[2018-03-08] MEDS: Lactobacillus Acidophilus* 1 TAB PO SCH ×2 (08:27→20:37)
[2018-03-08] MEDS: Insulin LISPRO* 1 UNITS UNIT SUBCUT SCH ×4 (09:02→20:42)
--- NOTE | 2018-03-08 11:15 | PN ---
Subjective Date of Service: 03/08/18 Interval History: Pt NAD. Denies chest pain, shortness of breath, palpitations, dizziness, N/V, abdominal pain, flank pain, dysuria, or frequency. Does endorse "gas pain" under left breast similar to pain she has had previously as well as diarrhea in the setting of lactulose. Objective Active Medications: Amitriptyline HCl (Elavil Tab*) 10 mg PO BEDTIME [facility] Dextrose (D50w Syringe 50 Ml*) 12.5 gm IV PUSH .FOR FS < 60 - SS PRN PRN Reason: FS < 60 Gabapentin (Neurontin Cap(*)) 300 mg PO TID [facility] Last Admin: 03/08/18 08:26 Dose: 300 mg Heparin Sodium (Porcine) (Heparin Vial(*)) 5,000 units SUBCUT Q8HR [facility] Last Admin: 03/08/18 05:39 Dose: 5,000 units Levofloxacin/Dextrose (Levaquin 750 Mg Ivpremix(*)) 750 mg in 150 mls @ 100 mls /hr IVPB Q24H [facility] Insulin Human Lispro (Humalog*) 0 units SUBCUT ACHS [facility]; Protocol Last Admin: 03/08/18 09:02 Dose: 3 units Lactobacillus Rhamnosus (Lactobacillus Acidophilus*) 1 tab PO BID [facility] Last Admin: 03/08/18 08:27 Dose: 1 tab Lactulose (Lactulose*) 15 ml PO TID [facility] Last Admin: 03/08/18 08:25 Dose: 15 ml Lidocaine (Lidoderm 5% Patch*) 1 patch TRANSDERM QAM [facility] Last Admin: 03/08/18 08:23 Dose: 1 patch Omeprazole (Prilosec Cap*) 40 mg PO DAILY [facility] Last Admin: 03/08/18 08:26 Dose: 40 mg Pharmacy Profile Note (Lidocaine Patch Remove*) 1 note PATCH OFF 2100 [facility] Rifaximin (Xifaxan*) 550 mg PO BID [facility] Last Admin: 03/08/18 08:26 Dose: 550 mg Simethicone (Mylicon Tab*) 80 mg PO AC [facility] Last Admin: 03/08/18 07:34 Dose: 80 mg Throat Lozenges (Chloraseptic Alee*) 1 alee PO Q6H PRN PRN Reason: SORE THROAT Vital Signs - 8 hr 03/08/18 03/08/18 03/08/18 03:28 07:59 08:26 Temperature 97.6 F 97.9 F Pulse Rate 73 82 Respiratory 20 20 17 Rate Blood Pressure 107/38 98/41 (mmHg) O2 Sat by Pulse 98 96 Oximetry 03/08/18 08:40 Temperature Pulse Rate Respiratory Rate Blood Pressure 100/60 (mmHg) O2 Sat by Pulse Oximetry Oxygen Devices in Use Now: None, Nasal Cannula Eyes: No Scleral Icterus, PERRLA Ears/Nose/Mouth/Throat: NL Teeth, Lips, Gums, - - Mucous membrane dry Neck: NL Appearance and Movements; NL JVP, Trachea Midline Respiratory: Symmetrical Chest Expansion and Respiratory Effort - Clear to auscultation at rest. Expiratory wheeze when tremors. Cardiovascular: NL Sounds; No Murmurs; No JVD, - - Irregulary irregular rhythm Abdominal: - - Abdomen soft and distended. Mild diffuse tenderness. Hyperactive bowel sounds. Extremities: No Clubbing, Cyanosis, - - Bilareral lower extremities with +1 pitting edema, L>R Neurological: Alert and Oriented x 3, - - Decreased strength. 4/5 on right upper and lower extremity. 3/5 on left upper and lower extremity. Result Diagrams: 03/07/18 20:14 03/07/18 20:14 Additional Lab and Data: Lab Results 03/07/18 03/07/18 03/07/18 Range/Units 20:14 20:14 20:14 WBC 6.0 (3.5-10.8) 10^3/ul RBC 2.99 L (4.00-5.40) 10^6/ul Hgb 8.5 L (12.0-16.0) g/dl Hct 26 L (35-47) % MCV 85 (80-97) fL MCH 28 (27-31) pg MCHC 33 (31-36) g/dl RDW 21 H (10.5-15) % Plt Count 167 (150-450) 10^3/ul MPV 8.2 (7.4-10.4) um3 Neut % (Auto) 76.0 (38-83) % Lymph % (Auto) 10.4 L (25-47) % Crisp % (Auto) 10.0 H (0-7) % Eos % (Auto) 2.9 (0-6) % Baso % (Auto) 0.7 (0-2) % Absolute Neuts (auto) 4.6 (1.5-7.7) 10^3/ul Absolute Lymphs (auto) 0.6 L (1.0-4.8) 10^3/ul Absolute Monos (auto) 0.6 (0-0.8) 10^3/ul Absolute Eos (auto) 0.2 (0-0.6) 10^3/ul Absolute Basos (auto) 0 (0-0.2) 10^3/ul Absolute Nucleated RBC 0 10^3/ul Nucleated RBC % 0 INR (Anticoag Therapy) 1.29 H (0.77-1.02) APTT 33.2 (26.0-36.3) seconds Sodium 137 (135-145) mmol/L Potassium 3.8 (3.5-5.0) mmol/L Chloride 109 (101-111) mmol/L Carbon Dioxide 23 (22-32) mmol/L Anion Gap 5 (2-11) mmol/L BUN 11 (6-24) mg/dL Creatinine 0.91 (0.51-0.95) mg/dL Est GFR ( Amer) 72.7 (>60) Est GFR (Non-Af Amer) 60.1 (>60) BUN/Creatinine Ratio 12.1 (8-20) Glucose 143 H (70-100) mg/dL Lactic Acid (0.5-2.0) mmol/L Calcium 7.7 L (8.6-10.3) mg/dL Total Bilirubin 1.90 H (0.2-1.0) mg/dL AST 37 (13-39) U/L ALT 17 (7-52) U/L Alkaline Phosphatase 165 H (34-104) U/L Ammonia (16-53) mcmol/L Troponin I 0.13 H* (<0.04) ng/mL Total Protein 5.2 L (6.4-8.9) g/dL Albumin 2.3 L (3.2-5.2) g/dL Globulin 2.9 (2-4) g/dL Albumin/Globulin Ratio 0.8 L (1-3) 03/07/18 03/07/18 Range/Units 20:14 20:18 WBC (3.5-10.8) 10^3/ul RBC (4.00-5.40) 10^6/ul Hgb (12.0-16.0) g/dl Hct (35-47) % MCV (80-97) fL MCH (27-31) pg MCHC (31-36) g/dl RDW (10.5-15) % Plt Count (150-450) 10^3/ul MPV (7.4-10.4) um3 Neut % (Auto) (38-83) % Lymph % (Auto) (25-47) % Crisp % (Auto) (0-7) % Eos % (Auto) (0-6) % Baso % (Auto) (0-2) % Absolute Neuts (auto) (1.5-7.7) 10^3/ul Absolute Lymphs (auto) (1.0-4.8) 10^3/ul Absolute Monos (auto) (0-0.8) 10^3/ul Absolute Eos (auto) (0-0.6) 10^3/ul Absolute Basos (auto) (0-0.2) 10^3/ul Absolute Nucleated RBC 10^3/ul Nucleated RBC % INR (Anticoag Therapy) (0.77-1.02) APTT (26.0-36.3) seconds Sodium (135-145) mmol/L Potassium (3.5-5.0) mmol/L Chloride (101-111) mmol/L Carbon Dioxide (22-32) mmol/L Anion Gap (2-11) mmol/L BUN (6-24) mg/dL Creatinine (0.51-0.95) mg/dL Est GFR ( Amer) (>60) Est GFR (Non-Af Amer) (>60) BUN/Creatinine Ratio (8-20) Glucose (70-100) mg/dL Lactic Acid 2.0 (0.5-2.0) mmol/L Calcium (8.6-10.3) mg/dL Total Bilirubin (0.2-1.0) mg/dL AST (13-39) U/L ALT (7-52) U/L Alkaline Phosphatase (34-104) U/L Ammonia 86 H (16-53) mcmol/L Troponin I (<0.04) ng/mL Total Protein (6.4-8.9) g/dL Albumin (3.2-5.2) g/dL Globulin (2-4) g/dL Albumin/Globulin Ratio (1-3) Assess/Plan/Problems-Billing Assessment: - Patient Problems (1) Sepsis Current Visit: Yes Status: Acute Comment: - In ED pt was febrile to 102.5 with tachycardia to 110 - Recieved 2.25L fluid bolus in ED. BP now stable last pressure 116/49, MAP 61. Will continue to monitor and give fluids as necessary, however as pt has a history of CHF and Cirrhosis with ascites, will opt for conservative fluid management strategy. - Concern for SBP vs PNA vs UTI. Positive urine culture and hx of such, UTI most likely cause of sepsis. - Blood cultures (2) UTI (urinary tract infection) Current Visit: No Status: Acute Comment: - Febrile to 102.5 in ED, however has been afebrile today. BPs soft. No dysuria, frequency, flank pain. - UA with nitrates, 3+ luekocyte esterase, 3+ WBC, 3+ bacteria. F/U culture. - Given septic presentation of fever and soft BP without another source, as well as hx of recurrent UTIs, pt was started on vanc + levaquin empirically in ED. Previous culture from 02/28 showed E. coli sensitive to bactrim and not sensitive to levaquin, so coverage was switched today. Will re-evaluate when culture results come in. 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 Plt count improved since last admission - Pt has history of hepatic encephalopathy and reports episode of confusion prior to coming to the ED. Ammonia was 86 on admission. Pt reports missing a dose of lactulose, which was then given. Pt appears to be at baseline mental status today. Continue lactulose 15ml TID and titrate to 3 soft bowel movements per day as well as rifaximin. (4) Abdominal pain Current Visit: No Status: Acute Code(s): R10.9 - UNSPECIFIED ABDOMINAL PAIN SNOMED Code(s): 18435855 Comment: - h/o chronic abd pain and evaluation by GI in the past - Per patient, abdominal pain is around her baseline: generalized mild tenderness with "gas pain" under her left breast. Bowel sounds hyperactive. SBP less of a concern as UTI is most likely the source of her sepsis, however can re -investigate if patient does not improve with appropriate antibiotic therapy. - Continue simethicone SAMANTHA and probiotic - CT unchanged from prior in 02/2018: Hepatic cirrhosis with borderline splenomegaly, moderate peritoneal ascites, distal colonic diverticulitis without diverticulosis - Abdominal U/S: Hepatic cirrhosis with portal hypertension. No additional findings to correlate with patient's symptoms (5) Diabetes Current Visit: No Status: Chronic Priority: High Code(s): E11.9 - TYPE 2 DIABETES MELLITUS WITHOUT COMPLICATIONS SNOMED Code(s): 40038450 Comment: - Home Lantus restarted as pt has history of poorly controlled dibetes as well as hyperglycemia in the hospital. Since pt has not been eating much, started at 20 units vs home dose of 30 units. - Continue sliding scale lispro as well - Glucose 151 this morning - Continue gabapentin for diabetic neuropathy (6) Troponin level elevated Current Visit: No Status: Acute Code(s): R74.8 - ABNORMAL LEVELS OF OTHER SERUM ENZYMES SNOMED Code(s): 980473668 Comment: - Has normalized. Likely demand ischemia in the setting of sepsis. EKG today similar to prior. (7) Diastolic CHF Current Visit: No Status: Chronic Code(s): I50.30 - UNSPECIFIED DIASTOLIC ( CONGESTIVE) HEART FAILURE SNOMED Code(s): 805682969 Comment: - Echo 08/2017 shows EF 55-60% - Pt does have bilateral leg edema as well as ascites (also due to cirrhosis), however as her BP is still soft will continue holding lasix today and consider restarting tomorrow. (8) GERD (gastroesophageal reflux disease) Current Visit: No Status: Chronic Code(s): K21.9 - GASTRO-ESOPHAGEAL REFLUX DISEASE WITHOUT ESOPHAGITIS SNOMED Code(s): 331997903 Comment: - Continue omeprazole (9) DVT prophylaxis Current Visit: No Status: Acute Code(s): XRQ5472 - SNOMED Code(s): 984929708 Comment: - Continue SQ heparin (10) Full code status Current Visit: No Status: Acute Code(s): Z78.9 - OTHER SPECIFIED HEALTH STATUS SNOMED Code(s): 423967453 Comment: Status and Disposition: Pt from [facility]. Anticipate discharge there when medically stable. Attending: Dana Tuttle
--- NOTE | 2018-03-08 12:44 | HP ---
HISTORY AND PHYSICAL: DATE OF ADMISSION: 03/08/18 PRIMARY CARE PROVIDER: Claudine Munoz MD ADMITTING PHYSICIAN: Richard Farmer MD CHIEF COMPLAINT: Fevers, upper abdominal and lower chest pain. HISTORY OF PRESENT ILLNESS: Tami Atkinson is a 77-year-old female with a past medical history of non-alcoholic liver cirrhosis with portal hypertension, status post esophogeal varices banding; chronic diastolic CHF; chronic kidney disease, stage 3; iron deficiency anemia; insulin-dependent diabetes mellitus; GERD; uterine prolapse with frequent urinary tract infections, she is status post mesh repair of her uterus and bladder prolapses; nephrolithiasis, she has been recuperating at [facility] after admission 02/19/18 to 02/25, where she was found to have ammonia of 119, urinary tract infection with Staph epidermidis, treated with linezolid, had needed a Graves for 2 days after urinary retention. She presents now with complaints of feeling feverish, warm all over her abdomen, and then developed pains underneath her left breast and her left upper quadrant of her abdomen, and some left chest tightness. This happened 4 p.m. on , day prior to admission. She has had abdominal bloating, gas, burping. She presented to [facility] Emergency Room, found to have a fever up to 102.5, elevated troponin of 0.13, ammonia of 86, hemoglobin 8.5, and as . She had a CT abdomen and pelvis, which demonstrated continued evidence of hepatic cirrhosis with borderline splenomegaly. There was moderate peritoneal ascites and subcutaneous edema, which was thought to may be generalized anasarca and distal colonic diverticulosis without diverticulitis. She was referred to the hospitalist services for admission. She also complained of dry cough for the last 2 days. She had abdominal ultrasound, which demonstrated hepatic cirrhosis and portal hypertension, no additional findings. She has a history of many ANTIBIOTIC allergies including PENICILLIN, IV CIPROFLOXACIN, although tolerated p.o. Levaquin in the past, and CEPHALEXIN gives hives. She got vancomycin and IV Levaquin in the ED for sepsis of unknown origin with suspicion of possible SBP versus her history of urinary tract infections. There was some delay in getting urine sample, but this ultimately demonstrated positive nitrites, 3+ leukocyte esterase, 3+ bacteria, 3+ wbc's. She had most recent urine culture on 02/28/18 showing E. coli, which was resistant to fluoroquinolones and tetracyclines, and the Staph epi from was treated with linezolid, resistant to ampicillin, sulbactam, penicillins, imipenem, cefazolin, amoxicillin. She has since defervesced. She did meet SIRS criteria with the fever plus elevated heart rate up to 110 peak. PAST MEDICAL HISTORY: 1. History of non-alcoholic liver cirrhosis with portal hypertension, status post esophogeal varices banding. 2. Chronic diastolic CHF. 3. Chronic kidney disease, stage 3. 4. Iron deficiency anemia. 5. Insulin-dependent diabetes mellitus. 6. GERD. 7. Uterine prolapse with frequent urinary tract infections, she is status post mesh repair of her uterus and bladder prolapses. 8. Nephrolithiasis. 9. Left tibial fracture. 10. Sacral decubitus 10 cm, stage I to II, last admission. MEDICATIONS: Include: 1. Lantus 30 units q.h.s. 2. Neurontin 300 mg p.o. t.i.d. 3. Lasix 20 mg p.o. every other day. 4. Amitriptyline 10 mg p.o. at bedtime. 5. Lactulose 15 mg p.o. b.i.d. 6. Insulin lispro 20 units subcutaneous a.c. and h.s. 7. Rifaximin 550 mg p.o. b.i.d. 8. Omeprazole 40 mg p.o. daily. 9. Lidocaine transdermal patch daily. 10. Simethicone 80 mg a.c. ALLERGIES: Include ADHESIVE TAPE, CEPHALEXIN, CODEINE, HYDROCHLOROTHIAZIDE, CARVEDILOL, DOXYCYCLINE, HYDROCODONE, HYDROMORPHONE, LATEX, MORPHINE, NITROFURANTOIN, ONDANSETRON, OXYCODONE, PENICILLINS, TRAMADOL, and STATINS. FAMILY HISTORY: She is adopted. Biological parents in [place]. SOCIAL HISTORY: The patient is a retired nurse. Prior to [facility], she lived alone. Her is also at [facility] with dementia. She denies history of alcohol, tobacco, or drug use. The patient's daughter, Rosey Chawla, and her son, Kyler Atkinson, are desired to be medical surrogates. She desires to be a full code. REVIEW OF SYSTEMS: A complete 14-point review of systems is negative except as per HPI. She denies any dysuria or increased frequency of urination or foul smell, but does attest to chronic urinary incontinence. She has usually 1 large bowel movement a day, occasionally some trace fecal incontinence while on the lactulose. She does have a tremor. The patient states that 3 weeks ago, she weighed 145 pounds, on bed check, she currently weighs 191 pounds. Her weight recorded on 02/28/18 was 65.7 kg, currently 85.7 kg on recheck this a.m. PHYSICAL EXAMINATION GENERAL APPEARANCE: No acute distress. VITAL SIGNS: Currently 97.6, heart rate 73, blood pressure 107/38, satting 98% on 1 L, respiratory rate 20. HEENT: Normocephalic, atraumatic. Pupils are equal, round, and reactive to light. Extraocular motions are intact. No scleral icterus. Moist mucous membranes. LUNGS: Clear to auscultation bilaterally with no wheezing, rales, or rhonchi. HEART: Regular rate and rhythm no murmurs, rubs or gallps. ABDOMEN: Soft, slightly diffusely tender. Evidence of ascites. She also has anasarca in her bilateral dependent flanks. EXTREMITIES: 2+ pitting edema bilaterally. SKIN: left 1st toe dorsally between PIP and metatarsal is erythamtous sloughed skin of popped blister. 0.5cm diameter fluid filled blister just lateral and proximal. NEURO: Cranial nerves II through XII intact. Moving all extremities, tso strength bilaterally. DIAGNOSTIC STUDIES/LAB DATA: WBC 6.0, hemoglobin 8.5, hematocrit 26, platelets 167. INR 1.29. Sodium 137, potassium 3.8, chloride 109, carbon dioxide 23, BUN 11, creatinine 0.91, glucose 143, lactic acid 2.0. Total bili 1.90, alk phos 165. Ammonia 86. Troponin 0.13, on repeat 0.09. BNP 216. Urinalysis: 1+ protein, 1+ blood, positive nitrites, leukocyte esterase 3+, 3+ wbc's, 3+ bacteria. IMAGING: CT abdomen and pelvis: continued evidence of hepatic cirrhosis with borderline splenomegaly. There was moderate peritoneal ascites and subcutaneous edema, which was thought to may be generalized anasarca and distal colonic diverticulosis without diverticulitis Chest x-ray: No focal infiltrate, possible mild volume overload, formal read pending. ASSESSMENT AND PLAN: Tami Atkinson is a 77-year-old female with past medical history of insulin-dependent diabetes mellitus, non-alcoholic cirrhosis with hepatic encephalopathy, and frequent urinary tract infections presenting with sepsis of unknown origin but likely either urinary tract infection or spontaneous bacterial peritonitis. She is status post Levaquin and vancomycin in the ED. Has a host of ANTIBIOTIC allergies. She has tolerated the IV Levaquin in the past. I will continue that for now. Follow up the urine culture, notably the last Escherichia coli from 02/28/18 was resistant to both ciprofloxacin and Levaquin, so low threshold to switch antibiotics to potentially Bactrim, which she says she does not think she is allergic to, but she has defervesced for now and we will not make any changes at the moment. I will not continue her vancomycin. She does have moderate ascites and some diffuse abdominal tenderness, although somewhat chronic in nature with the additional components of some upper left quadrant and left lower chest pain. Continue to trend troponins. Her EKG demonstrated sinus tachycardia with supraventricular bigeminy, some T-wave inversions in V1 through V3 and III, which were unchanged from prior. Concern for demand ischemia in the setting of sepsis. Follow up the blood cultures, urine culture. She is status post 2.25 L sepsis fluid bolus, but overall I am concerned that she has been gaining weight, has evidence of anasarca on exam, has a history of diastolic dysfunction and cirrhosis. I am holding off on any additional IV fluids and could likely benefit from reinitiation of her diuretics if sepsis and blood pressures were stable in the next 24 hours. Consideration to get a paracentesis though after she has gotten the broad-spectrum antibiotics, the yield of culture would certainly be less, but if her abdominal pain continues, we could still investigate PMN counts as a potential marker for spontaneous bacterial peritonitis. . Continue her amitriptyline. I have increased her lactulose to 15 t.i.d. rather than b.i.d. until we can clarify the dose and we should titrate to her about 3 soft bowel movements a day, which is not clear she has been doing, and continue rifaximin 550 mg p.o. b.i.d. and we will start her simethicone. For her diabetes mellitus, I will continue her Lantus in the morning. Blood sugars have been stable so far and put her on sliding scale insulin. She is a full code. Daughter, Rosey Chawla, and her son, Kyler Atkinson, are medical surrogates. [id number] #: [id number] MTDAris
[2018-03-08] MEDS: Sulfamethox/Trimethoprim DS 800/160* TAB PO SCH ×2 (13:28→20:37)
[2018-03-08] MEDS ORDERED: Levofloxacin 750 MG IVPREMIX(* 750 MG/150 ML BAG IVPB SCH (20:00)
[2018-03-08] MEDS ORDERED: Lidocaine Patch REMOVE* 1 NOTE MISC PATCH OFF SCH (21:00)
[2018-03-08] MEDS ORDERED: Amitriptyline TAB* 10 MG PO SCH (21:00)
[2018-03-09] MEDS: Heparin VIAL(*) 5000 UNITS/ML VIAL (FIVE THOUSAND) SUBCUT SCH ×2 (05:23→12:50)
[2018-03-09 06:11] LABS: ABS Basophils 0.1 10^3/ul (0-0.2); ABS Eosinophils 0.3 10^3/ul (0-0.6); ABS Lymphocytes 0.9 10^3/ul (1.0-4.8); ABS Monocytes 0.6 10^3/ul (0-0.8); ABS Neutrophils 2.4 10^3/ul (1.5-7.7); ABS Nucleated RBC 0 10^3/ul; Hematocrit 24 % (35-47); Lymphocyte % 21.7 % (25-47); Mean Corpuscular HGB Conc 33 g/dl (31-36); Mean Corpuscular Hemoglobin 29 pg (27-31); Mean Corpuscular Volume 87 fL (80-97); Mean Platelet Volume 8.2 um3 (7.4-10.4); Nucleated Red Blood Cells % 0; Platelet Count 157 10^3/ul (150-450); Red Blood Count 2.79 10^6/ul (4.00-5.40); Red Cell Distribution Width 21 % (10.5-15); White Blood Count 4.2 10^3/ul (3.5-10.8)
[2018-03-09 06:28] LABS: EGFR Non-African American 64.2 (>60)
[2018-03-09] MEDS ORDERED: Insulin GLARGINE(*) 1 UNITS UNIT SUBCUT SCH (07:30)
[2018-03-09] MEDS: Lidocaine PATCH 5%* 1 PATCH TRANSDERM SCH (07:32)
[2018-03-09] MEDS: Gabapentin CAP(*) 300 MG PO SCH ×2 (07:32→12:48)
[2018-03-09] MEDS: Omeprazole CAP* 20 MG PO SCH (07:32)
[2018-03-09] MEDS: Lactulose* 15 ML UDC PO SCH ×2 (07:32→12:50)
[2018-03-09] MEDS: Lactobacillus Acidophilus* 1 TAB PO SCH (07:32)
[2018-03-09] MEDS: Sulfamethox/Trimethoprim DS 800/160* TAB PO SCH (07:33)
[2018-03-09] MEDS: Simethicone TAB* 80 MG TAB.CHEW PO SCH ×2 (07:33→12:48)
[2018-03-09] MEDS: Insulin LISPRO* 1 UNITS UNIT SUBCUT SCH ×2 (08:43→12:48)
[2018-03-09] MEDS: RiFAXimin* 550 MG TAB PO SCH (08:44)
--- NOTE | 2018-03-09 08:47 | PN ---
Subjective Date of Service: 03/09/18 Interval History: patient reports that she is feeling better. Denies chest pain or shortness of breath. reports diffuse abd pain, unchanged from chronic abd pain. afebrile over night. ambulating with assist. Patient with open are to left great toe, no surrounding erythema, no drainage. small blister also noted to the base of the left great toe. Family History: Unchanged from Admission Social History: Unchanged from Admission Past Medical History: Unchanged from Admission Objective Active Medications: Amitriptyline HCl (Elavil Tab*) 10 mg PO BEDTIME [facility] Last Admin: 03/08/18 20:37 Dose: 10 mg Dextrose (D50w Syringe 50 Ml*) 12.5 gm IV PUSH .FOR FS < 60 - SS PRN PRN Reason: FS < 60 Gabapentin (Neurontin Cap(*)) 300 mg PO TID [facility] Last Admin: 03/09/18 07:32 Dose: 300 mg Heparin Sodium (Porcine) (Heparin Vial(*)) 5,000 units SUBCUT Q8HR [facility] Last Admin: 03/09/18 05:23 Dose: 5,000 units Insulin Glargine (Lantus(*)) 20 units SUBCUT Q24H [facility] Insulin Human Lispro (Humalog*) 0 units SUBCUT ACHS [facility]; Protocol Last Admin: 03/08/18 20:42 Dose: 3 units Lactobacillus Rhamnosus (Lactobacillus Acidophilus*) 1 tab PO BID [facility] Last Admin: 03/09/18 07:32 Dose: 1 tab Lactulose (Lactulose*) 15 ml PO TID [facility] Last Admin: 03/09/18 07:32 Dose: 15 ml Lidocaine (Lidoderm 5% Patch*) 1 patch TRANSDERM QAM [facility] Last Admin: 03/09/18 07:32 Dose: 1 patch Omeprazole (Prilosec Cap*) 40 mg PO DAILY [facility] Last Admin: 03/09/18 07:32 Dose: 40 mg Pharmacy Profile Note (Lidocaine Patch Remove*) 1 note PATCH OFF 2100 [facility] Last Admin: 03/08/18 20:49 Dose: 1 note Rifaximin (Xifaxan*) 550 mg PO BID [facility] Last Admin: 03/08/18 20:37 Dose: 550 mg Simethicone (Mylicon Tab*) 80 mg PO AC [facility] Last Admin: 03/09/18 07:33 Dose: 80 mg Throat Lozenges (Chloraseptic Alee*) 1 alee PO Q6H PRN PRN Reason: SORE THROAT Last Admin: 03/08/18 21:51 Dose: 1 alee Trimethoprim/Sulfamethoxazole (Bactrim Ds 800/160 Tab*) 1 tab PO BID [facility] Last Admin: 03/09/18 07:33 Dose: 1 tab Vital Signs - 8 hr 03/09/18 03/09/18 03/09/18 05:00 07:22 07:32 Temperature 98.4 F Pulse Rate 85 80 Respiratory 19 18 18 Rate Blood Pressure 119/40 122/72 (mmHg) O2 Sat by Pulse 94 Oximetry 03/09/18 07:44 Temperature Pulse Rate Respiratory 18 Rate Blood Pressure (mmHg) O2 Sat by Pulse 96 Oximetry Oxygen Devices in Use Now: None Appearance: appears comfortable resting in bed, no acute distress Eyes: No Scleral Icterus Ears/Nose/Mouth/Throat: Clear Oropharnyx, Mucous Membranes Moist Neck: NL Appearance and Movements; NL JVP, Trachea Midline Respiratory: Symmetrical Chest Expansion and Respiratory Effort, Clear to Auscultation Cardiovascular: NL Sounds; No Murmurs; No JVD, No Edema Abdominal: NL Sounds; No Tenderness; No Distention Extremities: - - + 3 pitting edema to bilat lower legs Skin: No Rash or Ulcers, - - left great toe with open area, no surrounding erythema, small blister noted to the base of the left great toe, no drainage. Neurological: Alert and Oriented x 3 Nutrition: Taking PO's Result Diagrams: 03/09/18 05:16 03/09/18 05:16 Additional Lab and Data: Lab Results 03/07/18 03/07/18 03/07/18 Range/Units 20:14 20:14 20:14 WBC 6.0 (3.5-10.8) 10^3/ul RBC 2.99 L (4.00-5.40) 10^6/ul Hgb 8.5 L (12.0-16.0) g/dl Hct 26 L (35-47) % MCV 85 (80-97) fL MCH 28 (27-31) pg MCHC 33 (31-36) g/dl RDW 21 H (10.5-15) % Plt Count 167 (150-450) 10^3/ul MPV 8.2 (7.4-10.4) um3 Neut % (Auto) 76.0 (38-83) % Lymph % (Auto) 10.4 L (25-47) % Cobb % (Auto) 10.0 H (0-7) % Eos % (Auto) 2.9 (0-6) % Baso % (Auto) 0.7 (0-2) % Absolute Neuts (auto) 4.6 (1.5-7.7) 10^3/ul Absolute Lymphs (auto) 0.6 L (1.0-4.8) 10^3/ul Absolute Monos (auto) 0.6 (0-0.8) 10^3/ul Absolute Eos (auto) 0.2 (0-0.6) 10^3/ul Absolute Basos (auto) 0 (0-0.2) 10^3/ul Absolute Nucleated RBC 0 10^3/ul Nucleated RBC % 0 INR (Anticoag Therapy) 1.29 H (0.77-1.02) APTT 33.2 (26.0-36.3) seconds Sodium 137 (135-145) mmol/L Potassium 3.8 (3.5-5.0) mmol/L Chloride 109 (101-111) mmol/L Carbon Dioxide 23 (22-32) mmol/L Anion Gap 5 (2-11) mmol/L BUN 11 (6-24) mg/dL Creatinine 0.91 (0.51-0.95) mg/dL Est GFR ( Amer) 72.7 (>60) Est GFR (Non-Af Amer) 60.1 (>60) BUN/Creatinine Ratio 12.1 (8-20) Glucose 143 H (70-100) mg/dL Lactic Acid (0.5-2.0) mmol/L Calcium 7.7 L (8.6-10.3) mg/dL Total Bilirubin 1.90 H (0.2-1.0) mg/dL AST 37 (13-39) U/L ALT 17 (7-52) U/L Alkaline Phosphatase 165 H (34-104) U/L Ammonia (16-53) mcmol/L Troponin I 0.13 H* (<0.04) ng/mL Total Protein 5.2 L (6.4-8.9) g/dL Albumin 2.3 L (3.2-5.2) g/dL Globulin 2.9 (2-4) g/dL Albumin/Globulin Ratio 0.8 L (1-3) 03/07/18 03/07/18 Range/Units 20:14 20:18 WBC (3.5-10.8) 10^3/ul RBC (4.00-5.40) 10^6/ul Hgb (12.0-16.0) g/dl Hct (35-47) % MCV (80-97) fL MCH (27-31) pg MCHC (31-36) g/dl RDW (10.5-15) % Plt Count (150-450) 10^3/ul MPV (7.4-10.4) um3 Neut % (Auto) (38-83) % Lymph % (Auto) (25-47) % Cobb % (Auto) (0-7) % Eos % (Auto) (0-6) % Baso % (Auto) (0-2) % Absolute Neuts (auto) (1.5-7.7) 10^3/ul Absolute Lymphs (auto) (1.0-4.8) 10^3/ul Absolute Monos (auto) (0-0.8) 10^3/ul Absolute Eos (auto) (0-0.6) 10^3/ul Absolute Basos (auto) (0-0.2) 10^3/ul Absolute Nucleated RBC 10^3/ul Nucleated RBC % INR (Anticoag Therapy) (0.77-1.02) APTT (26.0-36.3) seconds Sodium (135-145) mmol/L Potassium (3.5-5.0) mmol/L Chloride (101-111) mmol/L Carbon Dioxide (22-32) mmol/L Anion Gap (2-11) mmol/L BUN (6-24) mg/dL Creatinine (0.51-0.95) mg/dL Est GFR ( Amer) (>60) Est GFR (Non-Af Amer) (>60) BUN/Creatinine Ratio (8-20) Glucose (70-100) mg/dL Lactic Acid 2.0 (0.5-2.0) mmol/L Calcium (8.6-10.3) mg/dL Total Bilirubin (0.2-1.0) mg/dL AST (13-39) U/L ALT (7-52) U/L Alkaline Phosphatase (34-104) U/L Ammonia 86 H (16-53) mcmol/L Troponin I (<0.04) ng/mL Total Protein (6.4-8.9) g/dL Albumin (3.2-5.2) g/dL Globulin (2-4) g/dL Albumin/Globulin Ratio (1-3) Microbiology and Other Data: Microbiology 03/07/18 20:25 Aerobic Blood Culture - Preliminary Blood Venous No Growth Day 1 Anaerobic Blood Culture - Preliminary No Growth Day 1 03/07/18 20:14 Aerobic Blood Culture - Preliminary Blood Venous No Growth Day 1 Anaerobic Blood Culture - Preliminary No Growth Day 1 Assess/Plan/Problems-Billing Assessment: - Patient Problems (1) Sepsis Status: Acute Comment: - NO further fevers- since admission - SBP 122 - history of CHF and Cirrhosis with ascites, will continue with conservative fluid management strategy. - Concern for SBP vs UTI. Positive urine culture and hx of such - urine culture sensitivity pending- positive for e-coli, reports received that patient did not receive treatment for positive urine culture on 02/28 - suspect that urine is mostly likely the source. - diffuse abd pain no change from chronic abd pain. - Blood cultures- no growth 1 day - Urine positive for E coli - sens pending (2) UTI (urinary tract infection) Status: Acute Comment: - Febrile to 102.5 in ED, however has been afebrile today. - g - Given septic presentation of fever and soft BP without another source, as well as hx of recurrent UTIs- started levaquin on admission - urine culture from 02/28 resistent to levaquin and antibiotic changed to Bactrim PO yesterday based on 02/28 sensitivity (3) Abdominal pain Status: Acute Code(s): R10.9 - UNSPECIFIED ABDOMINAL PAIN SNOMED Code(s): 62611697 Comment: - h/o chronic abd pain and evaluation by GI in the past - Per patient, abdominal pain is around her baseline: generalized mild tenderness with "gas pain" under her left breast. Bowel sounds hyperactive. SBP less of a concern as UTI is most likely the source of her sepsis, however can re -investigate if patient does not improve with appropriate antibiotic therapy. - Continue simethicone [facility] and probiotic - CT unchanged from prior in 02/2018: Hepatic cirrhosis with borderline splenomegaly, moderate peritoneal ascites, distal colonic diverticulitis without diverticulosis - Abdominal U/S: Hepatic cirrhosis with portal hypertension. 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 Plt count improved since last admission - Pt has history of hepatic encephalopathy and reports episode of confusion prior to coming to the ED. Ammonia was 86 on admission. Pt reports missing a dose of lactulose, which was then given. Pt appears to be at baseline mental status today. Continue lactulose 15ml TID and titrate to 3 soft bowel movements per day as well as rifaximin. (5) Troponin level elevated Status: Acute Code(s): R74.8 - ABNORMAL LEVELS OF OTHER SERUM ENZYMES SNOMED Code(s): 616145403 Comment: - Has normalized. Likely demand ischemia in the setting of sepsis. (6) Anemia Status: Chronic Code(s): D64.9 - ANEMIA, UNSPECIFIED SNOMED Code(s): 379644931 Comment: - Iron deficiency anemia - lower than baseline - will continue to monitor - suspect this could be dilutional as the patient did recieve 2300 cc of NS in the ER but also most likely related to her CKD. (7) DVT prophylaxis Status: Acute Code(s): WCD6116 - SNOMED Code(s): 678655549 Comment: - Continue SQ heparin (8) Full code status Status: Acute Code(s): Z78.9 - OTHER SPECIFIED HEALTH STATUS SNOMED Code(s) : 564639169 Comment: (9) Diastolic CHF Status: Chronic Code(s): I50.30 - UNSPECIFIED DIASTOLIC (CONGESTIVE) HEART FAILURE SNOMED Code(s): 557886212 Comment: - Echo 08/2017 shows EF 55-60% - Pt does have bilateral leg edema as well as ascites (also due to cirrhosis) - Will give her a dose of lasix today and resume lasix as previously prescribed. Status and Disposition: Pt from [facility]. Anticipate discharge today
[2018-03-09] MEDS ORDERED: Furosemide TAB* 20 MG PO ONE (12:58)
[2018-03-09 13:08] VITALS: BP 118/70
--- NOTE | 2018-03-10 00:03 | DS ---
CC: Dr. Claudine Munoz * DISCHARGE SUMMARY: DATE OF ADMISSION: 03/08/18 DATE OF DISCHARGE: 03/09/18 PROVIDER: Shantal Espino NP ATTENDING PHYSICIAN: Dana Tuttle DO * (dictated by Shantal Espino NP). PRIMARY CARE PROVIDER: Claudine Munoz MD PRIMARY DIAGNOSES: 1. Urinary tract infection. 2. Sepsis. SECONDARY DIAGNOSES: 1. History of nonalcoholic liver cirrhosis. 2. Diastolic congestive heart failure. 3. Chronic kidney disease stage 3. 4. Iron deficiency anemia. 5. Insulin-dependent diabetes. STUDIES COMPLETED WHILE IN THE HOSPITAL: The patient had a chest x-ray on 03/07, radiologist's impression: Probable mild pulmonary vascular congestion. She had an abdominal ultrasound on 03/07/18, radiologist's impression: Hepatic cirrhosis with portal hypertension. No additional findings to correlate with patient's symptomatology. She had a CT of the abdomen and pelvis, radiologist' s impression: There was a little change from 02/28/18, subcutaneous edema, moderate peritoneal ascites, which may reflect generalized anasarca; however, there is hepatic cirrhosis with splenomegaly and ascites may be related to the cirrhosis. Status post cholecystectomy, hepatic cirrhosis, and borderline splenomegaly relative to the liver, distal colonic diverticulosis without diverticulitis. DISCHARGE MEDICATIONS: New medication: 1. Bactrim DS 1 tablet p.o. b.i.d. for 6 more days to stop on 03/15/18. Discontinued medications: 1. Discontinued rifaximin. Continued home medications: 1. Insulin Lantus 30 units subcutaneous at bedtime. 2. Gabapentin 300 mg p.o. t.i.d. 3. Furosemide 20 mg p.o. every other day. 4. Amitriptyline 10 mg p.o. at bedtime. 5. Lactulose 15 mL t.i.d., hold for stool more than 3 loose stools daily. 6. Lactobacillus 1 tablet p.o. b.i.d. 7. Lispro 20 units subcu with a.c. and h.s. 8. Omeprazole 40 mg p.o. daily. 9. Lidocaine patch 1 patch transdermally. 10. Simethicone 80 mg p.o. a.c. HISTORY OF PRESENT ILLNESS AND HOSPITAL COURSE: Ms. Atkinson is a 77-year-old female with a past medical history of nonalcoholic liver cirrhosis with portal hypertension, status post banding, chronic diastolic CHF, chronic kidney disease stage 3, iron deficiency anemia, insulin-dependent diabetes, GERD, uterine prolapse, and frequent urinary tract infection, status post mesh repair of her uterus and bladder prolapse, nephrolithiasis. She has currently been recuperating at [facility] after admission here on 02/19/18 to 02/25/18 where she was found to have ammonia level of 119, urinary tract infection with Staph epidermidis, treated with linezolid, and had needed a Graves for 2 days after for urinary retention. The patient presents now with complaints of feeling feverish, warm all over her abdomen, and then developed pain underneath her left breast and left upper quadrant of her abdomen and complained of some chest tightness. This happened approximately 4 p.m. on a day prior to her admission here at [facility]. She does report abdominal bloating gas and burping. She did present to the emergency room with a fever of 102.5 and elevated troponin of 0.13 and ammonia level of 86, hemoglobin of 8.5. CT of the abdomen and pelvis as noted above. She had an ultrasound as noted above. Her urinalysis was positive for 3+ nitrites, leukocyte esterase 3+, bacteria 3+, wbc's 3+. Her most recent urine culture on 02/28/18 showed E. coli , which was resistant to fluoroquinolones and tetracycline and Staph epidermidis from 02/19/18, which was treated with linezolid, resistant to ampicillin, sulbactam, penicillin, imipenem, cefazolin, and amoxicillin. She did meet SIRS criteria with an elevated heart rate to peak of 110 on admission and a fever of 102.5. Given these symptoms, the hospitalist team was asked to evaluate her and admit her for further evaluation. While in the hospital, she did initially receive Levaquin, which according to her most recent urinary culture is resistant to Levaquin and ciprofloxacin and she was also placed on vancomycin during this hospitalization. We did switch her to p.o. Bactrim the day prior to discharge. She was able to tolerate this medicine without any adverse reactions. She does continue to complain of diffuse abdominal pain, which is chronic for her, unchanged from her chronic abdominal pain. At this time, she is stable for discharge home. Ms. Atkinson will be discharged back to [facility]. Vital signs are as follows : Blood pressure 118/70, heart rate 72, respirations 18, O2 saturation 98.7. DISCHARGE PLAN: Ms. Atkinson will be discharged back to [facility]. ACTIVITY: As tolerated. She should continue PT/OT at [facility] as previously prescribed. DIET: She should continue on a consistent carb diet. 1. Urinary tract infection. I will place her on Bactrim DS, she will take 1 tablet 2 times a day for 6 more days, to be stopped on 03/15/18. She has been afebrile for over 24 hours and at this time she appears stable. 2. Diastolic congestive heart failure. She does have some lower extremity edema. I will continue her furosemide 20 mg p.o. every other day. The patient did receive 20 mg of Lasix today. 3. Abdominal pain. The patient has chronic abdominal pain and was evaluated by GI in the past. Her abdominal pain is around her baseline, generalized mild tenderness with gas pain up under her left breast. At this time, SBP is less likely a concern as UTI is most likely the source of her sepsis and the patient continues to improve with current antibiotic therapy. 4. Elevated troponin. I did suspect with her elevation in troponin was likely related to demand ischemia in the setting of sepsis. It has normalized since admission. She has no further episodes of chest pain. Her EKG was similar to prior EKGs on admission without any change. 5. Anemia. She does have iron deficiency anemia as lower than baseline. We will continue to monitor. I suspect this could be related to dilutional as she did receive 2300 cc of normal saline in the emergency room and also most likely related to her chronic kidney disease. I would recommend a repeat CBC in 1 week for further monitoring. FOLLOWUP: The patient should follow up with her primary care provider in 1 to 2 weeks. She should have a repeat CBC in 1 week. The patient was instructed to return to emergency room for any increased shortness of breath, chest pain, or any worsening of her symptoms, fever, chills , nausea, vomiting, or any other concerning symptoms. This is a summarization of her hospitalization. For further details, please obtain the entire medical record. TIME SPENT: Time spent on this discharge was approximately 60 minutes, greater than half that time was spent with the patient discussing discharge plans and instructions. CONDITION ON DISCHARGE: Stable. SHANTAL ESPINO, PLANNING ENGINEER [id number]/[facility] #: [id number] [facility] CENTERAris
[2018-03-11] MEDS ORDERED: Furosemide TAB* 20 MG PO SCH (09:00)
== END 2018-03-09 15:20 | DRG 872 ==
LOC: ED 19:54 → MED 23:31
PROVIDERS: ADMIT Internal Medicine; ATTEND Internal Medicine
DX: A41.9 Sepsis, unspecified organism (principal); N39.0 Urinary tract infection, site not specified; K76.6 Portal hypertension; R18.8 Other ascites; I50.32 Chronic diastolic (congestive) heart failure; I24.8 Other forms of acute ischemic heart disease; I13.0 Hypertensive heart and chronic kidney disease with heart failure and stage 1 through stage 4 chronic kidney disease, or unspecified chronic kidney disease; K74.69 Other cirrhosis of liver; N18.3 Chronic kidney disease, stage 3 (moderate); D50.9 Iron deficiency anemia, unspecified; R16.1 Splenomegaly, not elsewhere classified; K57.30 Diverticulosis of large intestine without perforation or abscess without bleeding; K21.9 Gastro-esophageal reflux disease without esophagitis; N81.4 Uterovaginal prolapse, unspecified; G89.29 Other chronic pain; X58.XXXA Exposure to other specified factors, initial encounter; S90.422A Blister (nonthermal), left great toe, initial encounter; K72.90 Hepatic failure, unspecified without coma; E11.22 Type 2 diabetes mellitus with diabetic chronic kidney disease; R00.0 Tachycardia, unspecified; E78.00 Pure hypercholesterolemia, unspecified; Z90.49 Acquired absence of other specified parts of digestive tract; Z85.828 Personal history of other malignant neoplasm of skin; Z82.49 Family history of ischemic heart disease and other diseases of the circulatory system; Z88.1 Allergy status to other antibiotic agents; Z88.0 Allergy status to penicillin; Z88.5 Allergy status to narcotic agent; Z91.040 Latex allergy status; Z79.4 Long term (current) use of insulin; Z87.440 Personal history of urinary (tract) infections; Z87.442 Personal history of urinary calculi; Y92.9 Unspecified place or not applicable
CPT/HCPCS: 36415; 71045; 74177; 76705; 80048; 80053; 81003; 81015; 82140; 83605; 83880; 84145; 84484; 85025; 85610; 85730; 87040; 87077; 87086; 87186; 93005; 99283; A9270-GY; J1644; J3370; Q9967

== ENCOUNTER 2018-03-16 18:31 | Emergency (ER) | payer MEDICARE ==
--- NOTE | 2018-03-16 19:46 | ED ---
Abdominal Pain/Female - HPI Summary HPI Summary: Pt is 77 y/o F who presents to ED c/o LLQ pain since 0800 this morning. She rates her pain as 9/10 in severity and describes it as sharp. Movement exacerbates the pain. Notes that shes been taking laxatives for 3 days and has been having diarrhea. Denies vomiting, nausea, or back pain. She saw her sculpture conservator yesterday and is scheduled for colonoscopy and endoscopy, and needs to make an appointment to aspirate. PMHx of cirrhosis of the liver. - History of Current Complaint Chief Complaint: EDAbdPain Stated Complaint: ABD PAIN Time Seen by Provider: 03/16/18 19:25 Hx Obtained From: Patient Onset/Duration: Lasting Hours, Still Present Severity Currently: Severe Pain Intensity: 9 Pain Scale Used: 0-10 Numeric Location: Discrete At: LLQ Character: Sharp Aggravating Factor(s): Movement Associated Signs and Symptoms: Positive: Diarrhea. Negative: Back Pain, Nausea , Vomiting Allergies/Adverse Reactions: Allergies Allergy/AdvReac Type Severity Reaction Status Date / Time Adhesive Tape Allergy Mild Hives Verified 01/29/18 09:52 cephalexin [From Keflex] Allergy Mild Hives Verified 01/29/18 09:52 codeine Allergy Mild Hives Verified 01/29/18 09:52 hydrochlorothiazide Allergy Mild Hives Verified 01/29/18 09:52 carvedilol Allergy Facial Verified 01/29/18 09:52 Redness/Flushing doxycycline Allergy Diarrhea Verified 01/29/18 09:52 hydrocodone Allergy Hives Verified 01/29/18 09:52 hydromorphone [From Dilaudid] Allergy Unknown Verified 01/29/18 09:52 Reaction Details Latex, Natural Rubber Allergy Hives Verified 01/29/18 09:52 morphine Allergy Rash Verified 01/29/18 09:52 nitrofurantoin Allergy Nausea And Verified 01/29/18 09:52 Vomiting ondansetron Allergy Rash Verified 01/29/18 09:52 oxycodone Allergy Hives Verified 01/29/18 09:52 Penicillins Allergy Hives Verified 01/29/18 09:52 Vbjeiyg-Ese-Gta Reductase Allergy Hives Verified 01/29/18 09:52 Inhibitor tramadol Allergy Unknown Verified 01/29/18 09:52 Reaction Details PMH/Surg Hx/FS Hx/Imm Hx Endocrine/Hematology History: Reports: Hx Blood Disorders - iron deficiency anemia, Hx Diabetes Denies: Hx Systemic Lupus Erythematosus, Hx Thyroid Disease Cardiovascular History: Reports: Hx Angina, Hx Congestive Heart Failure - diastolic, EF 55-60%, Hx Hypercholesterolemia, Hx Hypertension, Other Cardiovascular Problems/Disorders - IRREGULAR HEART BEAT Denies: Hx Pacemaker/ICD Respiratory History: Denies: Hx Asthma, Hx Chronic Obstructive Pulmonary Disease (COPD) GI History: Reports: Hx Cirrhosis, Hx Diverticulosis, Hx Gastroesophageal Reflux Disease Denies: Hx Ulcer Comment Only: Other GI Disorders - Mesh repair uterus/bladder History: Reports: Hx Kidney Stones, Other Problems/Disorders - Uterine prolapse, mesh repair bladder Denies: Hx Dialysis, Hx Renal Disease Musculoskeletal History: Reports: Hx Arthritis, Other Musculoskeletal History - arthritis and disc problems Denies: Hx Rheumatoid Arthritis, Hx Osteoporosis Sensory History: Reports: Hx Contacts or Glasses Denies: Hx Cataracts, Hx Legally Blind, Hx Deafness, Hx Hearing Aid Opthamlomology History: Reports: Hx Contacts or Glasses Denies: Hx Cataracts, Hx Legally Blind Psychiatric History: Denies: Hx Panic Disorder, Hx Schizophrenia - Cancer History Cancer Type, Location and Year: 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 VARICOSE VEINS X 3;. RTC REPAIR RIGHT SHOULDER X 2, LEFT SHOULDER X 1;. CHOLECYSECTOMY;. Mesh repair of the uterus/bladder. BLADDER MESH;. SKIN CARCINOMA REMOVED LEFT TEMPORAL REGION Hx Anesthesia Reactions: No - Immunization History Date of Tetanus Vaccine: unk Date of Influenza Vaccine: fall 2017 Infectious Disease History: No Infectious Disease History: Reports: Hx Hepatitis - as a child Denies: Hx Clostridium Difficile, Hx Human Immunodeficiency Virus (HIV), Hx of Known/Suspected MRSA, Hx Shingles, Hx Tuberculosis, Hx Known/Suspected VRE, Hx Known/Suspected VRSA, History Other Infectious Disease, Traveled Outside the [place] in Last 30 Days - Family History Known Family History: Positive: Hypertension Family History: Reviewed and noncontributory - Social History Alcohol Use: None Hx Substance Use: No Substance Use Type: Reports: None Hx Tobacco Use: No Smoking Status (MU): Never Smoked Tobacco Have You Smoked in the Last Year: No Review of Systems Positive: Abdominal Pain - LLQ, Other - Diarrhea. Negative: Vomiting, Nausea Positive: Other - NEGATIVE: back pain All Other Systems Reviewed And Are Negative: Yes Physical Exam - Summary Physical Exam Summary: VITAL SIGNS: Reviewed. GENERAL: Patient is a well-developed and nourished female who is lying comfortable in the stretcher. Patient is not in any acute respiratory distress. HEAD AND FACE: No signs of trauma. No ecchymosis, hematomas or skull depressions. No sinus tenderness. EYES: PERRLA, EOMI x 2, No injected conjunctiva, no nystagmus. EARS: Hearing grossly intact. Ear canals and tympanic membranes are within normal limits. MOUTH: Oropharynx within normal limits. NECK: Supple, trachea is midline, no adenopathy, no JVD, no carotid bruit, no c- spine tenderness, neck with full ROM. CHEST: Symmetric, no tenderness at palpation LUNGS: Clear to auscultation bilaterally. No wheezing or crackles. CVS: Regular rate and rhythm, S1 and S2 present, no murmurs or gallops appreciated ABDOMEN: Soft, non-tender. No signs of distention. No rebound no guarding, and no masses palpated. Bowel sounds are normal. EXTREMITIES: Bilateral lower extremity edema 2+, FROM in all major joints, no cyanosis or clubbing. NEURO: Alert and oriented x 3. No acute neurological deficits. Speech is normal and follows commands. SKIN: Dry and warm Triage Information Reviewed: Yes Vital Signs On Initial Exam: Initial Vitals Temp Pulse Resp BP Pulse Ox 99.2 F 78 22 155/60 94 03/16/18 18:44 10 18:44 03/16/18 18:44 03/16/18 18:44 03/16/18 18:44 Vital Signs Reviewed: Yes Diagnostics - Vital Signs Vital Signs Temp Pulse Resp BP Pulse Ox 03/16/18 19:38 71 30 141/61 95 03/16/18 19:32 73 22 94 03/16/18 18:44 99.2 F 78 22 155/60 94 - Laboratory Result Diagrams: 03/16/18 19:59 03/16/18 19:59 Lab Statement: Any lab studies that have been ordered have been reviewed, and results considered in the medical decision making process. - CT CT Abd/Pel CT Interpretation Completed By: Radiologist - IMPRESSION: 1. Persistent moderate to large amount of probable cirrhotic ascites. 2. Fatty and cirrhotic appearing liver. 3. Small to moderate left pleural effusion with atelectasis. 4. Wall thickening of small bowel loops. Some of this may be reaction to adjacent ascites and some could be enteritis. Suspect ileus without definite obstruction. Fluid in the rectum consistent with diarrhea. 5. Incomplete distention versus underlying inflammation, or other infiltrative pathology, with possible wall thickening of the stomach. 6. Distended urinary bladder. 7. Unchanged pelvic floor prolapse. 8. Anasarca. 9. No other acute disease seen. ED Physician reviewed this report. Abdominal Pain Fem Course/Dx - Course Course Of Treatment: Pt is 77 y/o F who presents to ED c/o LLQ pain since 0800 this morning. She rates her pain as 9/10 in severity and describes it as sharp. Denies vomiting, nausea, or back pain. PMHx of cirrhosis of the liver. Physical exam revealed bilateral lower extremity edema +2. CT Abd/Pel showed persistent moderate to large amount of probable cirrhotic ascites, fatty and cirrhotic appearing liver, small to moderate left pleural effusion with atelectasis, wall thickening of small bowel loops, and fluid in the rectum consistent with diarrhea. Bloodwork is at her baseline, but pt CRP is much lower than CRP she had in February. Pt diagnosed with liver cirrhosis, ascites, and abdominal pain and discharged home. Pt is agreeable with this plan. - Diagnoses Provider Diagnoses: Abdominal pain, Liver cirrhosis, Ascites Discharge - Sign-Out/Discharge Documenting (check all that apply): Patient Departure - Discharge - Discharge Plan Condition: Stable Disposition: HOME Patient Education Materials: Cirrhosis (ED), Acute Abdominal Pain (ED) Referrals: Claudine Munoz MD [Primary Care Provider] - 2 Days Additional Instructions: RETURN TO THE EMERGENCY DEPARTMENT FOR CHANGING OR WORSENING SYMPTOMS. FOLLOW UP WITH PCP IN 1-2 DAYS. - Attestation Statements Document Initiated by Scribe: Yes Documenting Scribe: Kassandra Zimmerman Provider For Whom Srinath is Documenting (Include Credential): Dr. Manjit Love MD Scribe Attestation: Kassandra Duong, scribed for Dr. Manjit Love MD on 03/16/18 at 3815.
[2018-03-16 20:11] LABS: ABS Basophils 0 10^3/ul (0-0.2); ABS Eosinophils 0 10^3/ul (0-0.6); ABS Lymphocytes 0.8 10^3/ul (1.0-4.8); ABS Monocytes 0.4 10^3/ul (0-0.8); ABS Neutrophils 3.5 10^3/ul (1.5-7.7); ABS Nucleated RBC 0 10^3/ul; Eosinophil % 0.2 % (0-6); Hematocrit 25 % (35-47); Lymphocyte % 17.1 % (25-47); Mean Corpuscular HGB Conc 32 g/dl (31-36); Mean Corpuscular Hemoglobin 27 pg (27-31); Mean Corpuscular Volume 86 fL (80-97); Mean Platelet Volume 8.3 um3 (7.4-10.4); Nucleated Red Blood Cells % 0.1; Platelet Count 135 10^3/ul (150-450); Red Blood Count 2.93 10^6/ul (4.00-5.40); Red Cell Distribution Width 22 % (10.5-15); White Blood Count 4.7 10^3/ul (3.5-10.8)
[2018-03-16 20:18] LABS: INR 1.3 (0.77-1.02)
[2018-03-16 20:27] LABS: EGFR Non-African American 56.5 (>60)
[2018-03-16] MEDS ORDERED: Iodixanol* (CONTRAST) 320 MG/ML 100 ML SDV IV ONE (20:32)
--- NOTE | 2018-03-16 22:02 | RAD ---
EXAM: CT Abdomen and Pelvis With Intravenous Contrast CLINICAL HISTORY: 77 years old, female; Pain; Abdominal pain; Prior surgery; Surgery date: 6+ months; Surgery type: Prolapsed uterus with mesh repair; Additional info: Left sided lower abd pain TECHNIQUE: Axial computed tomography images of the abdomen and pelvis with intravenous contrast. All CT scans at this facility use at least one of these dose optimization techniques: automated exposure control; mA and/or kV adjustment per patient size (includes targeted exams where dose is matched to clinical indication); or iterative reconstruction. Coronal and sagittal reformatted images were created and reviewed. CONTRAST: 91 mL of VISIPAQUE 320 administered intravenously. COMPARISON: A/P W CT ABD/PEL W 03/07/2018 11:24 PM FINDINGS: Lung bases: See below. Pleural space: Small to moderate left pleural effusion with atelectasis. ABDOMEN: Liver: Persistent moderate to large amount of probable cirrhotic ascites. Fatty and cirrhotic appearing liver. Gallbladder and bile ducts: Unremarkable. No calcified stones. No ductal dilation. Pancreas: Unremarkable. No mass. No ductal dilation. Spleen: Mildly enlarged spleen. Adrenals: Unremarkable. No mass. Kidneys and ureters: Unremarkable. No solid mass. No hydronephrosis. Stomach and bowel: Incomplete distension versus underlying inflammation, or other infiltrative pathology, with possible wall thickening of the stomach. PELVIS: Appendix: No findings to suggest acute appendicitis. Bladder: Distended urinary bladder. Reproductive: Unremarkable as visualized. ABDOMEN and PELVIS: Intraperitoneal space: Wall thickening of small bowel loops. Some of this may be reaction to adjacent ascites and some could be enteritis. Suspect ileus without definite obstruction. Bones/joints: Moderate to severe skeletal degenerative change. No acute fracture. No dislocation. Soft tissues: Anasarca. Vasculature: Extensive atherosclerosis. No abdominal aortic aneurysm. Lymph nodes: Unremarkable. No enlarged lymph nodes. Other findings: Unchanged pelvic floor prolapse. No other acute disease seen. As above. IMPRESSION: 1. Persistent moderate to large amount of probable cirrhotic ascites. 2. Fatty and cirrhotic appearing liver. 3. Small to moderate left pleural effusion with atelectasis. 4. Wall thickening of small bowel loops. Some of this may be reaction to adjacent ascites and some could be enteritis. Suspect ileus without definite obstruction. Fluid in the rectum consistent with diarrhea and 5. Incomplete distension versus underlying inflammation, or other infiltrative pathology, with possible wall thickening of the stomach. 6. Distended urinary bladder. 7. Unchanged pelvic floor prolapse. 8. Anasarca. 9. No other acute disease seen. As above. . To contact [facility] with a general question: Operations Center - [phone] For direct physician to physician contact: Physician Hotline - [phone] [facility] ([facility] Facility ID #[id number])
[2018-03-16 22:15] LABS: Urine Appearance Cloudy; Urine Blood Negative (Negative); Urine Color Yellow; Urine Ketones Negative (Negative); Urine Protein Negative (Negative); Urine Specific Gravity 1.011 (1.010-1.030); Urine Urobilinogen Negative (Negative)
[2018-03-16] MEDS ORDERED: Al Hydrox/Mg Hydrox/Simet LIQ* 30 ML UDC PO ONE (22:36)
[2018-03-16 23:43] VITALS: BP 141/62
== END 2018-03-16 23:42 | disposition home or self-care (01) ==
LOC: ED 18:31
DX: R10.32 Left lower quadrant pain (principal); R18.8 Other ascites; K74.60 Unspecified cirrhosis of liver; J90 Pleural effusion, not elsewhere classified; Z90.49 Acquired absence of other specified parts of digestive tract; Z88.1 Allergy status to other antibiotic agents; Z91.040 Latex allergy status; Z88.5 Allergy status to narcotic agent; Z88.0 Allergy status to penicillin; Z88.8 Allergy status to other drugs, medicaments and biological substances; Z91.048 Other nonmedicinal substance allergy status
CPT/HCPCS: 36415; 74177; 80053; 81003; 82150; 83605; 83690; 83735; 85025; 85610; 85730; 86140; 99284; A9270-GY; Q9967

== ENCOUNTER 2018-04-13 18:17 | Inpatient (IN) | payer MEDICARE ==
--- NOTE | 2018-04-13 18:46 | ED ---
Shortness of Breath - HPI Summary HPI Summary: This patient is a 77 year old F presenting to [facility] accompanied by her daughter with a chief complaint of SOB since 04/06/18, along with a general steady decline in quality of life. Pt lives in a [place] [facility]. PMHx DM. PMHx numerous drug allergies. PMHx cirrhosis. Pt had blood work done yesterday at the [place] [facility]. Her daughter shows a desire for palliative care. - History of Current Complaint Chief Complaint: EDGeneral Time Seen by Provider: 04/13/18 18:39 Hx Obtained From: Patient, Family/Flight Tower Dispatcher Onset/Duration: Gradual Onset, Lasting Weeks, Still Present, Worse Since - constantly worsening Timing: Constant Current Severity: Moderate Dyspnea At: Rest Aggrevating Factors: Nothing Alleviating Factors: Nothing Related History: Healthcare Acquired Pneumonia: Lives In [facility] - Allergy/Home Medications Allergies/Adverse Reactions: Allergies Allergy/AdvReac Type Severity Reaction Status Date / Time Adhesive Tape Allergy Mild Hives Verified 01/29/18 09:52 cephalexin [From Keflex] Allergy Mild Hives Verified 01/29/18 09:52 codeine Allergy Mild Hives Verified 01/29/18 09:52 hydrochlorothiazide Allergy Mild Hives Verified 01/29/18 09:52 carvedilol Allergy Facial Verified 01/29/18 09:52 Redness/Flushing doxycycline Allergy Diarrhea Verified 01/29/18 09:52 hydrocodone Allergy Hives Verified 01/29/18 09:52 hydromorphone [From Dilaudid] Allergy Unknown Verified 01/29/18 09:52 Reaction Details Latex, Natural Rubber Allergy Hives Verified 01/29/18 09:52 morphine Allergy Rash Verified 01/29/18 09:52 nitrofurantoin Allergy Nausea And Verified 01/29/18 09:52 Vomiting ondansetron Allergy Rash Verified 01/29/18 09:52 oxycodone Allergy Hives Verified 01/29/18 09:52 Penicillins Allergy Hives Verified 01/29/18 09:52 Qhaiscm-Ges-Ctv Reductase Allergy Hives Verified 01/29/18 09:52 Inhibitor tramadol Allergy Unknown Verified 01/29/18 09:52 Reaction Details PMH/Surg Hx/FS Hx/Imm Hx Endocrine/Hematology History: Reports: Hx Blood Disorders - iron deficiency anemia, Hx Diabetes Denies: Hx Systemic Lupus Erythematosus, Hx Thyroid Disease Cardiovascular History: Reports: Hx Angina, Hx Congestive Heart Failure - diastolic, EF 55-60%, Hx Hypercholesterolemia, Hx Hypertension, Other Cardiovascular Problems/Disorders - IRREGULAR HEART BEAT Denies: Hx Pacemaker/ICD Respiratory History: Denies: Hx Asthma, Hx Chronic Obstructive Pulmonary Disease (COPD) GI History: Reports: Hx Cirrhosis, Hx Diverticulosis, Hx Gastroesophageal Reflux Disease Denies: Hx Ulcer Comment Only: Other GI Disorders - Mesh repair uterus/bladder History: Reports: Hx Kidney Stones, Other Problems/Disorders - Uterine prolapse, mesh repair bladder Denies: Hx Dialysis, Hx Renal Disease Musculoskeletal History: Reports: Hx Arthritis, Other Musculoskeletal History - arthritis and disc problems Denies: Hx Rheumatoid Arthritis, Hx Osteoporosis Sensory History: Reports: Hx Contacts or Glasses Denies: Hx Cataracts, Hx Legally Blind, Hx Deafness, Hx Hearing Aid Opthamlomology History: Reports: Hx Contacts or Glasses Denies: Hx Cataracts, Hx Legally Blind Psychiatric History: Denies: Hx Panic Disorder, Hx Schizophrenia - Cancer History Cancer Type, Location and Year: 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 VARICOSE VEINS X 3;. RTC REPAIR RIGHT SHOULDER X 2, LEFT SHOULDER X 1;. CHOLECYSECTOMY;. Mesh repair of the uterus/bladder. BLADDER MESH;. SKIN CARCINOMA REMOVED LEFT TEMPORAL REGION Hx Anesthesia Reactions: No - Immunization History Date of Tetanus Vaccine: unk Date of Influenza Vaccine: fall 2017 Infectious Disease History: No Infectious Disease History: Reports: Hx Hepatitis - as a child Denies: Hx Clostridium Difficile, Hx Human Immunodeficiency Virus (HIV), Hx of Known/Suspected MRSA, Hx Shingles, Hx Tuberculosis, Hx Known/Suspected VRE, Hx Known/Suspected VRSA, History Other Infectious Disease, Traveled Outside the [place] in Last 30 Days - Family History Known Family History: Positive: Hypertension Family History: Reviewed and noncontributory - Social History Alcohol Use: None Hx Substance Use: No Substance Use Type: Reports: None Hx Tobacco Use: No Smoking Status (MU): Never Smoked Tobacco Have You Smoked in the Last Year: No Review of Systems Negative: Fever Positive: Shortness Of Breath All Other Systems Reviewed And Are Negative: Yes Physical Exam - Summary Physical Exam Summary: Appearance: The patient is well-nourished in no acute distress and in no acute pain. Skin: The skin is warm and dry and skin color reflects adequate perfusion. HEENT: The head is normocephalic and atraumatic. The pupils are equal and reactive. The conjunctivae are clear and without drainage. Nares are patent and without drainage. Mouth reveals dry mucous membranes and the throat is without erythema and exudate. The external ears are intact. The ear canals are patent and without drainage. The tympanic membranes are intact. Neck: The neck is supple with full range of motion and non-tender. There are no carotid bruits. There is no neck vein distension. Respiratory: Chest is non-tender. Lungs are clear to auscultation and breath sounds are symmetrical and equal. Pt is tachypnic Cardiovascular: Heart is regular rate and rhythm. There is no murmur or rub auscultated. There is no peripheral edema and pulses are symmetrical and equal. Abdomen: The abdomen is soft and non-tender. There are normal bowel sounds heard in all four quadrants and there is no organomegaly palpated. Musculoskeletal: There is no back tenderness noted. Extremities are non-tender with full range of motion. There is good capillary refill. There is no peripheral edema or calf tenderness elicited. Neurological: Patient is alert and oriented to person, place and time. The patient has symmetrical motor strength in all four extremities. Cranial nerves are grossly intact. Deep tendon reflexes are symmetrical and equal in all four extremities. Psychiatric: The patient has an appropriate affect and does not exhibit any anxiety or depression. Triage Information Reviewed: Yes Vital Signs On Initial Exam: Initial Vitals Temp Pulse Resp BP Pulse Ox 97.6 F 105 24 134/71 95 04/13/18 18:22 04/13/18 18:22 04/13/18 18:22 04/13/18 18:22 04/13/18 18:22 Vital Signs Reviewed: Yes Diagnostics - Vital Signs Vital Signs Temp Pulse Resp BP Pulse Ox 04/13/18 18:22 97.6 F 105 24 134/71 95 - Laboratory Lab Statement: Any lab studies that have been ordered have been reviewed, and results considered in the medical decision making process. Course/Dx - Course Course Of Treatment: Ms. Atkinson was brought into the emergency department by ambulance from the [place] [facility] for shortness of breath. She hasn't noticed forearm clearly specifying comfort measures only. Prior to any testing, I consulted with the hospitalist service and Dr. Nesbitt came and evaluated the patient. The decision was made to admit her for comfort care. - Diagnoses Provider Diagnoses: Need for comfort care - Physician Notifications Discussed Care of Patient With: Prema Nesbitt Time Discussed With Above Provider: 21:29 Instructed by Provider To: Other - accepts admission Discharge - Sign-Out/Discharge Documenting (check all that apply): Patient Departure - admit - Discharge Plan Condition: Guarded Disposition: ADMITTED TO [facility] - Billing Disposition and Condition Condition: GUARDED Disposition: Admitted to [facility] - Attestation Statements Document Initiated by Arronibe: Yes Documenting Scribe: Bjorn Mcknight Provider For Whom Scribe is Documenting (Include Credential): Dr. Joo Spears MD Scribe Attestation: Bjorn Duong scribed for Dr. Joo Spears MD on 04/14/18 at 1927. Scribe Documentation Reviewed: Yes Provider Attestation: The documentation as recorded by the Bjorn hsieh accurately reflects the service I personally performed and the decisions made by , Dr. Joo Spears MD
[2018-04-13] MEDS ORDERED: Acetaminophen ADULT LIQ* 650 MG/20.3 ML UDC PO PRN (21:32)
--- NOTE | 2018-04-14 00:11 | HP ---
CC: [facility] MEDICINE HISTORY AND PHYSICAL: DATE OF ADMISSION: 04/13/18 ATTENDING PHYSICIAN: Dr. Nesbitt * (dictation provided by Jeanine Murray, STEVEN). CHIEF COMPLAINT: Altered mental status, end-of-life care. HISTORY OF PRESENT ILLNESS: Ms. Atkinson is a 77-year-old female with a past medical history of nonalcoholic liver cirrhosis with portal hypertension, status post esophageal varices banding; chronic diastolic CHF; chronic kidney disease, stage 3; iron deficiency anemia, insulin-dependent diabetes, who presents today to the hospital with concern for altered mental status and need for comfort care. Ms. Atkinson is not able to offer much information and therefore history is obtained from the family and per the medical record. Per the report, Ms. Atkinson has been doing poorly for quite some time and she has been felt to be nearing the end of her life at [facility]. There have been multiple conversations undertaken with the family, the patient, and the care providers there regarding her wishes for goals of care. She recently signed a DNR/DNI MOLST form and at that point indicated that she did not wish to return to the hospital. As of note, the patient has had difficulty making a decision in this regard and has changed her mind frequently. The family visited her today and noted that she was even less responsive than usual. For some time now , she has had difficulties speaking due to generalized weakness. She is eating and drinking very poorly. Earlier this week, she was thought to have a urinary tract infection and antibiotics were started. After that, the following day on Sunday, she seemed more alert, but by the following day, she was back to very poor status. Family is aware and agree that she is at end of life as does that the patient. They are interested in obtaining comfort care here at the hospital and then consideration of returning to [facility] depending on the clinical course. The patient offers no complaint to me today and states "it is hard for me to talk." PAST MEDICAL HISTORY: 1. Nonalcoholic cirrhosis with portal hypertension, status post esophageal varices banding. 2. History of diastolic congestive heart failure. 3. Chronic kidney disease, stage 3. 4. Iron-deficiency anemia. 5. Insulin-dependent diabetes. MEDICATIONS OUTPATIENT: The medication list was not provided from [facility]. She was last here in our hospital in March, at which time she was on: 1. Gabapentin 300 mg p.o. t.i.d. 2. Amitriptyline 10 mg p.o. at bedtime. 3. Bactrim 800/160 one tab p.o. b.i.d. 4. Simethicone 80 mg p.o. q.a.c. 5. Omeprazole 40 mg p.o. daily. 6. Lidocaine patch, 1 patch transdermally q.a.m. 7. Lactulose 15 mL p.o. b.i.d. 8. Lispro insulin 20 units subcutaneous q.a.c. h.s. 9. Lantus insulin 30 units subcutaneously at bedtime. 10. Furosemide 20 mg p.o. every other day. 11. Chloraseptic lozenge, 1 lozenge p.o. q.6 hours p.r.n. I tried to call [facility] today but was unable to reach them to confirm her current medication list and we will need to review that with them and decide which are prudent to continue. ALLERGIES: Multiple allergies are ADHESIVE TAPE, CEPHALEXIN, CODEINE, HYDROCHLOROTHIAZIDE, CARVEDILOL, DOXYCYCLINE, HYDROCODONE, HYDROMORPHONE, LATEX , MORPHINE, NITROFURANTOIN, ONDANSETRON, OXYCODONE, PENICILLIN, STATINS, and TRAMADOL. FAMILY HISTORY: Noncontributory. SOCIAL HISTORY: No report of current alcohol, tobacco, or drug use. The patient lives at [facility]. Her daughter, Rosey, is healthcare proxy. REVIEW OF SYSTEMS: Unobtainable. PHYSICAL EXAMINATION GENERAL: Ms. Atkinson is lying in the bed. She does not appear to be in any acute distress and appears to be sleeping during my examination. She does awaken to voice and will answer very brief questions and states that it is hard for her to talk. She moves all extremities equally. VITAL SIGNS: Temperature 97, pulse rate 101, respiratory rate 26, O2 saturations 98% on 2 L nasal cannula, blood pressure 143/74. HEENT: There is no facial asymmetry. Extraocular movements are intact. LUNGS: Clear to auscultation bilaterally. HEART: S1, S2. No murmur, rub, or gallop and regular. ABDOMEN: Soft, nontender at this point. SKIN: Intact. LABORATORY DATA: None. IMPRESSION AND PLAN: Ms. Atkinson is a 77-year-old female with reaching end of life after complications related to non-alcoholic liver cirrhosis, diabetes, and chronic kidney disease, stage 3. Plans are for inpatient admission for comfort care. Expected length of stay to be greater than 2 days for the followin. Comfort care: Unfortunately, the patient has multiple medication allergies and therefore pain medications are going to be difficult to administer. I have spoken with the family at this point, they would only like to offer her Tylenol as she does appear comfortable at rest, but would consider trying morphine or other agent to see how she tolerates that. The patient could receive comfort care at [facility] and will need to continue discussions with the staff and family regarding the appropriate location to continue with comfort care for her. 2. Diabetes. I am not certain of her dose of insulin at [facility] and will therefore await confirmation of her medication list until starting insulin. Will check blood glucose in AM. 3. DVT prophylaxis. None. 4. Code status. DNR/DNI. TIME SPENT: Approximately 60 minutes was spent in the admission of this patient , more than half the time was spent with patient's family at the bedside reviewing the events leading up to this hospitalization, performing the physical examination, reviewing my plan of care. JEANINE MURRAY NP [id number]/CPS #: [id number] MTDD
[2018-04-14 00:54] VITALS: BP 126/62
[2018-04-14] MEDS ORDERED: Ondansetron ODT TAB* 4 MG ONE (02:17)
[2018-04-14] MEDS ORDERED: Gabapentin CAP(*) 300 MG PO SCH (09:00)
[2018-04-14] MEDS: Lidocaine PATCH 5%* 1 PATCH TRANSDERM SCH (09:45)
[2018-04-14] MEDS: Lactulose* 15 ML UDC PO SCH ×3 (10:31→19:39)
[2018-04-14] MEDS: Gabapentin CAP(*) 300 MG PO SCH (10:31)
--- NOTE | 2018-04-14 15:26 | PN ---
Subjective Date of Service: 04/14/18 Interval History: awake, very fragile and soft spoken. son and daughter in the room. appeared comfortable Past Medical History: Unchanged from Admission Objective Active Medications: Acetaminophen (Tylenol Adult Liq*) 650 mg PO Q6H PRN PRN Reason: PAIN Amitriptyline HCl (Elavil Tab*) 10 mg PO BEDTIME SAMANTHA Gabapentin (Neurontin Cap(*)) 300 mg PO DAILY [facility] Last Admin: 04/14/18 10:31 Dose: Not Given Lactulose (Lactulose*) 15 ml PO TID [facility] Last Admin: 04/14/18 13:21 Dose: Not Given Lidocaine (Lidoderm 5% Patch*) 1 patch TRANSDERM QAM [facility] Oxygen Devices in Use Now: Nasal Cannula Appearance: awake, confortable. laying in bed. 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 - At this time patient and family requesting palliative care. (2) Shortness of breath Current Visit: Yes Status: Acute Code(s): R06.02 - SHORTNESS OF BREATH SNOMED Code(s): 786129231 Comment: - secondary to her comorbid conditions. will implement palliative care measure
[2018-04-14] MEDS ORDERED: Ondansetron ODT TAB* 4 MG SL PRN (15:43)
[2018-04-14] MEDS ORDERED: fentaNYL PATCH 12 MCG/HR TRANSDERM SCH (16:00)
[2018-04-14] MEDS: fentaNYL Patch Check Q Shift 1 NOTE FOLLOW UP SCH (19:40)
[2018-04-14] MEDS: Amitriptyline TAB* 10 MG PO SCH (21:04)
[2018-04-14] MEDS: Morphine ORAL CONCENTRATE* 5 MG/0.25 ML ORAL.SYRIN SL PRN (21:04)
[2018-04-15] MEDS: fentaNYL Patch Check Q Shift 1 NOTE FOLLOW UP SCH ×2 (06:24→18:56)
[2018-04-15] MEDS: Gabapentin CAP(*) 300 MG PO SCH (08:15)
[2018-04-15] MEDS: Lactulose* 15 ML UDC PO SCH ×3 (08:15→22:03)
[2018-04-15] MEDS: Lidocaine PATCH 5%* 1 PATCH TRANSDERM SCH (10:43)
--- NOTE | 2018-04-15 16:47 | PN ---
Subjective Date of Service: 04/15/18 Interval History: Patient seen she is more obtunded today. Moaning. i did meet with the family at bedside. they are aware that her condition is deteriorated and now is comfortable on low dose of fentanyl patch. I will plan for discharge back to in am pending her clinical assessment in am Past Medical History: Unchanged from Admission Objective Active Medications: Acetaminophen (Tylenol Adult Liq*) 650 mg PO Q6H PRN PRN Reason: PAIN Amitriptyline HCl (Elavil Tab*) 10 mg PO BEDTIME [facility] Last Admin: 04/14/18 21:04 Dose: 10 mg Fentanyl (Duragesic Patch 12 Mcg/Hr *) 12 mcg TRANSDERM Q72H [facility] Last Admin: 04/14/18 15:58 Dose: 12 mcg Gabapentin (Neurontin Cap(*)) 300 mg PO DAILY [facility] Last Admin: 04/15/18 08:15 Dose: Not Given Lactulose (Lactulose*) 15 ml PO TID [facility] Last Admin: 04/15/18 13:24 Dose: Not Given Lidocaine (Lidoderm 5% Patch*) 1 patch TRANSDERM QAM [facility] Last Admin: 04/15/18 10:43 Dose: 1 patch Morphine Sulfate (Morphine Oral Concentrate*) 5 mg SL Q4H PRN PRN Reason: PAIN Last Admin: 04/14/18 21:04 Dose: 5 mg Ondansetron HCl (Zofran Odt Tab*) 4 mg SL Q6H PRN PRN Reason: NAUSEA/VOMITING Pharmacy Profile Note (Fentanyl Patch Check Q Shift) 1 note FOLLOW UP 0700, 1900 [facility] Last Admin: 04/15/18 06:24 Dose: 1 note Vital Signs - 8 hr 04/15/18 04/15/18 04/15/18 09:00 10:15 11:26 Respiratory 16 18 18 Rate Oxygen Devices in Use Now: Nasal Cannula Appearance: lethargic, arousable to tactile and painful stimuli but moan Eyes: No Scleral Icterus, - Ears/Nose/Mouth/Throat: NL Teeth, Lips, Gums Neck: NL Appearance and Movements; NL JVP Assess/Plan/Problems-Billing Assessment: 77 year old female with SOB history of cirrhosis.[place] [facility] [place] of her family due to decline of quality of life now worsened with SOB admitted for comfort care measure - Patient Problems (1) Cirrhosis Current Visit: No Status: Acute Comment: - 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 - At this time patient and family requesting palliative care. - Fentanyl patch 12 mcg and potential discharge in am (2) Shortness of breath Current Visit: Yes Status: Acute Code(s): R06.02 - SHORTNESS OF BREATH SNOMED Code(s): 499186006 Comment: - secondary to her comorbid conditions. will implement palliative care measure
[2018-04-15] MEDS: Morphine ORAL CONCENTRATE* 5 MG/0.25 ML ORAL.SYRIN SL PRN (21:21)
[2018-04-15] MEDS: Amitriptyline TAB* 10 MG PO SCH (22:03)
[2018-04-16] MEDS: Morphine ORAL CONCENTRATE* 5 MG/0.25 ML ORAL.SYRIN SL PRN ×10 (00:23→18:11)
[2018-04-16] MEDS: fentaNYL Patch Check Q Shift 1 NOTE FOLLOW UP SCH ×2 (06:39→18:44)
[2018-04-16] MEDS: Gabapentin CAP(*) 300 MG PO SCH (07:38)
[2018-04-16] MEDS: Lactulose* 15 ML UDC PO SCH ×2 (07:38→12:14)
[2018-04-16] MEDS: Lidocaine PATCH 5%* 1 PATCH TRANSDERM SCH (08:16)
--- NOTE | 2018-04-16 12:19 | PN ---
Subjective Date of Service: 04/16/18 Interval History: I did see the patient this morning. She is declining rapidly! Today she is completely unresponsive. She does have rapid shallow breathing rate 28 bpm. her lower leg cold but not molded. I explained to family my concerns that is imminent Past Medical History: Unchanged from Admission Objective Active Medications: Acetaminophen (Tylenol Adult Liq*) 650 mg PO Q6H PRN PRN Reason: PAIN Fentanyl (Duragesic Patch 12 Mcg/Hr *) 12 mcg TRANSDERM Q72H [facility] Last Admin: 04/14/18 15:58 Dose: 12 mcg Lidocaine (Lidoderm 5% Patch*) 1 patch TRANSDERM QAM [facility] Last Admin: 04/16/18 08:16 Dose: 1 patch Morphine Sulfate (Morphine Oral Concentrate*) 5 mg SL Q1H PRN PRN Reason: PAIN Last Admin: 04/16/18 12:10 Dose: 5 mg Pharmacy Profile Note (Fentanyl Patch Check Q Shift) 1 note FOLLOW UP 0700, 1900 [facility] Last Admin: 04/16/18 06:39 Dose: 1 note Vital Signs - 8 hr 04/16/18 04/16/18 04/16/18 06:40 08:00 08:16 Respiratory 20 22 22 Rate 04/16/18 04/16/18 04/16/18 09:55 10:58 12:10 Respiratory 28 22 24 Rate Appearance: She is unresponsive, labored rapid and shallow breathing. dry oral mucosa. Skin warm except both feet. I don't see changes in skin color as of yet. 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 - At this time patient and family requesting palliative care. - Fentanyl patch 12 mcg but she is not stable for transfer as is imminent. She is breathing rapidly and shallower. Hence I will hold discharge and will need to adjust her medication for further comfort which will pose risk of demise during transfer. Family made aware and they are in agreement. (2) Shortness of breath Current Visit: Yes Status: Acute Code(s): R06.02 - SHORTNESS OF BREATH SNOMED Code(s): 181441064 Comment: - secondary to her comorbid conditions. implemented palliative care measure
[2018-04-16] MEDS ORDERED: fentaNYL PATCH 50 MCG/HR TRANSDERM SCH (18:00)
[2018-04-16] MEDS ORDERED: LORazepam TAB(*) 1 MG SL PRN (18:19)
[2018-04-16] MEDS ORDERED: LORazepam TAB(*) 1 MG ONE (18:22)
[2018-04-16] MEDS ORDERED: Morphine ORAL CONCENTRATE* 5 MG/0.25 ML ORAL.SYRIN SL PRN (18:46)
--- NOTE | 2018-04-18 05:01 | DS ---
CC: Claudine Munoz MD; Claudia Salazar MD; Karolina Hendricks NP * SUMMARY: DATE OF ADMISSION: 04/13/18 DATE OF : 04/16/18 PRIMARY CARE PROVIDER: Claudine Munoz MD FINAL DIAGNOSES: 1. 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 2. Diastolic heart failure. 3. Chronic kidney disease, stage 3. 4. Anemia. 5. Diabetes mellitus. HISTORY OF PRESENT ILLNESS: The patient presented to [facility] on 04/13/18 for altered mental status and end-of-life care. As per her wishes and family requesting to be under comfort and hospice care and comfort measure unable to be managed at [facility], the patient was admitted to our facility. She was placed on the medical floor, complaining of severe abdominal pain acute and did not require any further management or treatment or workup. She was started on p.r.n. morphine sublingual 5 mg q.4 hours along with fentanyl patch 12 mcg q.72 hours. She continued to have some discomfort and pain on the following day. Her fentanyl patch was increased to 25 mcg and Roxanol was increased to 5 mg q.2 hours. That seemed to control her pain slightly, only to realize that 12 hours later her pain continued to worsen, manifested with increased labored breaths and abdominal tenderness. Therefore, family was called and I did discuss with them the potential of progression into possible demise soon. They were all in agreement, family was called. Her fentanyl patch was increased to 50 mcg and her Roxanol was increased to 5 mg q.1 hour. She was given 1 dose of lorazepam secondary to increased agitation and muscle tremors. That combination seemed to calm her respirations. She became more comfortable and on 04/16/18 at 1658, the patient was found pulseless and breathless, and she was pronounced at 1658, family at bedside, aware. The patient was not a candidate for transplant donation, organ donation and the body was released. [id number]/[facility] #: [id number] [facility]
== END 2018-04-16 18:58 | disposition expired | DRG 951 ==
LOC: ED 18:17 → MED 20:28
PROVIDERS: ADMIT Internal Medicine; ATTEND Internal Medicine
DX: Z51.5 Encounter for palliative care (principal); K76.6 Portal hypertension; I50.32 Chronic diastolic (congestive) heart failure; I13.0 Hypertensive heart and chronic kidney disease with heart failure and stage 1 through stage 4 chronic kidney disease, or unspecified chronic kidney disease; I85.10 Secondary esophageal varices without bleeding; R41.82 Altered mental status, unspecified; Z66 Do not resuscitate; E11.22 Type 2 diabetes mellitus with diabetic chronic kidney disease; N18.3 Chronic kidney disease, stage 3 (moderate); K74.69 Other cirrhosis of liver; D50.9 Iron deficiency anemia, unspecified; Z79.4 Long term (current) use of insulin; Z79.899 Other long term (current) drug therapy; Z88.5 Allergy status to narcotic agent; Z88.0 Allergy status to penicillin; Z88.8 Allergy status to other drugs, medicaments and biological substances; Z91.040 Latex allergy status
CPT/HCPCS: 80053; 85025; 99282; A9270-GY